=== PATIENT | female | born 1995 | race African-American/Black ===

== ENCOUNTER 2017-08-17 08:49 | Observation (INO) | payer OTHER, MEDICAID, SELFPAY ==
[2017-08-17] VITALS (10 sets, daily range): BP systolic 98–148; BP diastolic 66–106; PULSE 76–95; RESP 14–18; TEMP 37.3–38; O2SAT 98–100
--- NOTE | 2017-08-17 | PATH_ITS ---
[facility] Accession Number: [id number] . 01 Material submitted: . ENDOMETRIAL CURETTINGS . 02 Diagnosis: Endometrial Curettings: Fragments of proliferative endometrium with focal changes suggestive of exogenous hormone effect and changes of glandular and stromal breakdown, negative for atypia. [facility]/08/20/2017 . 02 Electronically signed: . Juan Quiroz MD, Pathologist NPI- [id number] . 01 Gross description: . Received one formalin-filled container, labeled with the patient's name, labeled endometrial curettings. The specimen consists of approximately a 1 cc aggregate of tissue, mucoid material, and blood, which is filtered, wrapped, and entirely submitted in one cassette. ([id number]) /FRR . 02 Pathologist provided ICD-10: N92.5 . 02 CPT . 113116 Performed at: 01 [facility] [address] [facility], [place], [place] [id number] MD Aniket Hamilton MD Phone: [phone] Performed at: 02 [facility] [address] [place], [place] [id number] MD Oren Randhawa MD Phone: [phone]
--- NOTE | 2017-08-17 08:56 | ED.FEMALEGU ---
HPI - Female Genitourinary General Chief complaint: Vaginal Bleeding Stated complaint: Pain/Vaginal bleeding Time Seen by Provider: 08/17/17 08:56 Source: patient and family Mode of arrival: ambulatory Limitations: no limitations History of Present Illness HPI Narrative: Patient presents to the emergency department with a chief complaint of episodic vaginal bleeding for greater than 70 days, now in the setting of pelvic pain. She initially was evaluated by [facility] and had an outpatient ultrasound noting a questionable mass in her endometrium. She was encouraged to get an MRI for further characterization. She followed up with the emergency department at [facility] last week and had examination including lab work, but no repeat imaging. She was prescribed hydrocodone which she ran out of a few days ago. Patient NPO since 1999 last night. MD Complaint: vaginal bleeding and pelvic pain Onset (ago): day(s) () Location: suprapubic Female Urogenital Radiation: Non-Radiating Severity: moderate Severity scale (1-10): 5 Quality: Aching and Cramping Duration: constant Relieving factors: none Exacerbating factors: none Urinary symptoms: Difficulty Urinating Vaginal discharge: dark blood Patient : No Related Data : 0 Home Medications Medication Instructions Recorded Confirmed No Known Home Medications 08/17/17 08/17/17 Allergies Allergy/AdvReac Type Severity Reaction Status Date / Time No Known Drug Allergies Allergy Verified 08/17/17 09:06 Review of Systems Review of Systems All systems reviewed & are unremarkable except as noted in HPI and below Constitutional Denies chills, Denies fever(s), Denies lethargy and Denies weakness Eyes Denies change in vision, Denies eye discharge, Denies irritation and Denies loss of vision ENT Ears, Nose, Mouth, and Throat: Denies change in voice, Denies neck pain and Denies sore throat Cardiovascular Denies chest pain, Denies irregular heart rhythm, Denies lightheadedness, Denies palpitations, Denies dyspnea, Denies dyspnea on exertion and Denies orthopnea Respiratory Denies cough, Denies dyspnea, Denies dyspnea on exertion and Denies wheezing Genitourinary Reports abnormal vaginal bleeding, Reports pelvic pain and Denies vaginal discharge Musculoskeletal Denies neck pain Integumentary/Breasts Denies pruritus, Denies erythema, Denies rash and Denies wounds Neurologic Denies loss of vision and Denies weakness Endocrine Denies palpitations Hematologic/Lymphatic Denies easy bruising Allergic/Immunologic Denies wheezing PMFSH Past Medical History Attestation statement: The following information was validated with the patient. Medical history: Reports non-contributory Psychiatric history: Reports no psych history STONEMASON history: Reports no STONEMASON history : 0 Family history: Reports no significant family history and non-contributory Exam Narrative Exam Narrative: Pleasant 22-year-old female in mild distress Const General: cooperative and well developed Nutritional Appearance: well nourished Orientation: alert, awake, oriented x3 and not confused [facility] Head: normal to inspection Eyes Pupils: PERRL EOM: EOM intact bilaterally Resp Effort & Inspection: normal respiratory effort, able to speak in complete sentences, no respiratory distress and no use of accessory muscles Auscultation: clear to auscultation bilaterally, no rales, no rhonchi and no wheezes GI Inspection: non-distended Palpation: soft, no hepatosplenomegaly, No guarding, No pulsatile mass and No tender Auscultation: normal bowel sounds Other: Deferred to manager financial services Skin General: no rashes or lesions noted, No jaundice and No petechiae Extrem General: full ROM, no clubbing, cyanosis or edema, no pedal edema and no calf tenderness [facility] - Female Genitourinary Lab Data Result diagrams: 08/17/17 09:55 08/17/17 09:55 Lab Results 08/17/17 08/17/17 08/17/17 Range/Units 09:17 09:55 09:55 WBC 5.4 (4.5-11.0) X10^3/uL RBC 4.10 (4.0-5.2) X10^6/uL Hgb 11.7 L (12.0-16.0) g/dL Hct 35.0 L (36-46) % MCV 85.3 (80-100) fL MCH 28.5 (26-34) PG MCHC 33.4 (30-36) % RDW 14.5 (11.6-14.8) % Plt Count 320 (150-400) X10^3/uL Neut % (Auto) 60.7 (50-75) % Lymph % (Auto) 30.7 (25-40) % George % (Auto) 5.9 (3-14) % Eos % (Auto) 1.9 L (2-4) % Baso % (Auto) 0.8 (0-2) % Neut # (Auto) 3300 (8528-1250) /uL Sodium 145 (137-145) mmol/L Potassium 4.3 (3.4-5.1) mmol/L Chloride 109.0 H (98-107) mmol/L Carbon Dioxide 26.0 (22-32) mmol/L BUN 7.0 (7-17) mg/dL Creatinine 0.90 (0.52-1.04) mg/dL Estimated GFR > 60.0 (>60) mL/min BUN/Creatinine Ratio 7.8 (6-22) Glucose 94 (70-100) mg/dL Calcium 8.8 (8.4-10.2) mg/dL Urine RBC 5-10/hpf H (0-5/HPF) Urine WBC 1-5/hpf (0-5/HPF) Ur Squamous Epith Cells 1-5 /hpf Urine Bacteria Occasional (0-1) (None) Ur Culture Indicated? Cult not indicated Micro UA Comment Not Reportable Course Orders Ordered: ED Orders 08/17/17 09:17 Urine Microscopic Stat 08/17/17 09:55 Basic Metabolic Panel Stat Complete Blood Count AUTO DIFF Stat 08/17/17 12:07 Education, smoking cessation ONGOING Discontinued Medications Hydrocodone Bitart/Acetaminophen ([place] 5/325) 1 tab PO NOW ONE Stop: 08/17/17 09:43 Last Admin: 08/17/17 10:28 Dose: Hydrocodone Bitart/Acetaminophen (Vicodin Prepack) 1 bottle MISC SEEINSTR ONE Stop: 08/17/17 10:55 Last Admin: 08/17/17 12:08 Dose: 1 bottle Ondansetron HCl (Zofran Odt Prepack) 1 bottle MISC SEEINSTR ONE Stop: 08/17/17 10:55 Last Admin: 08/17/17 12:08 Dose: 1 bottle Consultations Consultation #1: I have discussed the case with on-call gynecology today, Dr. Marcus, including ultrasound from July 26, [address] [facility]. She is calling the OR staff and will take for DC when OR time is available in a few hours Time: 10:05 Last Vital Signs Pulse 82 08/17/17 09:35 Resp 14 08/17/17 09:35 BP 121/82 H 08/17/17 09:35 Pulse Ox 99 08/17/17 09:35 Discharge Plan Departure Patient Disposition: Admitted as Observation Clinical Impression: Vaginal bleeding, Pelvic pain
[2017-08-17 10:02] LABS: Add Manual Diff / Slide Review NO; Basophils Percent Auto 0.8 % (0-2); Eosinophils Percent Auto 1.9 % (2-4); Hemoglobin 11.7 g/dL (12.0-16.0); Lymphocytes Percent Auto 30.7 % (25-40); Mean Corpuscular HGB Conc 33.4 % (30-36); Mean Corpuscular Hemoglobin 28.5 PG (26-34); Mean Corpuscular Volume 85.3 fL (80-100); Monocytes Percent Auto 5.9 % (3-14); Neutrophils Absolute Auto 3300 /uL (3000-5900); Neutrophils Percent Auto 60.7 % (50-75); Platelet Count 320 X10^3/uL (150-400); Red Cell Distribution Width 14.5 % (11.6-14.8); White Blood Cell Count 5.4 X10^3/uL (4.5-11.0)
[2017-08-17 10:12] LABS: Bacteria Urine Occasional (0-1); Culture Indicated Urine Cult Not Indicated; RBC Urine 5-10/HPF (0-5/HPF); Squamous Epithelial Cell Urine 1-5 /HPF; WBC Urine 1-5/HPF (0-5/HPF)
[2017-08-17 10:19] LABS: BUN Creatinine Ratio 7.8 (6-22); Calcium 8.8 mg/dL (8.4-10.2); Estimated Glomerular Filt Rate > 60.0 mL/min (>60); Glucose 94 mg/dL (70-100); HEMOLYSIS < 15 (0-50); Potassium 4.3 mmol/L (3.4-5.1); Sodium 145 mmol/L (137-145)
--- NOTE | 2017-08-17 11:53 | PM.GYNHP.1 ---
History of Present Illness Reason for admission: vaginal bleeding Narrative: Sherrill Larose is a 22 year old female 0 who presented to the emergency department with 70 days of vaginal bleeding.\ She has been seen at [facility]. She had an ultrasound done there on 07/26/2017. The uterus measured 8.3 x 3.2 x 5.0 cm. It was anteverted. The endometrium measured 12.4 mm. It was irregular and thickened. There was a suggestion of a hypoechoic mass with flow invading the endometrium measuring 3.4 x 1.8 x 2.5 cm. The right ovary measured 4.6 x 3.2 x 3.1 cm. The left ovary measured 3.9 x 2.0 x 2.2 cm. There was no free fluid in the cul-de-sac. The patient was placed on medroxyprogesterone 10 mg t.i.d.. This has not helped with the bleeding and has increased her pain. She is scheduled for an MRI at [facility] on 08/22/2017. [facility] Medical History [place] teeth extracted (Acute) Social History lives independently: Yes marital status: number of children: 0 household members: spouse Smoking Status: Never smoker passive smoking exposure: No alcohol intake: never substance use type: marijuana Meds Home Medications Medication Instructions Recorded Confirmed Type No Known Home Medications 08/17/17 08/17/17 History Allergies Allergy/AdvReac Type Severity Reaction Status Date / Time No Known Drug Allergies Allergy Verified 08/17/17 09:06 Review of Systems Constitutional Constitutional: Reports as per HPI Gastrointestinal Gastrointestinal: Reports abdominal pain, Reports bloating and Reports cramping Genitourinary Genitourinary: Reports menorrhagia and Reports dysmenorrhea Exam Vital Signs (past 8 hours): Vital Signs - 8 hr 08/17/17 09:01 08/17/17 09:35 Pulse Rate 81 82 Respiratory Rate 15 14 Blood Pressure 148/106 H Blood Pressure [Left Arm] 121/82 H Pulse Oximetry 99 99 Pulse Oximetry 99 Oxygen Delivery Method Room Air Narrative Exam Narrative: Generally: A well-developed, well-nourished female, no acute distress Lungs: Clear to auscultation bilaterally Cardiovascular: Regular rate and rhythm Abdomen: Soft and flat. No masses palpable. No hepatosplenomegaly. Bimanual exam: An 8 week size anteverted uterus. No adnexal masses or tenderness. Extremities: Negative Homans, no edema Objective Labs Result Diagrams: 08/17/17 09:55 08/17/17 09:55 Labs: Laboratory Results - last 24 hr 08/17/17 08/17/17 08/17/17 09:17 09:55 09:55 WBC 5.4 RBC 4.10 Hgb 11.7 L Hct 35.0 L MCV 85.3 MCH 28.5 MCHC 33.4 RDW 14.5 Plt Count 320 Neut % (Auto) 60.7 Lymph % (Auto) 30.7 [place] % (Auto) 5.9 Eos % (Auto) 1.9 L Baso % (Auto) 0.8 Neut # (Auto) 3300 Sodium 145 Potassium 4.3 Chloride 109.0 H Carbon Dioxide 26.0 BUN 7.0 Creatinine 0.90 Estimated GFR > 60.0 BUN/Creatinine Ratio 7.8 Glucose 94 Calcium 8.8 Urine RBC 5-10/hpf H Urine WBC 1-5/hpf Ur Squamous Epith Cells 1-5 /hpf Urine Bacteria Occasional (0-1) Ur Culture Indicated? Cult not indicated Micro UA Comment Not Reportable Assessment & Plan (1) Menometrorrhagia: Current visit: Yes Status: Acute Assessment: 22-year-old 0 with menometrorrhagia and a uterine mass on ultrasound that invades the myometrium Plan: D&C hysteroscopy The risks, benefits, and alternatives to the procedure were explained to the patient. The risks including bleeding, infection, and uterine perforation. She understands these risks and agrees to proceed. A full capital P AR-Q was held and consent form was signed.
--- NOTE | 2017-08-17 12:01 | P.HPOB_ITS ---
History of Present Illness Reason for admission: vaginal bleeding Narrative: Sherrill Larose is a 22 year old female 0 who presented to the emergency department with 70 days of vaginal bleeding.\ She has been seen at [facility]. She had an ultrasound done there on 07/26/2017. The uterus measured 8.3 x 3.2 x 5.0 cm. It was anteverted. The endometrium measured 12.4 mm. It was irregular and thickened. There was a suggestion of a hypoechoic mass with flow invading the endometrium measuring 3.4 x 1.8 x 2.5 cm. The right ovary measured 4.6 x 3.2 x 3.1 cm. The left ovary measured 3.9 x 2.0 x 2.2 cm. There was no free fluid in the cul-de-sac. The patient was placed on medroxyprogesterone 10 mg t.i.d.. This has not helped with the bleeding and has increased her pain. She is scheduled for an MRI at [facility] on 08/22/2017. [facility] Medical History [place] teeth extracted (Acute) Social History lives independently: Yes marital status: number of children: 0 household members: spouse Smoking Status: Never smoker passive smoking exposure: No alcohol intake: never substance use type: marijuana Meds Home Medications Medication Instructions Recorded Confirmed Type No Known Home Medications 08/17/17 08/17/17 History Allergies Allergy/AdvReac Type Severity Reaction Status Date / Time No Known Drug Allergies Allergy Verified 08/17/17 09:06 Review of Systems Constitutional Constitutional: Reports as per HPI Gastrointestinal Gastrointestinal: Reports abdominal pain, Reports bloating and Reports cramping Genitourinary Genitourinary: Reports menorrhagia and Reports dysmenorrhea Exam Vital Signs (past 8 hours): Vital Signs - 8 hr 3 08/17/17 09:01 08/17/17 09:35 Pulse Rate 81 82 Respiratory Rate 15 14 Blood Pressure 148/106 H Blood Pressure [Left Arm] 121/82 H Pulse Oximetry 99 99 Pulse Oximetry 99 Oxygen Delivery Method Room Air Narrative Exam Narrative: Generally: A well-developed, well-nourished female, no acute distress Lungs: Clear to auscultation bilaterally Cardiovascular: Regular rate and rhythm Abdomen: Soft and flat. No masses palpable. No hepatosplenomegaly. Bimanual exam: An 8 week size anteverted uterus. No adnexal masses or tenderness. Extremities: Negative Homans, no edema Objective Labs Result Diagrams: 08/17/17 09:55 08/17/17 09:55 Labs: Laboratory Results - last 24 hr 08/17/17 08/17/17 08/17/17 09:17 09:55 09:55 WBC 5.4 RBC 4.10 Hgb 11.7 L Hct 35.0 L MCV 85.3 MCH 28.5 MCHC 33.4 RDW 14.5 Plt Count 320 Neut % (Auto) 60.7 Lymph % (Auto) 30.7 [place] % (Auto) 5.9 Eos % (Auto) 1.9 L Baso % (Auto) 0.8 Neut # (Auto) 3300 Sodium 145 Potassium 4.3 Chloride 109.0 H Carbon Dioxide 26.0 BUN 7.0 Creatinine 0.90 Estimated GFR > 60.0 BUN/Creatinine Ratio 7.8 Glucose 94 Calcium 8.8 Urine RBC 5-10/hpf H Urine WBC 1-5/hpf Ur Squamous Epith Cells 1-5 /hpf Urine Bacteria Occasional (0-1) Ur Culture Indicated? Cult not indicated Micro UA Comment Not Reportable Assessment & Plan (1) Menometrorrhagia: Current visit: Yes Status: Acute Assessment: 22-year-old 0 with menometrorrhagia and a uterine mass on ultrasound that invades the myometrium Plan: D&C hysteroscopy The risks, benefits, and alternatives to the procedure were explained to the patient. The risks including bleeding, infection, and uterine perforation. She understands these risks and agrees to proceed. A full capital P AR-Q was held and consent form was signed.
--- NOTE | 2017-08-17 12:01 | PM.PREOP ---
Pre-operative Note Interval Note Pre-op Check: History & Physical exam performed today
[2017-08-17] MEDS: HYDROCODONE/ACET 5/325 PREPACK 1 BOTTLE MISC (12:08)
[2017-08-17] MEDS: ONDANSETRON 4 MG ODT PREPACK 1 BOTTLE MISC (12:08)
--- NOTE | 2017-08-17 12:08 | PC.NURSE ---
Prepack of zofran and norco given to patient for after care. Concern is that by the time she is discharged from PACU pharmacy will be closed. Pt verbalized understanding of use. Zofran RX# [id number] [place] RX #[id number]
--- NOTE | 2017-08-17 12:30 | ED_ITS ---
HPI - Female Genitourinary General Chief complaint: Vaginal Bleeding Stated complaint: Pain/Vaginal bleeding Time Seen by Provider: 08/17/17 08:56 Source: patient and family Mode of arrival: ambulatory Limitations: no limitations History of Present Illness HPI Narrative: Patient presents to the emergency department with a chief complaint of episodic vaginal bleeding for greater than 70 days, now in the setting of pelvic pain. She initially was evaluated by [facility] and had an outpatient ultrasound noting a questionable mass in her endometrium. She was encouraged to get an MRI for further characterization. [facility] and had examination including lab work, but no repeat imaging. She was prescribed hydrocodone which she ran out of a few days ago. Patient NPO since 1999 last night. MD Complaint: vaginal bleeding and pelvic pain Onset (ago): day(s) () Location: suprapubic Female Urogenital Radiation: Non-Radiating Severity: moderate Severity scale (1-10): 5 Quality: Aching and Cramping Duration: constant Relieving factors: none Exacerbating factors: none Urinary symptoms: Difficulty Urinating Vaginal discharge: dark blood Patient : No Related Data : 0 Home Medications Medication Instructions Recorded Confirmed No Known Home Medications 08/17/17 08/17/17 Allergies Allergy/AdvReac Type Severity Reaction Status Date / Time No Known Drug Allergies Allergy Verified 08/17/17 09:06 Review of Systems Review of Systems All systems reviewed & are unremarkable except as noted in HPI and below Constitutional Denies chills, Denies fever(s), Denies lethargy and Denies weakness Eyes Denies change in vision, Denies eye discharge, Denies irritation and Denies loss of vision ENT Ears, Nose, Mouth, and Throat: Denies change in voice, Denies neck pain and Denies sore throat Cardiovascular Denies chest pain, Denies irregular heart rhythm, Denies lightheadedness, Denies palpitations, Denies dyspnea, Denies dyspnea on exertion and Denies orthopnea Respiratory Denies cough, Denies dyspnea, Denies dyspnea on exertion and Denies wheezing Genitourinary Reports abnormal vaginal bleeding, Reports pelvic pain and Denies vaginal discharge Musculoskeletal Denies neck pain Integumentary/Breasts Denies pruritus, Denies erythema, Denies rash and Denies wounds Neurologic Denies loss of vision and Denies weakness Endocrine Denies palpitations Hematologic/Lymphatic Denies easy bruising Allergic/Immunologic Denies wheezing PMFSH Past Medical History Attestation statement: The following information was validated with the patient. Medical history: Reports non-contributory Psychiatric history: Reports no psych history TELETYPESETTER MONITOR history: Reports no TELETYPESETTER MONITOR history : 0 Family history: Reports no significant family history and non-contributory Exam Narrative Exam Narrative: Pleasant 22-year-old female in mild distress Const General: cooperative and well developed Nutritional Appearance: well nourished Orientation: alert, awake, oriented x3 and not confused [facility] Head: normal to inspection Eyes Pupils: PERRL EOM: EOM intact bilaterally Resp Effort & Inspection: normal respiratory effort, able to speak in complete sentences, no respiratory distress and no use of accessory muscles Auscultation: clear to auscultation bilaterally, no rales, no rhonchi and no wheezes GI Inspection: non-distended Palpation: soft, no hepatosplenomegaly, No guarding, No pulsatile mass and No tender Auscultation: normal bowel sounds Other: Deferred to marine railway operator Skin General: no rashes or lesions noted, No jaundice and No petechiae Extrem General: full ROM, no clubbing, cyanosis or edema, no pedal edema and no calf tenderness [facility] - Female Genitourinary Lab Data Result diagrams: 08/17/17 09:55 08/17/17 09:55 Lab Results 08/17/17 08/17/17 08/17/17 Range/Units 09:17 09:55 09:55 WBC 5.4 (4.5-11.0) X10^3/uL RBC 4.10 (4.0-5.2) X10^6/uL Hgb 11.7 L (12.0-16.0) g/dL Hct 35.0 L (36-46) % MCV 85.3 (80-100) fL MCH 28.5 (26-34) PG MCHC 33.4 (30-36) % RDW 14.5 (11.6-14.8) % Plt Count 320 (150-400) X10^3/uL Neut % (Auto) 60.7 (50-75) % Lymph % (Auto) 30.7 (25-40) % [place] % (Auto) 5.9 (3-14) % Eos % (Auto) 1.9 L (2-4) % Baso % (Auto) 0.8 (0-2) % Neut # (Auto) 3300 (9776-2164) /uL Sodium 145 (137-145) mmol/L Potassium 4.3 (3.4-5.1) mmol/L Chloride 109.0 H (98-107) mmol/L Carbon Dioxide 26.0 (22-32) mmol/L BUN 7.0 (7-17) mg/dL Creatinine 0.90 (0.52-1.04) mg/dL Estimated GFR > 60.0 (>60) mL/min BUN/Creatinine Ratio 7.8 (6-22) Glucose 94 (70-100) mg/dL Calcium 8.8 (8.4-10.2) mg/dL Urine RBC 5-10/hpf H (0-5/HPF) Urine WBC 1-5/hpf (0-5/HPF) Ur Squamous Epith Cells 1-5 /hpf Urine Bacteria Occasional (0-1) (None) Ur Culture Indicated? Cult not indicated Micro UA Comment Not Reportable Course Orders Ordered: ED Orders 08/17/17 09:17 Urine Microscopic Stat 08/17/17 09:55 Basic Metabolic Panel Stat Complete Blood Count AUTO DIFF Stat 08/17/17 12:07 Education, smoking cessation ONGOING Discontinued Medications Hydrocodone Bitart/Acetaminophen ([place] 5/325) 1 tab PO NOW ONE Stop: 08/17/17 09:43 Last Admin: 08/17/17 10:28 Dose: Hydrocodone Bitart/Acetaminophen (Vicodin Prepack) 1 bottle MISC SEEINSTR ONE Stop: 08/17/17 10:55 Last Admin: 08/17/17 12:08 Dose: 1 bottle Ondansetron HCl (Zofran Odt Prepack) 1 bottle MISC SEEINSTR ONE Stop: 08/17/17 10:55 Last Admin: 08/17/17 12:08 Dose: 1 bottle Consultations Consultation #1: I have discussed the case with on-call gynecology today, Dr. Marcus, including ultrasound from July 26, 2017 at [facility]. She is calling the OR staff and will take for DC when OR time is available in a few hours Time: 10:05 Last Vital Signs Pulse 82 08/17/17 09:35 Resp 14 08/17/17 09:35 BP 121/82 H 08/17/17 09:35 Pulse Ox 99 08/17/17 09:35 Discharge Plan Departure Patient Disposition: Admitted as Observation Clinical Impression: Vaginal bleeding, Pelvic pain
--- NOTE | 2017-08-17 13:46 | PC.NURSE ---
NPO since 2099 last night, 08/16/17.
--- NOTE | 2017-08-17 14:38 | PC.NURSE ---
Called OR to get update on ETA of when patient will be taken over. Was advised about an 1-1.5 hr. Updated patient.
--- NOTE | 2017-08-17 15:45 | PC.NURSE ---
Patient c/o 11/[address] Jean Baptiste made aware. Holding pain medication until Dr. Jean Baptiste can get in touch anesthesia.
--- NOTE | 2017-08-17 17:14 | SUR.OPER ---
Lithotomy on padded OR bed, head on pillow, arms secured on padded arm boards at <90 degrees abduction. Legs secured in padded yellow fins stirrups.
--- NOTE | 2017-08-18 13:07 | PM.GYNOP.1 ---
Operative Date/Time/Diagnoses - Date of procedure: 08/17/17 Time of procedure: 16:10 Pre-op diagnosis: Menometrorrhagia Post-op diagnosis: same Procedure: Procedures Operation Date: 08/17/17 14:00 Actual Procedures Side Surgeon p Dilation and Curettage Betty Marcus MD Indications: Menometrorrhagia Thickened lining on ultrasound Mass invading the myometrium Surgeon: Betty Marcus Anesthesia Type: General (LMA) Operative Notes Findings: 6 week size anteverted uterus Both fallopian tube ostia observed Thickened endometrial lining No polyps or fibroids Closure Type: not applicable Specimen(s): endometrial curettings Estimated blood loss (mL): 10 Blood products transfused: none Procedure in detail: After informed consent was obtained, the patient was taken to the operating room where she was placed in the dorsal supine position. After adequate LMA general anesthesia was achieved, she was placed in the dorsal lithotomy position, and prepped and draped in the usual sterile fashion. A bivalve speculum was placed into the vagina and the anterior lip of the cervix grasped with a single-tooth tenaculum. The cervical os was sequentially dilated to the # 9 Hegar dilator. The hysteroscope passed easily into the endometrial cavity. Initial inspection with the hysteroscope revealed both fallopian tube ostia. There was thickened endometrium throughout. No fibroids or polyps were visualized. The hysteroscope was removed from the uterus. Gentle sharp curettage was performed yielding a moderate amount of endometrial curettings. The instruments were removed from the uterus. The single-tooth tenaculum was removed from the anterior lip of the cervix. The bivalve speculum was removed from the vagina. Sponge, lap, and instrument counts were correct x2. The patient tolerated the procedure well, and was taken to PACU in stable condition. Complications: none Post-operative Condition: stable Disposition: PACU Plan for aftercare: Home after recovery
== END 2017-08-17 17:41 | disposition home or self-care (01) ==
LOC: ED 11:06 → AC 09-13 15:44
PROVIDERS: Admitting Provider Obstetrics & Gynecology; Emergency Provider Emergency Medicine; Visit Provider Obstetrics & Gynecology
PROC: (CPT 58120; principal; 2017-08-17 14:00)
DX: N92.1 Excessive and frequent menstruation with irregular cycle (principal); N93.9 Abnormal uterine and vaginal bleeding, unspecified; R10.2 Pelvic and perineal pain
CPT/HCPCS: 58558; 36415; 58120; 80048; 81003; 81015; 81025; 82962; 85025; 99283; G0378; J1100; J1885; J2405; J2704; J3010

== ENCOUNTER 2017-08-17 17:07 | Emergency (ER) | payer OTHER, MEDICAID, SELFPAY | END 2017-08-17 17:17 | disposition left against medical advice (07) | DX: N93.9 Abnormal uterine and vaginal bleeding, unspecified (principal) | CPT/HCPCS: 99281 ==

== ENCOUNTER 2018-02-19 14:59 | Emergency (ER) | payer OTHER, MEDICAID, SELFPAY ==
[2018-02-19 15:05] VITALS: BP 139/87; PULSE 85; RESP 18; TEMP 37; O2SAT 97; BMI 41.3
--- NOTE | 2018-02-19 15:55 | ED.NAVMDI ---
HPI - Nausea/Vomiting/Diarrhea <AYLEEN Gama - Last Filed: 02/19/18 18:29> General Chief complaint: Nausea/Vomiting/Diarrhea Stated complaint: STOMACH PAIN, DIARRHEA, HX OF FIBROIDS Time Seen by Provider: 02/19/18 15:49 Source: patient Mode of arrival: ambulatory Limitations: no limitations History of Present Illness HPI Narrative: pt c/o diarrhea and abd pain x 2 weeks or longer MD complaint: diarrhea Onset (ago): week(s) (2) Description of Vomiting: watery Description of Diarrhea: watery Associated Abdominal Pain: Yes Location of pain: diffuse Severity: mild Quality: cramping and other (feels like it balls up) Pain Consistency: intermittent Relieving factors: none Exacerbating factors: none Associated symptoms: denies other symptoms Related Data Home Medications Medication Instructions Recorded Confirmed No Known Home Medications 02/19/18 02/19/18 Allergies Allergy/AdvReac Type Severity Reaction Status Date / Time No Known Drug Allergies Allergy Verified 02/19/18 15:10 Review of Systems <AYLEEN Gama - Last Filed: 02/19/18 18:29> Constitutional Reports as per HPI and Reports system reviewed and no additional complaints, except as docu Cardiovascular Denies chest pain and Denies dyspnea Respiratory Denies dyspnea Gastrointestinal Gastrointestinal: Reports as per HPI, Reports abdominal pain, Denies melena, Denies hematochezia, Reports change in bowel habits, Denies change in stool character, Denies constipation, Denies fecal incontinence, Reports diarrhea, Denies nausea and Denies vomiting Genitourinary Denies dysuria Musculoskeletal Denies back pain Exam <AYLEEN Gama - Last Filed: 02/19/18 18:29> Initial Vital Signs Initial Vital Signs: Vital Signs Temperature 98.6 F 02/19/18 15:05 Pulse Rate 85 02/19/18 15:05 Respiratory Rate 18 02/19/18 15:05 Blood Pressure 139/87 02/19/18 15:05 Pulse Oximetry 97 02/19/18 15:05 Const General: cooperative, healthy appearing, comfortable and well developed Nutritional Appearance: average body habitus Orientation: alert, awake and oriented x3 Resp Effort & Inspection: normal respiratory effort and able to speak in complete sentences Auscultation: clear to auscultation bilaterally Cardio Rate: regular rate Rhythm: regular rhythm Heart Sounds: S1 normal and S2 normal GI Inspection: normal to inspection Palpation: soft and No tender Auscultation: normal bowel sounds Back/Spine/Pelvis Cervical Spine: cervical ROM normal Thoracic/Lumbar Spine: thoraco-lumbar ROM limited Skin General: no rashes or lesions noted, elasticity normal, turgor normal and warm Neuro General: alert, awake and oriented x3 Cranial Nerves: CN's II-XI intact bilaterally Cognition: normal cognition Speech: speech normal Motor: muscle tone normal throughout Sensory Exam: no sensory deficits noted Psych Appearance: grossly normal and well kempt Mental Status: mental status grossly normal Speech and Movement: speech and movement normal Mood: congruent mood Affect: normal affect Attitude: cooperative Thought Process: normal Thought Content: normal Judgment: judgment good <Elissa Horn DO - Last Filed: 02/20/18 09:47> Initial Vital Signs Initial Vital Signs: Vital Signs Temperature 98.6 F 02/19/18 15:05 Pulse Rate 85 02/19/18 15:05 Respiratory Rate 18 02/19/18 15:05 Blood Pressure 139/87 02/19/18 15:05 Pulse Oximetry 97 02/19/18 15:05 Course <AYLEEN Gama - Last Filed: 02/19/18 18:29> Course Narrative: results and dc plan discussed, pt to f/u with her pcp if s/s continue Orders Ordered: Discontinued Medications Sodium Chloride (Normal Saline 0.9%) 1,000 mls @ 1,000 mls/hr IV BOLUS ONE Stop: 02/19/18 16:59 Last Admin: 02/19/18 16:40 Dose: 1,000 mls/hr Vital Signs - 8 hr 02/19/18 15:05 02/19/18 16:52 Temperature 98.6 F Pulse Rate 85 Pulse Rate [Orthostatic Lying] 83 Pulse Rate [Orthostatic Sitting] 70 Pulse Rate [Orthostatic Standing] 81 Respiratory Rate 18 Blood Pressure 139/87 Blood Pressure [Orthostatic Lying] 120/72 Blood Pressure [Orthostatic Sitting] 141/97 H Blood Pressure [Orthostatic Standing] 134/99 H Pulse Oximetry 97 <Elissa Horn DO - Last Filed: 02/20/18 09:47> Orders Ordered: Discontinued Medications Sodium Chloride (Normal Saline 0.9%) 1,000 mls @ 1,000 mls/hr IV BOLUS ONE Stop: 02/19/18 16:59 Last Admin: 02/19/18 16:40 Dose: 1,000 mls/hr Vital Signs - 8 hr 02/19/18 15:05 02/19/18 16:52 Temperature 98.6 F Pulse Rate 85 Pulse Rate [Orthostatic Lying] 83 Pulse Rate [Orthostatic Sitting] 70 Pulse Rate [Orthostatic Standing] 81 Respiratory Rate 18 Blood Pressure 139/87 Blood Pressure [Orthostatic Lying] 120/72 Blood Pressure [Orthostatic Sitting] 141/97 H Blood Pressure [Orthostatic Standing] 134/99 H Pulse Oximetry 97 MDM - Nausea/Vomiting/Diarrhea <AYLEEN Gama - Last Filed: 02/19/18 18:29> Differential Diagnosis Likely traveler's diarrhea, food poisoning, gastroenteritis, clostridium difficile infection, dehydration and other Lab Data Result diagrams: 02/19/18 16:40 02/19/18 16:40 Lab Results 02/19/18 02/19/18 Range/Units 16:40 16:40 WBC 7.0 (4.5-11.0) X10^3/uL RBC 4.49 (4.0-5.2) X10^6/uL Hgb 12.8 (12.0-16.0) g/dL Hct 37.9 (36-46) % MCV 84.4 (80-100) fL MCH 28.5 (26-34) PG MCHC 33.8 (30-36) % RDW 14.7 (11.6-14.8) % Plt Count 361 (150-400) X10^3/uL Neut % (Auto) 65.8 (50-75) % Lymph % (Auto) 28.9 (25-40) % Phillips % (Auto) 3.8 (3-14) % Eos % (Auto) 0.5 L (2-4) % Baso % (Auto) 1.0 (0-2) % Neut # (Auto) 4600 (7296-7147) /uL Sodium 143 (137-145) mmol/L Potassium 4.0 (3.4-5.1) mmol/L Chloride 106 (98-107) mmol/L Carbon Dioxide 26 (22-32) mmol/L BUN 11 (7-17) mg/dL Creatinine 0.90 (0.52-1.04) mg/dL Estimated GFR > 60.0 (>60) mL/min BUN/Creatinine Ratio 12.2 (6-22) Glucose 81 (70-100) mg/dL Calcium 9.4 (8.4-10.2) mg/dL Total Bilirubin 0.5 (0.2-1.3) mg/dL AST 30 (14-36) IU/L ALT 20 (9-52) IU/L Alkaline Phosphatase 75 (38-126) U/L Total Protein 8.7 H (6.3-8.2) g/dL Albumin 4.7 (3.5-5.0) g/dL Globulin 4.0 (1.7-4.1) g/dL Albumin/Globulin Ratio 1.2 (1.0-2.8) Amylase 79 (30-110) U/L Lipase 70 (23-300) U/L Point of Care Testing Test Results Negative Urine Dip Bedside Urine Glucose Negative Bedside Urine Bilirubin - Negative Bedside Urine Ketone - Negative Urine Specific [place] 1.030 Bedside Urine Occult Blood - Negative Bedside Urine pH 6.0 Bedside Urine Protein - Negative Bedside Urine Urobilinogen - Negative Bedside Urine Nitrite - Negative Bedside Urine Leukocytes - Negative Esterase <Elissa Horn, DO - Last Filed: 02/20/18 09:47> Lab Data Lab Results 02/19/18 02/19/18 Range/Units 16:40 16:40 WBC 7.0 (4.5-11.0) X10^3/uL RBC 4.49 (4.0-5.2) X10^6/uL Hgb 12.8 (12.0-16.0) g/dL Hct 37.9 (36-46) % MCV 84.4 (80-100) fL MCH 28.5 (26-34) PG MCHC 33.8 (30-36) % RDW 14.7 (11.6-14.8) % Plt Count 361 (150-400) X10^3/uL Neut % (Auto) 65.8 (50-75) % Lymph % (Auto) 28.9 (25-40) % Phillips % (Auto) 3.8 (3-14) % Eos % (Auto) 0.5 L (2-4) % Baso % (Auto) 1.0 (0-2) % Neut # (Auto) 4600 (3818-2503) /uL Sodium 143 (137-145) mmol/L Potassium 4.0 (3.4-5.1) mmol/L Chloride 106 (98-107) mmol/L Carbon Dioxide 26 (22-32) mmol/L BUN 11 (7-17) mg/dL Creatinine 0.90 (0.52-1.04) mg/dL Estimated GFR > 60.0 (>60) mL/min BUN/Creatinine Ratio 12.2 (6-22) Glucose 81 (70-100) mg/dL Calcium 9.4 (8.4-10.2) mg/dL Total Bilirubin 0.5 (0.2-1.3) mg/dL AST 30 (14-36) IU/L ALT 20 (9-52) IU/L Alkaline Phosphatase 75 (38-126) U/L Total Protein 8.7 H (6.3-8.2) g/dL Albumin 4.7 (3.5-5.0) g/dL Globulin 4.0 (1.7-4.1) g/dL Albumin/Globulin Ratio 1.2 (1.0-2.8) Amylase 79 (30-110) U/L Lipase 70 (23-300) U/L Point of Care Testing Test Results Negative Urine Dip Bedside Urine Glucose Negative Bedside Urine Bilirubin - Negative Bedside Urine Ketone - Negative Urine Specific [place] 1.030 Bedside Urine Occult Blood - Negative Bedside Urine pH 6.0 Bedside Urine Protein - Negative Bedside Urine Urobilinogen - Negative Bedside Urine Nitrite - Negative Bedside Urine Leukocytes - Negative Esterase Discharge Plan Departure Patient Disposition: Home Clinical Impression: Diarrhea, Abdominal pain Discharge Date/Time: 02/19/18 17:46 Interventions: ED Discharge Assessment Last Done: 02/19/18 17:44 Instructions: Diarrhea, Acute Abdominal Pain Prescriptions: No Action No Known Home Medications RF: 0 Referrals: Dmitriy Mercado [Primary Care Provider] - (in approx 3 days if symptoms persist) <Elissa Horn DO - Last Filed: 02/20/18 09:47> Cosign ED Attending Cosignature Attestation: I was immediately available in the department for consultation. Documentation has been reviewed. I agree with assessment and plan.
[2018-02-19] MEDS: SODIUM CHLORIDE 0.9% 1,000 ML 1000 ML IV (16:40)
[2018-02-19 16:47] LABS: Add Manual Diff / Slide Review NO; Eosinophils Percent Auto 0.5 % (2-4); Hematocrit 37.9 % (36-46); Hemoglobin 12.8 g/dL (12.0-16.0); Lymphocytes Percent Auto 28.9 % (25-40); Mean Corpuscular HGB Conc 33.8 % (30-36); Mean Corpuscular Hemoglobin 28.5 PG (26-34); Mean Corpuscular Volume 84.4 fL (80-100); Monocytes Percent Auto 3.8 % (3-14); Neutrophils Absolute Auto 4600 /uL (3000-5900); Neutrophils Percent Auto 65.8 % (50-75); Platelet Count 361 X10^3/uL (150-400); Red Blood Cell Count 4.49 X10^6/uL (4.0-5.2); Red Cell Distribution Width 14.7 % (11.6-14.8)
[2018-02-19 16:52] VITALS: BP 120/72; BP 134/99; BP 141/97; PULSE 70; PULSE 81; PULSE 83
[2018-02-19 16:59] LABS: Alanine Aminotransferase 20 IU/L (9-52); Albumin 4.7 g/dL (3.5-5.0); Albumin Globulin Ratio 1.2 (1.0-2.8); Alkaline Phosphatase 75 U/L (38-126); Amylase 79 U/L (30-110); Aspartate Aminotransferase 30 IU/L (14-36); BUN Creatinine Ratio 12.2 (6-22); Bilirubin Total 0.5 mg/dL (0.2-1.3); Blood Urea Nitrogen 11 mg/dL (7-17); Calcium 9.4 mg/dL (8.4-10.2); Carbon Dioxide 26 mmol/L (22-32); Chloride 106 mmol/L (98-107); Estimated Glomerular Filt Rate > 60.0 mL/min (>60); Glucose 81 mg/dL (70-100); HEMOLYSIS < 15 (0-50); Lipase 70 U/L (23-300); Sodium 143 mmol/L (137-145); Total Protein 8.7 g/dL (6.3-8.2)
--- NOTE | 2018-03-12 22:58 | PC.NURSE ---
Late entry: IV Bolus stopped at 1715. Full 1000 mL administered.
== END 2018-02-19 17:46 | disposition home or self-care (01) ==
PROVIDERS: Emergency Provider Nurse Practitioner; Family Provider Physician Assistant Medical; PCP Physician Assistant Medical
DX: R19.7 Diarrhea, unspecified (principal); R10.9 Unspecified abdominal pain
CPT/HCPCS: 36591; 80053; 81003; 81025; 82150; 83690; 85025; 96360; 99283; 99284

== ENCOUNTER 2018-04-13 03:45 | Emergency (ER) | payer OTHER, MEDICAID, SELFPAY ==
[2018-04-13 03:54] VITALS: BP 125/103; PULSE 86; RESP 16; TEMP 36.6; O2SAT 97
[2018-04-13 04:07] LABS: WBC Urine None Seen (0-5/HPF)
[2018-04-13 04:08] LABS: Bilirubin Urine UA NEGATIVE (NEGATIVE); Color Urine UA YELLOW; Glucose Urine UA NEGATIVE (Negative); Ketones Urine UA NEGATIVE (NEGATIVE); Leukocyte Esterase Urine UA NEGATIVE (NEGATIVE); Nitrite Urine UA NEGATIVE (Negative); Occult Blood Urine UA 3+ (Negative); Protein Urine UA TRACE (Negative); Specific Gravity Urine UA 1.015 (1.000-1.035); Urobilinogen Urine UA 0.2 E.U./dL (0.2)
[2018-04-13 04:11] LABS: Appearance Urine UA Slightly Cloudy
--- NOTE | 2018-04-13 04:27 | ED_ITS ---
HPI - Female Genitourinary General Chief complaint: Urogenital-Female Stated complaint: pelvic pain x3 hours Time Seen by Provider: 04/13/18 04:12 Source: patient Mode of arrival: ambulatory Limitations: no limitations History of Present Illness HPI Narrative: 22-year-old female, nonsmoker with extensive history of intense pelvic pain with her menses presents with pelvic pain for the past 3 hr. She states she just started her menses tonight and is bleeding but certainly not any more heavy than normal. She denies any vaginal discharge. She is not dizzy nor weak or lightheaded. She had a small amount of vomit once. She denies any fever or chills. This is very similar to the pain she experiences every month but slightly intense. She took Motrin at home. She is not on any control but is sexually active MD Complaint: pelvic pain Onset (ago): hour(s) Location: suprapubic Severity: moderate Quality: Cramping Duration: intermittent Relieving factors: none Exacerbating factors: none Vaginal discharge: blood Patient : No Related Data Previous Rx's Medication Instructions Recorded hydrocodone-acetaminophen 1 tab PO Q4-6H PRN #10 tab 04/13/18 Allergies Allergy/AdvReac Type Severity Reaction Status Date / Time No Known Drug Allergies Allergy Verified 02/19/18 15:10 Review of Systems Review of Systems All systems reviewed & are unremarkable except as noted in HPI and below Constitutional Denies chills, Denies fever(s), Denies lethargy and Denies weakness Eyes Denies change in vision, Denies eye discharge, Denies irritation and Denies loss of vision ENT Ears, Nose, Mouth, and Throat: Denies change in voice, Denies neck pain and Denies sore throat Cardiovascular Denies chest pain, Denies irregular heart rhythm, Denies lightheadedness, Denies palpitations, Denies dyspnea, Denies dyspnea on exertion and Denies orthopnea Respiratory Denies cough, Denies dyspnea, Denies dyspnea on exertion and Denies wheezing Gastrointestinal Gastrointestinal: Denies abdominal pain, Denies change in bowel habits, Denies diarrhea, Denies nausea and Denies vomiting Genitourinary Denies hematuria, Reports pelvic pain, Denies flank pain, Denies urinary incontinence and Denies urinary urgency Musculoskeletal Denies neck pain Integumentary/Breasts Denies pruritus, Denies erythema, Denies rash and Denies wounds Neurologic Denies confusion, Denies loss of vision and Denies weakness Psychiatric Denies anxiety, Denies confusion, Denies depression, Denies homicidal ideation and Denies suicidal ideation Endocrine Denies palpitations Hematologic/Lymphatic Denies easy bruising Allergic/Immunologic Denies wheezing PFSH Medical History [place] teeth extracted (Acute) Social History number of children: 0 household members: spouse lives independently: Yes Smoking Status: Never smoker alcohol intake: never substance use type: marijuana Exam Narrative Exam Narrative: GEN: 22F obese female obviously in pain, rocking on the cart EYES: Pupils are equal, round, and reactive to light and accommodation. Extraoccular muscles are intact bilaterally. There is no subconjunctival hemorrhage or exudate. CHEST: Lungs are clear to auscultation bilaterally and free of wheezes, rales, or rhonchi. Heart rate is regular rhythm, there are no murmurs, clicks, rubs, or gallops. There is no chest wall tenderness. ABD: Abdomen is soft and mild suprapubic tenderness. There is no guarding or rebound. Bowel sounds are normal in all 4 quadrants. There is no mass or organomegaly. EXT: Full painless ROM of all extremities with no loss of sensation or strength. SKIN: Warm, pink, and dry. No erythema or rash Initial Vital Signs Initial Vital Signs: Vital Signs Temperature 97.9 F 04/13/18 03:54 Pulse Rate 86 04/13/18 03:54 Respiratory Rate 16 04/13/18 03:54 Blood Pressure 125/103 H 04/13/18 03:54 Pulse Oximetry 97 04/13/18 03:54 Course Orders Ordered: ED Orders 04/13/18 04:00 Urinalysis and Microscopic Stat Discontinued Medications Hydromorphone HCl (Dilaudid) 1 mg IM NOW ONE Stop: 04/13/18 04:23 Last Admin: 04/13/18 04:30 Dose: 1 mg Ondansetron HCl (Zofran Odt Prepack) 1 bottle MISC SEEINSTR ONE Stop: 04/13/18 04:22 Last Admin: 04/13/18 04:30 Dose: 1 bottle Vital Signs - 8 hr 04/13/18 03:54 04/13/18 04:57 Temperature 97.9 F Pulse Rate 86 77 Respiratory Rate 16 16 Blood Pressure 125/103 H Blood Pressure [Right Arm] 131/81 Pulse Oximetry 97 96 MDM - Female Genitourinary Lab Data Lab Results 04/13/18 Range/Units 04:00 Urine Color Yellow Urine Appearance Slightly cloudy Urine pH 8.0 (4.5-8.0) Ur Specific [place] 1.015 (1.000-1.035) Urine Protein Trace H (Negative) Urine Glucose (UA) Negative (Negative) g/dL Urine Ketones Negative (NEGATIVE) Urine Occult Blood 3+ H (Negative) Urine Nitrate Negative (Negative) Urine Bilirubin Negative (NEGATIVE) Urine Urobilinogen 0.2 (0.2) E.U./dL Ur Leukocyte Esterase Negative (NEGATIVE) Urine RBC 5-10/hpf H (0-5/HPF) Urine WBC None seen (0-5/HPF) Ur Squamous Epith Cells 1-5 /hpf Triple Phos Crystals Moderate Amorphous Sediment 4+ Urine Bacteria Few (2-10) H (None) Urine Mucus 1+ H (Negative) Ur Culture Indicated? Cult not indicated Micro UA Comment Not Reportable Point of Care Testing Test Results Negative MDM Narrative Medical decision making narrative: 22F otherwise healthy with extensive hx of severe pelvic pain with menses. Presents under circumstances which are very familiar to her. She has no other systemic findings. Bleeding is minimal. She would prefer to avoid labs and imaging at this point in time. Discharge Plan Departure Patient Disposition: Home Clinical Impression: Dysmenorrhea Discharge Date/Time: 04/13/18 05:05 Interventions: ED Discharge Assessment Last Done: 04/13/18 05:04 Instructions: DI for Dysmenorrhea Activity Restrictions/Additional Instructions: *You have been diagnosed with [ dysmenorrhea ] *What to do: *Take medications as directed *Follow up with your primary care provider in 2-3 days, call for an appointment. Let them know you were seen in the Emergency Department and that we ask that you be seen in follow up. Additionally, I have provided contact information for Dr. Marcus the special machine stitcher took him to the operating room last time. *Return to ER if you should have any new, worsening or concerning symptoms , such as fever over 101 F, persistent vomiting, worsening pain or other bothersome symptoms] Prescriptions: New hydrocodone-acetaminophen 5-325 mg tablet 1 tab PO Q4-6H PRN (Reason: pain) Qty: 10 RF: 0 Referrals: Betty Marcus MD [Physician] - Dmitriy Mercado [Primary Care Provider] -
[2018-04-13] MEDS: HYDROMORPHONE 2 MG INJ 1 MG IM (04:30)
[2018-04-13] MEDS: ONDANSETRON 4 MG ODT PREPACK 1 BOTTLE MISC (04:30)
[2018-04-13 04:31] LABS: Amorphous Sediment Urine 4+; Mucus Urine 1+ (Negative); RBC Urine 5-10/HPF (0-5/HPF); Squamous Epithelial Cell Urine 1-5 /HPF; Triple Phosphate Crystal Urine Moderate
[2018-04-13 04:32] LABS: Bacteria Urine Few (2-10); Culture Indicated Urine Cult Not Indicated
[2018-04-13 04:57] VITALS: BP 131/81; PULSE 77; RESP 16; O2SAT 96
== END 2018-04-13 05:05 | disposition home or self-care (01) ==
PROVIDERS: Emergency Provider Emergency Medicine; Family Provider Physician Assistant Medical; PCP Physician Assistant Medical
DX: N94.6 Dysmenorrhea, unspecified (principal)
CPT/HCPCS: 81001; 81025; 96372; 99283; J1170

== ENCOUNTER 2018-08-29 07:33 | Emergency (ER) | payer OTHER, MEDICAID, SELFPAY ==
[2018-08-29 07:45] VITALS: BP 119/90; PULSE 75; RESP 18; TEMP 36.6; O2SAT 97; BMI 40.1
--- NOTE | 2018-08-29 08:16 | ED.ABDPAIN ---
HPI - Abdominal Pain General Chief Complaint: Abdominal Pain Stated Complaint: ABOMDINAL PAIN Time Seen by Provider: 08/29/18 08:15 Source: patient and family () Mode of arrival: ambulatory Limitations: no limitations History of Present Illness HPI narrative: This is a 23-year-old female who states that she is having very painful.. Patient states she has irregular menses. There often uncomfortable she has trouble controlling the pain but today was much worse. She tried Motrin at home as well as some diclofenac without improvement. She is having sort of lower pelvic discomfort, she states a very mild cramping in the back but almost all in the front. It feels like her typical cramping but much more intense. She is having vaginal bleeding a little bit more increased amount today than yesterday. She denies any vaginal discharge or odor. She states she will typically have heavy periods. No fevers. She feels slightly nauseated states she threw up a couple times last night. She denies any upper abdominal pain or flank pain. She has not had any diarrhea or constipation. No urgency frequency or dysuria. She felt warm yesterday but no objective fevers. She denies any other past medical history, she denies any surgeries. She denies any allergies to medications. She is accompanied by her . Related Data Previous Rx's Medication Instructions Recorded diclofenac potassium 50 mg PO BID PRN #20 cap 08/29/18 Allergies Allergy/AdvReac Type Severity Reaction Status Date / Time No Known Drug Allergies Allergy Verified 07/29/18 16:58 Review of Systems Review of Systems ROS Unobtainable: All systems reviewed & are unremarkable except as noted in HPI and below Constitutional Denies chills, Denies fever(s) ([place] warm at home), Denies lethargy and Denies weakness Gastrointestinal Gastrointestinal: Reports abdominal pain (Lower pelvic pain), Denies change in stool character, Denies diarrhea, Reports nausea and Reports vomiting (Last night) Genitourinary Reports as per HPI, Reports abnormal menses (Typically has irregular.), Denies hematuria, Denies urinary frequency, Denies genital lesions, Denies dysuria, Reports pelvic pain (Cramping), Denies flank pain, Denies urinary incontinence, Denies urinary urgency, Denies vaginal discharge and Denies vaginal odor Musculoskeletal Denies back pain Neurologic Denies weakness PFSH Medical History [place] teeth extracted (Acute) Social History (System 07/29/18 @ 16:58 by Emma Carmona) number of children: 0 household members: spouse lives independently: Yes Smoking Status: Current every day smoker alcohol intake: never substance use type: marijuana Social History number of children: 0 household members: spouse lives independently: Yes Smoking Status: Current every day smoker alcohol intake: never substance use type: marijuana Exam Narrative Exam Narrative: GENERAL: Alert and oriented x three, well-nourished, well-appearing female in [id number] distress. HEENT: Head normocephalic, atraumatic, EOMI, pupils reactive, face symmetric, moist mucous membranes NECK: Supple, full range of motion CARDIOVASCULAR: Regular rate and rhythm without murmurs, rubs or gallops. RESPIRATORY: Breath sounds equal bilaterally, no wheezes rales or rhonchi. ABDOMEN: Soft, nontender to palpation. Normoactive bowel sounds all 4 quadrants. No guarding or rebound, rigidity, no mass : No CVA tenderness EXTREMITIES: Normal range of motion, no clubbing or edema. Neurovascularly intact NEUROLOGICAL: Cranial nerves II through XII grossly intact. Moving all extremities SKIN: Warm, dry, no petechiae, no rashes or lesions. Initial Vital Signs Initial Vital Signs: Vital Signs Temperature 97.8 F 08/29/18 07:45 Pulse Rate 75 08/29/18 07:45 Respiratory Rate 18 08/29/18 07:45 Blood Pressure 119/90 08/29/18 07:45 Pulse Oximetry 97 08/29/18 07:45 Course Orders Ordered: Discontinued Medications Ketorolac Tromethamine (Toradol) 60 mg IM NOW ONE Stop: 08/29/18 08:24 Last Admin: 08/29/18 08:27 Dose: 60 mg Morphine Sulfate (Morphine) 4 mg IM NOW ONE Stop: 08/29/18 09:25 Last Admin: 08/29/18 09:36 Dose: 4 mg Ondansetron HCl (Zofran Odt) 4 mg SL NOW ONE Stop: 08/29/18 08:24 Last Admin: 08/29/18 08:27 Dose: 4 mg Vital Signs - 8 hr 08/29/18 07:45 Temperature 97.8 F Pulse Rate 75 Respiratory Rate 18 Blood Pressure 119/90 Pulse Oximetry 97 MDM - Abdominal Pain Lab Data Attestation: I reviewed the patient's lab results. Lab Results 08/29/18 Range/Units 08:11 Urine RBC >100/hpf H (0-5/HPF) Urine WBC 0-1/hpf (0-5/HPF) Ur Squamous Epith Cells 1-5 /hpf (0-5/HPF) Triple Phos Crystals Occasional Urine Bacteria Few (2-10) H (None) Urine Mucus 1+ H (Negative) Ur Culture Indicated? Cult not indicated Point of care testing: Point of Care Testing Test Results Negative Urine Dip Bedside Urine Glucose Negative Bedside Urine Bilirubin - Negative Bedside Urine Ketone - Negative Urine Specific [place] 1.025 Bedside Urine Occult Blood +++ Bedside Urine pH 7.0 Bedside Urine Protein + 30 Bedside Urine Urobilinogen +/- 1mg Bedside Urine Nitrite - Negative Bedside Urine Leukocytes +/- 15 Esterase MDM Narrative Medical decision making narrative: Patient's urine is negative. Patient states she typically has ?bad periods? but this once worse. I suspect she is having exacerbation. Try some Toradol as well as Zofran sublingually. She has benign abdominal exam with no alarming or red flag symptoms. We will reassess after medications, patient states pain is 7/10. Requesting some additional pain medication. She refers IM over p.o. medications so offered morphine 4 mg IM. Patient is out of her diclofenac so we will refill this for her. She is starting to feel better and feels comfortable returning home. Urine shows some leukocyte esterase but no nitrates she has been asymptomatic so sent for urine culture and will recontact if possible. Discharge Plan Departure Patient Disposition: Home Clinical Impression: Dysmenorrhea Discharge Date/Time: 08/29/18 10:05 Interventions: ED Discharge Assessment Last Done: 08/29/18 10:04 Instructions: Dysmenorrhea (Alternative Therapy) Activity Restrictions/Additional Instructions: Follow-up with your primary care physician in the next week as needed. There are some options for control of painful irregular periods the may wish to discuss. Take medication as prescribed. Return to the emergency department for fevers greater than 100.4, persistent vomiting, black or bloody stools, new abdominal pain or changing location or intensity of pain, rapidly increasing vaginal bleeding, lightheadedness, passing out, new urinary symptoms or other new or concerning symptoms. Prescriptions: New diclofenac potassium 25 mg capsule 50 mg PO BID PRN (Reason: pain) Qty: 20 RF: 0 Referrals: Dmitriy Mercado [Primary Care Provider] -
[2018-08-29] MEDS: KETOROLAC 60 MG/2 ML VIAL IM (08:27)
[2018-08-29] MEDS: ONDANSETRON 4 MG ODT SL (08:27)
[2018-08-29 08:38] LABS: Bacteria Urine Few (2-10); Culture Indicated Urine Cult Not Indicated; Mucus Urine 1+ (Negative); RBC Urine >100/HPF (0-5/HPF); Squamous Epithelial Cell Urine 1-5 /HPF (0-5/HPF); Triple Phosphate Crystal Urine Occasional; WBC Urine 0-1/HPF (0-5/HPF)
[2018-08-29] MEDS: MORPHINE 4 MG/ML INJ IM (09:36)
[2018-08-29 10:04] VITALS: BP 124/86; PULSE 86; RESP 16; O2SAT 100
== END 2018-08-29 10:05 | disposition home or self-care (01) ==
PROVIDERS: Emergency Provider Emergency Medicine; Family Provider Physician Assistant Medical; PCP Physician Assistant Medical
DX: N94.6 Dysmenorrhea, unspecified (principal)
CPT/HCPCS: 81003; 81015; 81025; 96372; 99283; J1885; J2270

== ENCOUNTER 2019-06-23 09:09 | Emergency (ER) | payer MEDICAID, SELFPAY ==
[2019-06-23 09:15] VITALS: BP 148/110; PULSE 71; RESP 18; TEMP 35.9; O2SAT 100; BMI 34.8
--- NOTE | 2019-06-23 09:17 | ED.FEMALEGU ---
HPI - Female Genitourinary General Chief complaint: Vaginal Bleeding Stated complaint: Excessive bleeding vaginally Time Seen by Provider: 06/23/19 09:10 Source: patient Mode of arrival: Ambulatory Limitations: no limitations History of Present Illness HPI Narrative: 23-year-old female smoker presents with 5 days of increasing vaginal pain and heavy bleeding. This is the normal timing for her menses which normally last 3 days. She has never had heavy bleeding such as this. She is sexually active but denies any vaginal discharge. She denies any injury or trauma. She is dizzy, lightheaded and weak. She denies any change in diet or medication dosing, frequency or type. She has never been and denies any chance she is currently . She has had no fever or chills. Her pelvic pain is lower, centralized and persistent MD Complaint: vaginal bleeding and pelvic pain Onset (ago): day(s) Location: suprapubic Severity: mild Quality: Aching Duration: constant Exacerbating factors: menstrual period and movement Vaginal discharge: blood and dark blood Patient : No Related Data Previous Rx's Medication Instructions Recorded hydrocodone-acetaminophen 1 tab PO Q4-6H PRN #10 tab 06/23/19 ketorolac 10 mg PO Q6H PRN #14 tab 06/23/19 ondansetron 4 mg PO TID-QID PRN #10 tab 06/23/19 Allergies Allergy/AdvReac Type Severity Reaction Status Date / Time No Known Drug Allergies Allergy Verified 06/23/19 09:31 Review of Systems Constitutional Constitutional: Denies chills, Denies fatigue, Denies fever(s), Denies frequent falls, Denies lethargy and Reports weakness Eyes Eyes: Denies change in vision, Denies eye discharge, Denies irritation and Denies loss of vision ENT Ears, Nose, Mouth, and Throat: Denies change in voice, Denies dizziness, Denies neck pain, Denies sore throat and Denies throat swelling Cardiovascular Cardiovascular: Denies chest pain, Denies irregular heart rhythm, Reports lightheadedness, Denies palpitations, Denies dyspnea, Denies dyspnea on exertion and Denies orthopnea Respiratory Respiratory: Denies cough, Denies dyspnea, Denies dyspnea on exertion and Denies wheezing Gastrointestinal Gastrointestinal: Denies abdominal pain, Denies change in bowel habits, Denies diarrhea, Denies nausea and Denies vomiting Genitourinary Genitourinary: Reports abnormal vaginal bleeding, Denies hematuria, Reports pelvic pain, Denies flank pain, Denies urinary incontinence and Denies urinary urgency Musculoskeletal Musculoskeletal: Denies back pain, Denies muscle weakness, Denies neck pain, Denies numbness and Denies tingling Integumentary/Breasts Skin/Breast: Denies pruritus, Denies erythema, Denies rash and Denies wounds Neurologic Neurologic: Denies behavioral changes, Denies confusion, Denies dizziness, Denies frequent falls, Denies loss of vision, Denies numbness, Denies tingling and Reports weakness Psychiatric Psychiatric: Denies anxiety, Denies behavioral changes, Denies confusion, Denies depression, Denies homicidal ideation and Denies suicidal ideation Endocrine Endocrine: Denies fatigue, Denies flushing and Denies palpitations Hematologic/Lymphatic Hematologic/Lymphatic: Denies easy bruising Allergic/Immunologic Allergic/Immunologic: Denies urticaria, Denies throat swelling and Denies wheezing Patient History Surgical History [place] teeth extracted (Acute) alcohol intake frequency: holidays/special occasions only Substance Use Type: marijuana Exam Narrative Exam Narrative: GENERAL: 23 year old patient appears stated age. Well-nourished, well-developed patient, in mild distress. HEAD: Atraumatic. Normocephalic. EYES: Pupils equal round and reactive. Extraocular motions intact. No scleral icterus. No injection or drainage. ENT: Nose without bleeding, purulent drainage. Throat without erythema, tonsillar hypertrophy or exudate. Airway patent. NECK: Trachea midline. Non tender CARDIOVASCULAR: Regular rate and rhythm without murmurs, gallops, or rubs. RESPIRATORY: Clear to auscultation. Breath sounds equal bilaterally. No wheezes, rales, or rhonchi. GASTROINTESTINAL: Abdomen soft, tender in suprapubic region, nondistended. EXTREMITIES: No edema or joint tenderness. BACK: Nontender without deformity or crepitance. No flank tenderness. NEURO: AOx3. SKIN: No rash or erythema of visible areas Initial Vital Signs Initial Vital Signs: Vital Signs Temperature 96.7 F L 06/23/19 09:15 Pulse Rate 71 06/23/19 09:15 Respiratory Rate 18 06/23/19 09:15 Blood Pressure 148/110 H 06/23/19 09:15 Pulse Oximetry 100 06/23/19 09:15 Course Orders Ordered: ED Orders 06/23/19 09:16 US pelvic complete Stat 06/23/19 09:28 Basic Metabolic Panel Stat Complete Blood Count AUTO DIFF Stat Partial Thromboplastin Time Stat Prothrombin Time INR Stat Type and Screen Stat Discontinued Medications Hydromorphone HCl (Dilaudid) 1 mg IV NOW ONE Stop: 06/23/19 10:18 Last Admin: 06/23/19 10:21 Dose: 1 mg Documented by: PER Ketorolac Tromethamine (Toradol) 15 mg IV NOW ONE Stop: 06/23/19 09:33 Last Admin: 06/23/19 09:38 Dose: 15 mg Documented by: PER Vital Signs Vital signs: Vital Signs - 8 hr 06/23/19 09:15 06/23/19 10:58 06/23/19 11:00 Temperature 96.7 F L Pulse Rate 71 62 58 L Respiratory Rate 18 18 Blood Pressure 148/110 H Blood Pressure [Left Wrist] 128/76 109/59 L Pulse Oximetry 100 99 99 06/23/19 11:42 Temperature Pulse Rate 74 Respiratory Rate 15 Blood Pressure Blood Pressure [Left Wrist] 123/74 Pulse Oximetry 99 MDM - Female Genitourinary Lab Data Result diagrams: 06/23/19 09:28 06/23/19 09:28 Labs: Lab Results 06/23/19 06/23/19 06/23/19 Range/Units 09:28 09:28 09:28 WBC 4.7 (4.5-11.0) X10^3/uL RBC 4.13 (4.0-5.2) X10^6/uL Hgb 12.2 (12.0-16.0) g/dL Hct 36.9 (36-46) % MCV 89.3 (80-100) fL MCH 29.6 (26-34) PG MCHC 33.2 (30-36) % RDW 14.2 (11.6-14.8) % Plt Count 376 (150-400) X10^3/uL Neut % (Auto) 43.7 L (50-75) % Lymph % (Auto) 45.5 H (25-40) % [place] % (Auto) 6.4 (3-14) % Eos % (Auto) 3.8 (2-4) % Baso % (Auto) 0.6 (0-2) % Neut # (Auto) 2100 (6546-4509) /uL Lymph # (Auto) 2200 (3577-3496) /uL [place] # (Auto) 300 (0-900) /uL Eos # (Auto) 200 (0-450) /uL Baso # (Auto) 0 (0-100) /uL PT 11.2 (10.1-12.7) SECONDS INR 1.0 (0.9-1.3) APTT 28 (26.4-36.2) SECONDS Sodium 139 (137-145) mmol/L Potassium 4.3 (3.4-5.1) mmol/L Chloride 110 H (98-107) mmol/L Carbon Dioxide 23 (22-32) mmol/L BUN 13 (7-17) mg/dL Creatinine 0.96 (0.52-1.04) mg/dL Estimated GFR > 60.0 (>60) mL/min BUN/Creatinine Ratio 13.5 (6-22) Glucose 94 (70-100) mg/dL Calcium 8.7 (8.4-10.2) mg/dL Blood Type Antibody Screen 06/23/19 Range/Units 09:28 WBC (4.5-11.0) X10^3/uL RBC (4.0-5.2) X10^6/uL Hgb (12.0-16.0) g/dL Hct (36-46) % MCV (80-100) fL MCH (26-34) PG MCHC (30-36) % RDW (11.6-14.8) % Plt Count (150-400) X10^3/uL Neut % (Auto) (50-75) % Lymph % (Auto) (25-40) % [place] % (Auto) (3-14) % Eos % (Auto) (2-4) % Baso % (Auto) (0-2) % Neut # (Auto) (8401-0630) /uL Lymph # (Auto) (0352-1515) /uL [place] # (Auto) (0-900) /uL Eos # (Auto) (0-450) /uL Baso # (Auto) (0-100) /uL PT (10.1-12.7) SECONDS INR (0.9-1.3) APTT (26.4-36.2) SECONDS Sodium (137-145) mmol/L Potassium (3.4-5.1) mmol/L Chloride (98-107) mmol/L Carbon Dioxide (22-32) mmol/L BUN (7-17) mg/dL Creatinine (0.52-1.04) mg/dL Estimated GFR (>60) mL/min BUN/Creatinine Ratio (6-22) Glucose (70-100) mg/dL Calcium (8.4-10.2) mg/dL Blood Type B Positive Antibody Screen Negative Point of Care Testing Test Results Negative Urine Dip Bedside Urine Glucose Negative Bedside Urine Bilirubin - Negative Bedside Urine Ketone +/- 5 Urine Specific [place] 1.020 Bedside Urine Occult Blood ++ Bedside Urine pH 7.0 Bedside Urine Protein +/- 15 Bedside Urine Urobilinogen +/- 1mg Bedside Urine Nitrite - Negative Bedside Urine Leukocytes - Negative Esterase Imaging Data Pelvic US: Radiologist's Impression: [address] [address] Ultrasound Report Signed Patient: Sherrill Larose HMR#: [id number] : 1995Acct:[id number] Age/Sex: te of Service: 06/23/19 Loc: ED Accession Number: [id number] Procedure: US pelvic complete Ordering Provider: Noel Jean Baptiste D.O. PROCEDURE: US PELVIC COMPLETE INDICATIONS: SEVERE PELVIC PAIN, HEAVY BLEEDING TECHNIQUE: Real-time scanning was performed of the pelvic organs, with image documentation. Additional endovaginal scanning was necessary due to incomplete visualization of the adnexal and endometrial structures by transabdominal scanning. COMPARISON: None. FINDINGS: Transabdominal scanning: Limited scanning through the kidneys shows no hydronephrosis. No pathologic free abdominal or pelvic fluid. Endovaginal scanning: Uterus: Uterus is normal in size at 7.5 x 4.4 x 4.6 cm. The endometrium measures 5.9 mm in combined thickness. Focal thickening is present measuring 6 x 4 mm. Ovaries: Right ovary measures 3.5 x 2.5 x 2.7 cm. Left ovary measures 3.6 x 1.7 x 1.6 cm. They are unremarkable. IMPRESSION: Focal thickening of the endometrium as above. It is nonspecific on the basis of this exam. 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 Dictated by: Key Tirado M.D. on 06/23/2019 at 9:02 Approved by: Key Tirado M.D. on 06/23/2019 at 9:11 [facility] Narrative Medical decision making narrative: 23-year-old female presents with pelvic pain and vaginal bleeding. She has a very reassuring set of vital signs, labs demonstrate no anemia. Exam is very reassuring as minimal bleeding noted. Ultrasound notes thickened endometrium. I have discussed this case with on-call Ob and we sure the opinion that given such reassuring history, physical, exam is that there is not a current indication for medroxyprogesterone. Return precautions given, questions answered to her apparent satisfaction. Discharge Plan Departure Patient Disposition: Home Clinical Impression: Menorrhagia Qualifiers: Menorrhagia type: with regular cycle Qualified Code(s): N92.0 - Excessive and frequent menstruation with regular cycle Discharge Date/Time: 06/23/19 12:34 Instructions: DI for Menorrhagia Activity Restrictions/Additional Instructions: *You have been diagnosed with [menorrhagia] *What to do: *Take medications as directed *Follow up with your primary care provider in 2-3 days, call for an appointment. Let them know you were seen in the Emergency Department and that we ask that you be seen in follow up *Return to ER if you should have any new, worsening or concerning symptoms Prescriptions: New hydrocodone-acetaminophen 5-325 mg tablet 1 tab PO Q4-6H PRN (Reason: pain) Qty: 10 RF: 0 ketorolac 10 mg tablet 10 mg PO Q6H PRN (Reason: pain) Qty: 14 RF: 0 ondansetron 4 mg tablet,disintegrating 4 mg PO TID-QID PRN (Reason: nausea and vomiting) Qty: 10 RF: 0 Referrals: Dmitriy Mercado [Primary Care Provider] -
[2019-06-23 09:37] LABS: Add Manual Diff / Slide Review NO; Basophils Absolute Auto 0 /uL (0-100); Basophils Percent Auto 0.6 % (0-2); Eosinophils Absolute Auto 200 /uL (0-450); Eosinophils Percent Auto 3.8 % (2-4); Hematocrit 36.9 % (36-46); Hemoglobin 12.2 g/dL (12.0-16.0); Lymphocytes Absolute Auto 2200 /uL (1100-4500); Lymphocytes Percent Auto 45.5 % (25-40); Mean Corpuscular HGB Conc 33.2 % (30-36); Mean Corpuscular Hemoglobin 29.6 PG (26-34); Mean Corpuscular Volume 89.3 fL (80-100); Monocytes Absolute Auto 300 /uL (0-900); Monocytes Percent Auto 6.4 % (3-14); Neutrophils Absolute Auto 2100 /uL (1500-7000); Neutrophils Percent Auto 43.7 % (50-75); Platelet Count 376 X10^3/uL (150-400); Red Blood Cell Count 4.13 X10^6/uL (4.0-5.2); Red Cell Distribution Width 14.2 % (11.6-14.8); White Blood Cell Count 4.7 X10^3/uL (4.5-11.0)
[2019-06-23] MEDS: KETOROLAC 60 MG/2 ML VIAL 15 MG IV (09:38)
[2019-06-23 09:45] LABS: Prothrombin Time 11.2 SECONDS (10.1-12.7)
[2019-06-23 09:48] LABS: PTT Partial Thromboplastin Tim 28 SECONDS (26.4-36.2)
[2019-06-23] MEDS: HYDROMORPHONE 1 MG INJ IV (10:21)
[2019-06-23] MEDS: ONDANSETRON 4 MG/2 ML INJ (10:36)
[2019-06-23 10:56] LABS: BUN Creatinine Ratio 13.5 (6-22); Blood Urea Nitrogen 13 mg/dL (7-17); Calcium 8.7 mg/dL (8.4-10.2); Carbon Dioxide 23 mmol/L (22-32); Chloride 110 mmol/L (98-107); Estimated Glomerular Filt Rate > 60.0 mL/min (>60); Glucose 94 mg/dL (70-100); HEMOLYSIS 123 (0-50); Potassium 4.3 mmol/L (3.4-5.1); Sodium 139 mmol/L (137-145)
[2019-06-23 10:58] VITALS: BP 128/76; PULSE 62; RESP 18; O2SAT 99
[2019-06-23 11:00] VITALS: BP 109/59; PULSE 58; O2SAT 99
[2019-06-23 11:42] VITALS: BP 123/74; PULSE 74; RESP 15; O2SAT 99
== END 2019-06-23 12:34 | disposition home or self-care (01) ==
PROVIDERS: Emergency Provider Emergency Medicine; Family Provider Physician Assistant Medical; PCP Physician Assistant Medical
DX: N92.0 Excessive and frequent menstruation with regular cycle (principal); R10.2 Pelvic and perineal pain
CPT/HCPCS: 36415; 76830; 76856; 80048; 81003; 81025; 85025; 85610; 85730; 86850; 86900; 86901; 96374; 96375; 99284; J1170; J1885; J2405

== ENCOUNTER 2019-09-03 08:43 | Emergency (ER) | payer OTHER, SELFPAY ==
[2019-09-03 09:00] VITALS: BP 160/102; PULSE 112; RESP 13; TEMP 37.3; O2SAT 96; BMI 34.9
--- NOTE | 2019-09-03 09:15 | ED_ITS ---
HPI - URI/Sore Throat General Chief Complaint: Upper Respiratory Symptoms Stated Complaint: sore throat 4x days/ swollen unable to eat/drink Time Seen by Provider: 09/03/19 09:03 Source: patient Mode of arrival: Ambulatory Limitations: no limitations History of Present Illness HPI Narrative: CC: Sore throat HPI: The patient is a 24-year-old female who states that she had a sore throat which has been present for the last 4 days prior to admission. Last night and today the pain became more intense and bothersome. It is intermittently sharp and stabbing dull and aching it hurts to swallow. The patient denies any indigestion or heartburn or for reflux. The pain is 7 to 8/10 in intensity. She denies any nasal congestion or sinus congestion. She has had mononucleosis in the past. She states that last night she had a fever and that her left ear hurts. She has had no choking or cough when swallowing. She denies being a diabetic having hypertension heart murmur congenital heart disease, or asthma. She admits to smoking cigarettes does not drink alcohol on periodically uses marijuana. Related Data Previous Rx's Medication Instructions Recorded hydrocodone-acetaminophen 1 tab PO Q4-6H PRN #10 tab 06/23/19 ketorolac 10 mg PO Q6H PRN #14 tab 06/23/19 ondansetron 4 mg PO TID-QID PRN #10 tab 06/23/19 hydrocodone-acetaminophen 1 tab PO Q6H PRN #10 tab 09/03/19 prednisone 40 mg PO DAILY #8 tab 09/03/19 Allergies Allergy/AdvReac Type Severity Reaction Status Date / Time No Known Drug Allergies Allergy Verified 09/03/19 09:03 Review of Systems Review of Systems Narrative: REVIEW OF SYSTEMS: CONSTITUTIONAL: She has had a fever last night but no chills or sweats. NEUROLOGICAL: She denies any headache numbness tingling anesthesia is paresis or paralysis. EENT: She has had a sore throat for the last 4 days but no nasal congestion sinus congestion. She states that her left ear hurt but has had no decreased hearing. CARDIO-PULMONARY: She denies any chest pain cough shortness of breath dif ficulty in breathing palpitations or dizziness. GASTROINTESTINAL: She has had no abdominal pain nausea , vomiting or diarrhea. GENITAL URINARY: She has had no urinary symptoms and her last menstrual period was a few days ago she denies being . MUSCULOSKELETAL/ RHEUMATOLOGICAL: She denies any back pain. Patient History Surgical History [place] teeth extracted (Acute) Social History number of children: 0 household members: spouse lives independently: Yes Smoking Status: Current every day smoker alcohol intake: never substance use type: marijuana Smoking Status: Current every day smoker alcohol intake frequency: holidays/special occasions only Substance Use Type: marijuana Exam Narrative Exam Narrative: PHYSICAL EXAM: CONSTITUTIONAL: Awake, Alert, Oriented, Coherent, Cooperative in NAD. Does not appear toxic or ill. HEAD: AT/NC EENT: PERRL, FROM of eyes, no discharge, no nystagmus EARS:No drainage from the ears, Tympanic membranes intact bilaterally, clear EAC. No erythema. NOSE:No epistaxis or nasal drainage MOUTH:Oral mucosa is moist and pink, posterior pharynx is without erythema or exudate. Tonsils are enlarged without any exudate NECK: Supple, no obvious JVD, Trachea is midline without stridor, no palpable LN. Neck is tender to palpation. There is no nuchal rigidity. SPINE: Palpationof the cervical, Thoracic, Lumbar or Sacral spine reveals no gross deformity or tenderness. No CVA tenderness. THORAX: No deformity, retractions, chest wall tenderness. LUNGS: Clear, symmetrical breath sounds without respiratory distress. HEART: Normal heart tones, regular rhythm and rate without murmur. ABDOMEN: Soft, non-tender, without guarding, rebound, rigidity or palpable mass. LYMPHATIC: no palpable lymph nodes or spleen. EXTREMITIES: No edema, tenderness. SKIN: No rash, bruising, petechiae or purpura. NEURO: Awake, alert, oriented, conversive, cranial nerves II-XII are symmetrical , moves all 4 extremities and is ambulatory. Initial Vital Signs Initial Vital Signs: Vital Signs Temperature 99.2 F 09/03/19 09:00 Pulse Rate 112 H 09/03/19 09:00 Respiratory Rate 13 09/03/19 09:00 Blood Pressure 160/102 H 09/03/19 09:00 Pulse Oximetry 96 09/03/19 09:00 Course Course Course Narrative: 0930: The patient's rapid strep screen was negative. It will however be sent to the lab to be cultured. We will call the patient if it grows anything out. The patient will be discharged home and treated as though this is a viral pharyngitis. 0955: Patient upset that I told her that her rapid strep screen was negative states that her throat is sore she was administered prednisone and Toradol for her pain and discomfort on being discharged her significant other came out and asked her for more pain medicine stating that now she is complaining of right- sided lower abdominal pain. 1000: clarification: I had discharge the patient when her rapid strep screen came back negative. I thought that the patient had received her prednisone and Toradol but according to the nurses she had not received any of her pain medication. The patient's significant other came in complaining that she was complaining of right lower quadrant and right flank pain now prior to being discharged so a CBC, CMP urinalysis and urine test were ordered on the patient. The morphine that was ordered for the patient 2 mg was placed on hold. 1100: The patient states that her throat pain is 8/10 in intensity. Her abdominal pain has reduced all that after the 2 mg of morphine and 30 mg of Toradol IM. The patient's laboratory chemistries remain pending at this time. The plan is to discharge the patient. Orders Ordered: Discontinued Medications Ketorolac Tromethamine (Toradol) 30 mg IM NOW ONE Stop: 09/03/19 09:14 Last Admin: 09/03/19 10:01 Dose: 30 mg Documented by: DELILAH Morphine Sulfate (Morphine) 2 mg IM NOW ONE Stop: 09/03/19 09:58 Last Admin: 09/03/19 10:46 Dose: 2 mg Documented by: CECILIA Prednisone (Deltasone) 60 mg PO NOW ONE Stop: 09/03/19 09:15 Last Admin: 09/03/19 10:02 Dose: 60 mg Documented by: DELILAH Vital Signs Vital signs: Vital Signs - 8 hr 09/03/19 09:00 Temperature 99.2 F Pulse Rate 112 H Respiratory Rate 13 Blood Pressure 160/102 H Pulse Oximetry 96 MDM - URI/Sore Throat Lab Data Result diagrams: 09/03/19 10:25 09/03/19 10:25 Labs: Lab Results 09/03/19 09/03/19 09/03/19 Range/Units 10:20 10:20 10:25 WBC 12.6 H (4.5-11.0) X10^3/uL RBC 4.23 (4.0-5.2) X10^6/uL Hgb 12.8 (12.0-16.0) g/dL Hct 37.4 (36-46) % MCV 88.2 (80-100) fL MCH 30.3 (26-34) PG MCHC 34.4 (30-36) % RDW 13.2 (11.6-14.8) % Plt Count 287 (150-400) X10^3/uL Neut % (Auto) 85.8 H (50-75) % Lymph % (Auto) 8.9 L (25-40) % [place] % (Auto) 4.4 (3-14) % Eos % (Auto) 0.4 L (2-4) % Baso % (Auto) 0.5 (0-2) % Neut # (Auto) 36498 H (0538-1220) /uL Lymph # (Auto) 1100 (7700-2158) /uL [place] # (Auto) 600 (0-900) /uL Eos # (Auto) 100 (0-450) /uL Baso # (Auto) 100 (0-100) /uL Sodium (137-145) mmol/L Potassium (3.4-5.1) mmol/L Chloride (98-107) mmol/L Carbon Dioxide (22-32) mmol/L BUN (7-17) mg/dL Creatinine (0.52-1.04) mg/dL Estimated GFR (>60) mL/min BUN/Creatinine Ratio (6-22) Glucose (70-100) mg/dL Calcium (8.4-10.2) mg/dL Total Bilirubin (0.2-1.3) mg/dL AST (14-36) IU/L ALT (<35) IU/L Alkaline Phosphatase (38-126) U/L Total Protein (6.3-8.2) g/dL Albumin (3.5-5.0) g/dL Globulin (1.7-4.1) g/dL Albumin/Globulin Ratio (1.0-2.8) Urine Color Yellow Urine Appearance Clear Urine pH 7.5 (4.5-8.0) Ur Specific [place] 1.020 (1.000-1.035) Urine Protein Negative (Negative) Urine Glucose (UA) Negative (Negative) g/dL Urine Ketones 1+ H (NEGATIVE) Urine Occult Blood Negative (Negative) Urine Nitrate Negative (Negative) Urine Bilirubin Negative (NEGATIVE) Urine Urobilinogen 0.2 (0.2) E.U./dL Ur Leukocyte Esterase Negative (NEGATIVE) Urine RBC None seen (0-5/HPF) Urine WBC None seen (0-5/HPF) Ur Squamous Epith Cells 10-30 /hpf H D (0-5/HPF) Urine Bacteria Few (2-10) H (None) Ur Culture Indicated? Cult not indicated Urine Test Negative (Negative) 09/03/19 Range/Units 10:25 WBC (4.5-11.0) X10^3/uL RBC (4.0-5.2) X10^6/uL Hgb (12.0-16.0) g/dL Hct (36-46) % MCV (80-100) fL MCH (26-34) PG MCHC (30-36) % RDW (11.6-14.8) % Plt Count (150-400) X10^3/uL Neut % (Auto) (50-75) % Lymph % (Auto) (25-40) % [place] % (Auto) (3-14) % Eos % (Auto) (2-4) % Baso % (Auto) (0-2) % Neut # (Auto) (4569-0115) /uL Lymph # (Auto) (6386-6140) /uL [place] # (Auto) (0-900) /uL Eos # (Auto) (0-450) /uL Baso # (Auto) (0-100) /uL Sodium 136 L (137-145) mmol/L Potassium 4.0 (3.4-5.1) mmol/L Chloride 105 (98-107) mmol/L Carbon Dioxide 23 (22-32) mmol/L BUN 8 (7-17) mg/dL Creatinine 0.96 (0.52-1.04) mg/dL Estimated GFR > 60.0 (>60) mL/min BUN/Creatinine Ratio 8.3 (6-22) Glucose 91 (70-100) mg/dL Calcium 9.1 (8.4-10.2) mg/dL Total Bilirubin 1.1 (0.2-1.3) mg/dL AST 26 (14-36) IU/L ALT 13 (<35) IU/L Alkaline Phosphatase 61 (38-126) U/L Total Protein 8.2 (6.3-8.2) g/dL Albumin 4.1 (3.5-5.0) g/dL Globulin 4.1 (1.7-4.1) g/dL Albumin/Globulin Ratio 1.0 (1.0-2.8) Urine Color Urine Appearance Urine pH (4.5-8.0) Ur Specific [place] (1.000-1.035) Urine Protein (Negative) Urine Glucose (UA) (Negative) g/dL Urine Ketones (NEGATIVE) Urine Occult Blood (Negative) Urine Nitrate (Negative) Urine Bilirubin (NEGATIVE) Urine Urobilinogen (0.2) E.U./dL Ur Leukocyte Esterase (NEGATIVE) Urine RBC (0-5/HPF) Urine WBC (0-5/HPF) Ur Squamous Epith Cells (0-5/HPF) Urine Bacteria (None) Ur Culture Indicated? Urine Test (Negative) Point of Care Testing Rapid Strep A Negative Discharge Plan Departure Patient Disposition: Home Clinical Impression: Sorethroat, Otalgia of left ear Discharge Date/Time: 09/03/19 11:13 Activity Restrictions/Additional Instructions: 1. follow up with your primary care physician to be rechecked in 48-72 hours if not better and still painful or return to the ED. 2. For fever take 3, 200 mg Advil tablets every 6 hours or acetaminophen 500 mg every 4-6 hours. You can take up to a maximum of 1000 mg of Tylenol every 6 hours for any fever or pain. The same dose of Advil can be used for pain and discomfort. For severe pain you can take [place] 5/325 every 6 hours. 3. Take the prednisone as prescribed for the next 4 days which will help with the swelling pain and discomfort in your throat. 4. You can gargle with warm salt water 1 tsp and a 10 oz glass of warm water 4 times a day as needed for pain and discomfort and to clean the mucus off your tonsils and posterior throat. Do not swallow the salt water solution. 5. To help with the pain and discomfort especially prior to eating you can gargle with elix of Benadryl 2 tsp mixed with 2 tsp of water. Gargle and hold in the back of your throat as long as she possibly can then swallow. 6. Your rapid strep screen was negative for strep pharyngitis. However it was sent to the lab in will be cultured which will take 24-48 hours. If anything grows or becomes positive we will call you. Otherwise follow-up with your primary care physician. Prescriptions: New prednisone 20 mg tablet 40 mg PO DAILY Qty: 8 RF: 0 hydrocodone-acetaminophen 10-325 mg tablet 1 tab PO Q6H PRN (Reason: pain) Qty: 10 RF: 0 No Action hydrocodone-acetaminophen 5-325 mg tablet 1 tab PO Q4-6H PRN (Reason: pain) Qty: 10 RF: 0 ketorolac 10 mg tablet 10 mg PO Q6H PRN (Reason: pain) Qty: 14 RF: 0 ondansetron 4 mg tablet,disintegrating 4 mg PO TID-QID PRN (Reason: nausea and vomiting) Qty: 10 RF: 0 Referrals: Dmitriy Mercado [Primary Care Provider] -
[2019-09-03] MEDS: KETOROLAC 60 MG/2 ML VIAL 30 MG IM (10:01)
[2019-09-03] MEDS: predniSONE 20 MG TABLET 60 MG PO (10:02)
[2019-09-03 10:27] LABS: RBC Urine None Seen (0-5/HPF); WBC Urine None Seen (0-5/HPF)
--- NOTE | 2019-09-03 10:28 | PC.NURSE ---
Pt now having right lower abd pain per Dr Thornton.
[2019-09-03 10:31] LABS: Appearance Urine UA CLEAR; Bilirubin Urine UA NEGATIVE (NEGATIVE); Color Urine UA YELLOW; Glucose Urine UA NEGATIVE (Negative); Ketones Urine UA 1+ (NEGATIVE); Leukocyte Esterase Urine UA NEGATIVE (NEGATIVE); Nitrite Urine UA NEGATIVE (Negative); Occult Blood Urine UA NEGATIVE (Negative); Protein Urine UA NEGATIVE (Negative); Urobilinogen Urine UA 0.2 E.U./dL (0.2)
[2019-09-03 10:35] LABS: Pregnancy Test Urine Negative (Negative)
[2019-09-03 10:40] LABS: pH Urine UA 7.5 (4.5-8.0)
[2019-09-03 10:42] LABS: Add Manual Diff / Slide Review NO; Basophils Absolute Auto 100 /uL (0-100); Basophils Percent Auto 0.5 % (0-2); Eosinophils Absolute Auto 100 /uL (0-450); Eosinophils Percent Auto 0.4 % (2-4); Hematocrit 37.4 % (36-46); Hemoglobin 12.8 g/dL (12.0-16.0); Lymphocytes Absolute Auto 1100 /uL (1100-4500); Lymphocytes Percent Auto 8.9 % (25-40); Mean Corpuscular HGB Conc 34.4 % (30-36); Mean Corpuscular Hemoglobin 30.3 PG (26-34); Mean Corpuscular Volume 88.2 fL (80-100); Monocytes Absolute Auto 600 /uL (0-900); Monocytes Percent Auto 4.4 % (3-14); Neutrophils Absolute Auto 10800 /uL (1500-7000); Neutrophils Percent Auto 85.8 % (50-75); Platelet Count 287 X10^3/uL (150-400); Red Blood Cell Count 4.23 X10^6/uL (4.0-5.2); Red Cell Distribution Width 13.2 % (11.6-14.8); White Blood Cell Count 12.6 X10^3/uL (4.5-11.0)
[2019-09-03] MEDS: MORPHINE 4 MG/ML INJ 2 MG IM (10:46)
[2019-09-03 10:53] LABS: Alanine Aminotransferase 13 IU/L (<35); Albumin 4.1 g/dL (3.5-5.0); Alkaline Phosphatase 61 U/L (38-126); Aspartate Aminotransferase 26 IU/L (14-36); BUN Creatinine Ratio 8.3 (6-22); Bilirubin Total 1.1 mg/dL (0.2-1.3); Blood Urea Nitrogen 8 mg/dL (7-17); Calcium 9.1 mg/dL (8.4-10.2); Carbon Dioxide 23 mmol/L (22-32); Chloride 105 mmol/L (98-107); Estimated Glomerular Filt Rate > 60.0 mL/min (>60); Globulin 4.1 g/dL (1.7-4.1); Glucose 91 mg/dL (70-100); HEMOLYSIS < 15 (0-50); Sodium 136 mmol/L (137-145); Total Protein 8.2 g/dL (6.3-8.2)
[2019-09-03 11:12] LABS: Bacteria Urine Few (2-10); Culture Indicated Urine Cult Not Indicated; Squamous Epithelial Cell Urine 10-30 /HPF (0-5/HPF)
[2019-09-03 11:13] VITALS: BP 142/72; PULSE 98; O2SAT 98
== END 2019-09-03 11:13 | disposition home or self-care (01) ==
PROVIDERS: Emergency Provider Emergency Medicine; Family Provider Physician Assistant Medical; PCP Physician Assistant Medical
DX: J02.9 Acute pharyngitis, unspecified (principal); H92.02 Otalgia, left ear
CPT/HCPCS: 36415; 80053; 81001; 81025; 85025; 87070; 87880; 96372; 99283; 99284; J1885; J2270

== ENCOUNTER 2019-09-05 04:10 | Emergency (ER) | payer OTHER, MEDICAID, SELFPAY ==
[2019-09-05 04:18] VITALS: BP 127/73; PULSE 96; RESP 17; TEMP 37.2; O2SAT 99; BMI 34.9
--- NOTE | 2019-09-05 04:31 | ED_ITS ---
HPI - URI/Sore Throat General Chief Complaint: Upper Respiratory Symptoms Stated Complaint: throat swelling/fever spiking Time Seen by Provider: 09/05/19 04:31 Source: patient Mode of arrival: Ambulatory Limitations: no limitations History of Present Illness HPI Narrative: The patient has been ill for about a days. She describes intermittent fever and chills. She has no headache, sinus pain, or pain. She has a severe for throat with difficulty swelling. She was seen here approximately 3 days ago, rapid strep test was negative. a follow-up throat culture was normal. She is taking analgesics. She received steroids. She is no better, possibly worse. She does not have nuchal rigidity, but she does pain with motion of the neck. She has no chest discomfort. She has no dyspnea or cough. She has no history of allergies or asthma. She does smoke tobacco and marijuana, she says she quit several days ago after becoming ill. She has been around no one with similar symptoms, at home or at work. She denies headache with the current symptoms. She has no dyspnea. Pain is primarily in her left anterior neck. She says the pain this time is significantly different and worse than previous episodes of sore throat. Related Data Previous Rx's Medication Instructions Recorded meclizine 12.5 mg tablet 25 mg PO BID-TID PRN #20 tab 09/10/19 Allergies Allergy/AdvReac Type Severity Reaction Status Date / Time No Known Drug Allergies Allergy Verified 09/10/19 10:54 Review of Systems Review of Systems ROS Unobtainable: All systems reviewed & are unremarkable except as noted in HPI and below Constitutional Constitutional: Reports chills, Reports fever(s), Denies lethargy and Denies weakness Eyes Eyes: Denies change in vision and Denies loss of vision ENT Ears, Nose, Mouth, and Throat: Denies dizziness, Denies facial pain, Denies mouth pain, Denies nasal congestion and Reports sore throat (See HPI.) Cardiovascular Cardiovascular: Denies chest pain, Denies irregular heart rhythm, Denies lightheadedness, Denies palpitations, Denies dyspnea and Denies orthopnea Respiratory Respiratory: Denies cough, Denies dyspnea and Denies wheezing Gastrointestinal Gastrointestinal: Denies abdominal pain, Denies nausea and Denies vomiting Integumentary/Breasts Skin/Breast: Denies erythema and Denies rash Neurologic Neurologic: Denies dizziness, Denies loss of vision and Denies weakness Endocrine Endocrine: Denies palpitations Allergic/Immunologic Allergic/Immunologic: Denies wheezing Patient History Surgical History [place] teeth extracted (Acute) Social History number of children: 0 household members: spouse lives independently: Yes Smoking Status: Former smoker alcohol intake: never substance use type: marijuana Smoking Status: Current every day smoker alcohol intake frequency: holidays/special occasions only Substance Use Type: marijuana Exam Initial Vital Signs Initial Vital Signs: Vital Signs Temperature 98.9 F 09/05/19 04:18 Pulse Rate 96 H 09/05/19 04:18 Respiratory Rate 17 09/05/19 04:18 Blood Pressure 127/73 09/05/19 04:18 Pulse Oximetry 99 09/05/19 04:18 Const General: cooperative and well developed Nutritional Appearance: well nourished Other: She seems quite uncomfortable. HENMT Head: normocephalic and atraumatic Ears: external ears normal and TM's normal bilaterally Nose: external nose normal and No nasal discharge Face and sinus: sinuses nontender and face symmetric Mouth: oral mucosae normal and moist mucous membranes Teeth and gingiva: dentition normal Throat: posterior oropharynx normal, tonsils normal and uvula midline Eyes General: appearance normal, both eyes and all related structures Eyelids: eyelids normal Conjunctivae: conjunctivae normal Sclera: sclerae normal Pupils: PERRL EOM: EOM intact bilaterally Neck Other: Left anterior neck swelling and tenderness. No nuchal rigidity. Resp Effort & Inspection: normal respiratory effort and able to speak in complete sentences Auscultation: clear to auscultation bilaterally, no rales, no rhonchi and no wheezes Cardio Rate: regular rate Rhythm: regular rhythm Heart Sounds: S1 normal, S2 normal, no click, no gallops, no murmurs and no rubs Pulses: normal peripheral pulses Course Orders Ordered: Discontinued Medications Dexamethasone (Decadron) 20 mg IV NOW ONE Stop: 09/05/19 06:34 Last Admin: 09/05/19 07:10 Dose: Not Given Documented by: HGUBERN Sodium Chloride (Normal Saline 0.9%) 1,000 mls @ 250 mls/hr IV CONT BRANDIN Last Infusion: 09/05/19 07:19 Dose: 0 mls/hr Documented by: Admin: 09/05/19 04:58 Dose: 250 mls/hr Documented by: MARIA FERNANDA Dexamethasone 20 mg/ Sodium (Chloride) 55 mls @ 220 mls/hr IV NOW ONE Stop: 09/05/19 06:22 Last Infusion: 09/05/19 07:10 Dose: 0 mls/hr Documented by: Admin: 09/05/19 06:44 Dose: 220 mls/hr Documented by: HARRY Ketorolac Tromethamine (Toradol) 30 mg IV NOW ONE Stop: 09/05/19 04:44 Last Admin: 09/05/19 04:57 Dose: 30 mg Documented by: MARIA FERNANDA Vital Signs Vital signs: Vital Signs - 8 hr 09/05/19 04:18 09/05/19 06:05 Temperature 98.9 F Pulse Rate 96 H 70 Respiratory Rate 17 16 Blood Pressure 127/73 Blood Pressure [Right Arm] 137/68 Pulse Oximetry 99 99 MDM - URI/Sore Throat Lab Data Result diagrams: 09/05/19 04:55 Labs: Lab Results 09/05/19 09/05/19 Range/Units 04:55 04:55 WBC 12.0 H (4.5-11.0) X10^3/uL RBC 3.99 L (4.0-5.2) X10^6/uL Hgb 11.8 L (12.0-16.0) g/dL Hct 35.1 L (36-46) % MCV 88.0 (80-100) fL MCH 29.6 (26-34) PG MCHC 33.7 (30-36) % RDW 13.2 (11.6-14.8) % Plt Count 290 (150-400) X10^3/uL Neut % (Auto) 73.6 (50-75) % Lymph % (Auto) 17.2 L (25-40) % [place] % (Auto) 8.0 (3-14) % Eos % (Auto) 0.1 L (2-4) % Baso % (Auto) 1.1 (0-2) % Neut # (Auto) 8800 H (5711-6336) /uL Lymph # (Auto) 2100 (3867-0958) /uL [place] # (Auto) 1000 H (0-900) /uL Eos # (Auto) 0 (0-450) /uL Baso # (Auto) 100 (0-100) /uL C-Reactive Protein 4.6 H (<1.0) mg/dL Point of Care Testing Rapid Strep A Negative Imaging Data Soft tissue neck CT:: Radiologist's Impression: Diffuse adenopathy suggestive of viral respiratory infection. No abscess formation. Discharge Plan Departure Patient Disposition: Home Clinical Impression: Upper respiratory infection, Adenopathy, cervical Discharge Date/Time: 09/05/19 07:21 Instructions: DI for Lymphadenopathy Activity Restrictions/Additional Instructions: Your pain appears to be coming from a viral infection causing swelling to the lymph nodes in your neck. The most appropriate action is ibuprofen 600 mg every 6 hours, the anti-inflammatory properties of this medication will help decrease the inflammation in the lymph nodes in her neck. You should drink plenty of water, stay well hydrated. If not improved within 48 hours recheck with her doctor. Return here if he develops persistent high fevers or difficulty breathing. Prescriptions: No Action meclizine 12.5 mg tablet 25 mg PO BID-TID PRN (Reason: dizziness) Qty: 20 RF: 0 Referrals: Dmitriy Mercado [Primary Care Provider] -
--- NOTE | 2019-09-05 04:43 | DI.CT.S_ITS ---
PROCEDURE: CT SOFT TISSUE NECK W CON INDICATIONS: Severe pain/dysphagia TECHNIQUE: After the administration of intravenous contrast, 3.0 mm axial sections acquired from the sella to the aortic arch. Additional oblique axial 3.0 mm sections acquired through the pharynx. 3 mm thick coronal and sagittal reformats were generated. For radiation dose reduction, the following was used: automated exposure control. COMPARISON: None. FINDINGS: Image quality: Excellent. Lymph nodes: No enlarged lymph nodes seen throughout the neck. Mild shotty left high cervical adenopathy. Vessels: Visualized vasculature appears patent. Neck spaces: The calyces tonsils and the arytenoids are prominent and diffusely enhancing. No peritonsillar abscess. The oropharynx, nasopharynx, and pharynx demonstrate no mucosal lesions. The vocal cords, false vocal cords, pyriform sinuses, epiglottis, vallecula, and tongue base all appear normal. Extramucosal spaces appear unremarkable. Glands: The parotid and submandibular glands appear normal. Thyroid gland is unremarkable. Miscellaneous: Visualized brain and orbits appear normal. Lung apices appear clear. Superficial soft tissues appear normal. Bones: No suspicious bony lesions. Visualized sinuses and mastoids appear unremarkable. IMPRESSION: Prominence of the tonsils and adenoids, possibly indicating viral infection. No evidence of abscess. Comment: Final report is concordant with preliminary interpretation provided by [facility]. Dictated by: Gaston Pena M.D. on 09/05/2019 at 6:56 Approved by: Gaston Pena M.D. on 09/05/2019 at 7:03
[2019-09-05] MEDS: KETOROLAC 60 MG/2 ML VIAL 30 MG IV (04:57)
[2019-09-05 04:58] LABS: Add Manual Diff / Slide Review NO; Basophils Absolute Auto 100 /uL (0-100); Basophils Percent Auto 1.1 % (0-2); Eosinophils Absolute Auto 0 /uL (0-450); Eosinophils Percent Auto 0.1 % (2-4); Hematocrit 35.1 % (36-46); Hemoglobin 11.8 g/dL (12.0-16.0); Lymphocytes Absolute Auto 2100 /uL (1100-4500); Lymphocytes Percent Auto 17.2 % (25-40); Mean Corpuscular HGB Conc 33.7 % (30-36); Mean Corpuscular Hemoglobin 29.6 PG (26-34); Monocytes Absolute Auto 1000 /uL (0-900); Neutrophils Absolute Auto 8800 /uL (1500-7000); Neutrophils Percent Auto 73.6 % (50-75); Platelet Count 290 X10^3/uL (150-400); Red Blood Cell Count 3.99 X10^6/uL (4.0-5.2); Red Cell Distribution Width 13.2 % (11.6-14.8)
[2019-09-05] MEDS: SODIUM CHLORIDE 0.9% 1,000 ML 250 ML IV (04:58)
[2019-09-05 05:11] LABS: C-Reactive Protein Quant 4.6 mg/dL (<1.0)
[2019-09-05 06:05] VITALS: BP 137/68; PULSE 70; RESP 16; O2SAT 99
[2019-09-05] MEDS: dexAMETHasone 20 MG in SODIUM CHLORIDE 0.9% 50 ML 220 ML IV (06:44)
[2019-09-05 07:19] VITALS: BP 112/64; PULSE 70; RESP 15; O2SAT 100
== END 2019-09-05 07:21 | disposition home or self-care (01) ==
PROVIDERS: Emergency Provider Emergency Medicine; Family Provider Physician Assistant Medical; PCP Physician Assistant Medical
DX: J06.9 Acute upper respiratory infection, unspecified (principal); R59.9 Enlarged lymph nodes, unspecified
CPT/HCPCS: 36415; 70491; 85025; 86140; 87880; 96365; 96375; 99284; J1100; J1885; Q9967

== ENCOUNTER 2020-02-14 12:03 | Emergency (ER) | payer OTHER, MEDICAID, SELFPAY ==
[2020-02-14 12:18] VITALS: BP 138/96
--- NOTE | 2020-02-14 12:25 | DI.US.S_ITS ---
PROCEDURE: US PELVIC COMPLETE INDICATIONS: PAIN; MENOMETRORRHAGIA TECHNIQUE: Real-time scanning was performed of the pelvic organs, with image documentation. Additional endovaginal scanning was necessary due to incomplete visualization of the adnexal and endometrial structures by transabdominal scanning. COMPARISON: [facility], US, US PELVIC COMPLETE, 06/23/2019, 9:31. FINDINGS: Transabdominal scanning: Limited scanning through the kidneys shows no hydronephrosis. No pathologic free abdominal or pelvic fluid. Endovaginal scanning: Uterus: Uterus is normal in size at 6.5 x 3.6 x 4.8 cm. The endometrium measures 4 mm in combined thickness. Homogeneous uterine echotexture. Ovaries: Right ovary measures 2.7 x 2.0 x 2.9 cm. Left ovary measures 3.0 x 1.8 x 3.2 cm. No ovarian or adnexal mass lesions. Normal vascular waveforms. IMPRESSION: Pelvic ultrasound without acute sonographic abnormalities. No evidence for ovarian torsion. Dictated by: Emanuel Rosales M.D. on 02/14/2020 at 12:57 Approved by: Emanuel Rosales M.D. on 02/14/2020 at 13:03
[2020-02-14 12:29] VITALS: BP 138/96; PULSE 85; RESP 16; TEMP 36.9; O2SAT 99; BMI 29.9
--- NOTE | 2020-02-14 12:58 | ED.ABDPAIN ---
HPI - Abdominal Pain <AYLEEN Ambriz - Last Filed: 02/14/20 17:36> General Chief Complaint: Vaginal Bleeding Stated Complaint: Been on period for like a month, in a lot of pain Time Seen by Provider: 02/14/20 12:21 Source: patient Mode of arrival: Ambulatory History of Present Illness HPI narrative: 24-year-old female presents to the emergency department for prolonged menstruation with worsening cramping. Patient states she has been ?on her period for a month ?. Patient states this happened once before in June, she was given control by her OBGYN which has been helping until this past month. She states usually her menstruation last 3- 4 days and occurs every month. However, this month that has been ongoing for approximately month. She states she developed cramping over the past few days which has worsened in severity especially on the left side, left back and radiating down her left leg. She reports intermittent nausea. He denies any vomiting, abnormal bowel movements, dizziness, chest pain, shortness of breath, or any other concerns. She denies any chance of or STIs. She denies any history of ovarian cyst. She states she was unsure the cause of this when it happened in June. Related Data Previous Rx's Medication Instructions Recorded meclizine 12.5 mg tablet 25 mg PO BID-TID PRN #20 tab 09/10/19 ondansetron 4 mg PO Q6H #10 tab 02/14/20 Allergies Allergy/AdvReac Type Severity Reaction Status Date / Time acetaminophen [From Vicodin] AdvReac Verified 02/14/20 12:36 hydrocodone [From Vicodin] AdvReac Verified 02/14/20 12:36 Review of Systems <AYLEEN Ambriz - Last Filed: 02/14/20 17:36> Review of Systems Narrative: REVIEW OF SYSTEMS: GENERAL: Denies fever or chills. HENT: No head trauma. EYES: No vision changes. CARDIOVASCULAR: No chest pain. RESPIRATORY: No shortness of breath or cough. GASTROINTESTINAL: Complains of abdominal pain, see HPI GENITOURINARY: No flank pain, urinary incontinence, hesitancy, frequency, or dysuria. Reports vaginal bleeding, see HPI. MUSCULOSKELETAL: No pain. INTEGUMENTARY: No rash. NEURO: No numbness, tingling, memory loss, confusion, or headaches. PSYCH: No behavior or mood changes. Patient History <AYLEEN Ambriz - Last Filed: 02/14/20 17:36> Medical History Menometrorrhagia (Inactive) Surgical History [place] teeth extracted (Acute) Social History number of children: 0 household members: spouse lives independently: Yes Smoking Status: Former smoker alcohol intake: never substance use type: marijuana Smoking Status: Former smoker alcohol intake frequency: holidays/special occasions only Substance Use Type: marijuana Exam <AYLEEN Ambriz - Last Filed: 02/14/20 17:36> Initial Vital Signs Initial Vital Signs: Vital Signs Blood Pressure 138/96 H 02/14/20 12:18 PHYSICAL EXAMINATION: GENERAL: Well groomed, alert, and cooperative. HENT: Normocephalic, atraumatic. Hearing intact. Oral mucosa is pink and moist. EYES: Conjunctiva pink, sclera white, no periorbital swelling. CARDIOVASCULAR: S1 and S2 sounds normal. Regular rate and rhythm, no murmurs, clicks, or bruits. RESPIRATORY: Normal respiratory rate, trachea midline, airway patent. No stridor, nasal flaring or accessory muscle use. Lungs are clear in all [place] without wheeze, rhonchi, or crackles. GASTROINTESTINAL: Bowel sounds normoactive. Abdomen is soft slight diffuse pelvic tenderness. No organomegaly, no palpable masses. GENITALURINARY: No flank tenderness. MUSCULOSKELETAL: Normal gait and coordination. Equal tone and mass bilaterally. EXTREMITIES: CMS intact, no pedal edema. SKIN: Warm, dry, soft, appropriate color for ethnicity. No lesions, rashes, or wounds to visualized areas. NEURO: Alert and Oriented X 3. Good coordination. No ataxia, or sensory deficits, or cognitive issues. PSYCH: Appropriate affect and mood. <Robbin Arrington DO - Last Filed: 02/14/20 17:47> Initial Vital Signs Initial Vital Signs: Vital Signs Blood Pressure 138/96 H 02/14/20 12:18 Course <AYLEEN Ambriz - Last Filed: 02/14/20 17:36> Course Course Narrative: Patient given Toradol, fluids, and ondansetron in the emergency department to help with discomfort. Orders Ordered: ED Orders 02/14/20 12:25 US pelvic complete Stat 02/14/20 12:58 Complete Blood Count AUTO DIFF Stat Comprehensive Metabolic Panel Stat Test Serum,Qual Stat 02/14/20 14:45 Urinalysis and Microscopic Stat Discontinued Medications Sodium Chloride (Normal Saline 0.9%) 1,000 mls @ 1,000 mls/hr IV BOLUS ONE Stop: 02/14/20 13:20 Last Infusion: 02/14/20 15:25 Dose: 0 mls/hr Documented by: Admin: 02/14/20 13:17 Dose: 1,000 mls/hr Documented by: DELILAH Ketorolac Tromethamine (Toradol) 30 mg IV NOW ONE Stop: 02/14/20 12:22 Last Admin: 02/14/20 13:17 Dose: 30 mg Documented by: DELILAH Ondansetron HCl (Zofran) 4 mg IV NOW ONE Stop: 02/14/20 12:22 Last Admin: 02/14/20 13:17 Dose: 4 mg Documented by: DELILAH Consultations Consultation #1: Consulted with Dr. Arrington. Vital Signs Vital signs: Vital Signs - 8 hr 02/14/20 12:18 02/14/20 12:29 02/14/20 14:29 Temperature 98.4 F Pulse Rate 85 65 Respiratory Rate 16 18 Blood Pressure 138/96 H 138/96 H 128/73 Pulse Oximetry 99 98 02/14/20 15:36 Temperature Pulse Rate 74 Respiratory Rate 18 Blood Pressure 124/79 Pulse Oximetry 99 <Robbin Arrington DO - Last Filed: 02/14/20 17:47> Orders Ordered: ED Orders 02/14/20 12:25 US pelvic complete Stat 02/14/20 12:58 Complete Blood Count AUTO DIFF Stat Comprehensive Metabolic Panel Stat Test Serum,Qual Stat 02/14/20 14:45 Urinalysis and Microscopic Stat Discontinued Medications Sodium Chloride (Normal Saline 0.9%) 1,000 mls @ 1,000 mls/hr IV BOLUS ONE Stop: 02/14/20 13:20 Last Infusion: 02/14/20 15:25 Dose: 0 mls/hr Documented by: Admin: 02/14/20 13:17 Dose: 1,000 mls/hr Documented by: DELILAH Ketorolac Tromethamine (Toradol) 30 mg IV NOW ONE Stop: 02/14/20 12:22 Last Admin: 02/14/20 13:17 Dose: 30 mg Documented by: DELILAH Ondansetron HCl (Zofran) 4 mg IV NOW ONE Stop: 02/14/20 12:22 Last Admin: 02/14/20 13:17 Dose: 4 mg Documented by: DELILAH Vital Signs Vital signs: Vital Signs - 8 hr 02/14/20 12:18 02/14/20 12:29 02/14/20 14:29 Temperature 98.4 F Pulse Rate 85 65 Respiratory Rate 16 18 Blood Pressure 138/96 H 138/96 H 128/73 Pulse Oximetry 99 98 02/14/20 15:36 Temperature Pulse Rate 74 Respiratory Rate 18 Blood Pressure 124/79 Pulse Oximetry 99 MDM - Abdominal Pain <AYLEEN Ambriz - Last Filed: 02/14/20 17:36> Medical Records Attestation: I reviewed the patient's medical records. Lab Data Attestation: I reviewed the patient's lab results. Result diagrams: 02/14/20 12:58 02/14/20 12:58 Labs: Lab Results 02/14/20 02/14/20 02/14/20 Range/Units 12:58 12:58 12:58 WBC 3.9 L (4.5-11.0) X10^3/uL RBC 4.31 (4.0-5.2) X10^6/uL Hgb 12.8 (12.0-16.0) g/dL Hct 37.8 (36-46) % MCV 87.7 (80-100) fL MCH 29.6 (26-34) PG MCHC 33.8 (30-36) % RDW 13.3 (11.6-14.8) % Plt Count 329 (150-400) X10^3/uL Neut % (Auto) 39.1 L (50-75) % Lymph % (Auto) 50.5 H (25-40) % [place] % (Auto) 6.2 (3-14) % Eos % (Auto) 2.4 (2-4) % Baso % (Auto) 1.8 (0-2) % Neut # (Auto) 1500 (8233-6922) /uL Lymph # (Auto) 2000 (1202-0206) /uL [place] # (Auto) 200 (0-900) /uL Eos # (Auto) 100 (0-450) /uL Baso # (Auto) 100 (0-100) /uL Sodium 139 (137-145) mmol/L Potassium 3.7 (3.4-5.1) mmol/L Chloride 107 (98-107) mmol/L Carbon Dioxide 29 (22-32) mmol/L BUN 8 (7-17) mg/dL Creatinine 0.95 (0.52-1.04) mg/dL Estimated GFR > 60.0 (>60) mL/min BUN/Creatinine Ratio 8.4 (6-22) Glucose 85 (70-100) mg/dL Calcium 8.8 (8.4-10.2) mg/dL Total Bilirubin 0.4 (0.2-1.3) mg/dL AST 23 (14-36) IU/L ALT 13 (<35) IU/L Alkaline Phosphatase 58 (38-126) U/L Total Protein 7.3 (6.3-8.2) g/dL Albumin 3.8 (3.5-5.0) g/dL Globulin 3.5 (1.7-4.1) g/dL Albumin/Globulin Ratio 1.1 (1.0-2.8) Serum , Qual Negative (Negative) Urine Color Urine Appearance Urine pH (4.5-8.0) Ur Specific [place] (1.000-1.035) Urine Protein (Negative) Urine Glucose (UA) (Negative) g/dL Urine Ketones (NEGATIVE) Urine Occult Blood (Negative) Urine Nitrate (Negative) Urine Bilirubin (NEGATIVE) Urine Urobilinogen (0.2) E.U./dL Ur Leukocyte Esterase (NEGATIVE) Urine RBC (0-5/HPF) Urine WBC (0-5/HPF) Ur Squamous Epith Cells (0-5/HPF) Urine Bacteria (None) Ur Culture Indicated? 02/14/20 Range/Units 14:45 WBC (4.5-11.0) X10^3/uL RBC (4.0-5.2) X10^6/uL Hgb (12.0-16.0) g/dL Hct (36-46) % MCV (80-100) fL MCH (26-34) PG MCHC (30-36) % RDW (11.6-14.8) % Plt Count (150-400) X10^3/uL Neut % (Auto) (50-75) % Lymph % (Auto) (25-40) % [place] % (Auto) (3-14) % Eos % (Auto) (2-4) % Baso % (Auto) (0-2) % Neut # (Auto) (5417-4063) /uL Lymph # (Auto) (7229-9223) /uL [place] # (Auto) (0-900) /uL Eos # (Auto) (0-450) /uL Baso # (Auto) (0-100) /uL Sodium (137-145) mmol/L Potassium (3.4-5.1) mmol/L Chloride (98-107) mmol/L Carbon Dioxide (22-32) mmol/L BUN (7-17) mg/dL Creatinine (0.52-1.04) mg/dL Estimated GFR (>60) mL/min BUN/Creatinine Ratio (6-22) Glucose (70-100) mg/dL Calcium (8.4-10.2) mg/dL Total Bilirubin (0.2-1.3) mg/dL AST (14-36) IU/L ALT (<35) IU/L Alkaline Phosphatase (38-126) U/L Total Protein (6.3-8.2) g/dL Albumin (3.5-5.0) g/dL Globulin (1.7-4.1) g/dL Albumin/Globulin Ratio (1.0-2.8) Serum , Qual (Negative) Urine Color Red Urine Appearance Cloudy Urine pH 7.0 (4.5-8.0) Ur Specific [place] 1.025 (1.000-1.035) Urine Protein Trace H (Negative) Urine Glucose (UA) Negative (Negative) g/dL Urine Ketones Negative (NEGATIVE) Urine Occult Blood 3+ H (Negative) Urine Nitrate Negative (Negative) Urine Bilirubin Negative (NEGATIVE) Urine Urobilinogen 0.2 (0.2) E.U./dL Ur Leukocyte Esterase Negative (NEGATIVE) Urine RBC >100/hpf H (0-5/HPF) Urine WBC 1-5/hpf (0-5/HPF) Ur Squamous Epith Cells 5-10 /hpf H (0-5/HPF) Urine Bacteria None seen (None) Ur Culture Indicated? 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 Additional endovaginal scanning was necessary due to incomplete visualization of the adnexal and endometrial structures by transabdominal scanning. COMPARISON: [facility], , US PELVIC COMPLETE, 06/23/2019, 9:31. FINDINGS: Transabdominal scanning: Limited scanning through the kidneys shows no hydronephrosis. No pathologic free abdominal or pelvic fluid. Endovaginal scanning: Uterus: Uterus is normal in size at 6.5 x 3.6 x 4.8 cm. The endometrium measures 4 mm in combined thickness. Homogeneous uterine echotexture. Ovaries: Right ovary measures 2.7 x 2.0 x 2.9 cm. Left ovary measures 3.0 x 1.8 x 3.2 cm. No ovarian or adnexal mass lesions. Normal vascular waveforms. IMPRESSION: Pelvic ultrasound without acute sonographic abnormalities. No evidence for ovarian torsion. Dictated by: Emanuel Rosales M.D. on 02/14/2020 at 12:57 Approved by: Emanuel Rosales M.D. on 02/14/2020 at 13:03 MDM Narrative Medical decision making narrative: 24yo female presents emergency department for prolonged vaginal bleeding and painful cramping. Patient is currently taking control. I suspect patient's pain and prolonged bleeding is most likely caused from hormone imbalance or menorrhagia. Less concern for anatomical etiology, ovarian cyst, or thickening uterine lining due to negative ultrasound. Patient is hemodynamically stable, less concern for anemia given H&H is within normal limits, no symptoms such as dizziness or lightheadedness, no syncope. Bleeding does not exceed 1 pad or tampon an hour. Negative test. Patient was given the choice to follow-up with OBGYN to discuss options about control or start medroxyprogesterone taper. We discussed risks and benefits, patient chose to follow-up with OBGYN. She was encouraged to take ibuprofen every 6 hours for the next few days to decreased prostate glands. Patient was given ondansetron to help with nausea. Less concern for acute abdominal etiology such as gastroenteritis, appendicitis, or gallbladder etiology given lack of focal tenderness on abdominal examination, white blood cell count within normal limits and lack of fever and tachycardia. ED return precautions given for new or worsening symptoms. Patient agreed to plan of care and verbalized understanding. <Robbin Arrington, DO - Last Filed: 02/14/20 17:47> Lab Data Labs: Lab Results 02/14/20 02/14/20 02/14/20 Range/Units 12:58 12:58 12:58 WBC 3.9 L (4.5-11.0) X10^3/uL RBC 4.31 (4.0-5.2) X10^6/uL Hgb 12.8 (12.0-16.0) g/dL Hct 37.8 (36-46) % MCV 87.7 (80-100) fL MCH 29.6 (26-34) PG MCHC 33.8 (30-36) % RDW 13.3 (11.6-14.8) % Plt Count 329 (150-400) X10^3/uL Neut % (Auto) 39.1 L (50-75) % Lymph % (Auto) 50.5 H (25-40) % [place] % (Auto) 6.2 (3-14) % Eos % (Auto) 2.4 (2-4) % Baso % (Auto) 1.8 (0-2) % Neut # (Auto) 1500 (3920-2180) /uL Lymph # (Auto) 2000 (4667-5746) /uL [place] # (Auto) 200 (0-900) /uL Eos # (Auto) 100 (0-450) /uL Baso # (Auto) 100 (0-100) /uL Sodium 139 (137-145) mmol/L Potassium 3.7 (3.4-5.1) mmol/L Chloride 107 (98-107) mmol/L Carbon Dioxide 29 (22-32) mmol/L BUN 8 (7-17) mg/dL Creatinine 0.95 (0.52-1.04) mg/dL Estimated GFR > 60.0 (>60) mL/min BUN/Creatinine Ratio 8.4 (6-22) Glucose 85 (70-100) mg/dL Calcium 8.8 (8.4-10.2) mg/dL Total Bilirubin 0.4 (0.2-1.3) mg/dL AST 23 (14-36) IU/L ALT 13 (<35) IU/L Alkaline Phosphatase 58 (38-126) U/L Total Protein 7.3 (6.3-8.2) g/dL Albumin 3.8 (3.5-5.0) g/dL Globulin 3.5 (1.7-4.1) g/dL Albumin/Globulin Ratio 1.1 (1.0-2.8) Serum , Qual Negative (Negative) Urine Color Urine Appearance Urine pH (4.5-8.0) Ur Specific [place] (1.000-1.035) Urine Protein (Negative) Urine Glucose (UA) (Negative) g/dL Urine Ketones (NEGATIVE) Urine Occult Blood (Negative) Urine Nitrate (Negative) Urine Bilirubin (NEGATIVE) Urine Urobilinogen (0.2) E.U./dL Ur Leukocyte Esterase (NEGATIVE) Urine RBC (0-5/HPF) Urine WBC (0-5/HPF) Ur Squamous Epith Cells (0-5/HPF) Urine Bacteria (None) Ur Culture Indicated? 02/14/20 Range/Units 14:45 WBC (4.5-11.0) X10^3/uL RBC (4.0-5.2) X10^6/uL Hgb (12.0-16.0) g/dL Hct (36-46) % MCV (80-100) fL MCH (26-34) PG MCHC (30-36) % RDW (11.6-14.8) % Plt Count (150-400) X10^3/uL Neut % (Auto) (50-75) % Lymph % (Auto) (25-40) % [place] % (Auto) (3-14) % Eos % (Auto) (2-4) % Baso % (Auto) (0-2) % Neut # (Auto) (0093-7695) /uL Lymph # (Auto) (5561-8796) /uL [place] # (Auto) (0-900) /uL Eos # (Auto) (0-450) /uL Baso # (Auto) (0-100) /uL Sodium (137-145) mmol/L Potassium (3.4-5.1) mmol/L Chloride (98-107) mmol/L Carbon Dioxide (22-32) mmol/L BUN (7-17) mg/dL Creatinine (0.52-1.04) mg/dL Estimated GFR (>60) mL/min BUN/Creatinine Ratio (6-22) Glucose (70-100) mg/dL Calcium (8.4-10.2) mg/dL Total Bilirubin (0.2-1.3) mg/dL AST (14-36) IU/L ALT (<35) IU/L Alkaline Phosphatase (38-126) U/L Total Protein (6.3-8.2) g/dL Albumin (3.5-5.0) g/dL Globulin (1.7-4.1) g/dL Albumin/Globulin Ratio (1.0-2.8) Serum , Qual (Negative) Urine Color Red Urine Appearance Cloudy Urine pH 7.0 (4.5-8.0) Ur Specific [place] 1.025 (1.000-1.035) Urine Protein Trace H (Negative) Urine Glucose (UA) Negative (Negative) g/dL Urine Ketones Negative (NEGATIVE) Urine Occult Blood 3+ H (Negative) Urine Nitrate Negative (Negative) Urine Bilirubin Negative (NEGATIVE) Urine Urobilinogen 0.2 (0.2) E.U./dL Ur Leukocyte Esterase Negative (NEGATIVE) Urine RBC >100/hpf H (0-5/HPF) Urine WBC 1-5/hpf (0-5/HPF) Ur Squamous Epith Cells 5-10 /hpf H (0-5/HPF) Urine Bacteria None seen (None) Ur Culture Indicated? Cult not indicated Discharge Plan Departure Patient Disposition: Home Clinical Impression: Vaginal bleeding, Menometrorrhagia Discharge Date/Time: 02/14/20 15:39 Instructions: DI for Dysmenorrhea, DI for Menorrhagia Activity Restrictions/Additional Instructions: Thank you for entrusting me with your care today. As discussed, your laboratory work, urinalysis, and Ultrasound are negative for any concerning symptoms. I suggest taking 400 mg of ibuprofen every 6 hours for the next 2-3 days to help with pain and bleeding. I have given you prescription for ondansetron to help with nausea. Please drink plenty of fluids. Follow-up with your OBGYN, give them a call on Saturday to schedule an appointment. Return emergency department for any new or worsening symptoms especially worsening bleeding, dizziness, syncope, severe pain, or any other concerns. Prescriptions: New ondansetron 4 mg tablet,disintegrating 4 mg PO Q6H Qty: 10 RF: 0 No Action meclizine 12.5 mg tablet 25 mg PO BID-TID PRN (Reason: dizziness) Qty: 20 RF: 0 Referrals: Dmitriy Mercado PA-C [Primary Care Provider] - <Robbin Arrington DO - Last Filed: 02/14/20 17:47> Cosign ED Attending Cosignature Attestation: Dr Arrington Co-Sign Statement: I was available for consultation during this patient's emergency department visit. This chart is signed by myself for administrative purposes only. I did not have direct contact with this patient during this visit. They were seen independently by the APC.
[2020-02-14 13:11] LABS: Add Manual Diff / Slide Review NO; Basophils Absolute Auto 100 /uL (0-100); Basophils Percent Auto 1.8 % (0-2); Eosinophils Absolute Auto 100 /uL (0-450); Eosinophils Percent Auto 2.4 % (2-4); Hematocrit 37.8 % (36-46); Hemoglobin 12.8 g/dL (12.0-16.0); Lymphocytes Absolute Auto 2000 /uL (1100-4500); Lymphocytes Percent Auto 50.5 % (25-40); Mean Corpuscular HGB Conc 33.8 % (30-36); Mean Corpuscular Hemoglobin 29.6 PG (26-34); Mean Corpuscular Volume 87.7 fL (80-100); Monocytes Absolute Auto 200 /uL (0-900); Monocytes Percent Auto 6.2 % (3-14); Neutrophils Absolute Auto 1500 /uL (1500-7000); Neutrophils Percent Auto 39.1 % (50-75); Platelet Count 329 X10^3/uL (150-400); Red Blood Cell Count 4.31 X10^6/uL (4.0-5.2); Red Cell Distribution Width 13.3 % (11.6-14.8); White Blood Cell Count 3.9 X10^3/uL (4.5-11.0)
[2020-02-14] MEDS: ONDANSETRON 4 MG/2 ML INJ IV (13:17)
[2020-02-14] MEDS: SODIUM CHLORIDE 0.9% 1,000 ML 1000 ML IV (13:17)
[2020-02-14] MEDS: KETOROLAC 60 MG/2 ML VIAL 30 MG IV (13:17)
[2020-02-14 13:22] LABS: Alanine Aminotransferase 13 IU/L (<35); Albumin 3.8 g/dL (3.5-5.0); Albumin Globulin Ratio 1.1 (1.0-2.8); Alkaline Phosphatase 58 U/L (38-126); Aspartate Aminotransferase 23 IU/L (14-36); BUN Creatinine Ratio 8.4 (6-22); Bilirubin Total 0.4 mg/dL (0.2-1.3); Blood Urea Nitrogen 8 mg/dL (7-17); Calcium 8.8 mg/dL (8.4-10.2); Carbon Dioxide 29 mmol/L (22-32); Chloride 107 mmol/L (98-107); Estimated Glomerular Filt Rate > 60.0 mL/min (>60); Globulin 3.5 g/dL (1.7-4.1); Glucose 85 mg/dL (70-100); HEMOLYSIS < 15 (0-50); Potassium 3.7 mmol/L (3.4-5.1); Sodium 139 mmol/L (137-145); Total Protein 7.3 g/dL (6.3-8.2)
[2020-02-14 14:29] VITALS: BP 128/73; PULSE 65; RESP 18; O2SAT 98
[2020-02-14 14:57] LABS: Pregnancy Test Serum,Qual Negative (Negative)
[2020-02-14 14:58] LABS: Bacteria Urine None Seen
[2020-02-14 15:07] LABS: Appearance Urine UA CLOUDY; Bilirubin Urine UA NEGATIVE (NEGATIVE); Color Urine UA RED; Glucose Urine UA NEGATIVE (Negative); Ketones Urine UA NEGATIVE (NEGATIVE); Leukocyte Esterase Urine UA NEGATIVE (NEGATIVE); Nitrite Urine UA NEGATIVE (Negative); Occult Blood Urine UA 3+ (Negative); Protein Urine UA TRACE (Negative); Specific Gravity Urine UA 1.025 (1.000-1.035); Urobilinogen Urine UA 0.2 E.U./dL (0.2)
[2020-02-14 15:21] LABS: Culture Indicated Urine Cult Not Indicated; RBC Urine >100/HPF (0-5/HPF); Squamous Epithelial Cell Urine 5-10 /HPF (0-5/HPF); WBC Urine 1-5/HPF (0-5/HPF)
[2020-02-14 15:36] VITALS: BP 124/79; PULSE 74; RESP 18; O2SAT 99
== END 2020-02-14 15:39 | disposition home or self-care (01) ==
PROVIDERS: Emergency Medicine; Emergency Provider Nurse Practitioner; Family Provider Physician Assistant Medical; PCP Physician Assistant Medical
DX: N92.1 Excessive and frequent menstruation with irregular cycle (principal); N93.9 Abnormal uterine and vaginal bleeding, unspecified; R11.0 Nausea
CPT/HCPCS: 36415; 76830; 76856; 80053; 81001; 84703; 85025; 96361; 96374; 96375; 99284; J1885; J2405

== ENCOUNTER 2020-03-20 07:52 | Emergency (ER) | payer OTHER, MEDICAID, SELFPAY ==
--- NOTE | 2020-03-20 07:56 | ED.GENADULT ---
HPI - General Adult General Chief complaint: Abdominal Pain Stated complaint: abdominal cramping for a few weeks Time Seen by Provider: 03/20/20 07:56 History of Present Illness HPI narrative: 24-year-old G0 with occasional menstrual irregularity currently on oral contraceptives presents with 2 weeks of low pelvic cramping with a LMP of January 29. She is concerned that she may be . Related Data Previous Rx's Medication Instructions Recorded meclizine 12.5 mg tablet 25 mg PO BID-TID PRN #20 tab 09/10/19 ondansetron 4 mg PO Q6H #10 tab 02/14/20 Allergies Allergy/AdvReac Type Severity Reaction Status Date / Time acetaminophen [From Vicodin] AdvReac Verified 02/14/20 12:36 hydrocodone [From Vicodin] AdvReac Verified 02/14/20 12:36 Review of Systems Review of Systems Narrative: Pertinent positive and negative findings as per HPI Remainder of review of systems is otherwise unremarkable for Constitutional: Fevers, chills, weakness ENT: No sore throat, neck pain, ear pain CV: Chest pain, palpitations, Respiratory: Cough, wheeze, dyspnea GI: Nausea, vomiting, diarrhea, : Dysuria, hematuria, flank pain MS: Muscle weakness, numbness, joint swelling or warmth Skin: Rashes, nonhealing lesions Neuro: Syncope, dizziness, tingling Patient History Medical History (Updated 03/20/20 @ 08:24 by Shasta Rouse MD) Menometrorrhagia Surgical History [place] teeth extracted Social History number of children: 0 household members: spouse lives independently: Yes Smoking Status: Former smoker alcohol intake: never substance use type: marijuana Smoking Status: Former smoker alcohol intake frequency: holidays/special occasions only Substance Use Type: marijuana Exam Narrative Exam Narrative: General: Alert appropriate in no acute distress Respiratory: Able to speak in full sentences, no obvious respiratory distress Abd: Soft, no significant tenderness to palpation. No flank pain Skin: No obvious rashes, warm and dry Neurologic: Grossly intact no obvious asymmetries or abnormalities Psych, appropriate insight and affect, cooperative Initial Vital Signs Initial Vital Signs: Vital Signs Temperature 98.6 F 03/20/20 08:01 Pulse Rate 86 03/20/20 08:01 Respiratory Rate 18 03/20/20 08:01 Blood Pressure 141/85 H 03/20/20 08:01 Pulse Oximetry 98 03/20/20 08:01 Course Orders Ordered: ED Orders 03/20/20 08:03 Urine Microscopic Stat Vital Signs Vital signs: Vital Signs - 8 hr 03/20/20 08:01 Temperature 98.6 F Pulse Rate 86 Respiratory Rate 18 Blood Pressure 141/85 H Pulse Oximetry 98 Medical Decision Making Lab Data Lab results reviewed: Yes I reviewed the patient's lab results. Labs: Point of Care Testing Test Results Positive Urine Dip Bedside Urine Glucose Negative Bedside Urine Bilirubin - Negative Bedside Urine Ketone + 15 Urine Specific [place] 1.025 Bedside Urine Occult Blood - Negative Bedside Urine pH 6.0 Bedside Urine Protein - Negative Bedside Urine Urobilinogen - Negative Bedside Urine Nitrite - Negative Bedside Urine Leukocytes - Negative Esterase Point of care testing: Point of Care Testing Test Results Positive Urine Dip Bedside Urine Glucose Negative Bedside Urine Bilirubin - Negative Bedside Urine Ketone + 15 Urine Specific [place] 1.025 Bedside Urine Occult Blood - Negative Bedside Urine pH 6.0 Bedside Urine Protein - Negative Bedside Urine Urobilinogen - Negative Bedside Urine Nitrite - Negative Bedside Urine Leukocytes - Negative Esterase MDM Narrative Medical decision making narrative: Otherwise healthy 24-year-old woman with late LMP presents for confirmation of . test is positive. She has some minor cramping only. Did review signs and symptoms of ectopic at this point I think that is far less likely. She was a bit overwhelmed with the news that she was . Will be discussing findings with the father of the baby later today. She is safe for home discharge. Discharge Plan Departure Patient Disposition: Home Clinical Impression: Qualifiers: Weeks of gestation: less than 8 weeks Qualified Code(s): Z3A.01 - Less than 8 weeks gestation of Instructions: DI for Ectopic , DI for -- Discomforts and Remedies Activity Restrictions/Additional Instructions: Congratulations on your It sounds like that is a lot of discussion that needs to happen. Based on your last period of 01/29, your due date would be on or around 11/05/2020 Please make sure that you are doing log you can to keep your body safe and healthy. I would recommend beginning vitamins you can get them [id number]. Making sure that your avoiding alcohol, tobacco and any other recreational drugs. I would encourage you to schedule appointment with your primary care provider for early care and see who she would suggest to provide remainder maternity care. If you choose to not continue with this then [facility] will [facility] be your best option for care. There is a [place] clinic and one in [address] [id number] [place], [place] [id number] If you have worsening cramping or bleeding, it would be appropriate to return to the ER. I do NOT suspect that you have an ectopic , but I have given you information about it so you will know what those sypmtoms can look like and when you should be reevaluated. I wish you the very best Prescriptions: No Action meclizine 12.5 mg tablet 25 mg PO BID-TID PRN (Reason: dizziness) Qty: 20 RF: 0 ondansetron 4 mg tablet,disintegrating 4 mg PO Q6H Qty: 10 RF: 0 Referrals: Dmitriy Mercado PA-C [Primary Care Provider] -
[2020-03-20 08:01] VITALS: BP 141/85; PULSE 86; RESP 18; TEMP 37; O2SAT 98; BMI 27.1
[2020-03-20 08:18] LABS: Bacteria Urine None Seen; RBC Urine None Seen (0-5/HPF); WBC Urine None Seen (0-5/HPF)
[2020-03-20 08:35] LABS: Culture Indicated Urine Cult Not Indicated; Squamous Epithelial Cell Urine 10-30 /HPF (0-5/HPF)
== END 2020-03-20 08:30 | disposition home or self-care (01) ==
PROVIDERS: Emergency Provider Emergency Medicine; Family Provider Physician Assistant Medical; PCP Physician Assistant Medical
DX: Z32.01 Encounter for pregnancy test, result positive (principal); Z3A.01 Less than 8 weeks gestation of pregnancy
CPT/HCPCS: 81003; 81015; 81025; 99281; 99282

== ENCOUNTER 2020-04-10 20:21 | Emergency (ER) | payer OTHER, MEDICAID, SELFPAY ==
[2020-04-10] VITALS (7 sets, daily range): BP systolic 114–129; BP diastolic 56–71; PULSE 82–93; RESP 16–18; TEMP 36.6; O2SAT 99–100; BMI 33.5
[2020-04-10] MEDS: SODIUM CHLORIDE 0.9% 1,000 ML 1000 ML IV (20:36)
--- NOTE | 2020-04-10 20:40 | ED_ITS ---
HPI - General Adult General Chief complaint: OB/Uterine Contractions Stated complaint: 9 weeks / vomitting Time Seen by Provider: 04/10/20 20:24 Source: patient Mode of arrival: Family Vehicle Limitations: no limitations History of Present Illness HPI narrative: A 24-year-old female. at approximately 9 weeks EGA here for the evaluation of approximately 4 weeks of nausea and vomiting. She does have Z ofran at home however she states that she does not like taking it because it makes her drowsy. She has also tried Unisom and B6 without any improvement. She has continued to have nausea and vomiting and decreased appetite. She has talk with her OB doctor about this. She denies any fevers. No abdominal pain. No vaginal bleeding. No loss of fluid. No change in bowel habits. Related Data Home Medications Medication Instructions Recorded Confirmed acetaminophen 325 mg capsule 325 mg PO ONCE PRN 03/29/20 03/30/20 prenat.vits,rodney,sae-dauh-drolg 1 tab PO DAILY 03/29/20 03/30/20 Previous Rx's Medication Instructions Recorded ondansetron 4 mg disintegrating 4 mg PO Q6H #30 tab 03/30/20 tablet promethazine 25 mg PO TID PRN #10 tab 04/10/20 Allergies Allergy/AdvReac Type Severity Reaction Status Date / Time hydrocodone [From Vicodin] AdvReac Severe Severe Verified 04/10/20 20:32 mood swings/anger, does not want to take it. Review of Systems Constitutional Constitutional: Denies fatigue and Denies headache(s) ENT Ears, Nose, Mouth, and Throat: Denies headache(s) Cardiovascular Cardiovascular: Denies chest pain and Denies dyspnea Respiratory Respiratory: Denies dyspnea Gastrointestinal Gastrointestinal: Denies abdominal pain, Denies change in bowel habits, Reports nausea and Reports vomiting Genitourinary Genitourinary: Denies dysuria Genitourinary: Denies dysuria and Denies vaginal discharge Musculoskeletal Musculoskeletal: Denies arthralgias, Denies back pain and Denies myalgias Integumentary/Breasts Skin/Breast: Denies rash Neurologic Neurologic: Denies behavioral changes and Denies headache(s) Psychiatric Psychiatric: Denies behavioral changes Endocrine Endocrine: Denies fatigue Hematologic/Lymphatic Hematologic/Lymphatic: Denies easy bleeding and Denies easy bruising Allergic/Immunologic Allergic/Immunologic: Denies urticaria Patient History Medical History Anxiety (~2018) Depression (~2014) Menometrorrhagia (~2010) Surgical History (Updated 03/29/20 @ 11:42 by Laina Hennessy RN) History of dilation and curettage (~08/2017) [place] teeth extracted (~2012) Family History (Updated 03/29/20 @ 11:50 by Laina Hennessy RN) Mother Hypertension Blood clotting tendency Father Family estrangement Grandfather Cancer Grandmother Congestive heart failure Grandmother Family estrangement Grandfather Family estrangement Family/Other Blood clotting tendency Social History marital status: unmarried,single number of children: 0 household members: family (Lives w younger sister. ) lives independently: Yes caregiver/support person: No housing: house pets and animals: Yes (3 cats, 1 dog. Aware of precautions, dog is safe w/babies. ) education level: college (Finishing Bachelors in [employer].) occupational status: employed ([employer] in [place], [place], part-time.) current occupational exposures/hazards: No special stephanie needs: No seatbelt use: always Smoking Status: Former smoker Tobacco: How many years used: 2 quit status: has quit before second hand exposure: No alcohol intake: never substance use type: marijuana (In the past. Quit with diagnosis.) during the past year weight has: remained stable well-balanced diet: daily or most days caffeine: No (Quit Red Bull w/ .) Type(s) of exercise: walking (less now with nausea. Sometimes f ainting/lightheaded since she has been . ) and normal ROM and activity frequency: daily Smoking Status: Former smoker alcohol intake frequency: holidays/special occasions only Substance Use Type: marijuana Exam Initial Vital Signs Initial Vital Signs: Vital Signs Blood Pressure 129/71 04/10/20 20:31 Const General: cooperative, comfortable and well developed Limitations: mental status not altered HENMT Head: normocephalic and atraumatic Resp Effort & Inspection: normal respiratory effort Cardio Rate: regular rate GI Inspection: non-distended Palpation: soft and No tender Skin Lesions: no lesions Rashes: no rashes Neuro General: patient alert and patient awake Cognition: normal cognition Speech: speech normal Extrem General: capillary refill normal Psych Appearance: grossly normal and well kempt Course Orders Ordered: ED Orders 04/10/20 20:45 Complete Blood Count AUTO DIFF Stat Comprehensive Metabolic Panel Stat Lipase Stat 04/10/20 22:17 Urine Microscopic Stat 04/10/20 23:08 Urine Culture Stat Discontinued Medications Diphenhydramine HCl (Diphenhydramine 50 Mg/Ml Vial) 25 mg IV NOW ONE Stop: 04/10/20 21:06 Last Admin: 04/10/20 21:08 Dose: 25 mg Documented by: OPAL Sodium Chloride (Normal Saline 0.9%) 1,000 mls @ 1,000 mls/hr IV BOLUS ONE Stop: 04/10/20 21:25 Last Infusion: 04/10/20 21:53 Dose: 0 mls/hr Documented by: Admin: 04/10/20 20:36 Dose: 1,000 mls/hr Documented by: MEE Metoclopramide HCl (Metoclopramide 10 Mg/2 Ml Inj) 10 mg IV NOW ONE Stop: 04/10/20 20:40 Last Admin: 04/10/20 20:49 Dose: 10 mg Documented by: MEE Ondansetron HCl (Ondansetron 4 Mg/2 Ml Inj) 4 mg IV NOW ONE Stop: 04/10/20 20:27 Last Admin: 04/10/20 20:48 Dose: Not Given Documented by: MEE Vital Signs Vital signs: Vital Signs - 8 hr 04/10/20 20:31 04/10/20 20:32 04/10/20 21:15 Temperature 97.9 F Pulse Rate 93 H Respiratory Rate 18 Blood Pressure 129/71 129/71 116/56 L Pulse Oximetry 99 04/10/20 21:17 04/10/20 22:07 04/10/20 22:08 Temperature Pulse Rate 83 Respiratory Rate Blood Pressure 116/56 L 114/67 Pulse Oximetry 100 04/10/20 22:09 Temperature Pulse Rate 82 Respiratory Rate 16 Blood Pressure 114/67 Pulse Oximetry 100 Medical Decision Making Lab Data Lab results reviewed: Yes I reviewed the patient's lab results. Result diagrams: 04/10/20 20:45 04/10/20 20:45 Labs: Lab Results 04/10/20 04/10/20 04/10/20 Range/Units 20:45 20:45 22:17 WBC 8.4 (4.5-11.0) X10^3/uL RBC 4.73 (4.0-5.2) X10^6/uL Hgb 14.1 (12.0-16.0) g/dL Hct 41.5 (36-46) % MCV 87.8 (80-100) fL MCH 29.9 (26-34) PG MCHC 34.1 (30-36) % RDW 14.1 (11.6-14.8) % Plt Count 351 (150-400) X10^3/uL Neut % (Auto) 71.7 (50-75) % Lymph % (Auto) 21.6 L (25-40) % [place] % (Auto) 5.7 (3-14) % Eos % (Auto) 0.5 L (2-4) % Baso % (Auto) 0.5 (0-2) % Neut # (Auto) 6000 (6188-8880) /uL Lymph # (Auto) 1800 (6662-4352) /uL [place] # (Auto) 500 (0-900) /uL Eos # (Auto) 0 (0-450) /uL Baso # (Auto) 0 (0-100) /uL Sodium 134 L (137-145) mmol/L Potassium 3.9 (3.4-5.1) mmol/L Chloride 102 (98-107) mmol/L Carbon Dioxide 24 (22-32) mmol/L BUN 5 L (7-17) mg/dL Creatinine 0.89 (0.52-1.04) mg/dL Estimated GFR > 60.0 (>60) mL/min BUN/Creatinine Ratio 5.6 L (6-22) Glucose 91 (70-100) mg/dL Calcium 9.8 (8.4-10.2) mg/dL Total Bilirubin 0.6 (0.2-1.3) mg/dL AST 22 (14-36) IU/L ALT 14 (<35) IU/L Alkaline Phosphatase 65 (38-126) U/L Total Protein 8.6 H (6.3-8.2) g/dL Albumin 4.4 (3.5-5.0) g/dL Globulin 4.2 H (1.7-4.1) g/dL Albumin/Globulin Ratio 1.0 (1.0-2.8) Lipase 108 (23-300) U/L Urine RBC 0-1/hpf (0-5/HPF) Urine WBC 1-5/hpf (0-5/HPF) Ur Squamous Epith Cells 10-30 /hpf H (0-5/HPF) Urine Bacteria Many (>30) H (None) Urine Mucus 2+ H (Negative) Ur Culture Indicated? Cult not indicated Micro UA Comment * Urine Dip Bedside Urine Glucose Negative Bedside Urine Bilirubin + 1 Bedside Urine Ketone +++ 80 Urine Specific [place] 1.030 Bedside Urine Occult Blood + Bedside Urine pH 6.0 Bedside Urine Protein + 30 Bedside Urine Urobilinogen - Negative Bedside Urine Nitrite - Negative Bedside Urine Leukocytes +/- 15 Esterase Point of care testing: Urine Dip Bedside Urine Glucose Negative Bedside Urine Bilirubin + 1 Bedside Urine Ketone +++ 80 Urine Specific [place] 1.030 Bedside Urine Occult Blood + Bedside Urine pH 6.0 Bedside Urine Protein + 30 Bedside Urine Urobilinogen - Negative Bedside Urine Nitrite - Negative Bedside Urine Leukocytes +/- 15 Esterase MDM Narrative Medical decision making narrative: Nontoxic appearing. Has no vaginal bleeding or vaginal discharge. Received Reglan and Benadryl and afterwards stated that she felt much better. She was able to tolerate oral intake. Urinalysis appears to be a contaminated sample so a urine culture was ordered and is pending at the time of discharge. Nausea medicine transmitted to the pharmacy of [facility]. She was given return precautions and follow-up instructions. She expressed understanding and agreement. Discharge Plan Departure Patient Disposition: Home Clinical Impression: Nausea and vomiting in Instructions: Nausea of (Alternative Therapy) Activity Restrictions/Additional Instructions: Recommend that you take all of your medications as directed. A prescription for nausea medication was electronically transmitted to the pharmacy that you indicated. Keep all of your scheduled medical appointments. Be sure to increase your fluid intake by drinking small amounts of fluid over longer periods of time. Return to the emergency department for any new or worsening symptoms Prescriptions: New promethazine 25 mg tablet 25 mg PO TID PRN (Reason: nausea and vomiting) Qty: 10 RF: 0 No Action ondansetron 4 mg tablet,disintegrating 4 mg PO Q6H Qty: 30 RF: 0 prenat.vits,rodney,[id number] Tablet 1 tab PO DAILY RF: 0 acetaminophen 325 mg capsule 325 mg PO ONCE PRNRF: 0 Referrals: Dmitriy Mercado PA-C [Primary Care Provider] -
[2020-04-10] MEDS: METOCLOPRAMIDE 10 MG/2 ML INJ IV (20:49)
[2020-04-10 20:57] LABS: Add Manual Diff / Slide Review NO; Basophils Absolute Auto 0 /uL (0-100); Basophils Percent Auto 0.5 % (0-2); Eosinophils Absolute Auto 0 /uL (0-450); Eosinophils Percent Auto 0.5 % (2-4); Hematocrit 41.5 % (36-46); Hemoglobin 14.1 g/dL (12.0-16.0); Lymphocytes Absolute Auto 1800 /uL (1100-4500); Lymphocytes Percent Auto 21.6 % (25-40); Mean Corpuscular HGB Conc 34.1 % (30-36); Mean Corpuscular Hemoglobin 29.9 PG (26-34); Mean Corpuscular Volume 87.8 fL (80-100); Monocytes Absolute Auto 500 /uL (0-900); Monocytes Percent Auto 5.7 % (3-14); Neutrophils Absolute Auto 6000 /uL (1500-7000); Neutrophils Percent Auto 71.7 % (50-75); Platelet Count 351 X10^3/uL (150-400); Red Blood Cell Count 4.73 X10^6/uL (4.0-5.2); Red Cell Distribution Width 14.1 % (11.6-14.8); White Blood Cell Count 8.4 X10^3/uL (4.5-11.0)
[2020-04-10] MEDS: diphenhydrAMINE 50 MG/ML VIAL 25 MG IV (21:08)
[2020-04-10 21:09] LABS: Alanine Aminotransferase 14 IU/L (<35); Albumin 4.4 g/dL (3.5-5.0); Alkaline Phosphatase 65 U/L (38-126); Aspartate Aminotransferase 22 IU/L (14-36); BUN Creatinine Ratio 5.6 (6-22); Bilirubin Total 0.6 mg/dL (0.2-1.3); Blood Urea Nitrogen 5 mg/dL (7-17); Calcium 9.8 mg/dL (8.4-10.2); Carbon Dioxide 24 mmol/L (22-32); Chloride 102 mmol/L (98-107); Estimated Glomerular Filt Rate > 60.0 mL/min (>60); Globulin 4.2 g/dL (1.7-4.1); Glucose 91 mg/dL (70-100); HEMOLYSIS < 15 (0-50); Lipase 108 U/L (23-300); Potassium 3.9 mmol/L (3.4-5.1); Sodium 134 mmol/L (137-145); Total Protein 8.6 g/dL (6.3-8.2)
--- NOTE | 2020-04-10 21:15 | PC.NURSE ---
Pt put animal damage control agent light to notify us that she was feeling really anxious/jittery and she thinks it's a reaction to the Reglan she was given. Dr Arrington notified, verbal order recieved for benedryl 25mg IV. Pt medicated per order, now resting comfortably. Reports nausea improved.
[2020-04-10 22:51] LABS: RBC Urine 0-1/HPF (0-5/HPF); Squamous Epithelial Cell Urine 10-30 /HPF (0-5/HPF); WBC Urine 1-5/HPF (0-5/HPF)
[2020-04-10 22:52] LABS: Bacteria Urine Many (>30); Mucus Urine 2+ (Negative)
[2020-04-10 22:53] LABS: Culture Indicated Urine Cult Not Indicated
== END 2020-04-10 23:19 | disposition home or self-care (01) ==
PROVIDERS: Emergency Provider Emergency Medicine; Family Provider Physician Assistant Medical; PCP Physician Assistant Medical
DX: O21.9 Vomiting of pregnancy, unspecified (principal); Z3A.09 9 weeks gestation of pregnancy
CPT/HCPCS: 36415; 80053; 81003; 81015; 83690; 85025; 87086; 96361; 96374; 96375; 99281; 99284; J1200; J2405; J2765

== ENCOUNTER 2020-04-12 18:20 | Emergency (ER) | payer OTHER, MEDICAID, SELFPAY ==
[2020-04-12 18:24] VITALS: BP 134/67; PULSE 113; RESP 20; TEMP 37.2; O2SAT 100
[2020-04-12] MEDS: ONDANSETRON 4 MG/2 ML INJ IV (18:37)
[2020-04-12] MEDS: SODIUM CHLORIDE 0.9% 1,000 ML 1000 ML IV ×2 (18:37→19:20)
[2020-04-12 18:40] LABS: Add Manual Diff / Slide Review NO; Basophils Absolute Auto 0 /uL (0-100); Basophils Percent Auto 0.6 % (0-2); Eosinophils Absolute Auto 100 /uL (0-450); Eosinophils Percent Auto 1.4 % (2-4); Hematocrit 41.3 % (36-46); Hemoglobin 14.2 g/dL (12.0-16.0); Lymphocytes Absolute Auto 2000 /uL (1100-4500); Lymphocytes Percent Auto 26.6 % (25-40); Mean Corpuscular HGB Conc 34.5 % (30-36); Mean Corpuscular Hemoglobin 30.4 PG (26-34); Mean Corpuscular Volume 88.3 fL (80-100); Monocytes Absolute Auto 500 /uL (0-900); Monocytes Percent Auto 6.8 % (3-14); Neutrophils Absolute Auto 4900 /uL (1500-7000); Neutrophils Percent Auto 64.6 % (50-75); Platelet Count 347 X10^3/uL (150-400); Red Blood Cell Count 4.67 X10^6/uL (4.0-5.2); Red Cell Distribution Width 13.9 % (11.6-14.8); White Blood Cell Count 7.6 X10^3/uL (4.5-11.0)
[2020-04-12 18:49] LABS: Alanine Aminotransferase 13 IU/L (<35); Albumin 4.3 g/dL (3.5-5.0); Alkaline Phosphatase 62 U/L (38-126); Aspartate Aminotransferase 20 IU/L (14-36); BUN Creatinine Ratio 7.3 (6-22); Bilirubin Total 0.8 mg/dL (0.2-1.3); Blood Urea Nitrogen 6 mg/dL (7-17); Calcium 9.5 mg/dL (8.4-10.2); Carbon Dioxide 21 mmol/L (22-32); Chloride 103 mmol/L (98-107); Estimated Glomerular Filt Rate > 60.0 mL/min (>60); Globulin 4.1 g/dL (1.7-4.1); Glucose 81 mg/dL (70-100); HEMOLYSIS < 15 (0-50); Lipase 124 U/L (23-300); Potassium 3.6 mmol/L (3.4-5.1); Sodium 134 mmol/L (137-145); Total Protein 8.4 g/dL (6.3-8.2)
--- NOTE | 2020-04-12 19:06 | ED_ITS ---
HPI - Nausea/Vomiting/Diarrhea General Chief complaint: Nausea/Vomiting/Diarrhea Stated complaint: DEHYDRATION DIZZY Time Seen by Provider: 04/12/20 19:02 Source: patient Mode of arrival: Ambulatory Limitations: no limitations History of Present Illness HPI Narrative: 24-year-old female currently 10 weeks presenting with nausea and vomiting. She has a history of 4 weeks of nausea and vomiting. She has actually seen and evaluated here on the 3rd for the same. At home she is taking Unisom B6 Zofran. She feels dizzy and lightheaded every time she stands. She says she is unable to keep anything in. She has no abdominal pain or vaginal bleeding. MD complaint: nausea and vomiting Related Data Home Medications Medication Instructions Recorded Confirmed acetaminophen 325 mg capsule 325 mg PO ONCE PRN 03/29/20 03/30/20 prenat.vits,rodney,[id number] 1 tab PO DAILY 03/29/20 03/30/20 Previous Rx's Medication Instructions Recorded ondansetron 4 mg disintegrating 4 mg PO Q6H #30 tab 03/30/20 tablet promethazine 25 mg PO TID PRN #10 tab 04/10/20 ondansetron 4 mg disintegrating 4 mg PO Q6H #20 tab 04/12/20 tablet Allergies Allergy/AdvReac Type Severity Reaction Status Date / Time hydrocodone [From Vicodin] AdvReac Severe Severe Verified 04/10/20 20:32 mood swings/anger, does not want to take it. metoclopramide [From Reglan] AdvReac Severe Agitated Verified 04/12/20 19:29 Review of Systems Review of Systems Narrative: GENERAL: Denies chills, fatigue, malaise, fever, sweats, travel HEENT: Denies sinus pain, ear pain, sore throat, difficulty swallowing, neck pain RESPIRATORY: Denies dyspnea, cough, wheezing, hemoptysis, sputum. CARDIOVASCULAR: Denies chest pain, palpitations, orthopnea, edema GASTROINTESTINAL: See HPI : Denies dysuria, frequency, incontinence, hematuria, urinary retention, flank pain. MUSCULOSKELETAL: Denies weakness, joint pain, or bony pain SKIN: No rash, no erythema, no pruritus NEUROLOGIC: Denies weakness, dizziness, headache, numbness, change in speech, c onfusion PSYCHIATRIC: No concerning psychosocial issues. 12 point review of systems is negative except for those stated above and HPI Patient History Medical History Anxiety (~2018) Depression (~2014) Menometrorrhagia (~2010) Surgical History History of dilation and curettage (~08/2017) [place] teeth extracted (~2012) Family History Mother Hypertension Blood clotting tendency Father Family estrangement Grandfather Cancer Grandmother Congestive heart failure Grandmother Family estrangement Grandfather Family estrangement Family/Other Blood clotting tendency Social History marital status: unmarried,single number of children: 0 household members: family (Lives w younger sister. ) lives independently: Yes caregiver/support person: No housing: house pets and animals: Yes (3 cats, 1 dog. Aware of precautions, dog is safe w/babies. ) education level: college (Finishing Bachelors in [employer].) occupational status: employed ([employer] in [place], [place], part-time.) current occupational exposures/hazards: No special stephanie needs: No seatbelt use: always Smoking Status: Former smoker Tobacco: How many years used: 2 quit status: has quit before second hand exposure: No alcohol intake: never substance use type: marijuana (In the past. Quit with diagnosis.) during the past year weight has: remained stable well-balanced diet: daily or most days caffeine: No (Quit Red Bull w/ .) Type(s) of exercise: walking (less now with nausea. Sometimes fainting/lightheaded since she has been . ) and normal ROM and activity frequency: daily Smoking Status: Former smoker alcohol intake frequency: holidays/special occasions only Substance Use Type: marijuana Exam Initial Vital Signs Initial Vital Signs: Vital Signs Temperature 99.0 F 04/12/20 18:24 Pulse Rate 113 H 04/12/20 18:24 Respiratory Rate 20 04/12/20 18:24 Blood Pressure 134/67 04/12/20 18:24 Pulse Oximetry 100 04/12/20 18:24 GENERAL: Well-appearing, well-nourished and in no acute distress. HEENT: Head atraumatic,EOMI, pupils reactive, face symmetric, dry mucous membranes CARDIOVASCULAR: tachycardic regular no murmurs RESPIRATORY: Breath sounds equal bilaterally, no wheezes rales or rhonchi. ABDOMEN: Soft, nontender. Normoactive bowel sounds all 4 quadrants. No guarding or rebound. EXTREMITIES: Normal range of motion, no clubbing or edema. Neurovascularly intact NEUROLOGICAL: Alert and oriented x4.Normal gait and speech. SKIN: Warm, dry, no laceration, no petechiae, no rashes or lesions. Course Orders Ordered: ED Orders 04/12/20 18:31 Complete Blood Count AUTO DIFF Stat Comprehensive Metabolic Panel Stat Lipase Stat 04/12/20 20:52 Urine Microscopic Stat Discontinued Medications Diphenhydramine HCl (Diphenhydramine 50 Mg/Ml Vial) 25 mg IV NOW ONE Stop: 04/12/20 19:11 Last Admin: 04/12/20 19:20 Dose: 25 mg Documented by: XUAN Sodium Chloride (Normal Saline 0.9%) 1,000 mls @ 1,000 mls/hr IV BOLUS ONE Stop: 04/12/20 19:31 Last Infusion: 04/12/20 19:43 Dose: 0 mls/hr Documented by: Admin: 04/12/20 18:37 Dose: 1,000 mls/hr Documented by: XUAN Sodium Chloride (Normal Saline 0.9%) 1,000 mls @ 1,000 mls/hr IV BOLUS ONE Stop: 04/12/20 20:09 Last Infusion: 04/12/20 20:51 Dose: 0 mls/hr Documented by: Infusion: 04/12/20 19:43 Dose: 1,000 mls/hr Documented by: Infusion: 04/12/20 19:21 Dose: 0 mls/hr Documented by: Admin: 04/12/20 19:20 Dose: 1,000 mls/hr Documented by: XUAN Ondansetron HCl (Ondansetron 4 Mg/2 Ml Inj) 4 mg IV NOW ONE Stop: 04/12/20 18:33 Last Admin: 04/12/20 18:37 Dose: 4 mg Documented by: XUAN Ondansetron HCl (Ondansetron 4 Mg/2 Ml Inj) 4 mg IV NOW ONE Stop: 04/12/20 19:11 Vital Signs Vital signs: Vital Signs - 8 hr 04/12/20 18:24 04/12/20 20:42 Temperature 99.0 F Pulse Rate 113 H 74 Respiratory Rate 20 16 Blood Pressure 134/67 119/57 L Pulse Oximetry 100 100 MDM - Nausea/Vomiting/Diarrhea Lab Data Attestation: I reviewed the patient's lab results. Result diagrams: 04/12/20 18:31 04/12/20 18:31 Labs: Lab Results 04/12/20 04/12/20 04/12/20 Range/Units 18:31 18:31 20:52 WBC 7.6 (4.5-11.0) X10^3/uL RBC 4.67 (4.0-5.2) X10^6/uL Hgb 14.2 (12.0-16.0) g/dL Hct 41.3 (36-46) % MCV 88.3 (80-100) fL MCH 30.4 (26-34) PG MCHC 34.5 (30-36) % RDW 13.9 (11.6-14.8) % Plt Count 347 (150-400) X10^3/uL Neut % (Auto) 64.6 (50-75) % Lymph % (Auto) 26.6 (25-40) % [place] % (Auto) 6.8 (3-14) % Eos % (Auto) 1.4 L (2-4) % Baso % (Auto) 0.6 (0-2) % Neut # (Auto) 4900 (5481-9967) /uL Lymph # (Auto) 2000 (3151-4560) /uL [place] # (Auto) 500 (0-900) /uL Eos # (Auto) 100 (0-450) /uL Baso # (Auto) 0 (0-100) /uL Sodium 134 L (137-145) mmol/L Potassium 3.6 (3.4-5.1) mmol/L Chloride 103 (98-107) mmol/L Carbon Dioxide 21 L (22-32) mmol/L BUN 6 L (7-17) mg/dL Creatinine 0.82 (0.52-1.04) mg/dL Estimated GFR > 60.0 (>60) mL/min BUN/Creatinine Ratio 7.3 (6-22) Glucose 81 (70-100) mg/dL Calcium 9.5 (8.4-10.2) mg/dL Total Bilirubin 0.8 (0.2-1.3) mg/dL AST 20 (14-36) IU/L ALT 13 (<35) IU/L Alkaline Phosphatase 62 (38-126) U/L Total Protein 8.4 H (6.3-8.2) g/dL Albumin 4.3 (3.5-5.0) g/dL Globulin 4.1 (1.7-4.1) g/dL Albumin/Globulin Ratio 1.0 (1.0-2.8) Lipase 124 (23-300) U/L Urine RBC 1-5/hpf (0-5/HPF) Urine WBC 0-1/hpf (0-5/HPF) Ur Squamous Epith Cells 10-30 /hpf H (0-5/HPF) Urine Bacteria None seen (None) Urine Mucus 2+ H (Negative) Ur Culture Indicated? Cult not indicated Urine Dip Bedside Urine Glucose Negative Bedside Urine Bilirubin - Negative Bedside Urine Ketone +++ 80 Urine Specific [place] 1.030 Bedside Urine Occult Blood + Bedside Urine pH 6.0 Bedside Urine Protein + 30 Bedside Urine Urobilinogen - Negative Bedside Urine Nitrite - Negative Bedside Urine Leukocytes - Negative Esterase MDM Narrative Medical decision making narrative: 20:15 patient is re-evaluated she is overall feeling much better after her 2nd dose of Zofran and some Benadryl. She was offered Reglan however she states she had as a very action and does not wanted again. She is on multiple home medications. Talked with her about staying overnight for IV fluids and monitoring however she is adamant about going home. Heart rate and blood work is overall reassuring she is given 2 L of IV fluids. Her primary mentioned about outpatient infusion clinic which will likely get set up tomorrow. She is tolerating juice and ice chips at this time Patient is feeling much better after 2nd L of fluid. Discharge Plan Departure Patient Disposition: Home Clinical Impression: Hyperemesis gravidarum Instructions: Hyperemesis Gravidarum Activity Restrictions/Additional Instructions: *You have been diagnosed with hyperemesis gravidarum *What to do: Increase fluids as tolerated. Small sips frequently. Please call your OB tomorrow to help arrange for outpatient infusion clinic as needed *Continue to take medications as directed *Follow up with your primary care provider in 2-3 days *Return to ER if you should have persistent vomiting, abdominal pain, dizziness, lightheadedness, vaginal bleeding or any new, worsening or concerning symptoms Prescriptions: No Action ondansetron 4 mg tablet,disintegrating 4 mg PO Q6H Qty: 30 RF: 0 ondansetron 4 mg tablet,disintegrating 4 mg PO Q6H Qty: 20 RF: 0 prenat.vits,rodney,[id number] Tablet 1 tab PO DAILY RF: 0 acetaminophen 325 mg capsule 325 mg PO ONCE PRNRF: 0 promethazine 25 mg tablet 25 mg PO TID PRN (Reason: nausea and vomiting) Qty: 10 RF: 0 Referrals: Dmitriy Mercado PA-C [Primary Care Provider] - Hellen Moore MD [Physician] -
[2020-04-12] MEDS: diphenhydrAMINE 50 MG/ML VIAL 25 MG IV (19:20)
[2020-04-12 20:42] VITALS: BP 119/57; PULSE 74; RESP 16; O2SAT 100
--- NOTE | 2020-04-12 21:01 | PC.NURSE ---
patient declined 2nd dose of zofran. provider aware. patient feeling better and able to hold down cranberry juice and ice chips. provider aware.
[2020-04-12 21:03] LABS: Bacteria Urine None Seen
[2020-04-12 21:10] LABS: Culture Indicated Urine Cult Not Indicated; Mucus Urine 2+ (Negative); RBC Urine 1-5/HPF (0-5/HPF); Squamous Epithelial Cell Urine 10-30 /HPF (0-5/HPF); WBC Urine 0-1/HPF (0-5/HPF)
== END 2020-04-12 21:00 | disposition home or self-care (01) ==
PROVIDERS: Emergency Provider Emergency Medicine; Family Provider Physician Assistant Medical; PCP Physician Assistant Medical
DX: O21.0 Mild hyperemesis gravidarum (principal); Z3A.10 10 weeks gestation of pregnancy; R42 Dizziness and giddiness; R00.0 Tachycardia, unspecified
CPT/HCPCS: 36415; 80053; 81003; 81015; 83690; 85025; 96361; 96374; 96375; 99281; 99284; J1200; J2405

== ENCOUNTER 2020-05-01 23:19 | Emergency (ER) | payer OTHER, MEDICAID, SELFPAY ==
[2020-05-01 23:25] VITALS: BP 119/78; PULSE 106; RESP 22; TEMP 36.8; O2SAT 96
--- NOTE | 2020-05-01 23:38 | ED_ITS ---
HPI - General Chief complaint: Vaginal Bleeding Stated complaint: 12 wks , vaginal bleeding Time Seen by Provider: 05/01/20 23:37 Source: patient Mode of arrival: Ambulatory History of Present Illness HPI Narrative: 24-year-old at 12 weeks gestational age had some light pink vaginal bleeding 2 times this evening not associated with fever or any abdominal cramping. She has been having normal bowel movements. She notes that she did have sex yesterday. She has no other complaints and is looking for reassurance that all is well with her . Related Data Home Medications Medication Instructions Recorded Confirmed acetaminophen 325 mg capsule 325 mg PO ONCE PRN 03/29/20 03/30/20 prenat.vits,rodney,[id number] 1 tab PO DAILY 03/29/20 03/30/20 Previous Rx's Medication Instructions Recorded ondansetron 4 mg disintegrating 4 mg PO Q6H #30 tab 03/30/20 tablet ondansetron 4 mg disintegrating 4 mg PO Q6H #20 tab 04/12/20 tablet hydroxyzine HCl 25 mg tablet 25 mg PO TID PRN #30 tab 04/27/20 promethazine 25 mg tablet 25 mg PO TID PRN #30 tab 04/27/20 Allergies Allergy/AdvReac Type Severity Reaction Status Date / Time hydrocodone [From Vicodin] AdvReac Severe Severe Verified 04/10/20 20:32 mood swings/anger, does not want to take it. metoclopramide [From Reglan] AdvReac Severe Agitated Verified 04/12/20 19:29 Review of Systems Review of Systems Narrative: Pertinent positive and negative findings as per HPI Remainder of review of systems is otherwise unremarkable for Constitutional: Fevers, chills, weakness ENT: No sore throat, neck pain, ear pain CV: Chest pain, palpitations, Respiratory: Cough, wheeze, dyspnea GI: Nausea, vomiting, diarrhea, : Dysuria, hematuria, flank pain PMFSH - Past Medical History Medical history: Reports non-contributory Psychiatric history: Reports no psych history Exam Narrative Exam Narrative: General: Alert appropriate in no acute distress Respiratory: Able to speak in full sentences, no obvious respiratory distress Skin: No obvious rashes, warm and dry Neurologic: Grossly intact no obvious asymmetries or abnormalities Psych, appropriate insight and affect, cooperative Bedside ultrasound: Viable intrauterine fetus consistent with 12 week gestation heart rate 160. Posterior placenta with no obvious subchorionic hemorrhage. Initial Vital Signs Initial Vital Signs: Vital Signs Temperature 98.2 F 05/01/20 23:25 Pulse Rate 106 H 05/01/20 23:25 Respiratory Rate 22 05/01/20 23:25 Blood Pressure 119/78 05/01/20 23:25 Pulse Oximetry 96 05/01/20 23:25 Course Vital Signs Vital signs: Vital Signs - 8 hr 05/01/20 23:25 Temperature 98.2 F Pulse Rate 106 H Respiratory Rate 22 Blood Pressure 119/78 Pulse Oximetry 96 MDM - OB/Uterine Contractions MDM Narrative Medical decision making narrative: Vaginal spotting 12 weeks, . No cramping and viable intrauterine . No further workup at this time. Lost her follow-up with her primary care physician tomorrow. Discharge Plan Departure Patient Disposition: Home Clinical Impression: Vaginal bleeding Qualifiers: Weeks of gestation: 12 weeks Qualified Code(s): Z3A.12 - 12 weeks gestation of Instructions: DI for Vaginal Bleeding During Activity Restrictions/Additional Instructions: Thank you for coming in today We do always worry about bleeding during . At this point with the sm all amount of spotting that your having and the very reassuring ultrasound in the emergency department I suspect that everything is going to be okay. If you do develop increasing cramping or further bleeding, please follow-up with Dr. Moore. Please give her a call tomorrow to let her know that you were in the emergency department this evening. Good luck with the rest of your ! Prescriptions: No Action ondansetron 4 mg tablet,disintegrating 4 mg PO Q6H Qty: 30 RF: 0 promethazine 25 mg tablet 25 mg PO TID PRN (Reason: nausea and vomiting) Qty: 30 RF: 0 hydroxyzine HCl 25 mg tablet 25 mg PO TID PRN (Reason: anxiety) Qty: 30 RF: 0 ondansetron 4 mg tablet,disintegrating 4 mg PO Q6H Qty: 20 RF: 0 prenat.vits,rodney,[id number] Tablet 1 tab PO DAILY RF: 0 acetaminophen 325 mg capsule 325 mg PO ONCE PRNRF: 0 Referrals: Hellen Moore MD [Primary Care Provider] -
== END 2020-05-01 23:55 | disposition home or self-care (01) ==
PROVIDERS: Emergency Provider Emergency Medicine; PCP Family Medicine
DX: O46.91 Antepartum hemorrhage, unspecified, first trimester (principal); Z3A.12 12 weeks gestation of pregnancy
CPT/HCPCS: 36415; 99283

== ENCOUNTER 2020-05-12 06:11 | Emergency (ER) | payer OTHER, MEDICAID, SELFPAY ==
[2020-05-12 06:22] VITALS: BP 113/62; PULSE 99; RESP 20; TEMP 36.6; O2SAT 95
--- NOTE | 2020-05-12 07:04 | DI.US.S_ITS ---
PROCEDURE: US OB <= 14 WEEKS FETUS INDICATIONS: BLEEDING OUTSIDE/PRIOR DATING DATA: Last menstrual period (LMP): 02/03/20. LMP-based estimated date of delivery (RINA): 11/19/20. First dating scan (date and location): This study, 05/12/20. Estimated date of delivery (RINA) from first dating scan: 11/14/20. TECHNIQUE: Real-time scanning was performed of the fetus and maternal pelvic organs, with image documentation. Endovaginal scanning was also performed to better visualize the fetus and maternal ovaries. COMPARISON: None. FINDINGS: Embryo: There is an early 1st trimester gestation which limits quality of anatomic visualization. The composite gestational age is 13 weeks 3 days, +/-10 days, and heart rate is 155 beats per minute. There is a small fluid collection posterior to the placenta measuring 2.0 x 0.8 x 2.2 cm. A marginal subchorionic hemorrhage or small placental abruption both could produce that appearance. Measurement variability in dating: +/- 4 weeks by LMP, +/- 7 days by mean sac diameter (use before 6 weeks gestation if crown-rump length not able to be measured), +/- 5 days by crown-rump length (up to 8 weeks 6 days gestation), +/- 7 days by crown-rump length (up to 13 weeks 6 days gestation). Maternal organs: Ovaries normal considering gestational status, with a presumed corpus luteum cyst on the right. The left ovary could not be seen due to bowel gas. . IMPRESSION: Viable intrauterine gestation currently with estimated gestational age of 13 weeks 3 days and with delivery date projected to be centered on 11/14/20. Small hemorrhage noted at the placental margin, measuring 2.0 x 0.8 x 2.2 cm. Dictated by: Yo Montez M.D. on 05/12/2020 at 8:17 Approved by: Yo Montez M.D. on 05/12/2020 at 8:22
--- NOTE | 2020-05-12 07:15 | ED.PREGNANCY ---
HPI - General Chief complaint: OB/Uterine Contractions Stated complaint: Heavy bleeding , 14 weeks Time Seen by Provider: 05/12/20 06:17 Source: patient Mode of arrival: Ambulatory Limitations: no limitations History of Present Illness HPI Narrative: Patient is a 24-year-old female is at 14 weeks with history of hyperemesis gravidarum presenting today with vaginal bleeding. She says she woke up this morning and how large vaginal gush of blood. She has some mild cramping. She states that nausea is overall improved. According to records she is B-positive blood type. She denies any dizziness or lightheadedness. She has only gone through 1 pad. She is followed by Dr. Jessie Moore is for OB care. MD Complaint: vaginal bleeding Related Data Home Medications Medication Instructions Recorded Confirmed acetaminophen 325 mg capsule 325 mg PO ONCE PRN 03/29/20 03/30/20 prenat.vits,rodney,[id number] 1 tab PO DAILY 03/29/20 03/30/20 Previous Rx's Medication Instructions Recorded ondansetron 4 mg disintegrating 4 mg PO Q6H #30 tab 03/30/20 tablet ondansetron 4 mg disintegrating 4 mg PO Q6H #20 tab 04/12/20 tablet hydroxyzine HCl 25 mg tablet 25 mg PO TID PRN #30 tab 04/27/20 promethazine 25 mg tablet 25 mg PO TID PRN #30 tab 04/27/20 Allergies Allergy/AdvReac Type Severity Reaction Status Date / Time hydrocodone [From Vicodin] AdvReac Severe Severe Verified 04/10/20 20:32 mood swings/anger, does not want to take it. metoclopramide [From Reglan] AdvReac Severe Agitated Verified 04/12/20 19:29 Review of Systems Review of Systems Narrative: GENERAL: Denies chills, fatigue, malaise, fever, sweats, travel HEENT: Denies sinus pain, ear pain, sore throat, difficulty swallowing, neck pain RESPIRATORY: Denies dyspnea, cough, wheezing, hemoptysis, sputum. CARDIOVASCULAR: Denies chest pain, palpitations, orthopnea, edema GASTROINTESTINAL: Denies nausea, vomiting, abdominal pain, diarrhea, constipation, melena. DES[employer]: See HPI : Denies dysuria, frequency, incontinence, hematuria, urinary retention, flank pain. MUSCULOSKELETAL: Denies weakness, joint pain, or bony pain SKIN: No rash, no erythema, no pruritus NEUROLOGIC: Denies weakness, dizziness, headache, numbness, change in speech, confusion PSYCHIATRIC: No concerning psychosocial issues. 12 point review of systems is negative except for those stated above and HPI PMFSH - Past Medical History Medical history: Reports non-contributory Psychiatric history: Reports no psych history Exam Initial Vital Signs Initial Vital Signs: Vital Signs Temperature 98 F 05/12/20 06:22 Pulse Rate 99 H 05/12/20 06:22 Respiratory Rate 20 05/12/20 06:22 Blood Pressure 113/62 05/12/20 06:22 Pulse Oximetry 95 05/12/20 06:22 GENERAL: Well-appearing, well-nourished and in no acute distress. HEENT: Head atraumatic,EOMI, pupils reactive, face symmetric, moist mucous membranes CARDIOVASCULAR: Regular rate and rhythm without murmurs, rubs or gallops. RESPIRATORY: Breath sounds equal bilaterally, no wheezes rales or rhonchi. ABDOMEN: Soft, nontender. Gravid nontender. Normoactive bowel sounds all 4 quadrants. No guarding or rebound. EXTREMITIES: Normal range of motion, no clubbing or edema. Neurovascularly intact NEUROLOGICAL: Alert and oriented x4.Normal gait and speech. Cranial nerves II through XII grossly intact. SKIN: Warm, dry, no laceration, no petechiae, no rashes or lesions. Course Orders Ordered: ED Orders 05/12/20 06:38 Complete Blood Count AUTO DIFF Stat Comprehensive Metabolic Panel Stat HCG Quantitative /Beta subunit Stat Partial Thromboplastin Time Stat Prothrombin Time INR Stat 05/12/20 07:04 US OB <= 14 weeks fetus Stat Vital Signs Vital signs: Vital Signs - 8 hr 05/12/20 06:22 05/12/20 08:50 Temperature 98 F Pulse Rate 99 H 79 Respiratory Rate 20 16 Blood Pressure 113/62 114/78 Pulse Oximetry 95 100 MDM - OB/Uterine Contractions Lab Data Attestation: I reviewed the patient's lab results. Result diagrams: 05/12/20 06:38 05/12/20 06:38 Labs: Lab Results 05/12/20 05/12/20 05/12/20 Range/Units 06:38 06:38 06:38 WBC 7.3 (4.5-11.0) X10^3/uL RBC 4.30 (4.0-5.2) X10^6/uL Hgb 13.1 (12.0-16.0) g/dL Hct 37.9 (36-46) % MCV 88.2 (80-100) fL MCH 30.4 (26-34) PG MCHC 34.5 (30-36) % RDW 13.8 (11.6-14.8) % Plt Count 285 (150-400) X10^3/uL Neut % (Auto) 60.1 (50-75) % Lymph % (Auto) 32.9 (25-40) % [place] % (Auto) 5.4 (3-14) % Eos % (Auto) 1.1 L (2-4) % Baso % (Auto) 0.5 (0-2) % Neut # (Auto) 4400 (4881-9565) /uL Lymph # (Auto) 2400 (0918-6971) /uL [place] # (Auto) 400 (0-900) /uL Eos # (Auto) 100 (0-450) /uL Baso # (Auto) 0 (0-100) /uL PT 12.6 (10.1-12.7) SECONDS INR 1.1 (0.9-1.3) APTT 29 (26.4-36.2) SECONDS Sodium 135 L (137-145) mmol/L Potassium 3.6 (3.4-5.1) mmol/L Chloride 105 (98-107) mmol/L Carbon Dioxide 24 (22-32) mmol/L BUN 5 L (7-17) mg/dL Creatinine 0.76 (0.52-1.04) mg/dL Estimated GFR > 60.0 (>60) mL/min BUN/Creatinine Ratio 6.6 (6-22) Glucose 99 (70-100) mg/dL Calcium 9.3 (8.4-10.2) mg/dL Total Bilirubin 0.3 (0.2-1.3) mg/dL AST 22 (14-36) IU/L ALT 19 (<35) IU/L Alkaline Phosphatase 46 (38-126) U/L Total Protein 7.5 (6.3-8.2) g/dL Albumin 3.8 (3.5-5.0) g/dL Globulin 3.7 (1.7-4.1) g/dL Albumin/Globulin Ratio 1.0 (1.0-2.8) HCG, Quant 09011 mIU/mL Imaging Data US - OB: Radiologist's Impression: PROCEDURE: US OB <= 14 WEEKS FETUS INDICATIONS: BLEEDING OUTSIDE/PRIOR DATING DATA: Last menstrual period (LMP): 02/03/20. LMP-based estimated date of delivery (RINA): 11/19/20. First dating scan (date and location): This study, 05/12/20. Estimated date of delivery (RINA) from first dating scan: 11/14/20. TECHNIQUE: Real-time scanning was performed of the fetus and maternal pelvic organs, with image documentation. Endovaginal scanning was also performed to better visualize the fetus and maternal ovaries. COMPARISON: None. FINDINGS: Embryo: There is an early 1st trimester gestation which limits quality of anatomic visualization. The composite gestational age is 13 weeks 3 days, +/-10 days, and heart rate is 155 beats per minute. There is a small fluid collection posterior to the placenta measuring 2.0 x 0.8 x 2.2 cm. A marginal subchorionic hemorrhage or small placental abruption both could produce that appearance. Measurement variability in dating: +/- 4 weeks by LMP, +/- 7 days by mean sac diameter (use before 6 weeks gestation if crown-rump length not able to be measured), +/- 5 days by crown-rump length (up to 8 weeks 6 days gestation), +/- 7 days by crown-rump length (up to 13 weeks 6 days gestation). Maternal organs: Ovaries normal considering gestational status, with a presumed corpus luteum cyst on the right. The left ovary could not be seen due to bowel gas. . IMPRESSION: Viable intrauterine gestation currently with estimated gestational age of 13 weeks 3 days and with delivery date projected to be centered on 11/14/20. Small hemorrhage noted at the placental margin, measuring 2.0 x 0.8 x 2.2 cm. Dictated by: Yo Montez M.D. on 05/12/2020 at 8:17 MDM Narrative Medical decision making narrative: Ultrasound is overall reassuring. Blood work also reassuring. At this time no needing anything nausea or vomiting. Recommend pelvic rest and follow-up with OB. Discharge Plan Departure Patient Disposition: Home Clinical Impression: , threatened Instructions: DI for Threatened Activity Restrictions/Additional Instructions: *You have been diagnosed with threatened *What to do: Baby overall very healthy however there is a small amount of bleeding which you are experiencing. I suspect it will resolve on its own. For now recommend pelvic rest, nothing in or out of the vagina. *Continue to take medications as directed *Please call and follow-up with her OBGYN in 2-3 days *Return to ER if you should have my increased vaginal bleeding, cramping, dizziness, lightheadedness or any new, worsening or concerning symptoms Prescriptions: No Action ondansetron 4 mg tablet,disintegrating 4 mg PO Q6H Qty: 30 RF: 0 promethazine 25 mg tablet 25 mg PO TID PRN (Reason: nausea and vomiting) Qty: 30 RF: 0 hydroxyzine HCl 25 mg tablet 25 mg PO TID PRN (Reason: anxiety) Qty: 30 RF: 0 ondansetron 4 mg tablet,disintegrating 4 mg PO Q6H Qty: 20 RF: 0 prenat.vits,rodney,[id number] Tablet 1 tab PO DAILY RF: 0 acetaminophen 325 mg capsule 325 mg PO ONCE PRNRF: 0 Referrals: Hellen Moore MD [Primary Care Provider] -
[2020-05-12 07:50] LABS: Add Manual Diff / Slide Review NO; Basophils Absolute Auto 0 /uL (0-100); Basophils Percent Auto 0.5 % (0-2); Eosinophils Absolute Auto 100 /uL (0-450); Eosinophils Percent Auto 1.1 % (2-4); Hematocrit 37.9 % (36-46); Hemoglobin 13.1 g/dL (12.0-16.0); Lymphocytes Absolute Auto 2400 /uL (1100-4500); Lymphocytes Percent Auto 32.9 % (25-40); Mean Corpuscular HGB Conc 34.5 % (30-36); Mean Corpuscular Hemoglobin 30.4 PG (26-34); Mean Corpuscular Volume 88.2 fL (80-100); Monocytes Absolute Auto 400 /uL (0-900); Monocytes Percent Auto 5.4 % (3-14); Neutrophils Absolute Auto 4400 /uL (1500-7000); Neutrophils Percent Auto 60.1 % (50-75); Platelet Count 285 X10^3/uL (150-400); Red Cell Distribution Width 13.8 % (11.6-14.8); White Blood Cell Count 7.3 X10^3/uL (4.5-11.0)
[2020-05-12 07:56] LABS: INR 1.1 (0.9-1.3); Prothrombin Time 12.6 SECONDS (10.1-12.7)
[2020-05-12 07:59] LABS: PTT Partial Thromboplastin Tim 29 SECONDS (26.4-36.2)
[2020-05-12 08:00] LABS: Alanine Aminotransferase 19 IU/L (<35); Albumin 3.8 g/dL (3.5-5.0); Alkaline Phosphatase 46 U/L (38-126); Aspartate Aminotransferase 22 IU/L (14-36); BUN Creatinine Ratio 6.6 (6-22); Bilirubin Total 0.3 mg/dL (0.2-1.3); Blood Urea Nitrogen 5 mg/dL (7-17); Calcium 9.3 mg/dL (8.4-10.2); Carbon Dioxide 24 mmol/L (22-32); Chloride 105 mmol/L (98-107); Estimated Glomerular Filt Rate > 60.0 mL/min (>60); Globulin 3.7 g/dL (1.7-4.1); Glucose 99 mg/dL (70-100); HEMOLYSIS < 15 (0-50); Potassium 3.6 mmol/L (3.4-5.1); Sodium 135 mmol/L (137-145); Total Protein 7.5 g/dL (6.3-8.2)
[2020-05-12 08:42] LABS: HCG Quantitative /Beta subunit 37980 mIU/mL
[2020-05-12 08:50] VITALS: BP 114/78; PULSE 79; RESP 16; O2SAT 100
== END 2020-05-12 08:50 | disposition home or self-care (01) ==
PROVIDERS: Emergency Medicine; Emergency Provider Emergency Medicine; PCP Family Medicine
DX: O20.0 Threatened abortion (principal); Z3A.13 13 weeks gestation of pregnancy
CPT/HCPCS: 36415; 76801; 80053; 84702; 85025; 85610; 85730; 99283; 99284

== ENCOUNTER → 2020-05-17 14:29 | Outpatient (CLI) | payer OTHER, MEDICAID, SELFPAY ==
[2020-05-17 15:24] LABS: Add Manual Diff / Slide Review NO; Basophils Absolute Auto 0 /uL (0-100); Basophils Percent Auto 0.5 % (0-2); Eosinophils Absolute Auto 0 /uL (0-450); Eosinophils Percent Auto 0.6 % (2-4); Hematocrit 39.3 % (36-46); Hemoglobin 13.3 g/dL (12.0-16.0); Lymphocytes Absolute Auto 1300 /uL (1100-4500); Lymphocytes Percent Auto 23.7 % (25-40); Mean Corpuscular HGB Conc 33.8 % (30-36); Mean Corpuscular Hemoglobin 29.5 PG (26-34); Mean Corpuscular Volume 87.3 fL (80-100); Monocytes Absolute Auto 400 /uL (0-900); Monocytes Percent Auto 6.5 % (3-14); Neutrophils Absolute Auto 3800 /uL (1500-7000); Neutrophils Percent Auto 68.7 % (50-75); Platelet Count 292 X10^3/uL (150-400); Red Blood Cell Count 4.51 X10^6/uL (4.0-5.2); Red Cell Distribution Width 13.5 % (11.6-14.8); White Blood Cell Count 5.5 X10^3/uL (4.5-11.0)
[2020-05-17 15:47] LABS: Appearance Urine UA SL CLOUDY; Bilirubin Urine UA 2+ (NEGATIVE); Color Urine UA YELLOW; Glucose Urine UA NEGATIVE (Negative); Ketones Urine UA 3+ (NEGATIVE); Leukocyte Esterase Urine UA TRACE (NEGATIVE); Nitrite Urine UA NEGATIVE (Negative); Occult Blood Urine UA 3+ (Negative); Protein Urine UA 2+ (Negative); Specific Gravity Urine UA 1.025 (1.000-1.035)
[2020-05-17 15:48] LABS: pH Urine UA 6.5 (4.5-8.0)
[2020-05-17 15:54] LABS: Amorphous Sediment Urine 1+; Bacteria Urine Moderate (10-30); RBC Urine 1-5/HPF (0-5/HPF); Squamous Epithelial Cell Urine 5-10 /HPF (0-5/HPF); WBC Urine 5-10/HPF (0-5/HPF)
[2020-05-17 15:55] LABS: Mucus Urine 2+ (Negative)
[2020-05-17 16:05] LABS: Alanine Aminotransferase 14 IU/L (<35); Albumin 3.9 g/dL (3.5-5.0); Albumin Globulin Ratio 1.1 (1.0-2.8); Alkaline Phosphatase 51 U/L (38-126); Aspartate Aminotransferase 20 IU/L (14-36); BUN Creatinine Ratio 5.8 (6-22); Bilirubin Total 0.6 mg/dL (0.2-1.3); Blood Urea Nitrogen 5 mg/dL (7-17); Calcium 9.4 mg/dL (8.4-10.2); Carbon Dioxide 27 mmol/L (22-32); Chloride 103 mmol/L (98-107); Estimated Glomerular Filt Rate > 60.0 mL/min (>60); Globulin 3.7 g/dL (1.7-4.1); Glucose 96 mg/dL (70-100); HEMOLYSIS < 15 (0-50); Potassium 3.7 mmol/L (3.4-5.1); Sodium 133 mmol/L (137-145); Total Protein 7.6 g/dL (6.3-8.2)
[2020-05-17 16:12] LABS: Ictotest Urine Negative (Negative)
[2020-05-18 08:14] LABS: RPR Screen Non Reactive (Non Reactive); Varicella IgG Antibody 1045 index (Immune >165)
[2020-05-19 08:18] LABS: HIV 1 & 2 Ab/Ag 4th Gen Combo NEGATIVE (NEGATIVE); Hep C Virus Ab w/Reflex Quant NEGATIVE s/c (NEGATIVE); Hepatitis B Surface Antigen NEGATIVE s/c (NEGATIVE); Rubella Antibody IgG 39.9 IU/mL (>15)
== END ==
PROVIDERS: PCP Family Medicine; Referring Provider Family Medicine; Visit Provider Family Medicine
DX: O16.1 Unspecified maternal hypertension, first trimester (principal)
CPT/HCPCS: 36415; 80053; 80055; 81003; 81015; 86787; 86803; 86850; 86900; 86901; 87086; 87389

== ENCOUNTER → 2020-05-19 12:15 | Outpatient (CLI) | payer OTHER, MEDICAID, SELFPAY ==
--- NOTE | 2020-05-19 12:16 | DI.US.S_ITS ---
PROCEDURE: US OB LIMITED INDICATIONS: f/u placenta, ongoing vaginal bleeding OUTSIDE/PRIOR DATING DATA: Last menstrual period (LMP): 02/03/2020. LMP-based estimated date of delivery (RINA): 11/09/2020 . First dating scan (date and location): 05/12/2020 . Estimated date of delivery (RINA) from first dating scan: 11/14/2020 . TECHNIQUE: Real-time scanning was performed of the fetus, with image documentation. COMPARISON: [facility], OB <= 14 WEEKS FETUS, 05/12/2020, 7:24. FINDINGS: A single living intrauterine gestation is present. Presentation: Variable. Placenta: Placental position is anterior , without previa. Amniotic fluid : Subjectively normal Maternal cervical canal: 3.7 cm long. Normal lower limit is 2.5 cm. Estimated gestational age from initial scan: 14 weeks 3 days. Previous subchorionic hemorrhage has resolved. IMPRESSION: 1. Living early 2nd trimester intrauterine . 2. Resolution of previous subchorionic hemorrhage. Dictated by: Gaston Pena M.D. on 05/19/2020 at 14:45 Approved by: Gaston Pena M.D. on 05/19/2020 at 14:50
[2020-05-19 14:25] LABS: Collection Time Urine 24 Hours; Protein (Total) Urine Random < 5 mg/dL (0-12); Total Protein 24 Hour Urine 22 mg/day (42-225); Total Volume Urine 450 mL
== END ==
PROVIDERS: PCP Family Medicine; Referring Provider Family Medicine; Visit Provider Family Medicine
DX: O46.92 Antepartum hemorrhage, unspecified, second trimester (principal); Z3A.14 14 weeks gestation of pregnancy; O16.1 Unspecified maternal hypertension, first trimester
CPT/HCPCS: 76815; 84156

== ENCOUNTER → 2020-06-14 14:49 | Outpatient (CLI) | payer OTHER, MEDICAID, SELFPAY ==
[2020-06-16 19:36] LABS: AFP, Serum 36.8 ng/mL (.); Calc Gestational Age EDD (.); Inhibin A, Dimeric 67.39 pg/mL (.); Inhibin A, MoM 0.55 (.); Maternal Ethnicity Black (.); Maternal Weight 243 lbs (.); Number of Fetuses No (.); OSBR Risk 1 IN 10000 (.); Results Report (.); Test Results *Screen Negative* (.); hCG, MoM 0.72 (.); hCG, Serum 17293 mIU/mL (.)
== END ==
PROVIDERS: PCP Family Medicine; Referring Provider Family Medicine; Visit Provider Family Medicine
DX: Z34.90 Encounter for supervision of normal pregnancy, unspecified, unspecified trimester (principal); Z3A.12 12 weeks gestation of pregnancy
CPT/HCPCS: 36415; 82105; 82677; 84702; 86336

== ENCOUNTER → 2020-06-23 12:07 | Outpatient (CLI) | payer OTHER, MEDICAID, SELFPAY ==
--- NOTE | 2020-06-23 12:09 | DI.US.S_ITS ---
PROCEDURE: OB >= 14 WEEKS FETUS INDICATIONS: anatomy screening OUTSIDE/PRIOR DATING DATA: Last menstrual period (LMP): 02/03/2020. LMP-based estimated date of delivery (RINA): 11/09/2020 . First dating scan (date and location): 05/12/2020 . Estimated date of delivery (RINA) from first dating scan: 11/14/2020 . TECHNIQUE: Real-time scanning was performed of the fetus, with image documentation and biometric measurements. Endovaginal scanning: No COMPARISON: [facility], OB LIMITED, 05/19/2020, 12:58. [facility], OB <= 14 WEEKS FETUS, 05/12/2020, 7:24. FINDINGS: General: A single living intrauterine gestation is present. Presentation: Vertex. Placenta: Placental position is anterior , without previa. Amniotic fluid index: 13.9 cm, normal range is 5-24 cm. heart rate: 143 beats per minute. Maternal cervical canal: 4.0 cm long. Normal lower limit is 2.5 cm. biometrics: Biparietal diameter: 19 weeks 1 Head circumference: 19 weeks 1 day Abdominal circumference: 19 weeks 3 days Femur length: 21 weeks 1 day Estimated gestational age from initial scan: 19 weeks 3 days Composite gestational age from present scan: 19 weeks 5 days Estimated weight and percentile: 383 g; 83rd percentile Measurement variability for biometric dating: +/- 7 days from 14 weeks to 15 weeks 6 days gestation, +/- 10 days from 16 weeks to 21 weeks 6 days gestation, +/- 2 weeks from 22 weeks to 27 weeks 6 days gestation, +/- 3 weeks for 28 weeks gestation or later. weight reference: 4500 g or EFW >90/95% is considered macrosomia or large for gestational age. EFW <10% is small for gestational age. EFW 5% or less is considered intra-uterine growth restriction. Anatomic survey: Neuro: Ventricles are non-dilated at less than 10 mm. Cisterna magna is normal at 3-11 mm. Cerebellum is normal in size and morphology. Nuchal skin fold: Normal at less than 6 mm between 14-21 weeks gestational age. Face: Nose and lips, facial profile are normal. Spine: No evidence for spina bifida. Heart: Suboptimally visualized. Diaphragm: Diaphragm is intact. Stomach: Left-sided stomach is present. Kidneys: No hydronephrosis. Normal is less than 5 mm in 2nd trimester, less than 7 mm in 3rd trimester. Cord: 3-vessel cord has orthotopic insertion. Bladder: Normal in size. Extremities: All 4 extremities identified. IMPRESSION: Single living IUP redemonstrated and interval growth is normal. heart not well visualized; otherwise normal anatomy. Follow-up recommended. Dictated by: Shane Mcbride [facility] Interpreted: Cornel Ruiz MD on 06/23/2020 at 13:38 Approved by: Cornel Ruiz M.D. on 06/23/2020 at 14:44
== END ==
PROVIDERS: PCP Family Medicine; Referring Provider Family Medicine; Visit Provider Family Medicine
DX: Z36.89 Encounter for other specified antenatal screening (principal); Z3A.19 19 weeks gestation of pregnancy
CPT/HCPCS: 76811

== ENCOUNTER → 2020-07-04 14:27 | Outpatient (CLI) | payer OTHER, MEDICAID, SELFPAY ==
--- NOTE | 2020-07-04 14:28 | DI.US.S_ITS ---
PROCEDURE: US OB FOLLOW UP INDICATIONS: f/u anatomy scan, poor visualization of heart OUTSIDE/PRIOR DATING DATA: Last menstrual period (LMP): 02/03/20. LMP-based estimated date of delivery (RINA): 11/09/20 . First dating scan (date and location): 05/12/20 . Estimated date of delivery (RINA) from first dating scan: 11/14/20 TECHNIQUE: Real-time scanning was performed of the fetus, with image documentation. Endovaginal scanning: Not performed COMPARISON: [facility], OB >= 14 WEEKS FETUS, 06/23/2020, 11:15. [facility], OB LIMITED, 05/19/2020, 12:58. [facility], OB <= 14 WEEKS FETUS, 05/12/2020, 7:24. [facility], PELVIC COMPLETE, 02/14/2020, 13:06. FINDINGS: A single living intrauterine gestation is present. Presentation: Vertex heart rate: 135 beats per minute. Limited evaluation demonstrating normal appearance of the heart, four-chamber view, ventricular outflow tracts. IMPRESSION: Single living intrauterine fetus in vertex presentation. Normal appearance of the four-chamber heart and ventricular outflow tracts. Dictated by: David Bautista M.D. on 07/04/2020 at 16:12 Approved by: David Bautista M.D. on 07/04/2020 at 16:15
== END ==
PROVIDERS: PCP Family Medicine; Referring Provider Family Medicine; Visit Provider Family Medicine
DX: Z36.2 Encounter for other antenatal screening follow-up (principal); Z3A.12 12 weeks gestation of pregnancy
CPT/HCPCS: 76816

== ENCOUNTER → 2020-09-07 15:09 | Outpatient (CLI) | payer OTHER, MEDICAID, SELFPAY ==
[2020-09-07 17:25] LABS: Add Manual Diff / Slide Review NO; Basophils Absolute Auto 0 /uL (0-100); Basophils Percent Auto 0.3 % (0-2); Eosinophils Absolute Auto 0 /uL (0-450); Eosinophils Percent Auto 0.5 % (2-4); Hematocrit 31.9 % (36-46); Hemoglobin 10.8 g/dL (12.0-16.0); Lymphocytes Absolute Auto 1500 /uL (1100-4500); Lymphocytes Percent Auto 19.5 % (25-40); Mean Corpuscular HGB Conc 33.7 % (30-36); Mean Corpuscular Hemoglobin 30.6 PG (26-34); Mean Corpuscular Volume 90.8 fL (80-100); Monocytes Absolute Auto 400 /uL (0-900); Monocytes Percent Auto 4.9 % (3-14); Neutrophils Absolute Auto 5700 /uL (1500-7000); Neutrophils Percent Auto 74.8 % (50-75); Platelet Count 278 X10^3/uL (150-400); Red Blood Cell Count 3.52 X10^6/uL (4.0-5.2); Red Cell Distribution Width 13.8 % (11.6-14.8); White Blood Cell Count 7.6 X10^3/uL (4.5-11.0)
[2020-09-07 17:46] LABS: GTT (PREG) 1 Hour PP 50gm Dose 114 mg/dL (76-139)
== END ==
PROVIDERS: PCP Family Medicine; Referring Provider Family Medicine; Visit Provider Family Medicine
DX: Z3A.12 12 weeks gestation of pregnancy (principal)
CPT/HCPCS: 36415; 82950; 85025

== ENCOUNTER → 2020-09-21 16:22 | Outpatient (CLI) | payer OTHER, MEDICAID, SELFPAY ==
[2020-09-21 17:29] LABS: Add Manual Diff / Slide Review NO; Basophils Absolute Auto 0 /uL (0-100); Basophils Percent Auto 0.6 % (0-2); Eosinophils Absolute Auto 0 /uL (0-450); Eosinophils Percent Auto 0.2 % (2-4); Hematocrit 33.8 % (36-46); Hemoglobin 11.3 g/dL (12.0-16.0); Lymphocytes Absolute Auto 1600 /uL (1100-4500); Lymphocytes Percent Auto 20.8 % (25-40); Mean Corpuscular HGB Conc 33.4 % (30-36); Mean Corpuscular Hemoglobin 30.2 PG (26-34); Mean Corpuscular Volume 90.5 fL (80-100); Monocytes Absolute Auto 500 /uL (0-900); Monocytes Percent Auto 6.2 % (3-14); Neutrophils Absolute Auto 5600 /uL (1500-7000); Neutrophils Percent Auto 72.2 % (50-75); Platelet Count 268 X10^3/uL (150-400); Red Blood Cell Count 3.73 X10^6/uL (4.0-5.2); Red Cell Distribution Width 13.4 % (11.6-14.8); White Blood Cell Count 7.7 X10^3/uL (4.5-11.0)
== END ==
PROVIDERS: PCP Family Medicine; Referring Provider Family Medicine; Visit Provider Family Medicine
DX: Z34.83 Encounter for supervision of other normal pregnancy, third trimester (principal); R42 Dizziness and giddiness; Z3A.31 31 weeks gestation of pregnancy
CPT/HCPCS: 36415; 85025

== ENCOUNTER 2020-10-01 19:30 | Observation (INO) | payer OTHER, MEDICAID, SELFPAY ==
--- NOTE | 2020-10-01 19:58 | PM.OBTRLD ---
Visit Information Visit Information Date of evaluation: 10/01/20 Primary OB Provider: Hellen Moore On-call OB Provider: Danae Dela Cruz Reason for Evaluation: Yes pre-term labor Vital Signs Vital Signs: Blood pressure 125/73, temperature 36.2? [facility] Medical History Anxiety (~2018) Depression (~2014) Menometrorrhagia (~2010) Surgical History History of dilation and curettage (~08/2017) [place] teeth extracted (~2012) Family History Mother Hypertension Blood clotting tendency Father Family estrangement Grandfather Cancer Grandmother Congestive heart failure Grandmother Family estrangement Grandfather Family estrangement Family/Other Blood clotting tendency Social History marital status: unmarried,single number of children: 0 household members: family (Lives w younger sister. ) lives independently: Yes caregiver/support person: No housing: house pets and animals: Yes (3 cats, 1 dog. Aware of precautions, dog is safe w/babies. ) education level: college (Finishing Bachelors in [employer].) occupational status: employed ([employer] in [place], [place], part-time.) current occupational exposures/hazards: No special stephanie needs: No seatbelt use: always Smoking Status: Former smoker Tobacco: How many years used: 2 quit status: has quit before second hand exposure: No alcohol intake: never substance use type: marijuana (In the past. Quit with diagnosis.) during the past year weight has: remained stable well-balanced diet: daily or most days caffeine: No (Quit Red Bull w/ .) Type(s) of exercise: walking (less now with nausea. Sometimes fainting/lightheaded since she has been . ) and normal ROM and activity frequency: daily Review of Systems Review of Systems Narrative: Patient had cramping earlier today it resolved in then it recurred about 3 hours ago getting increasing in discomfort. She is having tightening that she feels with the cramping. Good movement. No vaginal bleeding. No leakage of fluid. She has no UTI symptoms. She is constipated. Exam Narrative Exam Narrative: Patient's abdomen is minimally tender. Evaluation Evaluation Baseline heart rate: 140 Variability: Moderate (11-25) monitor accelerations: Present Monitor Decelerations: Absent Contraction Frequency (minutes): 8 Category of Tracing: Reactive Status: Category l Diagnosis, Plan/Disposition Final Diagnosis (1) False labor before 37 completed weeks of gestation: Status: Acute (2) 32 weeks gestation of : Status: Acute Plan/Disposition Plan: Patient responded well to IV fluid hydration, 1 nifedipine pill, likely dehydration. Patient was sent home to follow-up with her primary OB physician OB Disposition: home
[2020-10-01] MEDS: LACTATED RINGERS 1,000 ML 1000 ML IV (20:30)
[2020-10-01 20:34] LABS: RBC Urine None Seen (0-5/HPF)
[2020-10-01 20:46] LABS: Appearance Urine UA SL CLOUDY; Bilirubin Urine UA NEGATIVE (NEGATIVE); Color Urine UA YELLOW; Glucose Urine UA NEGATIVE (Negative); Ketones Urine UA 2+ (NEGATIVE); Leukocyte Esterase Urine UA TRACE (NEGATIVE); Nitrite Urine UA NEGATIVE (Negative); Occult Blood Urine UA NEGATIVE (Negative); Protein Urine UA 2+ (Negative); Specific Gravity Urine UA 1.025 (1.000-1.035); Urobilinogen Urine UA 0.2 E.U./dL (0.2)
[2020-10-01 21:14] LABS: Fetal Fibronectin Negative
[2020-10-01 21:16] LABS: Bacteria Urine Many (>30); Culture Indicated Urine Specimen Cultured; Squamous Epithelial Cell Urine 1-5 /HPF (0-5/HPF); WBC Urine 1-5/HPF (0-5/HPF)
[2020-10-01] MEDS: NIFEdipine 10 MG CAPSULE PO (21:43)
[2020-10-01 22:22] LABS: Strep Grp B PCR NEG for Grp B Strep
== END 2020-10-01 22:30 | disposition home or self-care (01) ==
LOC: LABOR 19:31
PROVIDERS: Admitting Provider Specialist; PCP Family Medicine; Referring Provider Specialist; Visit Provider Specialist
DX: O47.03 False labor before 37 completed weeks of gestation, third trimester (principal); Z3A.32 32 weeks gestation of pregnancy
CPT/HCPCS: 59025; 59050; 81001; 82731; 87081; 87086; 87653; 96360; G0378; G0379

== ENCOUNTER 2020-10-24 21:33 | Outpatient (CLI) | payer OTHER, MEDICAID, SELFPAY | END 2020-10-24 22:00 | disposition home or self-care (01) | LOC: OB 10-26 15:07 | PROVIDERS: PCP Family Medicine; Referring Provider Obstetrics & Gynecology; Visit Provider Obstetrics & Gynecology | DX: O26.893 Other specified pregnancy related conditions, third trimester (principal); R10.2 Pelvic and perineal pain; O47.03 False labor before 37 completed weeks of gestation, third trimester; Z3A.36 36 weeks gestation of pregnancy | CPT/HCPCS: 59025; G0378; G0379 ==

== ENCOUNTER 2020-10-25 14:02 | Emergency (ER) | payer OTHER, MEDICAID, SELFPAY ==
[2020-10-25 14:16] VITALS: BP 123/77; PULSE 115; RESP 20; TEMP 36.7; O2SAT 100
[2020-10-25 14:47] VITALS: BP 117/68; PULSE 85; RESP 18; O2SAT 98
[2020-10-25 15:08] LABS: Add Manual Diff / Slide Review NO; Basophils Absolute Auto 0 /uL (0-100); Basophils Percent Auto 0.4 % (0-2); Eosinophils Absolute Auto 0 /uL (0-450); Eosinophils Percent Auto 0.5 % (2-4); Hematocrit 34.4 % (36-46); Hemoglobin 11.5 g/dL (12.0-16.0); Lymphocytes Absolute Auto 1400 /uL (1100-4500); Lymphocytes Percent Auto 22.1 % (25-40); Mean Corpuscular HGB Conc 33.4 % (30-36); Mean Corpuscular Hemoglobin 29.3 PG (26-34); Mean Corpuscular Volume 87.8 fL (80-100); Monocytes Absolute Auto 500 /uL (0-900); Monocytes Percent Auto 7.9 % (3-14); Neutrophils Absolute Auto 4400 /uL (1500-7000); Neutrophils Percent Auto 69.1 % (50-75); Platelet Count 247 X10^3/uL (150-400); Red Blood Cell Count 3.92 X10^6/uL (4.0-5.2); Red Cell Distribution Width 13.6 % (11.6-14.8); White Blood Cell Count 6.4 X10^3/uL (4.5-11.0)
[2020-10-25 15:19] LABS: Alanine Aminotransferase 11 IU/L (<35); Albumin 3.1 g/dL (3.5-5.0); Albumin Globulin Ratio 0.9 (1.0-2.8); Alkaline Phosphatase 103 U/L (38-126); Aspartate Aminotransferase 25 IU/L (14-36); BUN Creatinine Ratio 9.4 (6-22); Bilirubin Total 0.4 mg/dL (0.2-1.3); Blood Urea Nitrogen 6 mg/dL (7-17); Calcium 8.9 mg/dL (8.4-10.2); Carbon Dioxide 21 mmol/L (22-32); Chloride 109 mmol/L (98-107); Estimated Glomerular Filt Rate > 60.0 mL/min (>60); Globulin 3.6 g/dL (1.7-4.1); Glucose 78 mg/dL (70-100); HEMOLYSIS < 15 (0-50); Potassium 3.8 mmol/L (3.4-5.1); Sodium 134 mmol/L (137-145); Total Protein 6.7 g/dL (6.3-8.2)
[2020-10-25] MEDS: SODIUM CHLORIDE 0.9% 1,000 ML 1000 ML IV ×2 (15:23→18:51)
[2020-10-25] MEDS: ONDANSETRON 4 MG/2 ML INJ IV ×2 (15:23→18:51)
--- NOTE | 2020-10-25 15:36 | PC.NURSE ---
HR 132
[2020-10-25 17:04] LABS: Appearance Urine UA SL CLOUDY; Bilirubin Urine UA NEGATIVE (NEGATIVE); Color Urine UA YELLOW; Glucose Urine UA NEGATIVE (Negative); Ketones Urine UA TRACE (NEGATIVE); Leukocyte Esterase Urine UA 1+ (NEGATIVE); Nitrite Urine UA NEGATIVE (Negative); Occult Blood Urine UA TRACE-LYSED (Negative); Protein Urine UA 1+ (Negative); Urobilinogen Urine UA 0.2 E.U./dL (0.2)
[2020-10-25 17:09] LABS: pH Urine UA 6.5 (4.5-8.0)
[2020-10-25 17:13] LABS: Amorphous Sediment Urine 1+; Bacteria Urine Moderate (10-30); Culture Indicated Urine Specimen Cultured; Mucus Urine 2+ (Negative); RBC Urine 0-1/HPF (0-5/HPF); Squamous Epithelial Cell Urine 5-10 /HPF (0-5/HPF); WBC Urine 5-10/HPF (0-5/HPF)
--- NOTE | 2020-10-25 17:24 | ED_ITS ---
HPI - Nausea/Vomiting/Diarrhea General Chief complaint: Nausea/Vomiting/Diarrhea Stated complaint: nausea, vomiting, Time Seen by Provider: 10/25/20 14:52 Source: patient Mode of arrival: Ambulatory History of Present Illness HPI Narrative: Patient is a 25-year-old female currently 36 weeks presenting from Labor and delivery is for nausea vomiting and diarrhea. Started yesterday. She denies any fever or chills. She has had nausea off and on throughout her . Her blood pressures also been known to fluctuate she feels little dizzy and lightheaded also not uncommon for her. But has been unable to tolerate fluids home despite Zofran. She denies any abdominal pain vaginal bleeding Related Data Home Medications Medication Instructions Recorded Confirmed acetaminophen 325 mg capsule 325 mg PO ONCE PRN 03/29/20 03/30/20 prenat.vits,rodney,[id number] 1 tab PO DAILY 03/29/20 03/30/20 Previous Rx's Medication Instructions Recorded ondansetron 4 mg disintegrating 4 mg PO Q6H #20 tab 04/12/20 tablet hydroxyzine HCl 25 mg tablet 25 mg PO TID PRN #30 tab 04/27/20 promethazine 25 mg tablet 25 mg PO TID PRN #90 tab 05/17/20 ondansetron 4 mg disintegrating 4 mg PO Q6H #30 tab 10/13/20 tablet amoxicillin 500 mg capsule 500 mg PO BID #14 cap 10/25/20 Allergies Allergy/AdvReac Type Severity Reaction Status Date / Time hydrocodone [From Vicodin] AdvReac Severe Severe Verified 04/10/20 20:32 mood swings/anger, does not want to take it. metoclopramide [From Reglan] AdvReac Severe Agitated Verified 04/12/20 19:29 Review of Systems Review of Systems Narrative: GENERAL: Denies chills, fatigue, malaise, fever, sweats, travel HEENT: Denies sinus pain, ear pain, sore throat, difficulty swallowing, neck pain RESPIRATORY: Denies dyspnea, cough, wheezing, hemoptysis, sputum. CARDIOVASCULAR: Denies chest pain, palpitations, orthopnea, edema GASTROINTESTINAL: See HPI : Denies dysuria, frequency, incontinence, hematuria, urinary retention, flank pain. MUSCULOSKELETAL: Denies weakness, joint pain, or bony pain SKIN: No rash, no erythema, no pruritus NEUROLOGIC: Denies weakness, dizziness, headache, numbness, change in speech, confusion PSYCHIATRIC: No concerning psychosocial issues. 12 point review of systems is negative except for those stated above and HPI Patient History Medical History Anxiety (~2018) Depression (~2014) Menometrorrhagia (~2010) Surgical History History of dilation and curettage (~08/2017) [place] teeth extracted (~2012) Family History Mother Hypertension Blood clotting tendency Father Family estrangement Grandfather Cancer Grandmother Congestive heart failure Grandmother Family estrangement Grandfather Family estrangement Family/Other Blood clotting tendency Social History marital status: unmarried,single number of children: 0 household members: family (Lives w younger sister. ) lives independently: Yes caregiver/support person: No housing: house pets and animals: Yes (3 cats, 1 dog. Aware of precautions, dog is safe w/babies. ) education level: college (Finishing Bachelors in [employer].) occupational status: employed ([employer] in [place], [place], part-time.) current occupational exposures/hazards: No special stephanie needs: No seatbelt use: always Smoking Status: Former smoker Tobacco: How many years used: 2 quit status: has quit before second hand exposure: No alcohol intake: never substance use type: marijuana (In the past. Quit with diagnosis.) during the past year weight has: remained stable well-balanced diet: daily or most days caffeine: No (Quit Red Bull w/ .) Type(s) of exercise: walking (less now with nausea. Sometimes fainting/lightheaded since she has been . ) and normal ROM and activity frequency: daily Smoking Status: Former smoker alcohol intake frequency: holidays/special occasions only Substance Use Type: does not use Exam Initial Vital Signs Initial Vital Signs: Vital Signs Temperature 98.1 F 10/25/20 14:16 Pulse Rate 115 H 10/25/20 14:16 Respiratory Rate 10/25/20 14:16 Blood Pressure 123/77 10/25/20 14:16 Pulse Oximetry 100 10/25/20 14:16 GENERAL: Well-appearing, well-nourished and in no acute distress. HEENT: Head atraumatic,EOMI, pupils reactive, face symmetric, moist mucous membranes CARDIOVASCULAR: Regular rate and rhythm without murmurs, rubs or gallops. RESPIRATORY: Breath sounds equal bilaterally, no wheezes rales or rhonchi. ABDOMEN: Soft, gravid, nontender. Normoactive bowel sounds all 4 quadrants. No guarding or rebound. EXTREMITIES: Normal range of motion, no clubbing or edema. Neurovascularly intact NEUROLOGICAL: Alert and oriented x4.Normal gait and speech. SKIN: Warm, dry, no laceration, no petechiae, no rashes or lesions. Course Orders Ordered: ED Orders 10/25/20 15:02 Complete Blood Count AUTO DIFF Stat Comprehensive Metabolic Panel Stat 10/25/20 15:22 Urinalysis and Microscopic Stat Urine Culture Stat Discontinued Medications Amoxicillin (Amoxicillin 250 Mg Capsule) 500 mg PO NOW ONE Stop: 10/25/20 18:57 Last Admin: 10/25/20 19:21 Dose: 500 mg Documented by: XIOMARA Sodium Chloride (Normal Saline 0.9%) 1,000 mls @ 1,000 mls/hr IV BOLUS ONE Stop: 10/25/20 15:55 Last Infusion: 10/25/20 17:18 Dose: 0 mls/hr Documented by: Admin: 10/25/20 15:23 Dose: 1,000 mls/hr Documented by: TRINIDAD Sodium Chloride (Normal Saline 0.9%) 1,000 mls @ 1,000 mls/hr IV BOLUS ONE Stop: 10/25/20 19:37 Last Admin: 10/25/20 18:51 Dose: 1,000 mls/hr Documented by: JARED Ondansetron HCl (Ondansetron 4 Mg/2 Ml Inj) 4 mg IV NOW ONE Stop: 10/25/20 14:57 Last Admin: 10/25/20 15:23 Dose: 4 mg Documented by: TRINIDAD Ondansetron HCl (Ondansetron 4 Mg/2 Ml Inj) 4 mg IV NOW ONE Stop: 10/25/20 18:39 Last Admin: 10/25/20 18:51 Dose: 4 mg Documented by: JARED Vital Signs Vital signs: Vital Signs - 8 hr 10/25/20 14:16 10/25/20 14:47 10/25/20 18:31 Temperature 98.1 F Pulse Rate 115 H 85 90 Respiratory Rate 20 18 Blood Pressure 123/77 117/68 99/56 L Pulse Oximetry 100 98 96 10/25/20 19:34 Temperature Pulse Rate 84 Respiratory Rate 20 Blood Pressure 141/74 H Pulse Oximetry 100 MDM - Nausea/Vomiting/Diarrhea Lab Data Result diagrams: 10/25/20 15:02 10/25/20 15:02 Labs: Lab Results 10/25/20 10/25/20 10/25/20 Range/Units 15:02 15:02 15:22 WBC 6.4 (4.5-11.0) X10^3/uL RBC 3.92 L (4.0-5.2) X10^6/uL Hgb 11.5 L (12.0-16.0) g/dL Hct 34.4 L (36-46) % MCV 87.8 (80-100) fL MCH 29.3 (26-34) PG MCHC 33.4 (30-36) % RDW 13.6 (11.6-14.8) % Plt Count 247 (150-400) X10^3/uL Neut % (Auto) 69.1 (50-75) % Lymph % (Auto) 22.1 L (25-40) % [place] % (Auto) 7.9 (3-14) % Eos % (Auto) 0.5 L (2-4) % Baso % (Auto) 0.4 (0-2) % Neut # (Auto) 4400 (4142-1839) /uL Lymph # (Auto) 1400 (3106-3349) /uL [place] # (Auto) 500 (0-900) /uL Eos # (Auto) 0 (0-450) /uL Baso # (Auto) 0 (0-100) /uL Sodium 134 L (137-145) mmol/L Potassium 3.8 (3.4-5.1) mmol/L Chloride 109 H (98-107) mmol/L Carbon Dioxide 21 L (22-32) mmol/L BUN 6 L (7-17) mg/dL Creatinine 0.64 (0.52-1.04) mg/dL Estimated GFR > 60.0 (>60) mL/min BUN/Creatinine Ratio 9.4 (6-22) Glucose 78 (70-100) mg/dL Calcium 8.9 (8.4-10.2) mg/dL Total Bilirubin 0.4 (0.2-1.3) mg/dL AST 25 (14-36) IU/L ALT 11 (<35) IU/L Alkaline Phosphatase 103 (38-126) U/L Total Protein 6.7 (6.3-8.2) g/dL Albumin 3.1 L (3.5-5.0) g/dL Globulin 3.6 (1.7-4.1) g/dL Albumin/Globulin Ratio 0.9 L (1.0-2.8) Urine Color Yellow Urine Appearance Sl cloudy Urine pH 6.5 (4.5-8.0) Ur Specific [place] 1.020 (1.000-1.035) Urine Protein 1+ H (Negative) Urine Glucose (UA) Negative (Negative) g/dL Urine Ketones Trace H (NEGATIVE) Urine Occult Blood Trace-lysed (Negative) Urine Nitrate Negative (Negative) Urine Bilirubin Negative (NEGATIVE) Urine Urobilinogen 0.2 (0.2) E.U./dL Ur Leukocyte Esterase 1+ H (NEGATIVE) Urine RBC 0-1/hpf (0-5/HPF) Urine WBC 5-10/hpf H (0-5/HPF) Ur Squamous Epith Cells 5-10 /hpf H (0-5/HPF) Amorphous Sediment 1+ Urine Bacteria Moderate (10-30) H (None) Urine Mucus 2+ H (Negative) Ur Culture Indicated? Specimen cultured Urine Dip Bedside Urine Glucose Negative Bedside Urine Bilirubin - Negative Bedside Urine Ketone - Negative Urine Specific [place] 1.025 Bedside Urine Occult Blood - Negative Bedside Urine pH 6.0 Bedside Urine Protein + 30 Bedside Urine Urobilinogen - Negative Bedside Urine Nitrite - Negative Bedside Urine Leukocytes +/- 15 Esterase MDM Narrative Medical decision making narrative: Patient blood pressure certainly fluctuating. She received 2 L of IV fluids. She does have a UTI will start her on minerva xicillin. She overall appears better blood pressure has improved after 2 L of fluid. She certainly does not have severe sepsis. Discharge Plan Departure Patient Disposition: Home Clinical Impression: Gastroenteritis, Urinary tract infection during Instructions: DI for Viral Gastroenteritis -- Adult Activity Restrictions/Additional Instructions: *You have been diagnosed with gastroenteritis, UTI *What to do: Increase fluid intake as tolerated, as Gatorade, broth Jell-O, popsicles etc. you are also found to have bladder infection. Will start you on antibiotics as well *Continue to take medications as directed Amoxicillin 500 mg twice a day--> SENT TO [facility] *Follow up with your primary care provider in 2-3 days *Return to ER if you should have persistent nausea vomiting inability to keep any fluid down, fever abdominal pain vaginal bleed bleeding or any new, worsening or concerning symptoms Prescriptions: New amoxicillin 500 mg capsule 500 mg PO BID Qty: 14 RF: 0 No Action hydroxyzine HCl 25 mg tablet 25 mg PO TID PRN (Reason: anxiety) Qty: 30 RF: 0 promethazine 25 mg tablet 25 mg PO TID PRN (Reason: nausea and vomiting) Qty: 90 RF: 2 ondansetron 4 mg tablet,disintegrating 4 mg PO Q6H Qty: 30 RF: 0 ondansetron 4 mg tablet,disintegrating 4 mg PO Q6H Qty: 20 RF: 0 prenat.vits,rodney,[id number] Tablet 1 tab PO DAILY RF: 0 acetaminophen 325 mg capsule 325 mg PO ONCE PRNRF: 0 Referrals: Hellen Moore MD [Primary Care Provider] -
[2020-10-25 18:31] VITALS: BP 99/56; PULSE 90; O2SAT 96
[2020-10-25] MEDS: AMOXICILLIN 250 MG CAPSULE 500 MG PO (19:21)
[2020-10-25 19:34] VITALS: BP 141/74; PULSE 84; RESP 20; O2SAT 100
== END 2020-10-25 19:36 | disposition home or self-care (01) ==
PROVIDERS: Emergency Provider Emergency Medicine; PCP Family Medicine
DX: O23.43 Unspecified infection of urinary tract in pregnancy, third trimester (principal); K52.9 Noninfective gastroenteritis and colitis, unspecified; Z3A.36 36 weeks gestation of pregnancy
CPT/HCPCS: 80053; 81001; 81003; 85025; 87086; 96361; 96374; 96376; 99284; J2405

== ENCOUNTER → 2020-10-27 16:25 | Outpatient (CLI) | payer OTHER, MEDICAID, SELFPAY ==
[2020-10-28 13:47] LABS: Strep Grp B PCR NEG for Grp B Strep
== END ==
PROVIDERS: PCP Family Medicine; Referring Provider Family Medicine; Visit Provider Family Medicine
DX: Z34.90 Encounter for supervision of normal pregnancy, unspecified, unspecified trimester (principal); Z3A.36 36 weeks gestation of pregnancy
CPT/HCPCS: 87653

== ENCOUNTER → 2020-10-31 15:30 | Outpatient (CLI) | payer OTHER, MEDICAID, SELFPAY ==
--- NOTE | 2020-10-31 15:32 | DI.US.S_ITS ---
PROCEDURE: US RENAL COMPLETE INDICATIONS: BACK PAIN TECHNIQUE: Real-time scanning was performed of the kidneys and bladder, with image documentation. COMPARISON: None. FINDINGS: Kidneys: Kidneys are normal in size. Right kidney measures 9.3 cm long; left kidney measures 11.7 cm long. Right renal cortical thickness is 1.4 cm; left renal cortical thickness is 1.9 cm. Renal cortical echotexture is normal. No hydronephrosis or nephrolithiasis. No suspicious solid mass lesions. Bladder: Urinary bladder decompressed and suboptimally visualized. Miscellaneous: No free pelvic fluid. Patient is and heart rate measures 126 beats per minute. IMPRESSION: Normal appearance of the kidneys. Dictated by: Shane Mcbride [facility] Interpreted: Emanuel Rosales MD on 10/31/2020 at 16:20 Transcribed by: MICHAELA on 10/31/2020 at 16:21 Approved by: Emanuel Rosales M.D. on 10/31/2020 at 16:40
== END ==
PROVIDERS: PCP Family Medicine; Referring Provider Family Medicine; Visit Provider Family Medicine
DX: O99.891 Other specified diseases and conditions complicating pregnancy (principal); M54.5 Low back pain
CPT/HCPCS: 76770

== ENCOUNTER → 2020-11-01 10:33 | Outpatient (CLI) | payer OTHER, MEDICAID, SELFPAY ==
--- NOTE | 2020-11-01 10:34 | DI.US.S_ITS ---
PROCEDURE: US OB LIMITED INDICATIONS: GROWTH FOR HYPEREMESIS OUTSIDE/PRIOR DATING DATA: Last menstrual period (LMP): 02/03/2020. LMP-based estimated date of delivery (RINA): 11/09/2020 . First dating scan (date and location): 05/12/2020 . Estimated date of delivery (RINA) from first dating scan: 11/14/2020 . TECHNIQUE: Real-time scanning was performed of the fetus, with image documentation and biometric measurements. Endovaginal scanning: No COMPARISON: [facility], OB FOLLOW UP, 07/04/2020, 14:12. [facility], OB LIMITED, 05/19/2020, 12:58. FINDINGS: General: A single living intrauterine gestation is present. Presentation: Vertex. Placenta: Placental position is anterior. Amniotic fluid index: 7 cm, normal range is 5-24 cm. heart rate: 121 beats per minute. Maternal cervical canal: Not well seen. biometrics: Biparietal diameter: 36 weeks 3 days Head circumference: 36 weeks 2 days Abdominal circumference: 36 weeks 3 days Femur length: 36 weeks 3 days Estimated gestational age from initial scan: 38 weeks 1 day Composite gestational age from present scan: 36 weeks 3 days Estimated weight and percentile: 2936 g, 21st percentile Measurement variability for biometric dating: +/- 7 days from 14 weeks to 15 weeks 6 days gestation, +/- 10 days from 16 weeks to 21 weeks 6 days gestation, +/- 2 weeks from 22 weeks to 27 weeks 6 days gestation, +/- 3 weeks for 28 weeks gestation or later. weight reference: 4500 g or EFW >90/95% is considered macrosomia or large for gestational age. EFW <10% is small for gestational age. EFW 5% or less is considered intra-uterine growth restriction. Other: Not applicable. IMPRESSION: Single living IUP redemonstrated and interval growth is within normal limits. Of note, femoral length is at the 4th percentile for age. Dictated by: Shane QURESHI Interpreted: Yo Montez MD on 11/01/2020 at 13:23 Transcribed by: DANIEL on 11/01/2020 at 13:25 Approved by: Yo Montez M.D. on 11/01/2020 at 14:45
== END ==
PROVIDERS: PCP Family Medicine; Referring Provider Family Medicine; Visit Provider Family Medicine
DX: O21.0 Mild hyperemesis gravidarum (principal); Z3A.36 36 weeks gestation of pregnancy
CPT/HCPCS: 76815

== ENCOUNTER 2020-11-02 15:47 | Observation (INO) | payer OTHER, MEDICAID, SELFPAY ==
[2020-11-02] MEDS: LACTATED RINGERS 1,000 ML 1000 ML IV (17:33)
[2020-11-02] MEDS: MORPHINE 4 MG/ML INJ IV (18:30)
[2020-11-02] MEDS: hydrOXYzine 50 MG/ML INJ IM (18:30)
--- NOTE | 2020-11-02 19:49 | P.TNLD_ITS ---
Visit Information Visit Information Date of evaluation: 11/02/20 Primary OB Provider: Hellen Moore Reason for Evaluation: Yes rule out labor Comments/Additional reasons for admission: 25yo at 37w2d here due to painful contractions. Contractions started last night, increasing in intensity since then. Now with near constant lower abdominal cramping. No LOF, vaginal bleeding. She has not been feeling her baby move regularly today, but was last night. [facility] Medical History Anxiety (~2018) Depression (~2014) Menometrorrhagia (~2010) Surgical History History of dilation and curettage (~08/2017) [place] teeth extracted (~2012) Family History Mother Hypertension Blood clotting tendency Father Family estrangement Grandfather Cancer Grandmother Congestive heart failure Grandmother Family estrangement Grandfather Family estrangement Family/Other Blood clotting tendency Social History marital status: unmarried,single number of children: 0 household members: family (Lives w younger sister. ) lives independently: Yes caregiver/support person: No housing: house pets and animals: Yes (3 cats, 1 dog. Aware of precautions, dog is safe w/babies. ) education level: college (Finishing Bachelors in [employer].) occupational status: employed ([employer] in [place], [place], part-time.) current occupational exposures/hazards: No special stephanie needs: No seatbelt use: always Smoking Status: Former smoker Tobacco: How many years used: 2 quit status: has quit before second hand exposure: No alcohol intake: never substance use type: marijuana (In the past. Quit with diagnosis.) during the past year weight has: remained stable well-balanced diet: daily or most days caffeine: No (Quit Red Bull w/ .) Type(s) of exercise: walking (less now with nausea. Sometimes fainting/lightheaded since she has been . ) and normal ROM and activity frequency: daily Evaluation Evaluation Baseline heart rate: 130 Variability: Moderate (11-25) monitor accelerations: Present Monitor Decelerations: Absent Comments: Irregular contractions. Cervical exam: FT internal os, 1-2cm external os/75%/-3 Diagnosis, Plan/Disposition Final Diagnosis (1) False labor: Status: Acute (2) 37 weeks gestation of : Status: Acute Plan/Disposition Plan: 25yo at 37w1d here with contractions. Improved after 1L LR bolus. No cervical change in over an hour. Not in active labor. Pt was given morphine/vistaril prior to d/c to help with discomfort. F/U in clinic next week as scheduled. OB Disposition: home
== END 2020-11-02 18:41 | disposition home or self-care (01) ==
PROVIDERS: Admitting Provider Family Medicine; PCP Family Medicine; Referring Provider Family Medicine; Visit Provider Family Medicine
DX: O47.1 False labor at or after 37 completed weeks of gestation (principal); O36.8130 Decreased fetal movements, third trimester, not applicable or unspecified; Z3A.37 37 weeks gestation of pregnancy
CPT/HCPCS: 59025; 59050; 96360; 96372; G0378; G0379; J2270; J3410

== ENCOUNTER 2020-11-04 11:02 | Observation (INO) | payer OTHER, MEDICAID, SELFPAY ==
[2020-11-04] MEDS: LACTATED RINGERS 1,000 ML 1000 ML IV (12:15)
[2020-11-04] MEDS: ONDANSETRON 4 MG/2 ML INJ IV (12:25)
--- NOTE | 2020-11-04 13:39 | P.TNLD_ITS ---
Visit Information Visit Information Date of evaluation: 11/04/20 Primary OB Provider: Hellen Moore Reason for Evaluation: Yes rule out labor Comments/Additional reasons for admission: 25yo at 37w4d here for contractions. Pt reports having contractions starting yesterday. Have been getting more painful. No LOF, vaginal bleeding, and feeling baby move regularly. [facility] Medical History Anxiety (~2018) Depression (~2014) Menometrorrhagia (~2010) Surgical History History of dilation and curettage (~08/2017) [place] teeth extracted (~2012) Family History Mother Hypertension Blood clotting tendency Father Family estrangement Grandfather Cancer Grandmother Congestive heart failure Grandmother Family estrangement Grandfather Family estrangement Family/Other Blood clotting tendency Social History marital status: unmarried,single number of children: 0 household members: family (Lives w younger sister. ) lives independently: Yes caregiver/support person: No housing: house pets and animals: Yes (3 cats, 1 dog. Aware of precautions, dog is safe w/babies. ) education level: college (Finishing Bachelors in [employer].) occupational status: employed ([employer] in [place], [place], part-time.) current occupational exposures/hazards: No special stephanie needs: No seatbelt use: always Smoking Status: Former smoker Tobacco: How many years used: 2 quit status: has quit before second hand exposure: No alcohol intake: never substance use type: marijuana (In the past. Quit with diagnosis.) during the past year weight has: remained stable well-balanced diet: daily or most days caffeine: No (Quit Red Bull w/ .) Type(s) of exercise: walking (less now with nausea. Sometimes fainting/lightheaded since she has been . ) and normal ROM and activity frequency: daily Evaluation Evaluation Baseline heart rate: 150 Variability: Moderate (11-25) monitor accelerations: Present Monitor Decelerations: Absent Contraction Frequency (minutes): 4 Uterine Contraction Intensity: Mild Status: Category l Cervical dilation (cm): 0 Cervical effacement (%): 75 station: -3 Diagnosis, Plan/Disposition Final Diagnosis (1) 37 weeks gestation of : Status: Acute (2) False labor: Status: Acute Plan/Disposition Plan: 25yo at 37w4d here with contractions, no cervical change. Not in act ben labor. Due to severe discomfort, morphine and vistaril given today. Safe for d/c home. OB Disposition: home
[2020-11-04] MEDS: hydrOXYzine 50 MG/ML INJ IM (13:52)
[2020-11-04] MEDS: MORPHINE 4 MG/ML INJ IV (13:56)
== END 2020-11-04 14:22 | disposition home or self-care (01) ==
PROVIDERS: Admitting Provider Family Medicine; PCP Family Medicine; Referring Provider Family Medicine; Visit Provider Family Medicine
DX: O47.1 False labor at or after 37 completed weeks of gestation (principal); O36.8130 Decreased fetal movements, third trimester, not applicable or unspecified; Z3A.37 37 weeks gestation of pregnancy
CPT/HCPCS: 59025; 96360; 96372; G0378; G0379; J2270; J2405; J3410

== ENCOUNTER 2020-11-07 22:21 | Outpatient (CLI) | payer OTHER, MEDICAID, SELFPAY | END 2020-11-08 00:15 | disposition home or self-care (01) | LOC: LABOR 22:24 → OB 11-08 06:58 | PROVIDERS: PCP Family Medicine; Referring Provider Family Medicine; Visit Provider Family Medicine | DX: O47.1 False labor at or after 37 completed weeks of gestation (principal); Z3A.38 38 weeks gestation of pregnancy | CPT/HCPCS: 59025; 59050; G0378; G0379 ==

== ENCOUNTER 2020-11-11 14:45 | Outpatient (CLI) | payer OTHER, MEDICAID, SELFPAY ==
[2020-11-11] MEDS: MORPHINE 4 MG/ML INJ IV (16:18)
[2020-11-11] MEDS: hydrOXYzine 50 MG/ML INJ IM (16:18)
--- NOTE | 2020-11-12 11:11 | P.TNLD_ITS ---
Visit Information Visit Information Date of evaluation: 11/11/20 Primary OB Provider: Hellen Moore Reason for Evaluation: Yes rule out labor Comments/Additional reasons for admission: 25yo at 38w4d here for painful contractions. Pt has been having contractions on and off for several days, increasing in intensity again this morning. No LOF or vaginal bleeding. She is feeling her baby move regularly. [facility] Medical History Anxiety (~2018) Depression (~2014) Menometrorrhagia (~2010) Surgical History History of dilation and curettage (~08/2017) [place] teeth extracted (~2012) Family History Mother Hypertension Blood clotting tendency Father Family estrangement Grandfather Cancer Grandmother Congestive heart failure Grandmother Family estrangement Grandfather Family estrangement Family/Other Blood clotting tendency Social History marital status: unmarried,single number of children: 0 household members: family (Lives w younger sister. ) lives independently: Yes caregiver/support person: No housing: house pets and animals: Yes (3 cats, 1 dog. Aware of precautions, dog is safe w/babies. ) education level: college (Finishing Bachelors in [employer].) occupational status: employed ([employer] in [place], [place], part-time.) current occupational exposures/hazards: No special stephanie needs: No seatbelt use: always Smoking Status: Never smoker Tobacco: How many years used: 2 quit status: has quit before second hand exposure: No alcohol intake: never substance use type: marijuana (In the past. Quit with diagnosis.) during the past year weight has: remained stable well-balanced diet: daily or most days caffeine: No (Quit Red Bull w/ .) Type(s) of exercise: walking (less now with nausea. Sometimes fainting/lightheaded since she has been . ) and normal ROM and activity frequency: daily Evaluation Evaluation Baseline heart rate: 130 Variability: Moderate (11-25) monitor accelerations: Present Monitor Decelerations: Absent Contraction Frequency (minutes): 5 Uterine Contraction Intensity: Mild Status: Category l Cervical dilation (cm): 1 Cervical effacement (%): 50 station: -3 Diagnosis, Plan/Disposition Final Diagnosis (1) False labor: Status: Acute (2) 38 weeks gestation of : Status: Acute Plan/Disposition Plan: 25yo at 38w4d here for painful contractions. Pt without any cervical change, not in active labor. Morphine and Vistaril given for maternal discomfort. Has IOL scheduled for 11/15. OB Disposition: home
== END 2020-11-11 16:35 | disposition home or self-care (01) ==
LOC: OB 11-17 06:56
PROVIDERS: PCP Family Medicine; Referring Provider Family Medicine; Visit Provider Family Medicine
DX: O47.1 False labor at or after 37 completed weeks of gestation (principal); Z3A.38 38 weeks gestation of pregnancy
CPT/HCPCS: 59025; 59050; 96372; G0378; G0379; J2270; J3410

== ENCOUNTER 2020-11-12 06:11 | Observation (INO) | payer OTHER, MEDICAID, SELFPAY | END 2020-11-12 07:20 | disposition home or self-care (01) | PROVIDERS: Admitting Provider Family Medicine; PCP Family Medicine; Referring Provider Family Medicine; Visit Provider Family Medicine | DX: O26.893 Other specified pregnancy related conditions, third trimester (principal); R10.9 Unspecified abdominal pain; Z3A.38 38 weeks gestation of pregnancy | CPT/HCPCS: 59025; G0378; G0379 ==

== ENCOUNTER 2020-11-12 11:35 | Observation (INO) | payer OTHER, MEDICAID, SELFPAY ==
[2020-11-12 11:37] VITALS: BP 147/94
[2020-11-12 12:13] VITALS: BP 147/94; PULSE 78
[2020-11-12] MEDS: PROCHLORPERAZINE 5 MG TABLET PO (12:13)
[2020-11-12] MEDS: MEPERIDINE 50 MG/ML INJ IM (12:13)
== END 2020-11-12 12:45 | disposition home or self-care (01) ==
LOC: LABOR 11:36
PROVIDERS: Admitting Provider Family Medicine; PCP Family Medicine; Referring Provider Family Medicine; Visit Provider Family Medicine
DX: O47.1 False labor at or after 37 completed weeks of gestation (principal); Z3A.38 38 weeks gestation of pregnancy
CPT/HCPCS: 59025; 96372; G0378; G0379; J2175

== ENCOUNTER 2020-11-12 18:53 | Outpatient (CLI) | payer OTHER, MEDICAID, SELFPAY ==
[2020-11-12] MEDS: LACTATED RINGERS 1,000 ML 1000 ML IV ×2 (19:30→20:30)
[2020-11-12 21:03] LABS: Appearance Urine UA CLEAR; Bilirubin Urine UA NEGATIVE (NEGATIVE); Color Urine UA YELLOW; Glucose Urine UA NEGATIVE (Negative); Ketones Urine UA 3+ (NEGATIVE); Leukocyte Esterase Urine UA NEGATIVE (NEGATIVE); Nitrite Urine UA NEGATIVE (Negative); Occult Blood Urine UA 1+ (Negative); Protein Urine UA 2+ (Negative); Specific Gravity Urine UA 1.025 (1.000-1.035); Urobilinogen Urine UA 0.2 E.U./dL (0.2)
[2020-11-12 21:10] LABS: pH Urine UA 6.5 (4.5-8.0)
[2020-11-12 21:13] LABS: Bacteria Urine Moderate (10-30); Culture Indicated Urine Specimen Cultured; Mucus Urine 1+ (Negative); RBC Urine 0-1/HPF (0-5/HPF); Squamous Epithelial Cell Urine 1-5 /HPF (0-5/HPF); WBC Urine 1-5/HPF (0-5/HPF)
== END 2020-11-12 22:06 | disposition home or self-care (01) ==
LOC: LABOR 18:57 → OB 11-14 09:49
PROVIDERS: PCP Family Medicine; Referring Provider Family Medicine; Visit Provider Family Medicine
DX: O47.1 False labor at or after 37 completed weeks of gestation (principal); Z3A.38 38 weeks gestation of pregnancy
CPT/HCPCS: 59050; 81003; 81015; 87086; 96360; G0378; G0379

== ENCOUNTER 2020-11-13 09:25 | Observation (INO) | payer OTHER, MEDICAID, SELFPAY | END 2020-11-13 10:37 | disposition home or self-care (01) | LOC: LABOR 09:28 | PROVIDERS: Admitting Provider Internal Medicine; PCP Family Medicine; Referring Provider Internal Medicine; Visit Provider Internal Medicine | DX: O47.1 False labor at or after 37 completed weeks of gestation (principal); Z3A.38 38 weeks gestation of pregnancy | CPT/HCPCS: 59025; G0378; G0379 ==

== ENCOUNTER 2020-11-13 15:49 | Inpatient (IN) | payer OTHER, MEDICAID, SELFPAY ==
[2020-11-13 16:34] LABS: Add Manual Diff / Slide Review NO; Basophils Absolute Auto 100 /uL (0-100); Basophils Percent Auto 0.8 % (0-2); Eosinophils Absolute Auto 0 /uL (0-450); Hematocrit 34.8 % (36-46); Hemoglobin 11.6 g/dL (12.0-16.0); Lymphocytes Absolute Auto 1000 /uL (1100-4500); Lymphocytes Percent Auto 7.8 % (25-40); Mean Corpuscular HGB Conc 33.5 % (30-36); Mean Corpuscular Hemoglobin 29.3 PG (26-34); Mean Corpuscular Volume 87.4 fL (80-100); Monocytes Absolute Auto 800 /uL (0-900); Monocytes Percent Auto 6.1 % (3-14); Neutrophils Absolute Auto 11300 /uL (1500-7000); Neutrophils Percent Auto 85.3 % (50-75); Platelet Count 271 X10^3/uL (150-400); Red Blood Cell Count 3.98 X10^6/uL (4.0-5.2); Red Cell Distribution Width 13.8 % (11.6-14.8); White Blood Cell Count 13.2 X10^3/uL (4.5-11.0)
[2020-11-13 17:20] LABS: COVID19 - ADMIT (NP swab/PCR) Negative (Negative)
--- NOTE | 2020-11-13 17:28 | P.HPOB_ITS ---
OB HPI Date/Time Date of admission: 11/13/20 Date Patient Seen: 11/13/20 Time Patient Seen: 17:28 History of Present Condition Chief complaint: Bleeding : 1 Para: 0 Estimated Date of Delivery: 11/21/20 Estimated Gestational Age (weeks): 38w6d Narrative: Sherrill Larose is a 25 year old at 38w6d here with regular painful contractions. Pt has been in prolonged latent labor for more than a day, now with contractions more painful and feeling them across her entire abdomen. She denies any vaginal bleeding or LOF. She is feeling her baby move regularly. History of Present care: good care, initiated at week # (6) and pounds weight gain (32) Dating criteria: based on 1st trimester US only Ultrasounds: normal 1st trimester US and normal mid trimester US Obstetrical complications: hyperemesis Medical complications: none Preadmission Labs Blood type: B (+) positive -: Antibody screen: negative, GBS status: negative, HBsAG: negative, HIV: negative and RPR/VDLR: negative -: Rubella: immune and Varicella: immune HCT: 34.4 HCAB: negative PAP: Normal Quad screen: Normal 1 hr GTT: 114 Evaluation Evaluation Baseline heart rate: 140 Variability: Moderate (11-25) monitor accelerations: Absent Monitor Decelerations: Absent Contraction Frequency (minutes): 3 Uterine Contraction Intensity: Strong/Firm Status: Category l Cervical dilation (cm): 10 Cervical effacement (%): 10 station: 0 PFSH Medical History Anxiety (~2018) Depression (~2014) Menometrorrhagia (~2010) Surgical History History of dilation and curettage (~08/2017) [place] teeth extracted (~2012) Family History Mother Hypertension Blood clotting tendency Father Family estrangement Grandfather Cancer Grandmother Congestive heart failure Grandmother Family estrangement Grandfather Family estrangement Family/Other Blood clotting tendency Social History marital status: unmarried,single number of children: 0 household members: family (Lives w younger sister. ) lives independently: Yes caregiver/support person: No housing: house pets and animals: Yes (3 cats, 1 dog. Aware of precautions, dog is safe w/babies. 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 Quit with diagnosis.) during the past year weight has: remained stable well-balanced diet: daily or most days caffeine: No (Quit Red Bull w/ .) Type(s) of exercise: walking (less now with nausea. Sometimes fainting/lightheaded since she has been . ) and normal ROM and activity frequency: daily Meds Home Medications and Allergies Home Medications Medication Instructions Recorded Confirmed Type acetaminophen 325 mg capsule 325 mg PO ONCE PRN 03/29/20 10/27/20 History prenat.vits,rodney,[id number]-[id number]-evllw 1 tab PO DAILY 03/29/20 10/27/20 History ondansetron 4 mg disintegrating 4 mg PO Q6H #20 tab 04/12/20 10/27/20 Rx tablet hydroxyzine HCl 25 mg tablet 25 mg PO TID PRN #30 tab 04/27/20 10/27/20 Rx promethazine 25 mg tablet 25 mg PO TID PRN #90 tab 05/17/20 11/04/20 Rx ondansetron 4 mg disintegrating 4 mg PO Q6H #30 tab 10/13/20 10/27/20 Rx tablet amoxicillin 500 mg capsule 500 mg PO BID #14 cap 10/25/20 10/27/20 Rx Allergies Allergy/AdvReac Type Severity Reaction Status Date / Time hydrocodone [From Vicodin] AdvReac Severe Severe Verified 04/10/20 20:32 mood swings/anger, does not want to take it. metoclopramide [From Reglan] AdvReac Severe Agitated Verified 04/12/20 19:29 Exam Const General: cooperative, healthy appearing and comfortable Orientation: alert, awake and oriented x3 Resp Effort & Inspection: normal respiratory effort Auscultation: clear to auscultation bilaterally Cardio Rate: regular rate Rhythm: regular rhythm Heart Sounds: S1 normal, S2 normal and no murmurs GI Inspection: non-distended Palpation: soft and No tender Other: gravid Presentation: vertex Extrem General: no clubbing, cyanosis or edema Objective Labs Result Diagrams: 11/13/20 16:25 Labs: Laboratory Results - last 24 hr 11/13/20 11/13/20 16:25 16:25 WBC 13.2 H RBC 3.98 L Hgb 11.6 L Hct 34.8 L MCV 87.4 MCH 29.3 MCHC 33.5 RDW 13.8 Plt Count 271 Neut % (Auto) 85.3 H Lymph % (Auto) 7.8 L [place] % (Auto) 6.1 Eos % (Auto) 0.0 L Baso % (Auto) 0.8 Neut # (Auto) 04629 H Lymph # (Auto) 1000 L [place] # (Auto) 800 Eos # (Auto) 0 Baso # (Auto) 100 SARS-CoV-2 (PCR) Negative Assessment and Plan Assessment and Plan Assessment and Plan narrative: 25yo at 38w6d here in active labor. GBS negative, Rh positive. - Expectant management, anticipate - FHT reassuring - Epidural for pain control in place - GBS negative, no prophylaxis indicated
[2020-11-13 17:50] VITALS: BP 127/63
--- NOTE | 2020-11-13 21:25 | PM.OBPRVD ---
Labor & Delivery Delivery date: 11/13/20 Cervical ripening method: none Induction method: none Delivery augmentation: rupture of membranes Delivery monitor: external FHT Route of delivery: Episiotomy description: None L&D Laceration Description: Perineal - 1st Degree Delivery repair: chromic Estimated blood loss (mL): 100 Anesthesia Type: Epidural Complications: None Narrative: My PROCEDURE: at 38w6d presented in active labor and was admitted to Labor and Delivery. The patient progressed through the 1st stage over 1.5 hours. Pain was controlled with an epidural. AROM was performed with production of meconium-stained fluid when the pt was complete. The patient progressed through the 2nd stage over 3.5 hours and delivered a viable male with APGARs 8/9 at 20:53 via without complications. The baby cried spontaneously immediately after delivery. The cord was clamped and cut after it stopped pulsating. The perineum and vagina were inspected with 1st degree perineal laceration repaired with 3-O Chromic for hemostasis. PREPROCEDURE DIAGNOSIS: Intrauterine at 38w6d Hyperemesis gravidarum GBS negative RH positive POSTPROCEDURE DIAGNOSIS: Intrauterine at 38w6d, delivered Same as preprocedure [place] Baby 1: Infant gender: Male Presentation: vertex Position: Right Occiput Anterior Placenta delivery description: Spontaneous Cord Vessel Description: 3 Vessels and Nuchal Cord (x1, reduced at perineum) score (1 min): 8 score (5 min): 9 weight: 7 lb 2.887 oz Plan for aftercare: Routine care
[2020-11-14] MEDS: ACETAMINOPHEN 325 MG TABLET 650 MG PO ×3 (00:32→13:34)
[2020-11-14] MEDS: IBUPROFEN 600 MG TABLET PO ×3 (00:32→13:34)
[2020-11-14] MEDS: DERMOPLAST SPRAY 20% 60 ML 1 SPRAY TOP (00:33)
[2020-11-14] MEDS: PRENATAL VIT,CALC/IRON/FOLIC 1 TABLET 1 TAB PO (11:05)
[2020-11-14] MEDS: LANOLIN OINT 7 GM 1 APPLIC TOP (11:05)
[2020-11-14] MEDS: DOCUSATE 100 MG CAPSULE PO (11:06)
[2020-11-14 12:57] LABS: Add Manual Diff / Slide Review NO; Basophils Absolute Auto 100 /uL (0-100); Basophils Percent Auto 0.7 % (0-2); Eosinophils Absolute Auto 0 /uL (0-450); Eosinophils Percent Auto 0.3 % (2-4); Hematocrit 29.4 % (36-46); Lymphocytes Absolute Auto 1700 /uL (1100-4500); Lymphocytes Percent Auto 17.6 % (25-40); Mean Corpuscular Hemoglobin 29.9 PG (26-34); Mean Corpuscular Volume 87.9 fL (80-100); Monocytes Absolute Auto 1000 /uL (0-900); Monocytes Percent Auto 9.7 % (3-14); Neutrophils Absolute Auto 7000 /uL (1500-7000); Neutrophils Percent Auto 71.7 % (50-75); Platelet Count 218 X10^3/uL (150-400); Red Blood Cell Count 3.35 X10^6/uL (4.0-5.2); Red Cell Distribution Width 14.1 % (11.6-14.8); White Blood Cell Count 9.8 X10^3/uL (4.5-11.0)
[2020-11-14 13:10] LABS: Alanine Aminotransferase 15 IU/L (<35); Albumin 2.6 g/dL (3.5-5.0); Albumin Globulin Ratio 0.9 (1.0-2.8); Alkaline Phosphatase 89 U/L (38-126); Aspartate Aminotransferase 47 IU/L (14-36); BUN Creatinine Ratio 9.8 (6-22); Bilirubin Total 0.4 mg/dL (0.2-1.3); Blood Urea Nitrogen 8 mg/dL (7-17); Calcium 8.7 mg/dL (8.4-10.2); Carbon Dioxide 22 mmol/L (22-32); Chloride 110 mmol/L (98-107); Estimated Glomerular Filt Rate > 60.0 mL/min (>60); Glucose 77 mg/dL (70-100); HEMOLYSIS < 15 (0-50); Potassium 3.7 mmol/L (3.4-5.1); Sodium 134 mmol/L (137-145); Total Protein 5.6 g/dL (6.3-8.2)
[2020-11-14 15:08] LABS: Protein (Total) Urine Random 13 mg/dL (0-12)
[2020-11-14 15:57] LABS: Creatinine Urine Random 409.5 mg/dL; Protein Creatinine Ratio Urine 0.03 GRAM/24H
--- NOTE | 2020-11-14 17:06 | PM.OBDS.1 ---
Discharge Providers Provider Date of admission: 11/13/20 15:49 Discharge Date: 11/14/20 Primary care physician: Hellen Moore MD Consults: 11/14/20 21:27 Consult to Correspondence Representative Routine Comment: Discharge provider: Hellen Moore MD Summary Hospital Course Date Patient Seen: 11/14/20 Time Patient Seen: 17:00 Diagnoses: 38w6d gestation GBS negative Rh positive Hospital Course: The pt presented in active labor. She received an epidural for pain control. She progressed to complete, and AROM was performed with production of meconium-stained fluid. She had a spontaneous vaginal delivery of a viable baby boy without any complications. A 1st degree perineal laceration was then repaired. The pt tolerated delivery well. , the pt had two elevated BPs and pre-eclampsia labs were negative. She had no otherwise elevated blood pressures. There were no other complications. At the time of discharge she was voiding, ambulating, and passing flatus without difficulty. Her lochia was decreasing appropriately. She was with good latch. Her pain was well controlled. She will f/u in clinic in 6 weeks for check, and is considering Mirena IUD for contraception. Peripartum Data Delivery Method: Natural Vaginal Laceration Description: Perineal - 1st Degree Episiotomy description: None Procedures: Spontaneous vaginal delivery complications: none [place] 1: Gender: Male Disposition of : home Discharge Diagnosis (1) Spontaneous vaginal delivery: Status: Acute Status at Discharge Cognitive/behavioral status at discharge: oriented Functional status at discharge: independent ambulation Overall status at discharge: patient is progressing back to baseline Time Spent with Patient Time attestation: Total time spent providing and/or coordinating discharge services: Objective Labs Result Diagrams: 11/14/20 12:52 11/14/20 12:52 Labs: Laboratory Results - last 24 hr 11/13/20 11/13/20 11/14/20 16:25 16:25 12:52 WBC 9.8 RBC 3.35 L Hgb 10.0 L Hct 29.4 L MCV 87.9 MCH 29.9 MCHC 34.0 RDW 14.1 Plt Count 218 Neut % (Auto) 71.7 Lymph % (Auto) 17.6 L [place] % (Auto) 9.7 Eos % (Auto) 0.3 L Baso % (Auto) 0.7 Neut # (Auto) 7000 Lymph # (Auto) 1700 [place] # (Auto) 1000 H Eos # (Auto) 0 Baso # (Auto) 100 Sodium Potassium Chloride Carbon Dioxide BUN Creatinine Estimated GFR BUN/Creatinine Ratio Glucose Calcium Total Bilirubin AST ALT Alkaline Phosphatase Total Protein Albumin Globulin Albumin/Globulin Ratio U Random Total Protein Urine Creatinine Protein/Creatinin Ratio SARS-CoV-2 (PCR) Negative Blood Type B Positive Antibody Screen Negative 11/14/20 11/14/20 12:52 13:51 WBC RBC Hgb Hct MCV MCH MCHC RDW Plt Count Neut % (Auto) Lymph % (Auto) [place] % (Auto) Eos % (Auto) Baso % (Auto) Neut # (Auto) Lymph # (Auto) [place] # (Auto) Eos # (Auto) Baso # (Auto) Sodium 134 L Potassium 3.7 Chloride 110 H Carbon Dioxide 22 BUN 8 Creatinine 0.82 Estimated GFR > 60.0 BUN/Creatinine Ratio 9.8 Glucose 77 Calcium 8.7 Total Bilirubin 0.4 AST 47 H ALT 15 Alkaline Phosphatase 89 Total Protein 5.6 L Albumin 2.6 L Globulin 3.0 Albumin/Globulin Ratio 0.9 L U Random Total Protein 13 H Urine Creatinine 409.5 Protein/Creatinin Ratio 0.03 SARS-CoV-2 (PCR) Blood Type Antibody Screen Exam Narrative Exam Narrative: Gen: NAD, sitting comfortably in bed, appears well CV: RRR, no murmurs Resp: clear to auscultation bilaterally Abd: soft, appropriately tender, fundus firm and below the umbilicus, nondistended Ext: no edema Discharge Plan Discharge Plan Patient Disposition: Home Discharge orders & Medications Prescriptions: Continued hydroxyzine HCl 25 mg tablet 25 mg PO TID PRN (Reason: anxiety) Qty: 30 RF: 0 prenat.vits,rodney,[id number]-jfew-[id number] Tablet 1 tab PO DAILY RF: 0 acetaminophen 325 mg capsule 325 mg PO ONCE MDD 1000mg PRN (Reason: Pain (Scale Score 1-3)) RF: 0 Discontinued promethazine 25 mg tablet 25 mg PO TID PRN (Reason: nausea and vomiting) Qty: 90 RF: 2 ondansetron 4 mg tablet,disintegrating 4 mg PO Q6H Qty: 30 RF: 0 ondansetron 4 mg tablet,disintegrating 4 mg PO Q6H Qty: 20 RF: 0 amoxicillin 500 mg capsule 500 mg PO BID Qty: 14 RF: 0 Follow up/Referrals: Hellen Moore MD [Primary Care Provider] - 6 Weeks (Please schedule a 6 week post check with Dr Moore) Diet/Activity/Treatments Diet: Diet as Tolerated and Regular Skin/Wound/Dressing Care Report to your healthcare provider any signs of infection, such as:: chills, fever, increased pain and unusual drainage Visit Report/Discharge Packet Instructions: DI for Labor and Delivery, Vaginal Stand Alone Forms: Discharge: Care Visit Report Forms: Patient Portal/API, Stroke Signs & Symptoms Discharge Data Primary Care Provider: Hellen Moore Discharges patient from system. Discharge Date/Time: 11/14/20 18:10
[2020-11-14 17:20] VITALS: BP 135/86; PULSE 85; RESP 16; TEMP 36.7
== END 2020-11-14 18:10 | disposition home or self-care (01) | DRG 560 ==
PROVIDERS: Admitting Provider Family Medicine; PCP Family Medicine; Referring Provider Family Medicine; Visit Provider Family Medicine
DX: O70.0 First degree perineal laceration during delivery (principal); O47.1 False labor at or after 37 completed weeks of gestation; Z3A.38 38 weeks gestation of pregnancy; O26.893 Other specified pregnancy related conditions, third trimester; R10.9 Unspecified abdominal pain; O21.0 Mild hyperemesis gravidarum; Z20.822 Contact with and (suspected) exposure to COVID-19; O77.0 Labor and delivery complicated by meconium in amniotic fluid; O69.81X0 Labor and delivery complicated by cord around neck, without compression, not applicable or unspecified; Z37.0 Single live birth
CPT/HCPCS: 01967; 36415; 59025; 59050; 59409; 80053; 81003; 81015; 82570; 84156; 85025; 86850; 86900; 86901; 87086; 87635; 96360; 96372; C9803; G0378; G0379; J2175

== ENCOUNTER 2021-02-18 15:33 | Emergency (ER) | payer OTHER, MEDICAID, SELFPAY ==
[2021-02-18 15:34] VITALS: BP 121/71; PULSE 96; RESP 14; TEMP 36.8; O2SAT 100; BMI 26.4
--- NOTE | 2021-02-18 15:38 | DI.RAD.S_ITS ---
PROCEDURE: XR KNEE LT 3V INDICATIONS: pain TECHNIQUE: 3 views of the knee were acquired. COMPARISON: None. FINDINGS: Bones: No fractures or dislocations. No suspicious bony lesions. Mild medial compartment joint space narrowing. Soft tissues: No joint effusion. No suspicious soft tissue calcifications. IMPRESSION: Mild medial joint space narrowing. No joint effusion. No fracture. Approved by: Rip Mcneil M.D. on 02/18/2021 at 15:08
--- NOTE | 2021-02-18 15:52 | PC.NURSE ---
Patient c/o left knee pain, states old high school injury during cross-country sports causing meniscus tear. Patient declines pain med at this time.
--- NOTE | 2021-02-18 16:37 | ED.EXTPRO ---
HPI - Extremity Problem General Chief complaint: Extremity Problem,Nontraumatic Stated complaint: Lt Knee Twisting Out of Place Time Seen by Provider: 02/18/21 16:01 Source: patient Mode of arrival: Ambulatory Limitations: no limitations History of Present Illness HPI Narrative: The patient complains of left knee pain for 2 weeks. She has no obvious injury at home, she does not have a strenuous job. She cannot recall any clear traumatic reason for the pain. She has no redness or swelling to the left knee. She is ambulatory, but with discomfort. There is no numbness or weakness in the left leg. She has no associated back pain. She has a history of a meniscus injury when running cross-country in high school. That was treated with physical therapy the time. She has done well with the left knee until recently. Related Data Home Medications Medication Instructions Recorded Confirmed acetaminophen 325 mg capsule 325 mg PO ONCE PRN MDD 1000mg 03/29/20 11/13/20 prenat.vits,rodney,[id number]-ghwbz 1 tab PO DAILY 03/29/20 11/13/20 Previous Rx's Medication Instructions Recorded hydroxyzine HCl 25 mg tablet 25 mg PO TID PRN #30 tab 04/27/20 tramadol 50 mg tablet 50 mg PO Q6-8H PRN #10 tab 02/18/21 Allergies Allergy/AdvReac Type Severity Reaction Status Date / Time hydrocodone [From Vicodin] AdvReac Severe Severe Verified 02/18/21 15:39 mood swings/anger, does not want to take it. metoclopramide [From Reglan] AdvReac Severe Agitated Verified 02/18/21 15:39 Review of Systems Review of Systems ROS Unobtainable: All systems reviewed & are unremarkable except as noted in HPI and below Patient History Medical History Anxiety (~2018) Depression (~2014) Menometrorrhagia (~2010) Surgical History History of dilation and curettage (~08/2017) [place] teeth extracted (~2012) Family History Mother Hypertension Blood clotting tendency Father Family estrangement Grandfather Cancer Grandmother Congestive heart failure Grandmother Family estrangement Grandfather Family estrangement Family/Other Blood clotting tendency Social History marital status: unmarried,single number of children: 0 household members: family (Lives w younger sister. ) lives independently: Yes caregiver/support person: No housing: house pets and animals: Yes (3 cats, 1 dog. Aware of precautions, dog is safe w/babies. 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 Quit with diagnosis.) during the past year weight has: remained stable well-balanced diet: daily or most days caffeine: No (Quit Red Bull w/ .) Type(s) of exercise: walking (less now with nausea. Sometimes fainting/lightheaded since she has been . ) and normal ROM and activity frequency: daily Smoking Status: Former smoker alcohol intake frequency: holidays/special occasions only Substance Use Type: does not use Exam Initial Vital Signs Initial Vital Signs: Vital Signs Temperature 98.3 F 02/18/21 15:34 Pulse Rate 96 H 02/18/21 15:34 Respiratory Rate 14 02/18/21 15:34 Blood Pressure 121/71 02/18/21 15:34 Pulse Oximetry 100 02/18/21 15:34 Const General: cooperative, healthy appearing and comfortable Skin General: no rashes or lesions noted Neuro General: patient alert, patient awake and no focal motor deficits Extrem Other: Left knee: Range of motion 0-90 degrees. Anterior drawer is negative. There is subpatellar tenderness, concerning for meniscus injury. The patella itself is nontender. There is no edema/effusion to the left knee. There is no warmth. There is no discomfort or laxity along the MCL or LCL ligaments. Her left calf is nontender. Left foot is normal. Procedures Orthopedic Splinting/Casting Injury #1: Time of procedure: 16:41 Side: left Lower Extremity Injury Location: knee Lower Extremity Immobilizer: knee immobilizer Post splinting neuro exam: intact Post splinting vascular exam: intact Course Course Course Narrative: The patient was given tramadol for pain. She was placed in a knee brace. She is up and ambulatory with the brace on her left knee. Orders Ordered: ED Orders 02/18/21 15:38 XR knee LT 3V Stat Discontinued Medications Tramadol HCl (Tramadol 50 Mg Tablet) 50 mg PO NOW ONE Stop: 02/18/21 16:45 Vital Signs Vital signs: Vital Signs - 8 hr 02/18/21 15:34 Temperature 98.3 F Pulse Rate 96 H Respiratory Rate 14 Blood Pressure 121/71 Pulse Oximetry 100 MDM - Extremity (Nontraumatic) Imaging Data left knee : Radiologist's Impression: [address] [address] XRay Report Signed Patient: Sherrill Larose MR#: [id number] : 1995 Acct:[id number] Age/Sex: 25 / F Date of Service: 02/18/21 Loc: ED Accession Number: [id number] ?? Procedure: XR knee LT 3V Ordering Provider: Angel Rios MD PROCEDURE:? XR KNEE LT 3V ? INDICATIONS:? pain ? TECHNIQUE:? 3 views of the knee were acquired.? ? COMPARISON:? None. ? FINDINGS:? ? Bones:? No fractures or dislocations.? No suspicious bony lesions.? Mild medial compartment joint space narrowing. ? Soft tissues:? No joint effusion.? No suspicious soft tissue calcifications.? ? ? IMPRESSION:? Mild medial joint space narrowing.? No joint effusion.? No fracture. ? ? ? Approved by: Rip Mcneil M.D. on 02/18/2021 at 15:08? Discharge Plan Departure Patient Disposition: Home Clinical Impression: Internal derangement of left knee Instructions: DI for Knee Pain Activity Restrictions/Additional Instructions: Use the immobilizer when up and about. The immobilizer may come off, when at rest. Advil 3 tabs every 6 hours as needed for pain. Tramadol every 6 hours as needed for added pain control. Contact Orthopedics for follow-up. I will give you information for Dr. Doyle. Return to the ER as needed. Prescriptions: New tramadol 50 mg tablet 50 mg PO Q6-8H PRN (Reason: pain) Qty: 10 RF: 0 No Action hydroxyzine HCl 25 mg tablet 25 mg PO TID PRN (Reason: anxiety) Qty: 30 RF: 0 prenat.vits,rodney,[id number] Tablet 1 tab PO DAILY RF: 0 acetaminophen 325 mg capsule 325 mg PO ONCE MDD 1000mg PRN (Reason: Pain (Scale Score 1-3)) RF: 0 Referrals: Wili Doyle MD [Physician] - Hellen Moore MD [Primary Care Provider] -
[2021-02-18] MEDS: TRAMADOL 50 MG TABLET PO (16:55)
== END 2021-02-18 17:52 | disposition home or self-care (01) ==
PROVIDERS: Emergency Provider Emergency Medicine; PCP Family Medicine
DX: M23.8X2 Other internal derangements of left knee (principal)
CPT/HCPCS: 73562; 99283

== ENCOUNTER 2021-02-22 17:42 | Emergency (ER) | payer OTHER, MEDICAID, SELFPAY ==
[2021-02-22 17:54] VITALS: BP 148/84; PULSE 84; RESP 18; TEMP 36.6; O2SAT 98; BMI 26.4
--- NOTE | 2021-02-22 19:54 | ED.EXTPRO ---
HPI - Extremity Problem General Chief complaint: Extremity Problem,Nontraumatic Stated complaint: Left knee constant pain x2 days Time Seen by Provider: 02/22/21 19:53 History of Present Illness HPI Narrative: 25-year-old female former smoker without chronic medical problems presents with a chief complaint of ongoing left knee pain. She was seen a few days ago and had evaluation including x-rays and was given the diagnosis of internal derangement of her left knee a prescription for Ultram, and placed in a knee immobilizer. She presents because she has ongoing, if not worsening pain. She states that she really ?tweaked it? earlier but denies any direct trauma to the knee. She denies any numbness, tingling or weakness, denies any chance of dislocation. Her initial injury was multiple episodes of twisting her knee feeling pain internally. Her pain is worse with motion and improves with rest. She wears the immobilizer all day except for when she sleeps. Related Data Home Medications Medication Instructions Recorded Confirmed acetaminophen 325 mg capsule 325 mg PO ONCE PRN MDD 1000mg 03/29/20 11/13/20 prenat.vits,rodney,[id number] 1 tab PO DAILY 03/29/20 11/13/20 Previous Rx's Medication Instructions Recorded hydroxyzine HCl 25 mg tablet 25 mg PO TID PRN #30 tab 04/27/20 tramadol 50 mg tablet 50 mg PO Q6-8H PRN #10 tab 02/18/21 ketorolac 10 mg tablet 10 mg PO Q6H PRN #14 tab 02/22/21 Allergies Allergy/AdvReac Type Severity Reaction Status Date / Time hydrocodone [From Vicodin] AdvReac Severe Severe Verified 02/22/21 17:57 mood swings/anger, does not want to take it. metoclopramide [From Reglan] AdvReac Severe Agitated Verified 02/22/21 17:57 Review of Systems Review of Systems Narrative: GENERAL: Denies chills, fatigue, malaise, fever, sweats. HEENT: Denies sinus pain, ear pain, sore throat, difficulty swallowing, dizziness. RESPIRATORY: Denies dyspnea, cough, wheezing, hemoptysis, sputum. CARDIOVASCULAR: Denies chest pain, palpitations, orthopnea, edema, GASTROINTESTINAL: Denies nausea, vomiting, abdominal pain, diarrhea, constipation, melena. : Denies dysuria, frequency, incontinence, hematuria, urinary retention. MUSCULOSKELETAL: See HPI SKIN: Denies rash, skin lesions, or other NEUROLOGIC: Denies weakness, headache, numbness, change in speech, confusion, seizures, incoordination. PSYCHIATRIC: No concerning psychosocial issues. 12 point review of systems is negative except for those stated above Patient History Medical History Anxiety (~2018) Depression (~2014) Menometrorrhagia (~2010) Surgical History History of dilation and curettage (~08/2017) [place] teeth extracted (~2012) Family History Mother Hypertension Blood clotting tendency Father Family estrangement Grandfather Cancer Grandmother Congestive heart failure Grandmother Family estrangement Grandfather Family estrangement Family/Other Blood clotting tendency Social History marital status: unmarried,single number of children: 0 household members: family (Lives w younger sister. ) lives independently: Yes caregiver/support person: No housing: house pets and animals: Yes (3 cats, 1 dog. Aware of precautions, dog is safe w/babies. ) education level: college (Finishing Bachelors in [employer].) occupational status: employed ([employer] in [place], [place], part-time.) current occupational exposures/hazards: No special stephanie needs: No seatbelt use: always Smoking Status: Former smoker Tobacco: How many years used: 2 quit status: has quit before second hand exposure: No alcohol intake: never substance use type: marijuana (In the past. Quit with diagnosis.) during the past year weight has: remained stable well-balanced diet: daily or most days caffeine: No (Quit Red Bull w/ .) Type(s) of exercise: walking (less now with nausea. Sometimes fainting/lightheaded since she has been . ) and normal ROM and activity frequency: daily Smoking Status: Former smoker alcohol intake frequency: holidays/special occasions only Substance Use Type: does not use Exam Narrative Exam Narrative: GEN: AOx3 and in mild distress EYES: Pupils are equal, round, and reactive to light and accommodation. Extraoccular muscles are intact bilaterally. There is no subconjunctival hemorrhage or exudate. CHEST: Lungs are clear to auscultation bilaterally and free of wheezes, rales, or rhonchi. Heart rate is regular rhythm, there are no murmurs, clicks, rubs, or gallops. There is no chest wall tenderness. ABD: Abdomen is soft and nontender. There is no guarding or rebound. Bowel sounds are normal in all 4 quadrants. There is no mass or organomegaly. EXT: Full but painful range of motion of left knee with minimal effusion, no erythema or warmth, no obvious ligamentous instability, no obvious pinpoint or joint line tenderness. No calf swelling, erythema or warmth SKIN: Warm, pink, and dry. No erythema or rash Initial Vital Signs Initial Vital Signs: Vital Signs Temperature 98 F 02/22/21 17:54 Pulse Rate 84 02/22/21 17:54 Respiratory Rate 18 02/22/21 17:54 Blood Pressure 148/84 H 02/22/21 17:54 Pulse Oximetry 98 02/22/21 17:54 Course Orders Ordered: ED Orders 02/22/21 20:05 CT LE LT wo con Stat Vital Signs Vital signs: Vital Signs - 8 hr 02/22/21 17:54 02/22/21 21:51 Temperature 98 F Pulse Rate 84 69 Respiratory Rate 18 16 Blood Pressure 148/84 H 131/87 Pulse Oximetry 98 97 MDM - Extremity (Nontraumatic) Lab Data Labs: Point of Care Testing Test Results Negative Imaging Data Left Knee CT: Radiologist's Impression: [address] [address] [address] Scan Report Signed Patient: Sherrill Larose MR#: [id number] : 1995 Acct:[id number] Age/Sex: 25 / F Date of Service: 02/22/21 Loc: ED Accession Number: [id number] ?? Procedure: CT LE LT wo con Ordering Provider: Noel Jean Baptiste D.O. PROCEDURE:? CT LE LT W CON ? INDICATIONS:? severe knee pain, negative xray ? TECHNIQUE:? Noncontrast 1-1.5 mm axial sections acquired from the distal femur to the proximal tibia, with coronal and sagittal reformats.? ? COMPARISON:? None. ? FINDINGS:? Image quality:? Excellent.? ? Bones:? No acute osseous fracture identified.? A congenitally shallow trochlear groove is seen with lateral patellar tilting without significant subluxation. ? Soft tissues:? There is a small joint effusion.? The articular cartilages, menisci, ligaments, and tendons are not well evaluated with CT.? The musculature surrounding the leg is normal in bulk.? There is trace nonspecific prepatellar subcutaneous soft tissue edema. ? ? IMPRESSION:? No acute osseous abnormality.? Small joint effusion.? If the symptoms persist, consider MRI for further assessment. ? ? ? Dictated by: Diallo Crain M.D. on 02/22/2021 at 21:27 ? ? Approved by: Diallo Crain M.D. on 02/22/2021 at 21:31 ? MDM Narrative Medical decision making narrative: Patient with return visit increasing pain. CT ordered and demonstrates no evidence of fracture. Her injury is closed, isolated and neurovascularly intact, compartments are soft and there is no evidence of neurovascular injury. Clot considered but thought unlikely as there is no calf pain, swelling or erythema. Return precautions given and questions answered to her apparent satisfaction Discharge Plan Departure Patient Disposition: Home Clinical Impression: Internal derangement of left knee Instructions: DI for Knee Pain Activity Restrictions/Additional Instructions: *You have been diagnosed with [internal derangement of left knee. Physical exam and CT scan are reassuring and there is no fracture noted. *What to do: *Please continue to take your regular medications as directed. [ x] New medication prescriptions sent to your pharmacy: [ ] [ ] New medication written as a paper prescription [ ] No new medications given *Please follow up with your primary care provider in 2-3 days, call for an appointment. Let them know you were seen in the Emergency Department and that we ask that you be seen in follow up. We will electronically transmit a record of today's note if your PCP is in our system *If you do not have a primary care provider please contact the [facility] Resource line at [phone]. They will ask some questions about your medical history and help get you set up with a doctor in the community. *Return to Emergency Department if you should have any new, worsening or concerning symptoms, such as [fever greater than 101 F, shaking chills, worsening pain, persistent vomiting or other bothersome symptoms] Prescriptions: New ketorolac 10 mg tablet 10 mg PO Q6H PRN (Reason: pain) Qty: 14 0RF No Action hydroxyzine HCl 25 mg tablet 25 mg PO TID PRN (Reason: anxiety) Qty: 30 0RF prenat.vits,rodney,vlv-qiqe-qvwus Tablet 1 tab PO DAILY 0RF acetaminophen 325 mg capsule 325 mg PO ONCE MDD 1000mg PRN (Reason: Pain (Scale Score 1-3)) 0RF tramadol 50 mg tablet 50 mg PO Q6-8H PRN (Reason: pain) Qty: 10 0RF Referrals: Hellen Moore MD [Primary Care Provider] -
--- NOTE | 2021-02-22 20:05 | DI.CT.S_ITS ---
PROCEDURE: CT LE LT W CON INDICATIONS: severe knee pain, negative xray TECHNIQUE: Noncontrast 1-1.5 mm axial sections acquired from the distal femur to the proximal tibia, with coronal and sagittal reformats. COMPARISON: None. FINDINGS: Image quality: Excellent. Bones: No acute osseous fracture identified. A congenitally shallow trochlear groove is seen with lateral patellar tilting without significant subluxation. Soft tissues: There is a small joint effusion. The articular cartilages, menisci, ligaments, and tendons are not well evaluated with CT. The musculature surrounding the leg is normal in bulk. There is trace nonspecific prepatellar subcutaneous soft tissue edema. IMPRESSION: No acute osseous abnormality. Small joint effusion. If the symptoms persist, consider MRI for further assessment. Dictated by: Diallo Crain M.D. on 02/22/2021 at 21:27 Approved by: Diallo Crain M.D. on 02/22/2021 at 21:31
[2021-02-22 21:51] VITALS: BP 131/87; PULSE 69; RESP 16; O2SAT 97
== END 2021-02-22 21:52 | disposition home or self-care (01) ==
PROVIDERS: Emergency Provider Emergency Medicine; PCP Family Medicine
DX: M23.92 Unspecified internal derangement of left knee (principal)
CPT/HCPCS: 73700; 81025; 99283; 99284

== ENCOUNTER 2021-05-03 12:31 | Emergency (ER) | payer OTHER, MEDICAID, SELFPAY ==
[2021-05-03 12:43] VITALS: BP 133/78; PULSE 81; RESP 17; TEMP 36.5; O2SAT 99; BMI 32.1
[2021-05-03] MEDS: SODIUM CHLORIDE 0.9% 1,000 ML 1000 ML IV (14:31)
[2021-05-03 14:43] LABS: Add Manual Diff / Slide Review NO; Basophils Absolute Auto 100 /uL (0-100); Basophils Percent Auto 1.2 % (0-2); Eosinophils Absolute Auto 100 /uL (0-450); Eosinophils Percent Auto 1.7 % (2-4); Hematocrit 36.4 % (36-46); Hemoglobin 12.3 g/dL (12.0-16.0); Lymphocytes Absolute Auto 2100 /uL (1100-4500); Lymphocytes Percent Auto 37.7 % (25-40); Mean Corpuscular HGB Conc 33.7 % (30-36); Mean Corpuscular Hemoglobin 29.2 PG (26-34); Mean Corpuscular Volume 86.6 fL (80-100); Monocytes Absolute Auto 300 /uL (0-900); Monocytes Percent Auto 4.6 % (3-14); Neutrophils Absolute Auto 3000 /uL (1500-7000); Neutrophils Percent Auto 54.8 % (50-75); Platelet Count 335 X10^3/uL (150-400); Red Cell Distribution Width 14.5 % (11.6-14.8); White Blood Cell Count 5.5 X10^3/uL (4.5-11.0)
--- NOTE | 2021-05-03 14:47 | DI.US.S_ITS ---
PROCEDURE: US PELVIC COMPLETE INDICATIONS: lt ovarian pain, cramping, vomiting x2 days TECHNIQUE: Real-time scanning was performed of the pelvic organs, with image documentation. Additional endovaginal scanning was necessary due to incomplete visualization of the adnexal and endometrial structures by transabdominal scanning. COMPARISON: [facility], , US PELVIC COMPLETE, 02/14/2020, 13:06. FINDINGS: Uterus: Uterus is anteverted and normal in size at 9.3 x 4.1 x 6.5 cm. The myometrium is homogeneous. The endometrium measures 7 mm combined thickness. Ovaries: The right ovary measures 3.2 x 2.4 x 3 cm. The left ovary is not well seen, yet it appears to measure 3.7 x 1.7 x 2 cm. No significant ovarian abnormality is seen. No adnexal masses are seen on either side. Normal appearing arterial waveforms are confirmed to each ovary. Other: A mild amount of free pelvic fluid is seen, which is considered to be within physiologic limits. IMPRESSION: The left ovary is not well seen. However, no significant abnormality of the left ovary can be seen. Negative for ovarian torsion. Note: Concordant preliminary findings given by the range ecologist upon the completion of the examination to Cristiane Smith at 4:00 p.m. on May 03, 2021. We strive to produce accurate, complete, and clear reports of imaging services. To assist us in improving patient care, this report was composed using standard report templates and voice recognition software. Therefore, it may contain abnormal punctuation, insertions and/or omissions. Occasional wrong-word or sound-alike substitutions may occur. Though we review the report and make efforts to correct it, we do recommend that the report be read carefully in proper context to recognize any text inaccuracies. Dictated by: Carter Marks M.D. on 05/03/2021 at 15:36 Approved by: Carter Marks M.D. on 05/03/2021 at 15:37
[2021-05-03] MEDS: methocarbamoL 500 MG TABLET PO (14:58)
[2021-05-03] MEDS: ONDANSETRON 4 MG/2 ML INJ IV (14:58)
[2021-05-03 15:07] LABS: Alanine Aminotransferase 15 IU/L (<35); Albumin 4.4 g/dL (3.5-5.0); Albumin Globulin Ratio 1.1 (1.0-2.8); Alkaline Phosphatase 79 U/L (38-126); Aspartate Aminotransferase 26 IU/L (14-36); BUN Creatinine Ratio 12.6 (6-22); Bilirubin Total 0.8 mg/dL (0.2-1.3); Blood Urea Nitrogen 11 mg/dL (7-17); Carbon Dioxide 29 mmol/L (22-32); Chloride 107 mmol/L (98-107); Estimated Glomerular Filt Rate > 60.0 mL/min (>60); Globulin 3.9 g/dL (1.7-4.1); Glucose 82 mg/dL (70-100); HEMOLYSIS < 15 (0-50); Lipase 105 U/L (23-300); Potassium 3.7 mmol/L (3.4-5.1); Sodium 140 mmol/L (137-145); Total Protein 8.3 g/dL (6.3-8.2)
--- NOTE | 2021-05-03 15:17 | ED.ABDPAIN ---
HPI - Abdominal Pain <AYLEEN Hernandez - Last Filed: 05/03/21 19:19> General Chief Complaint: Abdominal Pain Stated Complaint: bad cramps and shakes Time Seen by Provider: 05/03/21 14:17 Source: patient Mode of arrival: Ambulatory History of Present Illness HPI narrative: This is a 25-year-old female presents to the emergency department with low abdominal pain and cramping with her menses which started exactly 1 month after her last menses. Patient is sexually active, currently 6 months and has been having regular periods. She states she took Toradol and ibuprofen this morning with no improvement in her cramping pain. She states her menses started yesterday as scheduled, but her pain is significant, she has tenderness over her lower left pelvic region. She denies any history of endometriosis, PCOS, fibroids, ovarian cyst or other abnormal pelvic disorder. Patient denies any fever, states she is nauseated and has been vomiting since night. Patient denies any fever, sore throat, chest pain, shortness of breath, difficulty breathing, ear pain, cough sweats or other. Related Data Home Medications Medication Instructions Recorded Confirmed acetaminophen 325 mg capsule 325 mg PO ONCE PRN MDD 1000mg 03/29/20 11/13/20 prenat.vits,rodney,[id number] 1 tab PO DAILY 03/29/20 11/13/20 Previous Rx's Medication Instructions Recorded hydroxyzine HCl 25 mg tablet 25 mg PO TID PRN #30 tab 04/27/20 tramadol 50 mg tablet 50 mg PO Q6-8H PRN #10 tab 02/18/21 ketorolac 10 mg tablet 10 mg PO Q6H PRN #14 tab 02/22/21 cyclobenzaprine 5 mg tablet 5 mg PO DAILY PRN #14 tab 05/03/21 ondansetron 4 mg disintegrating 4 mg PO Q8H PRN #10 tab 05/03/21 tablet Allergies Allergy/AdvReac Type Severity Reaction Status Date / Time hydrocodone [From Vicodin] AdvReac Severe Severe Verified 05/03/21 12:42 mood swings/anger, does not want to take it. metoclopramide [From Reglan] AdvReac Severe Agitated Verified 05/03/21 12:42 Review of Systems <AYLEEN Hernandez - Last Filed: 05/03/21 19:19> Review of Systems Narrative: General: denies fever, chills, malaise, sweats, fatigue Head/Neck: denies headache, neck pain, dizziness Eyes: denies visual changes, eye pain Cardio: denies chest pain, palpitations, edema Respiratory: denies dyspnea, cough, orthopnea GI: Endorses lower left pelvic pain with nausea and vomiting, denies diarrhea or constipation, denies any blood in her urine or stool : denies dysuria, hematuria, urinary retention, frequency or incontinence MSK: denies joint pain, muscle weakness Skin: denies rash, itching, skin lesions or other Neuro: denies numbness, tingling Patient History <AYLEEN Hernandez - Last Filed: 05/03/21 19:19> Medical History Anxiety (~2018) Depression (~2014) Menometrorrhagia (~2010) Surgical History History of dilation and curettage (~08/2017) [place] teeth extracted (~2012) Family History Mother Hypertension Blood clotting tendency Father Family estrangement Grandfather Cancer Grandmother Congestive heart failure Grandmother Family estrangement Grandfather Family estrangement Family/Other Blood clotting tendency Social History marital status: unmarried,single number of children: 0 household members: family (Lives w younger sister. ) lives independently: Yes caregiver/support person: No housing: house pets and animals: Yes (3 cats, 1 dog. Aware of precautions, dog is safe w/babies. ) education level: college (Finishing Bachelors in [employer] occupational status: employed ([employer] in [place], [place], part-time.) current occupational exposures/hazards: No special stephanie needs: No seatbelt use: always Smoking Status: Former smoker Tobacco: How many years used: 2 quit status: has quit before second hand exposure: No alcohol intake: never substance use type: marijuana (In the past. Quit with diagnosis.) during the past year weight has: remained stable well-balanced diet: daily or most days caffeine: No (Quit Red Bull w/ .) Type(s) of exercise: walking (less now with nausea. Sometimes fainting/lightheaded since she has been . ) and normal ROM and activity frequency: daily Smoking Status: Former smoker alcohol intake frequency: holidays/special occasions only Substance Use Type: does not use Exam <AYLEEN Hernandez - Last Filed: 05/03/21 19:19> Narrative Exam Narrative: Independently reviewed vitals signs and nursing notes. General: Awake, alert, well-nourished and developed, nontoxic, no cardiorespiratory distress Head/Neck: Atraumatic, neck full range of motion, trachea midline, no JVD or lymphadenopathy. Supple, nontender, no meningeal signs. Eyes: Pupils equal round and reactive, EOMI, conjunctiva normal, no scleral icterus or injections Nose: nares patent, no rhinorrhea, without purulent drainage or septal hematoma. Mouth/Throat: uvula midline, moist mucus membranes, posterior pharynx normal, no oral lesions, airway patent Cardio: Regular rate and rhythm, no peripheral edema Respiratory: respirations unlabored without wheezing, stridor, or rales. No retractions. GI: Abdomen soft, patient is tender over left ovary, no tenderness to palpation x4 quadrants, no CVA tenderness, nondistended, no hepato-spenomegaly MSK: Moves all extremities, neurovascularly intact, no flank tenderness Skin: Normal capillary refill, no rash Neuro: Normal speech and cognition, normal gait, A&O x3 Initial Vital Signs Initial Vital Signs: Vital Signs Temperature 97.7 F 05/03/21 12:43 Pulse Rate 81 05/03/21 12:43 Respiratory Rate 17 05/03/21 12:43 Blood Pressure 133/78 05/03/21 12:43 Pulse Oximetry 99 05/03/21 12:43 <Robbin Arrington DO - Last Filed: 05/03/21 19:23> Initial Vital Signs Initial Vital Signs: Vital Signs Temperature 97.7 F 05/03/21 12:43 Pulse Rate 81 05/03/21 12:43 Respiratory Rate 17 05/03/21 12:43 Blood Pressure 133/78 05/03/21 12:43 Pulse Oximetry 99 05/03/21 12:43 Course <AYLEEN Hernandez - Last Filed: 05/03/21 19:19> Course Course Narrative: Pelvic exam completed and samples obtained for wet prep and chlamydia gonorrhea. Patient has tenderness over left ovary with adnexal tenderness. Vaginal bleeding present but has distant with patient's normal menses. Orders Ordered: ED Orders 05/03/21 14:30 Complete Blood Count AUTO DIFF Stat Comprehensive Metabolic Panel Stat Lipase Stat 05/03/21 14:47 US pelvic complete Stat 05/03/21 16:05 Chlamydia/Gonoc/Myco Genital Stat Wet Prep Tric BV Mayte Stat Discontinued Medications Sodium Chloride (Normal Saline 0.9%) 1,000 mls @ 1,000 mls/hr IV BOLUS ONE Stop: 05/03/21 15:26 Last Infusion: 05/03/21 16:58 Dose: 0 mls/hr Documented by: Admin: 05/03/21 14:31 Dose: 1,000 mls/hr Documented by: AICHA Methocarbamol (Methocarbamol 500 Mg Tablet) 500 mg PO NOW ONE Stop: 05/03/21 14:48 Last Admin: 05/03/21 14:58 Dose: 500 mg Documented by: SANJANA Ondansetron HCl (Ondansetron 4 Mg/2 Ml Inj) 4 mg IV NOW ONE Stop: 05/03/21 14:52 Last Admin: 05/03/21 14:58 Dose: 4 mg Documented by: SANJANA Vital Signs Vital signs: Vital Signs - 8 hr 05/03/21 12:43 05/03/21 15:49 05/03/21 16:00 Temperature 97.7 F Pulse Rate 81 73 94 H Respiratory Rate 17 14 Blood Pressure 133/78 Pulse Oximetry 99 05/03/21 16:30 05/03/21 16:47 Temperature Pulse Rate 78 80 Respiratory Rate 13 18 Blood Pressure 134/78 Pulse Oximetry <Robbin Arrington DO - Last Filed: 05/03/21 19:23> Orders Ordered: ED Orders 05/03/21 14:30 Complete Blood Count AUTO DIFF Stat Comprehensive Metabolic Panel Stat Lipase Stat 05/03/21 14:47 US pelvic complete Stat 05/03/21 16:05 Chlamydia/Gonoc/Myco Genital Stat Wet Prep Tric BV Mayte Stat Discontinued Medications Sodium Chloride (Normal Saline 0.9%) 1,000 mls @ 1,000 mls/hr IV BOLUS ONE Stop: 05/03/21 15:26 Last Infusion: 05/03/21 16:58 Dose: 0 mls/hr Documented by: Admin: 05/03/21 14:31 Dose: 1,000 mls/hr Documented by: AICHA Methocarbamol (Methocarbamol 500 Mg Tablet) 500 mg PO NOW ONE Stop: 05/03/21 14:48 Last Admin: 05/03/21 14:58 Dose: 500 mg Documented by: SANJANA Ondansetron HCl (Ondansetron 4 Mg/2 Ml Inj) 4 mg IV NOW ONE Stop: 05/03/21 14:52 Last Admin: 05/03/21 14:58 Dose: 4 mg Documented by: SANJANA Vital Signs Vital signs: Vital Signs - 8 hr 05/03/21 12:43 05/03/21 15:49 05/03/21 16:00 Temperature 97.7 F Pulse Rate 81 73 94 H Respiratory Rate 17 14 Blood Pressure 133/78 Pulse Oximetry 99 05/03/21 16:30 05/03/21 16:47 Temperature Pulse Rate 78 80 Respiratory Rate 13 18 Blood Pressure 134/78 Pulse Oximetry MDM - Abdominal Pain <AYLEEN Hernandez - Last Filed: 05/03/21 19:19> Lab Data Result diagrams: 05/03/21 14:30 05/03/21 14:30 Labs: Lab Results 05/03/21 05/03/21 Range/Units 14:30 14:30 WBC 5.5 (4.5-11.0) X10^3/uL RBC 4.20 (4.0-5.2) X10^6/uL Hgb 12.3 (12.0-16.0) g/dL Hct 36.4 (36-46) % MCV 86.6 (80-100) fL MCH 29.2 (26-34) PG MCHC 33.7 (30-36) % RDW 14.5 (11.6-14.8) % Plt Count 335 (150-400) X10^3/uL Neut % (Auto) 54.8 (50-75) % Lymph % (Auto) 37.7 (25-40) % Haskell % (Auto) 4.6 (3-14) % Eos % (Auto) 1.7 L (2-4) % Baso % (Auto) 1.2 (0-2) % Neut # (Auto) 3000 (2748-8887) /uL Lymph # (Auto) 2100 (8830-7750) /uL Haskell # (Auto) 300 (0-900) /uL Eos # (Auto) 100 (0-450) /uL Baso # (Auto) 100 (0-100) /uL Sodium 140 (137-145) mmol/L Potassium 3.7 (3.4-5.1) mmol/L Chloride 107 (98-107) mmol/L Carbon Dioxide 29 (22-32) mmol/L BUN 11 (7-17) mg/dL Creatinine 0.87 (0.52-1.04) mg/dL Estimated GFR > 60.0 (>60) mL/min BUN/Creatinine Ratio 12.6 (6-22) Glucose 82 (70-100) mg/dL Calcium 9.0 (8.4-10.2) mg/dL Total Bilirubin 0.8 (0.2-1.3) mg/dL AST 26 (14-36) IU/L ALT 15 (<35) IU/L Alkaline Phosphatase 79 (38-126) U/L Total Protein 8.3 H (6.3-8.2) g/dL Albumin 4.4 (3.5-5.0) g/dL Globulin 3.9 (1.7-4.1) g/dL Albumin/Globulin Ratio 1.1 (1.0-2.8) Lipase 105 (23-300) U/L Point of care testing: Point of Care Testing Test Results Negative Urine Dip Bedside Urine Glucose Negative Bedside Urine Bilirubin + 1 Bedside Urine Ketone - Negative Urine Specific [address] 1.030 Bedside Urine Occult Blood +++ Bedside Urine pH 6.0 Bedside Urine Protein + 30 Bedside Urine Urobilinogen - Negative Bedside Urine Nitrite - Negative Bedside Urine Leukocytes - Negative Esterase Imaging Data US - abdomen: Radiologist's Impression: PROCEDURE:? US PELVIC COMPLETE ? INDICATIONS:? lt ovarian pain, cramping, vomiting x2 days ? TECHNIQUE:? Real-time scanning was performed of the pelvic organs, with image documentation.? Additional endovaginal scanning was necessary due to incomplete visualization of the adnexal and endometrial structures by transabdominal scanning.? ? COMPARISON:? [facility], , PELVIC COMPLETE, 02/14/2020, 13:06. ? FINDINGS:? ?? Uterus:? Uterus is anteverted and normal in size at 9.3 x 4.1 x 6.5 cm. The myometrium is homogeneous. ? The endometrium measures 7 mm combined thickness.? ? Ovaries:? The right ovary measures 3.2 x 2.4 x 3 cm. ? The left ovary is not well seen, yet it appears to measure 3.7 x 1.7 x 2 cm.? No significant ovarian abnormality is seen. ? No adnexal masses are seen on either side. ? Normal appearing arterial waveforms are confirmed to each ovary.? ? Other:? A mild amount of free pelvic fluid is seen, which is considered to be within physiologic limits.? ? ? IMPRESSION:? The left ovary is not well seen.? However, no significant abnormality of the left ovary can be seen. ? Negative for ovarian torsion. ? Note: Concordant preliminary findings given by the residential collections upon the completion of the examination to Cristiane Smith at 4:00 p.m. on May 03, 2021. ? ? We strive to produce accurate, complete, and clear reports of imaging services. To assist us in improving patient care, this report was composed using standard report templates and voice recognition software. Therefore, it may contain abnormal punctuation, insertions and/or omissions. Occasional wrong-word or sound-alike substitutions may occur. Though we review the report and make efforts to correct it, we do recommend that the report be read carefully in proper context to recognize any text inaccuracies. ? ? Dictated by: Carter Marks M.D. on 05/03/2021 at 15:36 ? ? Approved by: Carter Marks M.D. on 05/03/2021 at 15:37 ? MDM Narrative Medical decision making narrative: This is a 25-year-old female 6 months who presents to the emergency department for pelvic cramping which started last night, vaginal bleeding which is on schedule with her menses which is historically a regular, and nausea and vomiting. Patient has been afebrile, has had normal bowel movements, denies any diaphoresis or recent illness. Denies dysuria, abnormal vaginal discharge or other pelvic complaint. No history of group B strep. Pelvic exam completed and obtained and pending results PCR chlamydia/gonorrhea. Wet prep was negative for bacterial vaginosis, yeast, Trichomonas. Patient is without a leukocytosis, no anemia, is nontoxic and afebrile. This is most likely dysmenorrhea. Patient states the methocarbamol helped with her pain immensely. Patient will follow-up with her primary care provider in the next 2-3 days for recheck. Patient understands to return to the emergency department she has any worsening of her pain, unable to keep anything down, fever, or any other concerning symptom. Differential includes ovarian cyst, ovarian torsion, dysmenorrhea, endometriosis, pelvic inflammatory disease, uterine fibroids, pelvic pain syndrome, interstitial cystitis, ectopic although labs did not indicate , infection, no ovarian torsion on ultrasound. Patient Is appropriate and amenable to discharge home. Vital signs are stable on repeat examination is unremarkable. Patient has been informed of results. Patient has been given strict return to ER precautions for any new or worsening symptoms. Patient understands to follow up closely with outpatient providers as instructed. Patient understands plan and agrees to discharge home. All questions and concerns answered at this time. <Robbin Arrington, - Last Filed: 05/03/21 19:23> Lab Data Labs: Lab Results 05/03/21 05/03/21 Range/Units 14:30 14:30 WBC 5.5 (4.5-11.0) X10^3/uL RBC 4.20 (4.0-5.2) X10^6/uL Hgb 12.3 (12.0-16.0) g/dL Hct 36.4 (36-46) % MCV 86.6 (80-100) fL MCH 29.2 (26-34) PG MCHC 33.7 (30-36) % RDW 14.5 (11.6-14.8) % Plt Count 335 (150-400) X10^3/uL Neut % (Auto) 54.8 (50-75) % Lymph % (Auto) 37.7 (25-40) % Haskell % (Auto) 4.6 (3-14) % Eos % (Auto) 1.7 L (2-4) % Baso % (Auto) 1.2 (0-2) % Neut # (Auto) 3000 (9070-5337) /uL Lymph # (Auto) 2100 (8115-9508) /uL Haskell # (Auto) 300 (0-900) /uL Eos # (Auto) 100 (0-450) /uL Baso # (Auto) 100 (0-100) /uL Sodium 140 (137-145) mmol/L Potassium 3.7 (3.4-5.1) mmol/L Chloride 107 (98-107) mmol/L Carbon Dioxide 29 (22-32) mmol/L BUN 11 (7-17) mg/dL Creatinine 0.87 (0.52-1.04) mg/dL Estimated GFR > 60.0 (>60) mL/min BUN/Creatinine Ratio 12.6 (6-22) Glucose 82 (70-100) mg/dL Calcium 9.0 (8.4-10.2) mg/dL Total Bilirubin 0.8 (0.2-1.3) mg/dL AST 26 (14-36) IU/L ALT 15 (<35) IU/L Alkaline Phosphatase 79 (38-126) U/L Total Protein 8.3 H (6.3-8.2) g/dL Albumin 4.4 (3.5-5.0) g/dL Globulin 3.9 (1.7-4.1) g/dL Albumin/Globulin Ratio 1.1 (1.0-2.8) Lipase 105 (23-300) U/L Point of care testing: Point of Care Testing Test Results Negative Urine Dip Bedside Urine Glucose Negative Bedside Urine Bilirubin + 1 Bedside Urine Ketone - Negative Urine Specific [address] 1.030 Bedside Urine Occult Blood +++ Bedside Urine pH 6.0 Bedside Urine Protein + 30 Bedside Urine Urobilinogen - Negative Bedside Urine Nitrite - Negative Bedside Urine Leukocytes - Negative Esterase Discharge Plan Departure Patient Disposition: Home Clinical Impression: Cramp, abdominal, Dysmenorrhea Instructions: DI for Pelvic Pain Activity Restrictions/Additional Instructions: *You have been diagnosed with pelvic pain most likely related to your left ovary which does not appear to have torsion or inflammation of a fallopian tube or anything dangerous at this time. Your vaginal swabs are still pending, I will call you if the result by the end of my shift with any infection. Please knot picker cloth your muscle relaxers at [facility], I am glad that that helped. You may continue taking your ibuprofen or to talk ketorolac but do not take them together. Your tramadol and ketorolac can be taken together however. Please do warm packs, stay hydrated, have called in some Zofran for you as well in case you have nausea and vomiting again. Please follow-up with Dr. Moore if this is ongoing. *What to do: *Please continue to take your regular medications as directed. [ x] New medication prescriptions sent to your pharmacy: [[facility] ] [ ] New medication written as a paper prescription [ ] No new medications given *Please follow up with your primary care provider in 2-3 days, call for an appointment. Let them know you were seen in the Emergency Department and that we ask that you be seen in follow up. We will electronically transmit a record of today's note if your PCP is in our system *If you do not have a primary care provider please contact the [facility] Resource line at [phone]. They will ask some questions about your medical history and help get you set up with a doctor in the community. *Return to Emergency Department if you should have any new, worsening or concerning symptoms, such as [fever greater than 101F, chills, worsening pain, persistent vomiting or other bothersome symptoms] Prescriptions: New cyclobenzaprine 5 mg tablet 5 mg PO DAILY PRN (Reason: muscle spasm) Qty: 14 0RF ondansetron 4 mg tablet,disintegrating 4 mg PO Q8H PRN (Reason: nausea and vomiting) Qty: 10 0RF No Action hydroxyzine HCl 25 mg tablet 25 mg PO TID PRN (Reason: anxiety) Qty: 30 0RF prenat.vits,rodney,[id number] Tablet 1 tab PO DAILY 0RF acetaminophen 325 mg capsule 325 mg PO ONCE MDD 1000mg PRN (Reason: Pain (Scale Score 1-3)) 0RF ketorolac 10 mg tablet 10 mg PO Q6H PRN (Reason: pain) Qty: 14 0RF tramadol 50 mg tablet 50 mg PO Q6-8H PRN (Reason: pain) Qty: 10 0RF Referrals: Hellen Moore MD [Primary Care Provider] - <Robbin Arrington DO - Last Filed: 05/03/21 19:23> Cosign ED Attending Cosignature Attestation: Dr Arrington Co-Sign Statement: I was available for consultation during this patient's emergency department visit. This chart is signed by myself for administrative purposes only. I did not have direct contact with this patient during this visit. They were seen independently by the APC.
[2021-05-03 15:49] VITALS: PULSE 73; RESP 14
[2021-05-03 16:00] VITALS: PULSE 94
[2021-05-03 16:30] VITALS: PULSE 78; RESP 13
[2021-05-03 16:47] VITALS: BP 134/78; PULSE 80; RESP 18
[2021-05-05 13:17] LABS: Chlamydia trachomatis Negative (Negative); Mycoplasma genitalium Positive (Negative); Neisseria gonorrhoeae Negative (Negative)
== END 2021-05-03 17:17 | disposition home or self-care (01) ==
PROVIDERS: Emergency Medicine; Emergency Provider Nurse Practitioner Critical Care Medicine; PCP Family Medicine
DX: R10.2 Pelvic and perineal pain (principal); N94.6 Dysmenorrhea, unspecified
CPT/HCPCS: 36415; 76830; 76856; 80053; 81003; 81025; 83690; 85025; 87210; 87491; 87563; 87591; 96361; 96374; 99284; J2405

== ENCOUNTER → 2021-08-25 11:00 | Outpatient (CLI) | payer OTHER, MEDICAID, SELFPAY ==
[2021-08-25 12:55] LABS: HCG Quantitative /Beta subunit 43851 mIU/mL
== END ==
PROVIDERS: PCP Family Medicine; Referring Provider Family Medicine; Visit Provider Family Medicine
DX: Z34.81 Encounter for supervision of other normal pregnancy, first trimester (principal)
CPT/HCPCS: 36415; 84702

== ENCOUNTER → 2021-08-28 11:46 | Outpatient (CLI) | payer OTHER, MEDICAID, SELFPAY ==
[2021-08-28 13:54] LABS: HCG Quantitative /Beta subunit 53345 mIU/mL
== END ==
PROVIDERS: PCP Family Medicine; Referring Provider Family Medicine; Visit Provider Family Medicine
DX: Z34.81 Encounter for supervision of other normal pregnancy, first trimester (principal)
CPT/HCPCS: 36415; 84702

== ENCOUNTER → 2021-08-31 12:33 | Outpatient (CLI) | payer OTHER, MEDICAID, SELFPAY ==
--- NOTE | 2021-08-31 12:35 | DI.US.S_ITS ---
PROCEDURE: US OB <= 14 WEEKS FETUS INDICATIONS: PELVIC PAIN EARLY , CONCERN FOR ECTOPIC OUTSIDE/PRIOR DATING DATA: Last menstrual period (LMP): 06/24/2021. LMP-based estimated date of delivery (RINA): 04/11/2022. First dating scan (date and location): 08/31/2021 at . Estimated date of delivery (RINA) from first dating scan: 04/11/2022. TECHNIQUE: Real-time scanning was performed of the fetus and maternal pelvic organs, with image documentation. COMPARISON: [facility], , US PELVIC COMPLETE, 05/03/2021, 15:37. FINDINGS: Embryo: [place]-rump length measuring 1.7 cm corresponding to 8 weeks 1 day for gestational age. Heart rate: Present with heart rate 162 BPM. Maternal organs: There is a 4.5 x 5.4 x 4.3 cm anechoic cyst in the right ovary, new since 05/03/2021. Left ovary is grossly normal. IMPRESSION: 1. A single living intrauterine gestation with an estimated gestational age of 8 weeks 1 day corresponding to ultrasound RINA 04/11/2022. 2. A 4.5 x 5.4 x 4.3 cm anechoic cyst in the right ovary. We strive to produce accurate, complete, and clear reports of imaging services. To assist us in improving patient care, this report was composed using standard report templates and voice recognition software. Therefore, it may contain abnormal punctuation, insertions and/or omissions. Occasional wrong-word or sound-alike substitutions may occur. Though we review the report and make efforts to correct it, we do recommend that the report be read carefully in proper context to recognize any text inaccuracies. Dictated by: Laverne Sweeney M.D. on 08/31/2021 at 17:16 Approved by: Laverne Sweeney M.D. on 08/31/2021 at 17:22
== END ==
PROVIDERS: PCP Family Medicine; Referring Provider Family Medicine; Visit Provider Family Medicine
DX: O26.891 Other specified pregnancy related conditions, first trimester (principal); R10.2 Pelvic and perineal pain; O34.81 Maternal care for other abnormalities of pelvic organs, first trimester; N83.291 Other ovarian cyst, right side; Z3A.08 8 weeks gestation of pregnancy
CPT/HCPCS: 76801

== ENCOUNTER 2021-09-10 13:36 | Emergency (ER) | payer OTHER, MEDICAID, SELFPAY ==
[2021-09-10 13:49] VITALS: BP 134/76; PULSE 93; RESP 18; TEMP 36.2; O2SAT 96
--- NOTE | 2021-09-10 13:52 | ED.GENADULT ---
HPI - General Adult General Chief complaint: Nausea/Vomiting/Diarrhea Stated complaint: Vomiting 2 days, cant eat. 10 wks Time Seen by Provider: 09/10/21 13:41 Source: patient Mode of arrival: Ambulatory Limitations: no limitations History of Present Illness HPI narrative: 26-year-old female. at approximately 10 weeks EGA who is here for evaluation of nausea vomiting. She has had issues with hyperemesis in the past. Her primary OB provider has tried to get her set up with the [facility] but she states that there has been some issues with this recently. She states that no anti nausea medicine helps with her symptoms. For the past 2 days she has been vomiting and gagging and has had very little fluid intake. Related Data Home Medications Medication Instructions Recorded Confirmed prenat.vits,rodney,[id number] 1 tab PO DAILY 03/29/20 08/28/21 Previous Rx's Medication Instructions Recorded citalopram 20 mg tablet 20 mg PO DAILY #30 tab 06/30/21 ondansetron 4 mg disintegrating 4 mg PO Q6H PRN #30 tab 08/23/21 tablet promethazine 25 mg tablet 25 mg PO Q4-6H PRN #30 tab 08/23/21 hydroxyzine HCl 25 mg tablet 25 mg PO TID PRN #30 tab 08/25/21 Allergies Allergy/AdvReac Type Severity Reaction Status Date / Time nut - unspecified Allergy Intermediate Hives Verified 08/28/21 11:19 metoclopramide [From Reglan] AdvReac Severe Agitated Verified 08/28/21 11:19 hydrocodone AdvReac Mild Verified 08/28/21 11:19 Review of Systems Constitutional Constitutional: Denies fever(s) Cardiovascular Cardiovascular: Denies chest pain and Denies dyspnea Respiratory Respiratory: Denies dyspnea Gastrointestinal Gastrointestinal: Reports nausea and Reports vomiting Genitourinary Genitourinary: Denies dysuria Comments: No vaginal Musculoskeletal Musculoskeletal: Reports back pain Integumentary/Breasts Skin/Breast: Reports system reviewed and no additional complaints, except as documented Neurologic Neurologic: Reports system reviewed and no additional complaints, except as documented Hematologic/Lymphatic On Anticoagulants: No Patient History Medical History 38 weeks gestation of Anxiety (~2018) Depression (~2014) False labor Menometrorrhagia (~2010) Spontaneous vaginal delivery Surgical History History of dilation and curettage (~08/2017) [place] teeth extracted (~2012) Family History Mother Hypertension Blood clotting tendency Father Family estrangement Grandfather Cancer Grandmother Congestive heart failure Grandmother Family estrangement Grandfather Family estrangement Family/Other Blood clotting tendency Social History marital status: number of children: 1 household members: family lives independently: Yes caregiver/support person: No housing: house pets and animals: Yes (1 cat, 1 dog. Aware of precautions, dog is safe w/babies. ) education level: college occupational status: employed current occupational exposures/hazards: No special stephanie needs: No travel history: over 6 months ago seatbelt use: always water heater temp set < 120 deg: Yes working smoke detector in home: Yes fire extinguisher in home: Yes carbon monox detector in home: Yes firearms in home: No do you feel safe at home: Yes Smoking Status: Former smoker Tobacco: How many years used: 2 quit status: has quit before second hand exposure: No alcohol intake: never substance use type: marijuana (Not while ) during the past year weight has: remained stable well-balanced diet: daily or most days daily servings fruits/ve-4 caffeine: No (Quit Red Bull w/ .) Type(s) of exercise: walking and normal ROM and activity frequency: daily Smoking Status: Former smoker alcohol intake frequency: holidays/special occasions only Substance Use Type: does not use Exam Initial Vital Signs Initial Vital Signs: Vital Signs Temperature 97.2 F L 09/10/21 13:49 Pulse Rate 93 H 09/10/21 13:49 Respiratory Rate 18 09/10/21 13:49 Blood Pressure 134/76 09/10/21 13:49 Pulse Oximetry 96 09/10/21 13:49 Const General: cooperative and comfortable HENMT Head: normal to inspection and normocephalic Resp Effort & Inspection: normal respiratory effort Cardio Rate: regular rate GI Inspection: normal to inspection Skin General: no rashes or lesions noted Extrem General: normal to inspection Psych Appearance: grossly normal Course Orders Ordered: ED Orders 09/10/21 13:58 Basic Metabolic Panel Stat Complete Blood Count AUTO DIFF Stat HCG Quantitative /Beta subunit Stat Discontinued Medications Sodium Chloride (Normal Saline 0.9%) 1,000 mls @ 1,000 mls/hr IV BOLUS ONE Stop: 09/10/21 14:41 Last Infusion: 09/10/21 15:18 Dose: 0 mls/hr Documented by: Admin: 09/10/21 14:01 Dose: 1,000 mls/hr Documented by: JUAN MANUEL Vital Signs Vital signs: Vital Signs - 8 hr 09/10/21 13:49 09/10/21 15:19 Temperature 97.2 F L Pulse Rate 93 H 86 Respiratory Rate 18 19 Blood Pressure 134/76 134/68 Pulse Oximetry 96 100 Medical Decision Making Medical Records Medical records reviewed: Yes I reviewed the patient's medical records. Lab Data Lab results reviewed: Yes I reviewed the patient's lab results. Result diagrams: 09/10/21 13:58 09/10/21 13:58 Labs: Lab Results 09/10/21 09/10/21 Range/Units 13:58 13:58 WBC 6.0 (4.5-11.0) X10^3/uL RBC 4.42 (4.0-5.2) X10^6/uL Hgb 13.4 (12.0-16.0) g/dL Hct 38.1 (36-46) % MCV 86.3 (80-100) fL MCH 30.2 (26-34) PG MCHC 35.0 (30-36) % RDW 14.5 (11.6-14.8) % Plt Count 360 (150-400) X10^3/uL Neut % (Auto) 69.4 (50-75) % Lymph % (Auto) 24.3 L (25-40) % [place] % (Auto) 4.8 (3-14) % Eos % (Auto) 0.9 L (2-4) % Baso % (Auto) 0.6 (0-2) % Neut # (Auto) 4200 (8312-9427) /uL Lymph # (Auto) 1500 (5984-5629) /uL [place] # (Auto) 300 (0-900) /uL Eos # (Auto) 100 (0-450) /uL Baso # (Auto) 0 (0-100) /uL Sodium 136 L (137-145) mmol/L Potassium 3.8 (3.4-5.1) mmol/L Chloride 107 (98-107) mmol/L Carbon Dioxide 18 L (22-32) mmol/L BUN 5 L (7-17) mg/dL Creatinine 0.72 (0.52-1.04) mg/dL Estimated GFR > 60 (>60) mL/min BUN/Creatinine Ratio 6.9 (6-22) Glucose 89 (70-100) mg/dL Calcium 8.8 (8.4-10.2) mg/dL HCG, Quant 33821 mIU/mL MDM Narrative Medical decision making narrative: Patient does feel better after fluids and Zofran. She is still nauseous but feels better. Patient states she can be discharged home. She is going to contact her OB providers office and also the infusion center to clarify the issues that she has been having to get her infusion set up as an outpatient. She is given return precautions. She expressed understanding and agreement. Discharge Plan Departure Patient Disposition: Home Clinical Impression: Nausea and vomiting during Instructions: Nausea of (Alternative Therapy) Activity Restrictions/Additional Instructions: I do recommend that you continue to try to drink small amounts of fluid over longer periods of time. Contact your OB providers office tomorrow and also the infusion clinic to figure out the issues so that you can get infusions done as an outpatient. Return to the emergency department for any new or worsening symptoms. Prescriptions: No Action citalopram 20 mg tablet 20 mg PO DAILY Qty: 30 2RF hydroxyzine HCl 25 mg tablet 25 mg PO TID PRN (Reason: nausea and vomiting) Qty: 30 2RF ondansetron 4 mg tablet,disintegrating 4 mg PO Q6H PRN (Reason: nausea and vomiting) Qty: 30 2RF promethazine 25 mg tablet 25 mg PO Q4-6H PRN (Reason: nausea and vomiting) Qty: 30 3RF prenat.vits,rodney,[id number] Tablet 1 tab PO DAILY 0RF Referrals: Hellen Moore MD [Primary Care Provider] -
[2021-09-10] MEDS: SODIUM CHLORIDE 0.9% 1,000 ML 1000 ML IV (14:01)
[2021-09-10 14:10] LABS: Add Manual Diff / Slide Review NO; Basophils Absolute Auto 0 /uL (0-100); Basophils Percent Auto 0.6 % (0-2); Eosinophils Absolute Auto 100 /uL (0-450); Eosinophils Percent Auto 0.9 % (2-4); Hematocrit 38.1 % (36-46); Hemoglobin 13.4 g/dL (12.0-16.0); Lymphocytes Absolute Auto 1500 /uL (1100-4500); Lymphocytes Percent Auto 24.3 % (25-40); Mean Corpuscular Hemoglobin 30.2 PG (26-34); Mean Corpuscular Volume 86.3 fL (80-100); Monocytes Absolute Auto 300 /uL (0-900); Monocytes Percent Auto 4.8 % (3-14); Neutrophils Absolute Auto 4200 /uL (1500-7000); Neutrophils Percent Auto 69.4 % (50-75); Platelet Count 360 X10^3/uL (150-400); Red Blood Cell Count 4.42 X10^6/uL (4.0-5.2); Red Cell Distribution Width 14.5 % (11.6-14.8)
[2021-09-10 14:22] LABS: BUN Creatinine Ratio 6.9 (6-22); Blood Urea Nitrogen 5 mg/dL (7-17); Calcium 8.8 mg/dL (8.4-10.2); Carbon Dioxide 18 mmol/L (22-32); Chloride 107 mmol/L (98-107); Estimated Glomerular Filt Rate > 60 mL/min (>60); Glucose 89 mg/dL (70-100); Potassium 3.8 mmol/L (3.4-5.1); Sodium 136 mmol/L (137-145)
[2021-09-10 14:23] LABS: HEMOLYSIS 52 (0-50)
[2021-09-10 15:04] LABS: HCG Quantitative /Beta subunit 67973 mIU/mL
[2021-09-10 15:19] VITALS: BP 134/68; PULSE 86; RESP 19; O2SAT 100
[2021-09-10 16:13] VITALS: BP 131/69; PULSE 79; RESP 18; O2SAT 100
== END 2021-09-10 16:14 | disposition home or self-care (01) ==
PROVIDERS: Emergency Provider Emergency Medicine; PCP Family Medicine
DX: O21.9 Vomiting of pregnancy, unspecified (principal); Z3A.10 10 weeks gestation of pregnancy
CPT/HCPCS: 36415; 80048; 84702; 85025; 96360; 99284

== ENCOUNTER → 2021-09-13 15:07 | Outpatient (CLI) | payer OTHER, MEDICAID, SELFPAY | PROVIDERS: PCP Family Medicine; Referring Provider Family Medicine; Visit Provider Family Medicine | DX: Z34.81 Encounter for supervision of other normal pregnancy, first trimester (principal) | CPT/HCPCS: 36415 ==

== ENCOUNTER → 2021-10-02 10:35 | Outpatient (CLI) | payer OTHER, MEDICAID, SELFPAY ==
--- NOTE | 2021-10-02 10:36 | DI.RAD.S_ITS ---
PROCEDURE: [place] GUIDED PICC PLACEMENT INDICATIONS: Hyperemesis gravidarum COMPARISON: None. FINDINGS: PICC was placed by the intravenous therapy team from the left side. Fluoroscopic spot film demonstrates the tip of PICC projecting to the area of mid SVC. IMPRESSION: Tip of PICC projects to the area of mid SVC. Dictated by: Diana Jacobo MD, PhD on 10/02/2021 at 13:08 Approved by: Diana Jacobo MD, PhD on 10/02/2021 at 13:08
== END ==
PROVIDERS: PCP Family Medicine; Referring Provider Family Medicine; Visit Provider Family Medicine
DX: O21.0 Mild hyperemesis gravidarum (principal); R63.4 Abnormal weight loss; Z45.2 Encounter for adjustment and management of vascular access device
CPT/HCPCS: 36573

== ENCOUNTER 2021-10-04 11:01 | Emergency (ER) | payer OTHER, MEDICAID, SELFPAY ==
[2021-10-04 11:10] VITALS: BP 104/66; PULSE 80; RESP 14; TEMP 37; O2SAT 97; BMI 38.3
--- NOTE | 2021-10-04 12:15 | ED_ITS ---
HPI - Recheck/Abnormal Lab/Rx <Cristiane Smith [facility] - Last Filed: 10/04/21 15:42> General Chief Complaint: Recheck/Abnormal Lab/Rx Stated Complaint: need an infusion Time Seen by Provider: 10/04/21 12:06 Source: patient Mode of arrival: Ambulatory History of Present Illness HPI narrative: This is a 26-year-old female who is 14 weeks , , patient of Dr. Moore's with hyperemesis gravidarum and recent left upper PICC line placement for IV infusions for hyperemesis. Patient reports that she has not been able to keep anything down for the last few days, states that she has been vomiting more than normal. She states that she is still voiding, has not had any fever, chills, pain anywhere, headache, weakness, new edema, shortness of breath, or cough. She denies any diarrhea, dysuria, flank pain, abdominal pain, abnormal vaginal discharge pelvic pain or any of normal symptom other than nausea and vomiting. Patient states that she had a PICC line placed two days ago, has not had a dressing change, or anyone access her PICC line since it was placed here at this hospital, and her prior authorization for infusions had not gone through yet so they have not come to her house so she presents to the emergency department today for IV fluids and hyperemesis syndrome. Related Data Home Medications Medication Instructions Recorded Confirmed prenat.vits,rodney,[id number] 1 tab PO DAILY 03/29/20 09/27/21 Previous Rx's Medication Instructions Recorded citalopram 20 mg tablet 20 mg PO DAILY #30 tabs 06/30/21 promethazine 25 mg tablet 25 mg PO Q4-6H PRN nausea and 08/23/21 vomiting #30 tabs hydroxyzine HCl 25 mg tablet 25 mg PO TID PRN nausea and 08/25/21 vomiting #30 tabs ondansetron 4 mg disintegrating 4 mg PO Q6H PRN nausea and 09/19/21 tablet vomiting #90 tabs Allergies Allergy/AdvReac Type Severity Reaction Status Date / Time nut - unspecified Allergy Intermediate Hives Verified 10/04/21 11:15 metoclopramide [From Reglan] AdvReac Severe Agitated Verified 10/04/21 11:15 hydrocodone AdvReac Mild Verified 10/04/21 11:15 Review of Systems <AYLEEN Hernandez - Last Filed: 10/04/21 15:42> Review of Systems Narrative: General: denies fever, chills Head/Neck: denies headache, neck pain Eyes: denies visual changes, eye pain Cardio: denies chest pain, palpitations Respiratory: denies shortness of breath, cough GI: denies abdominal pain, endorses nausea and vomiting without constipation or diarrhea : denies dysuria, hematuria or flank pain, denies any urinary frequency or urgency MSK: denies new joint pain, muscle weakness or swelling Skin: denies rash, itching or wound Neuro: denies numbness, tingling, dizziness Patient History <AYLEEN Hernandez - Last Filed: 10/04/21 15:42> Medical History 38 weeks gestation of Anxiety (~2018) Depression (~2014) False labor Menometrorrhagia (~2010) Spontaneous vaginal delivery Surgical History History of dilation and curettage (~08/2017) [place] teeth extracted (~2012) Family History Mother Hypertension Blood clotting tendency Father Family estrangement Grandfather Cancer Grandmother Congestive heart failure Grandmother Family estrangement Grandfather Family estrangement Family/Other Blood clotting tendency Social History marital status: number of children: 1 household members: family lives independently: Yes caregiver/support person: No housing: house pets and animals: Yes (1 cat, 1 dog. Aware of precautions, dog is safe w/babies. ) education level: college occupational status: employed current occupational exposures/hazards: No special stephanie needs: No travel history: over 6 months ago seatbelt use: always water heater temp set < 120 deg: Yes working smoke detector in home: Yes fire extinguisher in home: Yes carbon monox detector in home: Yes firearms in home: No do you feel safe at home: Yes Smoking Status: Former smoker Tobacco: How many years used: 2 quit status: has quit before second hand exposure: No alcohol intake: never substance use type: marijuana (Not while ) during the past year weight has: remained stable well-balanced diet: daily or most days daily servings fruits/ve-4 caffeine: No (Quit Red Bull w/ .) Type(s) of exercise: walking and normal ROM and activity frequency: daily Smoking Status: Former smoker alcohol intake frequency: holidays/special occasions only Substance Use Type: does not use Exam <AYLEEN Hernandez - Last Filed: 10/04/21 15:42> Narrative Exam Narrative: Independently reviewed vitals signs and nursing notes. General: cooperative, comfortable, in no acute distress, well groomed Head: atraumatic, symmetrical facial expressions Neck: supple Eyes: equal round and reactive, EOMI, conjunctiva normal Nose: nares patent, no rhinorrhea Mouth/Throat: moist mucus membranes Cardiovascular: regular rate and rhythm, no peripheral edema, warm extremities Respiratory: normal effort, able to speak in complete sentences, no audible wheezing, stridor, or rales. No retractions or tachypnea. GI: Gravid, fundus below the umbilicus abdomen soft, nontender to palpation, nondistended, no masses, no exquisite tenderness with exam, without guarding or rebound. MSK: moves all extremities, neurovascularly intact, no weakness, normal tone Skin: brisk capillary refill, no rash, no erythema Neuro: normal speech and cognition, A&O x3 Psych: mental status is grossly normal, congruent mood, normal affect, pleasant and cooperative Initial Vital Signs Initial Vital Signs: Vital Signs Temperature 98.6 F 10/04/21 11:10 Pulse Rate 80 10/04/21 11:10 Respiratory Rate 14 10/04/21 11:10 Blood Pressure 104/66 10/04/21 11:10 Pulse Oximetry 97 10/04/21 11:10 Oxygen Delivery Method 10/04/21 11:10 <Elissa Horn DO - Last Filed: 10/05/21 06:55> Initial Vital Signs Initial Vital Signs: Vital Signs Temperature 98.6 F 10/04/21 11:10 Pulse Rate 80 10/04/21 11:10 Respiratory Rate 14 10/04/21 11:10 Blood Pressure 104/66 10/04/21 11:10 Pulse Oximetry 97 10/04/21 11:10 Oxygen Delivery Method 10/04/21 11:10 Course <AYLEEN Hernandez - Last Filed: 10/04/21 15:42> Orders Ordered: Discontinued Medications Heparin Sodium (Porcine) (Heparin Flush (Cl/Picc/Mid-Line) 50 Unit/5 Ml Syringe) 50 unit IV PRN PRN PRN Reason: Flush Lactated Ringer's (Lactated Ringers) 500 mls @ 1,000 mls/hr IV BOLUS ONE Stop: 10/04/21 12:41 Last Admin: 10/04/21 13:50 Dose: Not Given Documented By: SANDY Lactated Ringer's (Lactated Ringers) 1,000 mls @ 1,000 mls/hr IV BOLUS ONE Stop: 10/04/21 13:28 Last Infusion: 10/04/21 13:49 Dose: 0 mls/hr Documented By: Admin: 10/04/21 12:34 Dose: 1,000 mls/hr Documented By: SANDY(2) Ondansetron HCl (Ondansetron 4 Mg/2 Ml Inj) 4 mg IV NOW ONE Stop: 10/04/21 12:13 Last Admin: 10/04/21 12:25 Dose: 4 mg Documented By: SANDY(2) Vital Signs Vital signs: Vital Signs - 8 hr 10/04/21 11:10 10/04/21 12:33 10/04/21 12:33 Temperature 98.6 F Pulse Rate 80 75 Respiratory Rate 14 Blood Pressure 104/66 112/68 Pulse Oximetry 97 98 Oxygen Delivery Method Room Air 10/04/21 13:00 10/04/21 13:00 10/04/21 13:30 Temperature Pulse Rate 75 Respiratory Rate Blood Pressure 121/75 136/69 Pulse Oximetry 100 Oxygen Delivery Method 10/04/21 13:30 Temperature Pulse Rate 73 Respiratory Rate Blood Pressure Pulse Oximetry 100 Oxygen Delivery Method <Elissa Horn DO - Last Filed: 10/05/21 06:55> Orders Ordered: Discontinued Medications Heparin Sodium (Porcine) (Heparin Flush (Cl/Picc/Mid-Line) 50 Unit/5 Ml Syringe) 50 unit IV PRN PRN PRN Reason: Flush Lactated Ringer's (Lactated Ringers) 500 mls @ 1,000 mls/hr IV BOLUS ONE Stop: 10/04/21 12:41 Last Admin: 10/04/21 13:50 Dose: Not Given Documented By: SANDY Lactated Ringer's (Lactated Ringers) 1,000 mls @ 1,000 mls/hr IV BOLUS ONE Stop: 10/04/21 13:28 Last Infusion: 10/04/21 13:49 Dose: 0 mls/hr Documented By: Admin: 10/04/21 12:34 Dose: 1,000 mls/hr Documented By: SANDY(2) Ondansetron HCl (Ondansetron 4 Mg/2 Ml Inj) 4 mg IV NOW ONE Stop: 10/04/21 12:13 Last Admin: 10/04/21 12:25 Dose: 4 mg Documented By: SANDY(2) Vital Signs Vital signs: Vital Signs - 8 hr 10/04/21 11:10 10/04/21 12:33 10/04/21 12:33 Temperature 98.6 F Pulse Rate 80 75 Respiratory Rate 14 Blood Pressure 104/66 112/68 Pulse Oximetry 97 98 Oxygen Delivery Method Room Air 10/04/21 13:00 10/04/21 13:00 10/04/21 13:30 Temperature Pulse Rate 75 Respiratory Rate Blood Pressure 121/75 136/69 Pulse Oximetry 100 Oxygen Delivery Method 10/04/21 13:30 Temperature Pulse Rate 73 Respiratory Rate Blood Pressure Pulse Oximetry 100 Oxygen Delivery Method MDM - Recheck/Abnormal Lab/Rx <KERRI HernandezP - Last Filed: 10/04/21 15:42> Lab Data Result diagrams: 10/04/21 12:45 10/04/21 12:45 Labs: Lab Results 10/04/21 10/04/21 10/04/21 Range/Units 12:45 12:45 13:54 WBC 6.1 (4.5-11.0) X10^3/uL RBC 4.10 (4.0-5.2) X10^6/uL Hgb 12.3 (12.0-16.0) g/dL Hct 35.5 L (36-46) % MCV 86.7 (80-100) fL MCH 30.0 (26-34) PG MCHC 34.6 (30-36) % RDW 14.2 (11.6-14.8) % Plt Count 282 (150-400) X10^3/uL Neut % (Auto) 67.6 (50-75) % Lymph % (Auto) 25.8 (25-40) % Gonzales % (Auto) 4.7 (3-14) % Eos % (Auto) 1.3 L (2-4) % Baso % (Auto) 0.6 (0-2) % Neut # (Auto) 4100 (2975-4870) /uL Lymph # (Auto) 1600 (5615-8373) /uL Gonzales # (Auto) 300 (0-900) /uL Eos # (Auto) 100 (0-450) /uL Baso # (Auto) 0 (0-100) /uL Sodium 135 L (137-145) mmol/L Potassium 3.9 (3.4-5.1) mmol/L Chloride 105 (98-107) mmol/L Carbon Dioxide 24 (22-32) mmol/L BUN 5 L (7-17) mg/dL Creatinine 0.79 (0.52-1.04) mg/dL Estimated GFR > 60 (>60) mL/min BUN/Creatinine Ratio 6.3 (6-22) Glucose 80 (70-100) mg/dL Calcium 8.6 (8.4-10.2) mg/dL Total Bilirubin 0.6 (0.2-1.3) mg/dL AST 19 (14-36) IU/L ALT 10 (<35) IU/L Alkaline Phosphatase 57 (38-126) U/L Total Protein 7.4 (6.3-8.2) g/dL Albumin 3.7 (3.5-5.0) g/dL Globulin 3.7 (1.7-4.1) g/dL Albumin/Globulin Ratio 1.0 (1.0-2.8) Lipase 68 (23-300) U/L Urine Color Yellow Urine Appearance Clear Urine pH 6.5 (4.5-8.0) Ur Specific [place] 1.025 (1.000-1.035) Urine Protein 1+ H (Negative) Urine Glucose (UA) Negative (Negative) g/dL Urine Ketones 3+ H (NEGATIVE) Urine Occult Blood Negative (Negative) Urine Nitrate Negative (Negative) Urine Bilirubin Negative (NEGATIVE) Urine Urobilinogen 2.0 H (0.2) E.U./dL Ur Leukocyte Esterase Negative (NEGATIVE) Urine RBC None seen (0-5/HPF) Urine WBC 1-5/hpf (0-5/HPF) Ur Squamous Epith Cells 0-1 /hpf (0-5/HPF) Urine Bacteria Few (2-10) H (None) Urine Mucus 1+ H (Negative) Ur Culture Indicated? Cult not indicated MDM Narrative Medical decision making narrative: This is a 26-year-old female who is 14 weeks with history of hyperemesis gravidarum with current PICC line dwelling in her left upper arm and she presents to the emergency department complaining of nausea vomiting over the last four days worsening over the last two days. She states that she has vomited after trying Zofran at home and has not been able to keep anything down today. She states that her prior authorization is not fully through to get her infusions via her PICC line and she has not had any PICC line use thus far since placement two days ago. Patient's dressing was changed in the emergency department by the RN using sterile technique, saline locked after use. Her labs were drawn via venipuncture, patient has been afebrile, complains of feeling dehydrated today. Lab work overall is unremarkable, no leukocytosis, her sodium was a mildly decreased at 135 she does not have any neuro changes, no elevation in her liver enzymes, lipase is 68, her PICC line was imaged on 10/02/2021 showing proper tip placement in the mid SVC, has not been used in patient denies any significant movement since this was placed so did not recheck placement as there should be no indication for movement. Patient was given 1 L of lactated Ringer's and 4 mg of IV Zofran, states that she feels much better afterwards, denies any vomiting or diarrhea. Patient wishes to discharge home, states that she has Zofran at home, will follow-up with her primary care provider as needed, and understands return to the emergency department for for your worsening symptoms. Urine dip without leukocyte esterase, white blood cells, or RBCs, shows ketones and protein. Patient is appropriate and amenable to discharge home. Vital signs are stable on repeat examination is unremarkable. Patient has been informed of results. Patient has been given strict return to ER precautions for any new or worsening symptoms. Patient understands to follow up closely with outpatient providers as instructed. Patient understands plan and agrees to discharge home. All questions and concerns answered at this time. <Elissa Horn DO - Last Filed: 10/05/21 06:55> Lab Data Labs: Lab Results 10/04/21 10/04/21 10/04/21 Range/Units 12:45 12:45 13:54 WBC 6.1 (4.5-11.0) X10^3/uL RBC 4.10 (4.0-5.2) X10^6/uL Hgb 12.3 (12.0-16.0) g/dL Hct 35.5 L (36-46) % MCV 86.7 (80-100) fL MCH 30.0 (26-34) PG MCHC 34.6 (30-36) % RDW 14.2 (11.6-14.8) % Plt Count 282 (150-400) X10^3/uL Neut % (Auto) 67.6 (50-75) % Lymph % (Auto) 25.8 (25-40) % Gonzales % (Auto) 4.7 (3-14) % Eos % (Auto) 1.3 L (2-4) % Baso % (Auto) 0.6 (0-2) % Neut # (Auto) 4100 (2195-8607) /uL Lymph # (Auto) 1600 (7411-0041) /uL Gonzales # (Auto) 300 (0-900) /uL Eos # (Auto) 100 (0-450) /uL Baso # (Auto) 0 (0-100) /uL Sodium 135 L (137-145) mmol/L Potassium 3.9 (3.4-5.1) mmol/L Chloride 105 (98-107) mmol/L Carbon Dioxide 24 (22-32) mmol/L BUN 5 L (7-17) mg/dL Creatinine 0.79 (0.52-1.04) mg/dL Estimated GFR > 60 (>60) mL/min BUN/Creatinine Ratio 6.3 (6-22) Glucose 80 (70-100) mg/dL Calcium 8.6 (8.4-10.2) mg/dL Total Bilirubin 0.6 (0.2-1.3) mg/dL AST 19 (14-36) IU/L ALT 10 (<35) IU/L Alkaline Phosphatase 57 (38-126) U/L Total Protein 7.4 (6.3-8.2) g/dL Albumin 3.7 (3.5-5.0) g/dL Globulin 3.7 (1.7-4.1) g/dL Albumin/Globulin Ratio 1.0 (1.0-2.8) Lipase 68 (23-300) U/L Urine Color Yellow Urine Appearance Clear Urine pH 6.5 (4.5-8.0) Ur Specific [place] 1.025 (1.000-1.035) Urine Protein 1+ H (Negative) Urine Glucose (UA) Negative (Negative) g/dL Urine Ketones 3+ H (NEGATIVE) Urine Occult Blood Negative (Negative) Urine Nitrate Negative (Negative) Urine Bilirubin Negative (NEGATIVE) Urine Urobilinogen 2.0 H (0.2) E.U./dL Ur Leukocyte Esterase Negative (NEGATIVE) Urine RBC None seen (0-5/HPF) Urine WBC 1-5/hpf (0-5/HPF) Ur Squamous Epith Cells 0-1 /hpf (0-5/HPF) Urine Bacteria Few (2-10) H (None) Urine Mucus 1+ H (Negative) Ur Culture Indicated? Cult not indicated Discharge Plan Departure Patient Disposition: Home Clinical Impression: Hyperemesis gravidarum Instructions: DI for Hyperemesis Gravidarum Activity Restrictions/Additional Instructions: *You have been diagnosed with hyperemesis gravidarum with improvement after 1 L of fluids and 4 mg of ondansetron. Please follow-up with Dr. Moore as needed and/or scheduled. Please try and stay hydrated taking small frequent sips of water, avoid anything to sugary or salty, acidic for having in fat. Thank you for trusting us with your care, everything looks okay on your lab work, return to the emergency department if you are unable to keep anything down. Remember to try Zofran, wait 15 minute and take small sips until you can dehydrated again. I hope you feel better soon. *What to do: *Please continue to take your regular medications as directed. [ ] New medication prescriptions sent to your pharmacy: [ ] [ ] New medication written as a paper prescription [x ] No new medications given *Please follow up with your primary care provider in 2-3 days, call for an appointment. Let them know you were seen in the Emergency Department and that we asked that you be seen for follow-up. We will electronically transmit a record of today's note if your PCP is in our system *If you do not have a primary care provider please contact [phone] to establish care with one of the [facility] primary care providers. *Return to Emergency Department if you should have any new, worsening or concerning symptoms, such as [fever greater than 101F, chills, worsening pain, persistent vomiting or other bothersome symptoms] Prescriptions: No Action citalopram 20 mg tablet 20 mg PO DAILY Qty: 30 2RF hydroxyzine HCl 25 mg tablet 25 mg PO TID PRN (Reason: nausea and vomiting) Qty: 30 2RF promethazine 25 mg tablet 25 mg PO Q4-6H PRN (Reason: nausea and vomiting) Qty: 30 3RF ondansetron 4 mg tablet,disintegrating 4 mg PO Q6H PRN (Reason: nausea and vomiting) Qty: 90 2RF prenat.vits,rodney,[id number] Tablet 1 tab PO DAILY Referrals: Hellen Moore MD [Primary Care Provider] - Visit Report Forms: Patient Portal/API <Elissa Horn DO - Last Filed: 10/05/21 06:55> Cosign ED Attending Dann Attestation: I was immediately available in the department for consultation. Documentation has been reviewed. I agree with assessment and plan.
[2021-10-04] MEDS: ONDANSETRON 4 MG/2 ML INJ IV (12:25)
[2021-10-04 12:33] VITALS: BP 112/68; PULSE 75; O2SAT 98
[2021-10-04] MEDS: LACTATED RINGERS 1,000 ML 1000 ML IV (12:34)
[2021-10-04 12:54] LABS: Add Manual Diff / Slide Review NO; Basophils Absolute Auto 0 /uL (0-100); Basophils Percent Auto 0.6 % (0-2); Eosinophils Absolute Auto 100 /uL (0-450); Eosinophils Percent Auto 1.3 % (2-4); Hematocrit 35.5 % (36-46); Hemoglobin 12.3 g/dL (12.0-16.0); Lymphocytes Absolute Auto 1600 /uL (1100-4500); Lymphocytes Percent Auto 25.8 % (25-40); Mean Corpuscular HGB Conc 34.6 % (30-36); Mean Corpuscular Volume 86.7 fL (80-100); Monocytes Absolute Auto 300 /uL (0-900); Monocytes Percent Auto 4.7 % (3-14); Neutrophils Absolute Auto 4100 /uL (1500-7000); Neutrophils Percent Auto 67.6 % (50-75); Platelet Count 282 X10^3/uL (150-400); Red Cell Distribution Width 14.2 % (11.6-14.8); White Blood Cell Count 6.1 X10^3/uL (4.5-11.0)
[2021-10-04 13:00] VITALS: BP 121/75; PULSE 75; O2SAT 100
[2021-10-04 13:06] LABS: Alanine Aminotransferase 10 IU/L (<35); Albumin 3.7 g/dL (3.5-5.0); Alkaline Phosphatase 57 U/L (38-126); Aspartate Aminotransferase 19 IU/L (14-36); BUN Creatinine Ratio 6.3 (6-22); Bilirubin Total 0.6 mg/dL (0.2-1.3); Blood Urea Nitrogen 5 mg/dL (7-17); Calcium 8.6 mg/dL (8.4-10.2); Carbon Dioxide 24 mmol/L (22-32); Chloride 105 mmol/L (98-107); Estimated Glomerular Filt Rate > 60 mL/min (>60); Globulin 3.7 g/dL (1.7-4.1); Glucose 80 mg/dL (70-100); HEMOLYSIS < 15 (0-50); Lipase 68 U/L (23-300); Potassium 3.9 mmol/L (3.4-5.1); Sodium 135 mmol/L (137-145); Total Protein 7.4 g/dL (6.3-8.2)
[2021-10-04 13:30] VITALS: BP 136/69; PULSE 73; O2SAT 100
[2021-10-04 14:24] LABS: Appearance Urine UA CLEAR; Bilirubin Urine UA NEGATIVE (NEGATIVE); Color Urine UA YELLOW; Glucose Urine UA NEGATIVE (Negative); Ketones Urine UA 3+ (NEGATIVE); Leukocyte Esterase Urine UA NEGATIVE (NEGATIVE); Nitrite Urine UA NEGATIVE (Negative); Occult Blood Urine UA NEGATIVE (Negative); Protein Urine UA 1+ (Negative); Specific Gravity Urine UA 1.025 (1.000-1.035)
[2021-10-04 14:34] LABS: pH Urine UA 6.5 (4.5-8.0)
[2021-10-04 14:35] LABS: Bacteria Urine Few (2-10); Culture Indicated Urine Cult Not Indicated; Mucus Urine 1+ (Negative); RBC Urine None Seen (0-5/HPF); Squamous Epithelial Cell Urine 0-1 /HPF (0-5/HPF); WBC Urine 1-5/HPF (0-5/HPF)
== END 2021-10-04 14:15 | disposition home or self-care (01) ==
PROVIDERS: Emergency Provider Nurse Practitioner Critical Care Medicine; PCP Family Medicine
DX: O21.0 Mild hyperemesis gravidarum (principal); Z3A.14 14 weeks gestation of pregnancy
CPT/HCPCS: 36415; 80053; 81001; 83690; 85025; 96361; 96374; 99284; J2405

== ENCOUNTER → 2021-10-16 14:44 | Outpatient (CLI) | payer OTHER, MEDICAID, SELFPAY ==
[2021-10-18 20:11] LABS: AFP, Serum 14.4 ng/mL (.); Calc Gestational Age Ultrasound (.); Estriol, Free 0.37 ng/mL (.); Inhibin A, Dimeric 71.64 pg/mL (.); Inhibin A, MoM See interpretation. (.); Maternal Ethnicity Black (.); Maternal Weight 279 lbs (.); Number of Fetuses No (.); OSBR Risk 1 IN 10000 (.); Results Report (.); Test Results See interpretation. (.); hCG, MoM See interpretation. (.); hCG, Serum 35083 mIU/mL (.)
== END ==
PROVIDERS: PCP Family Medicine; Referring Provider Family Medicine; Visit Provider Family Medicine
DX: Z34.92 Encounter for supervision of normal pregnancy, unspecified, second trimester (principal); Z3A.16 16 weeks gestation of pregnancy
CPT/HCPCS: 36415; 82105; 82677; 84702; 86336

== ENCOUNTER 2021-11-06 05:02 | Emergency (ER) | payer OTHER, MEDICAID, SELFPAY ==
--- NOTE | 2021-11-06 05:09 | DI.RAD.S_ITS ---
PROCEDURE: XR KNEE RT 3V INDICATIONS: pain/patella dislocation TECHNIQUE: 3 views of the knee were acquired. COMPARISON: None. FINDINGS: Bones: No fractures or dislocations. No suspicious bony lesions. Mild tricompartmental osteoarthritis. Soft tissues: Small suprapatellar joint effusion. No suspicious soft tissue calcifications. IMPRESSION: No fracture. No acute osseous lesion. If symptoms and/or clinical suspicion for pathology persists, further assessment with repeat radiographs (7-10 days) or advanced imaging (e.g. CT, MRI or bone scan) should be considered. Dictated by: Diana Jacobo MD, PhD on 11/06/2021 at 8:16 Approved by: Diana Jacobo MD, PhD on 11/06/2021 at 8:16
[2021-11-06 05:12] VITALS: BP 123/73; PULSE 89; RESP 18; TEMP 36.6; O2SAT 96; BMI 36.9
--- NOTE | 2021-11-06 05:13 | ED_ITS ---
HPI - Extremity Injury (Lower) General Chief Complaint: Extremity Injury, Lower Stated Complaint: Rt Knee Pain Time Seen by Provider: 11/06/21 05:09 History of Present Illness HPI Narrative: Patient brought in by ambulance from home. Complains right knee pain. Patient is 19 weeks . She states at 6:00 p.m. last night at home. She was caring a very large pet snake. She stumbled on her feet and twisted to the right. She did not fall. But she felt a pop in her right knee cap. But it did pop back in place. However since then has been painful unable to bear weight. She has not tried any medications for this. Patient states she has had kneecap dislocations in the past. She has had physical therapy for this as well. Never been treated in the department for reduction of a kneecap. No surgeries on her knee. Patient arrives wearing shorts. Has sandals on. No gross deformity of the right knee. Related Data Home Medications Medication Instructions Recorded Confirmed prenat.vits,rodney,[id number] 1 tab PO DAILY 03/29/20 10/16/21 Previous Rx's Medication Instructions Recorded promethazine 25 mg tablet 25 mg PO Q4-6H PRN nausea and 08/23/21 vomiting #30 tabs hydroxyzine HCl 25 mg tablet 25 mg PO TID PRN nausea and 08/25/21 vomiting #30 tabs ondansetron 4 mg disintegrating 4 mg PO Q6H PRN nausea and 09/19/21 tablet vomiting #90 tabs citalopram 40 mg tablet 40 mg PO DAILY #90 tabs 10/16/21 Allergies Allergy/AdvReac Type Severity Reaction Status Date / Time nut - unspecified Allergy Intermediate Hives Verified 10/16/21 13:51 metoclopramide [From Reglan] AdvReac Severe Agitated Verified 10/16/21 13:51 hydrocodone AdvReac Mild Verified 10/16/21 13:51 Review of Systems Review of Systems Narrative: GENERAL: Denies chills, fatigue, malaise, fever, sweats. HEENT: Denies sinus pain, ear pain, sore throat RESPIRATORY: Denies dyspnea, cough CARDIOVASCULAR: Denies chest pain, palpitations GASTROINTESTINAL: Denies nausea, vomiting, abdominal pain : Denies dysuria, frequency, hematuria MUSCULOSKELETAL: Positive muscle or bony pain SKIN: Denies rash, skin lesions NEUROLOGIC: Denies weakness, numbness ROS Unobtainable: All systems reviewed & are unremarkable except as noted in HPI and below Patient History Medical History 38 weeks gestation of Anxiety (~2018) Depression (~2014) False labor Menometrorrhagia (~2010) Posttraumatic stress disorder Spontaneous vaginal delivery Surgical History History of dilation and curettage (~08/2017) [place] teeth extracted (~2012) Family History Mother Hypertension Blood clotting tendency Father Family estrangement Grandfather Cancer Grandmother Congestive heart failure Grandmother Family estrangement Grandfather Family estrangement Family/Other Blood clotting tendency Social History marital status: number of children: 1 household members: family lives independently: Yes caregiver/support person: No housing: house pets and animals: Yes (1 cat, 1 dog. Aware of precautions, dog is safe w/babies. ) education level: college occupational status: employed current occupational exposures/hazards: No special stephanie needs: No travel history: over 6 months ago seatbelt use: always water heater temp set < 120 deg: Yes working smoke detector in home: Yes fire extinguisher in home: Yes carbon monox detector in home: Yes firearms in home: No do you feel safe at home: Yes Smoking Status: Former smoker Tobacco: How many years used: 2 quit status: has quit before second hand exposure: No alcohol intake: never substance use type: marijuana during the past year weight has: remained stable well-balanced diet: daily or most days daily servings fruits/ve-4 caffeine: No (Quit Red Bull w/ .) Type(s) of exercise: walking and normal ROM and activity frequency: daily Smoking Status: Former smoker alcohol intake frequency: holidays/special occasions only Substance Use Type: does not use Exam Narrative Exam Narrative: GENERAL: in no distress, not toxic not dyspneic HEAD: Normocephalic. EYES: Pupils equal round No scleral icterus. EXTREMITIES: No gross deformities. Examination right lower extremity need to toes exposed. No shortening or rotation of the leg. Keeps at comfort right knee slightly flexed. Foot warm soft with strong pedal pulse and light touch intact to foot and toes. Nontender ankle. Patient has right knee pain with any attempt of movement of the right leg anterior posterior medial lateral or any attempts to rotate the right leg. Patella appears to be grossly symmetric to the left, appears midline position. Not high riding. BACK: No flank tenderness. NEURO: AOx4. SKIN: Warm and dry PSYCH: Not anxious, is cooperative Initial Vital Signs Initial Vital Signs: Vital Signs Temperature 97.8 F 11/06/21 05:12 Pulse Rate 89 11/06/21 05:12 Respiratory Rate 18 11/06/21 05:12 Blood Pressure 123/73 11/06/21 05:12 Pulse Oximetry 96 11/06/21 05:12 Oxygen Delivery Method 11/06/21 05:12 Course Course Course Narrative: No new issues during course of stay Orders Ordered: Discontinued Medications Acetaminophen (Acetaminophen 325 Mg Tablet) 975 mg PO NOW ONE Stop: 11/06/21 05:10 Last Admin: 11/06/21 05:25 Dose: 975 mg Documented By: KAILA Reevaluation(s) Reevaluation #1: Updated patient x-ray results are pending. At this time they do look reassuring. now at bedside. Her son is in the room as well. Son is small child. He is sitting and playing on patient's right thigh. Causing no distress to her knee. Patient states knee pain much better and able to nearly fully extend Time: 06:00 Vital Signs Vital signs: Vital Signs - 8 hr 11/06/21 05:12 Temperature 97.8 F Pulse Rate 89 Respiratory Rate 18 Blood Pressure 123/73 Pulse Oximetry 96 Oxygen Delivery Method Room Air MDM - Extremity Injury (Lower) Differential Diagnosis Differential diagnosis: Likely acute internal derangement of knee, fracture of femur and other (Patellar dislocation/knee sprain/strain) Imaging Data Extremity x-ray #1: Radiologist's Impression: no acute osseous finding. Small joint effusion MDM Narrative Medical decision making narrative: Appropriate for discharge home. Exam and imaging results are reassuring. Patient pain is controlled. Able to tolerate Av wrap and crutches. Patient does have physical therapy for her knee. Will add orthopedic referral. Return precautions reviewed with her. Has been here at bedside to drive Discharge Plan Departure Patient Disposition: Home Clinical Impression: Strain of right knee Instructions: DI for Knee Sprain Activity Restrictions/Additional Instructions: May continue Tylenol for pain. Ice and elevate knee 20 minutes at times daily for pain swelling. Use Av wrap and crutches when ambulating. Call provided orthopedic office today to make appointment for the next week for re-evaluation. Return if worse if any questions or concerns Prescriptions: No Action hydroxyzine HCl 25 mg tablet 25 mg PO TID PRN (Reason: nausea and vomiting) Qty: 30 2RF citalopram 40 mg tablet 40 mg PO DAILY Qty: 90 2RF promethazine 25 mg tablet 25 mg PO Q4-6H PRN (Reason: nausea and vomiting) Qty: 30 3RF ondansetron 4 mg tablet,disintegrating 4 mg PO Q6H PRN (Reason: nausea and vomiting) Qty: 90 2RF prenat.vits,rodney,[id number] Tablet 1 tab PO DAILY Referrals: Concetta Pappas MD [Physician] - Hellen Moore MD [Primary Care Provider] - Visit Report Forms: Patient Portal/API
[2021-11-06] MEDS: ACETAMINOPHEN 325 MG TABLET 975 MG PO (05:25)
[2021-11-06 07:45] VITALS: BP 108/60; PULSE 72; RESP 12; O2SAT 98
== END 2021-11-06 07:57 | disposition home or self-care (01) ==
PROVIDERS: Emergency Provider Emergency Medicine; PCP Family Medicine
DX: S83.91XA Sprain of unspecified site of right knee, initial encounter (principal); X50.1XXA Overexertion from prolonged static or awkward postures, initial encounter
CPT/HCPCS: 73562; 99283

== ENCOUNTER → 2021-11-17 07:45 | Outpatient (CLI) | payer OTHER, MEDICAID, SELFPAY ==
--- NOTE | 2021-11-17 | DI.US.S_ITS ---
PROCEDURE: US OB >= 14 WEEKS FETUS INDICATIONS: 20 WEEK ANATOMY SCAN OUTSIDE/PRIOR DATING DATA: Last menstrual period (LMP): 06/24/2021. LMP-based estimated date of delivery (RINA): 03/31/2022. First dating scan (date and location): 08/31/2021. Estimated date of delivery (RINA) from first dating scan: 04/11/2022. TECHNIQUE: Real-time scanning was performed of the fetus, with image documentation and biometric measurements. Endovaginal scanning: Not performed COMPARISON: [facility], OB <= 14 WEEKS FETUS, 08/31/2021, 13:49. FINDINGS: General: A single living intrauterine gestation is present. Presentation: Cephalic. Placenta: Placental position is anterior , without previa. Amniotic fluid index: 11.2 cm, normal range is 5-24 cm. Single deepest vertical pocket is 3.7 cm. heart rate: 152 beats per minute. Maternal cervical canal: 3.8 cm long. Normal lower limit is 2.5 cm. biometrics: Biparietal diameter: 4.4 cm, 19 weeks 2 days Head circumference: 16.6 cm, 19 weeks 2 days Abdominal circumference: 13.8 cm, 19 weeks 2 days Femur length: 3 cm, 19 weeks 2 days Composite gestational age from present scan: 19 weeks 2 days Estimated weight and percentile: 282 g, 43rd percentile Anatomic survey: Neuro: Ventricles are non-dilated at less than 10 mm. Cisterna magna is normal at 3-11 mm. Cerebellum is normal in size and morphology. Nuchal skin fold: Normal at less than 6 mm between 14-21 weeks gestational age. Face: Face, lips, nose, orbits are not well seen due to position Spine: No evidence for spina bifida. Heart: Four-chamber view and outflow tracts are not well visualized Diaphragm: Diaphragm is intact. Stomach: Left-sided stomach is present. Kidneys: No hydronephrosis. Normal is less than 5 mm in 2nd trimester, less than 7 mm in 3rd trimester. Cord: 3-vessel cord has orthotopic insertion. Bladder: Normal in size. Extremities: All 4 extremities identified. IMPRESSION: 1. Single living intrauterine gestation in cephalic presentation. 2. growth is within normal limits. 3. Suboptimal four-chamber cardiac view and ventricular outflow tract views. face, lips, nose, and orbits were not visualized. Follow-up ultrasound for completion of the anatomy survey could be obtained as clinically indicated. 4. Visualized anatomy is within normal limits. No anomalies detected at this time. We strive to produce accurate, complete, and clear reports of imaging services. To assist us in improving patient care, this report was composed using standard report templates and voice recognition software. Therefore, it may contain abnormal punctuation, insertions and/or omissions. Occasional wrong-word or sound-alike substitutions may occur. Though we review the report and make efforts to correct it, we do recommend that the report be read carefully in proper context to recognize any text inaccuracies. Dictated by: Diallo Tao M.D. on 11/17/2021 at 17:06 Approved by: Diallo Tao M.D. on 11/17/2021 at 17:14
== END ==
PROVIDERS: PCP Family Medicine; Referring Provider Family Medicine; Visit Provider Family Medicine
DX: Z34.92 Encounter for supervision of normal pregnancy, unspecified, second trimester (principal); Z3A.19 19 weeks gestation of pregnancy
CPT/HCPCS: 76811

== ENCOUNTER → 2021-12-18 10:08 | Outpatient (CLI) | payer OTHER, MEDICAID, SELFPAY ==
--- NOTE | 2021-12-18 10:12 | DI.US.S_ITS ---
PROCEDURE: US OB FOLLOW UP INDICATIONS: RE-EVALUATE FACE, HEART OUTSIDE/PRIOR DATING DATA: Last menstrual period (LMP): 06/24/2021. LMP-based estimated date of delivery (RINA): 03/31/2022. First dating scan (date and location): 08/31/2021. Estimated date of delivery (RINA) from first dating scan: 04/11/2022. The calculations are made using the study generated RINA of 04/11/2022. TECHNIQUE: Real-time scanning was performed of the fetus, with image documentation. Endovaginal scanning: Not indicated COMPARISON: None. FINDINGS: A single living intrauterine gestation is present. Presentation: Vertex Placenta: Placental position is anterior, without previa. Amniotic fluid index: 18.2 cm, normal range is 5-24 cm. Single deepest vertical pocket is 4.9 cm. heart rate: 149 beats per minute. Maternal cervical canal: 3.7 cm long. Normal lower limit is 2.5 cm. Estimated gestational age from initial scan: 23 weeks, 5 days. facial profile, four-chamber heart and outflow tracts are visualized and are within normal limits. IMPRESSION: 1. Single live intrauterine gestation with fetus in vertex presentation. heart rate is 149 beats per minute. Normal amount of amniotic fluid. 2. facial profile, four-chamber heart and outflow tracts are visualized on the current study and are within normal limits. Dictated by: Cornel Ruiz M.D. on 12/18/2021 at 12:08 Approved by: Cornel Ruiz M.D. on 12/18/2021 at 12:09
== END ==
PROVIDERS: PCP Family Medicine; Referring Provider Family Medicine; Visit Provider Family Medicine
DX: Z34.92 Encounter for supervision of normal pregnancy, unspecified, second trimester (principal)
CPT/HCPCS: 76816

== ENCOUNTER 2022-02-14 14:17 | Observation (INO) | payer OTHER, MEDICAID, SELFPAY ==
[2022-02-14] MEDS: LACTATED RINGERS 1,000 ML 1000 ML IV (15:00)
[2022-02-14 15:21] LABS: RBC Urine None Seen (0-5/HPF); Squamous Epithelial Cell Urine 1-5 /HPF (0-5/HPF); WBC Urine 5-10/HPF (0-5/HPF)
[2022-02-14 15:22] LABS: Amorphous Sediment Urine 2+; Bacteria Urine Many (>30); Culture Indicated Urine Specimen Cultured; Mucus Urine 1+ (Negative)
[2022-02-14 15:23] LABS: Appearance Urine UA Slightly Cloudy; Color Urine UA Yellow; pH Urine UA 7.5 (4.5-8.0)
[2022-02-14 15:24] LABS: Bilirubin Urine UA 1+ (NEGATIVE); Glucose Urine UA TRACE g/dL (Negative); Ketones Urine UA TRACE (NEGATIVE); Leukocyte Esterase Urine UA 1+ (NEGATIVE); Nitrite Urine UA NEGATIVE (Negative); Occult Blood Urine UA Negative (Negative); Protein Urine UA 2+ (Negative)
--- NOTE | 2022-02-14 15:43 | P.TNLD_ITS ---
Visit Information Visit Information Date of evaluation: 02/14/22 Primary OB Provider: Hellen Moore Comments/Additional reasons for admission: 26yo at 33w3d here due to significant lower abdominal pain. The pt reports the pain began a couple days ago, and has been getting increasingly worse. It does seem to come and go, but she has not been timing it. It feels like an intense pressure. No vaginal bleeding, LOF. She is feeling her baby move regularly. [facility] Medical History 38 weeks gestation of Anxiety (~2018) Depression (~2014) False labor Menometrorrhagia (~2010) Posttraumatic stress disorder Spontaneous vaginal delivery Surgical History History of dilation and curettage (~08/2017) [place] teeth extracted (~2012) Family History Mother Hypertension Blood clotting tendency Father Family estrangement Grandfather Cancer Grandmother Congestive heart failure Grandmother Family estrangement Grandfather Family estrangement Family/Other Blood clotting tendency Social History marital status: number of children: 1 household members: family lives independently: Yes caregiver/support person: No housing: house pets and animals: Yes (1 cat, 1 dog. Aware of precautions, dog is safe w/babies. ) education level: college occupational status: employed current occupational exposures/hazards: No special stephanie needs: No travel history: over 6 months ago seatbelt use: always water heater temp set < 120 deg: Yes working smoke detector in home: Yes fire extinguisher in home: Yes carbon monox detector in home: Yes firearms in home: No do you feel safe at home: Yes Smoking Status: Former smoker Tobacco: How many years used: 2 quit status: has quit before second hand exposure: No alcohol intake: never substance use type: marijuana during the past year weight has: remained stable well-balanced diet: daily or most days daily servings fruits/ve-4 caffeine: No (Quit Red Bull w/ .) Type(s) of exercise: walking and normal ROM and activity frequency: daily Objective Labs Labs: Laboratory Results - last 24 hr 02/14/22 14:45 Urine Color Yellow Urine Appearance Slightly cloudy Urine pH 7.5 Ur Specific [place] 1.020 Urine Protein 2+ H Urine Glucose (UA) Trace H Urine Ketones Trace H Urine Occult Blood Negative Urine Nitrate Negative Urine Bilirubin 1+ H Urine Urobilinogen 4.0 H Ur Leukocyte Esterase 1+ H Urine RBC None seen Urine WBC 5-10/hpf H Ur Squamous Epith Cells 1-5 /hpf Amorphous Sediment 2+ Urine Bacteria Many (>30) H Urine Mucus 1+ H Ur Culture Indicated? Specimen cultured Evaluation Evaluation Baseline heart rate: 140 Variability: Moderate (11-25) monitor accelerations: Present Monitor Decelerations: Absent Category of Tracing: Reactive Diagnosis, Plan/Disposition Plan/Disposition Plan: 26yo at 33w3d here for r/o labor with significant lower abdominal pain. No significant contractions on monitoring, and cervical length 3.1. Low concern for labor. Discussed stretching, heat to help with discomfort. Pain improved while in L&D. F/U for regularly scheduled OB appt. OB Disposition: home
[2022-02-14 16:01] LABS: Ictotest Urine Negative (Negative)
[2022-02-14] MEDS: cefTRIAXone 2,000 MG in SODIUM CHLORIDE 0.9% 100 ML 200 MG IV (16:11)
[2022-02-14] MEDS: MORPHINE 2 MG/ML INJ IV (16:16)
--- NOTE | 2022-02-14 16:23 | DI.US.S_ITS ---
PROCEDURE: US OB LIMITED INDICATIONS: cervical length, growth OUTSIDE/PRIOR DATING DATA: Last menstrual period (LMP): 06/24/2021. LMP-based estimated date of delivery (RINA): 03/31/2022. First dating scan (date and location): 08/31/2021. Estimated date of delivery (RINA) from first dating scan: 04/11/2022. TECHNIQUE: Real-time scanning was performed of the fetus, with image documentation and biometric measurements. COMPARISON: [facility], , OB LIMITED, 11/01/2020, 10:42. FINDINGS: General: A single living intrauterine gestation is present. Presentation: Vertex. Placenta: Placental position is anterior/fundal , without previa. Amniotic fluid index: 8 cm, normal range is 5-24 cm. Single deepest vertical pocket is 4.2 cm. heart rate: 122 beats per minute. Maternal cervical canal: 3.1 cm long. Normal lower limit is 2.5 cm. biometrics: Biparietal diameter: 7.9 cm, 31 week 4 day Head circumference: 29.6 cm, 32 week 5 day Abdominal circumference: 27.2 cm, 31 week 2 day Femur length: 5.9 cm, 30 week 5 day Clinically estimated gestational age: 32 week 0 day Composite gestational age from present scan: 31 week 4 day Estimated weight and percentile: 1738 g, 19th percentile Other: Not applicable. IMPRESSION: Single live intrauterine consistent with a 31 week 4 day gestation by current ultrasound Approved by: Rip Mcneil M.D. on 02/14/2022 at 16:30
== END 2022-02-14 17:50 | disposition home or self-care (01) ==
PROVIDERS: Admitting Provider Family Medicine; PCP Family Medicine; Referring Provider Family Medicine; Visit Provider Family Medicine
DX: O47.03 False labor before 37 completed weeks of gestation, third trimester (principal); Z3A.33 33 weeks gestation of pregnancy
CPT/HCPCS: 59025; 76815; 81001; 87086; 96360; G0378; G0379; J0696; J2270

== ENCOUNTER 2022-02-23 16:54 | Outpatient (CLI) | payer OTHER, MEDICAID, SELFPAY ==
--- NOTE | 2022-02-23 17:56 | PM.OBTRLD ---
Visit Information Visit Information Date of evaluation: 02/23/22 Primary OB Provider: Hellen Moore On-call OB Provider: Aminata Sher Reason for Evaluation: Yes rule out labor Vital Signs Vital Signs: Temperature 36.4? blood pressure 115/64 heart rate 80 PFSH Medical History 38 weeks gestation of Anxiety (~2018) Depression (~2014) False labor Menometrorrhagia (~2010) Posttraumatic stress disorder Spontaneous vaginal delivery Surgical History History of dilation and curettage (~08/2017) [place] teeth extracted (~2012) Family History Mother Hypertension Blood clotting tendency Father Family estrangement Grandfather Cancer Grandmother Congestive heart failure Grandmother Family estrangement Grandfather Family estrangement Family/Other Blood clotting tendency Social History marital status: number of children: 1 household members: family lives independently: Yes caregiver/support person: No housing: house pets and animals: Yes (1 cat, 1 dog. Aware of precautions, dog is safe w/babies. ) education level: college occupational status: employed current occupational exposures/hazards: No special stephanie needs: No travel history: over 6 months ago seatbelt use: always water heater temp set < 120 deg: Yes working smoke detector in home: Yes fire extinguisher in home: Yes carbon monox detector in home: Yes firearms in home: No do you feel safe at home: Yes Smoking Status: Former smoker Tobacco: How many years used: 2 quit status: has quit before second hand exposure: No alcohol intake: never substance use type: marijuana during the past year weight has: remained stable well-balanced diet: daily or most days daily servings fruits/ve-4 caffeine: No (Quit Red Bull w/ .) Type(s) of exercise: walking and normal ROM and activity frequency: daily Evaluation Evaluation Baseline heart rate: 150 Variability: Moderate (11-25) monitor accelerations: Present Monitor Decelerations: Absent Category of Tracing: Reactive Diagnosis, Plan/Disposition Final Diagnosis (1) 34 weeks gestation of : Status: Acute Plan/Disposition Plan: 26-year-old at 34 weeks and 6 days gestation here concern for labor. Over the last hour she has felt more cramping. For the past several weeks she has had intense pelvic pain and lower abdominal pain. Denies leaking or bleeding and reports good movement. There has been some discussion of possible pubic symphysis separation as well. There were no contractions noted on the toco and NST reactive. Tylenol was recommended along with a pelvic support belt. She will follow-up in clinic as scheduled a return sooner if needed. OB Disposition: home
== END 2022-02-23 17:45 | disposition home or self-care (01) ==
LOC: OB 02-26 08:04
PROVIDERS: PCP Family Medicine; Referring Provider Family Medicine; Visit Provider Family Medicine
DX: O47.03 False labor before 37 completed weeks of gestation, third trimester (principal); Z3A.34 34 weeks gestation of pregnancy
CPT/HCPCS: 59025; G0378; G0379

== ENCOUNTER → 2022-02-26 11:28 | Outpatient (CLI) | payer OTHER, MEDICAID, SELFPAY ==
[2022-02-27 10:46] LABS: Strep Grp B PCR NEG for Grp B Strep
== END ==
PROVIDERS: PCP Family Medicine; Visit Provider Family Medicine
DX: Z36.85 Encounter for antenatal screening for Streptococcus B (principal)
CPT/HCPCS: 87653

== ENCOUNTER 2022-03-04 11:29 | Outpatient (CLI) | payer OTHER, MEDICAID, SELFPAY ==
[2022-03-04 12:45] LABS: Appearance Urine UA SL CLOUDY; Bilirubin Urine UA NEGATIVE (NEGATIVE); Glucose Urine UA NEGATIVE (Negative); Ketones Urine UA TRACE (NEGATIVE); Leukocyte Esterase Urine UA 2+ (NEGATIVE); Nitrite Urine UA NEGATIVE (Negative); Occult Blood Urine UA NEGATIVE (Negative); Protein Urine UA 2+ (Negative); Urobilinogen Urine UA 0.2 E.U./dL (0.2)
--- NOTE | 2022-03-04 12:46 | PM.OBTRLD ---
Visit Information Visit Information Date of evaluation: 03/04/22 Primary OB Provider: Hellen Moore Reason for Evaluation: Yes rule out labor Comments/Additional reasons for admission: 26 yo AA at 36+0 weeks EGA presting w/ cramping since yesterday. She denies leakage of fluid per vagina, bleeding, or significant change in vaginal discharge. Her baby remains active. She is been core exercises and were a belly band which seems to have aggravated her. Her baby remains active. PNC has been unremarkable her GBS is negative. [facility] Medical History 38 weeks gestation of Anxiety (~2018) Depression (~2014) False labor Menometrorrhagia (~2010) Posttraumatic stress disorder Spontaneous vaginal delivery Surgical History History of dilation and curettage (~08/2017) [place] teeth extracted (~2012) Family History Mother Hypertension Blood clotting tendency Father Family estrangement Grandfather Cancer Grandmother Congestive heart failure Grandmother Family estrangement Grandfather Family estrangement Family/Other Blood clotting tendency Social History marital status: number of children: 1 household members: family lives independently: Yes caregiver/support person: No housing: house pets and animals: Yes (1 cat, 1 dog. Aware of precautions, dog is safe w/babies. ) education level: college occupational status: employed current occupational exposures/hazards: No special stephanie needs: No travel history: over 6 months ago seatbelt use: always water heater temp set < 120 deg: Yes working smoke detector in home: Yes fire extinguisher in home: Yes carbon monox detector in home: Yes firearms in home: No do you feel safe at home: Yes Smoking Status: Former smoker Tobacco: How many years used: 2 quit status: has quit before second hand exposure: No alcohol intake: never substance use type: marijuana during the past year weight has: remained stable well-balanced diet: daily or most days daily servings fruits/ve-4 caffeine: No (Quit Red Bull w/ .) Type(s) of exercise: walking and normal ROM and activity frequency: daily Evaluation Evaluation Baseline heart rate: 145 Variability: Moderate (11-25) monitor accelerations: Present Monitor Decelerations: Absent Uterine Contraction Intensity: Mild Category of Tracing: Reactive Status: Category l Cervical dilation (cm): 2 Cervical effacement (%): 70 station: -3 Comments: Ynchanged from exam 02/26/2022. Diagnosis, Plan/Disposition Final Diagnosis (1) : Status: Acute Problem details: 36+0 weeks EGA (2) uterine contractions: Status: Acute Plan/Disposition Plan: Labor precautions F/U for APRIL as scheduled 03/07/2022 A copy of thiss note will be forwarded to Teresa Penaloza. OB Disposition: home
[2022-03-04 12:51] LABS: Color Urine UA Dark Yellow
[2022-03-04 12:52] LABS: RBC Urine None Seen (0-5/HPF); Squamous Epithelial Cell Urine 5-10 /HPF (0-5/HPF); WBC Urine 10-30/HPF (0-5/HPF)
[2022-03-04 12:53] LABS: Amorphous Sediment Urine 1+; Bacteria Urine Many (>30); Culture Indicated Urine Specimen Cultured; Mucus Urine 1+ (Negative)
== END 2022-03-04 12:55 | disposition home or self-care (01) ==
LOC: LABOR 12:46 → OB 03-06 15:01
PROVIDERS: Obstetrics & Gynecology; PCP Family Medicine; Referring Provider Family Medicine; Visit Provider Family Medicine
DX: O47.03 False labor before 37 completed weeks of gestation, third trimester (principal); Z3A.36 36 weeks gestation of pregnancy
CPT/HCPCS: 59025; 81001; 87086; G0378; G0379

== ENCOUNTER 2022-03-14 20:09 | Observation (INO) | payer OTHER, MEDICAID, SELFPAY ==
[2022-03-14] MEDS: LACTATED RINGERS 1,000 ML 1000 ML IV ×2 (21:30→22:46)
[2022-03-14 22:21] LABS: Hematocrit 34.2 % (36-46); Hemoglobin 11.6 g/dL (12.0-16.0); Mean Corpuscular HGB Conc 33.9 % (30-36); Mean Corpuscular Hemoglobin 29.6 PG (26-34); Mean Corpuscular Volume 87.1 fL (80-100); Platelet Count 268 X10^3/uL (150-400); Red Blood Cell Count 3.93 X10^6/uL (4.0-5.2); Red Cell Distribution Width 13.7 % (11.6-14.8); White Blood Cell Count 8.5 X10^3/uL (4.5-11.0)
[2022-03-14 22:42] LABS: COVID19 -Nasal RAPID Negative (Negative)
[2022-03-15 00:42] VITALS: BP 125/77
--- NOTE | 2022-03-15 00:42 | P.HPOB_ITS ---
OB HPI Date/Time Date of admission: 03/15/22 Date Patient Seen: 03/15/22 Time Patient Seen: 00:42 History of Present Condition Chief complaint: wants to be checked out RINA Calculator Estimated Delivery Date Method Current WG Current Estimate 03/31/22 LMP (Certain) 37w 5d Estimated Gestational Age (weeks): 37w5d : 2 Para: 1 care: good care, initiated at week # and pounds weight gain Ultrasounds: normal 1st trimester US and normal mid trimester US Preadmission Labs Last OB Lab Results: Blood Type B Positive 03/14/22 22:00 Antibody Screen Negative 03/14/22 22:00 Hematocrit 34.2 % (36-46) L 03/14/22 22:00 Hemoglobin 11.6 g/dL (12.0-16.0) L 03/14/22 22:00 Hepatitis B Surface Antigen Negative s/c (NEGATIVE) 05/17/20 14 :53 Hepatitis C Antibody Negative s/c (NEGATIVE) 05/17/20 14:53 Rubella Antibody 39.9 IU/mL (>15) 05/17/20 14:53 Varicella-Zoster IgG Antibody 1045 index (Immune >165) 05/17/20 14:53 Glucose 1 Hour 114 mg/dL (76-139) 09/07/20 16:32 Group B Streptococcus (PCR) Neg for grp b strep 02/26/22 11:28 Prior (ies) Past Pregnancies Del. Date GA/Weeks Labor Lgth Wt Sex Route Outcome Anesthesia Place Delv Breastfeed Preg Comp Name 11/13/20 39 1 7 lb 3 oz Male vaginal live - full term IH Attempted Sen Delivery Date: 11/13/20 Last Updated by: Paty Vitale R.N. Precipitous delivery (~1 hour labor) [facility] Medical History 38 weeks gestation of Anxiety (~2018) Depression (~2014) False labor Menometrorrhagia (~2010) Posttraumatic stress disorder Spontaneous vaginal delivery Surgical History History of dilation and curettage (~08/2017) [place] teeth extracted (~2012) Family History Mother Hypertension Blood clotting tendency Father Family estrangement Grandfather Cancer Grandmother Congestive heart failure Grandmother Family estrangement Grandfather Family estrangement Family/Other Blood clotting tendency Social History marital status: number of children: 1 household members: family lives independently: Yes caregiver/support person: No housing: house pets and animals: Yes (1 cat, 1 dog. Aware of precautions, dog is safe w/babies. ) education level: college occupational status: employed current occupational exposures/hazards: No special stephanie needs: No travel history: over 6 months ago seatbelt use: always water heater temp set < 120 deg: Yes working smoke detector in home: Yes fire extinguisher in home: Yes carbon monox detector in home: Yes firearms in home: No do you feel safe at home: Yes Smoking Status: Former smoker Tobacco: How many years used: 2 quit status: has quit before second hand exposure: No alcohol intake: never substance use type: marijuana during the past year weight has: remained stable well-balanced diet: daily or most days daily servings fruits/ve-4 caffeine: No (Quit Red Bull w/ .) Type(s) of exercise: walking and normal ROM and activity frequency: daily Meds Home Medications and Allergies Home Medications Medication Instructions Recorded Confirmed Type prenat.vits,rodney,[id number] 1 tab PO DAILY 03/29/20 03/15/22 History Allergies Allergy/AdvReac Type Severity Reaction Status Date / Time nut - unspecified Allergy Intermediate Hives Verified 03/15/22 00:42 metoclopramide [From Reglan] AdvReac Severe Agitated Verified 03/15/22 00:42 hydrocodone AdvReac Mild Verified 03/15/22 00:42 Objective Labs Result Diagrams: 03/14/22 22:00 Labs: Laboratory Results - last 24 hr 03/14/22 03/14/22 03/14/22 22:00 22:00 22:00 WBC 8.5 RBC 3.93 L Hgb 11.6 L Hct 34.2 L MCV 87.1 MCH 29.6 MCHC 33.9 RDW 13.7 Plt Count 268 SARS-CoV-2 (PCR) Negative Blood Type B Positive Antibody Screen Negative
[2022-03-15] MEDS: LACTATED RINGERS 1,000 ML 100 ML IV (01:00)
[2022-03-15] MEDS: MORPHINE 4 MG/ML INJ IM (02:09)
--- NOTE | 2022-03-16 13:16 | P.TNLD_ITS ---
Visit Information Visit Information Date of evaluation: 03/14/22 Primary OB Provider: Hellen Moore Comments/Additional reasons for admission: Pt is a 26yo at 37w4d here for contraction pains. The pt reports contractions began to get more intense around 3pm. She lost her mucus plug yesterday, but otherwise denies any vaginal bleeding. Contractions are now every 5 minutes. She denies any LOF. [facility] Medical History 38 weeks gestation of Anxiety (~2018) Depression (~2014) False labor Menometrorrhagia (~2010) Posttraumatic stress disorder Spontaneous vaginal delivery Surgical History History of dilation and curettage (~08/2017) [place] teeth extracted (~2012) Family History Mother Hypertension Blood clotting tendency Father Family estrangement Grandfather Cancer Grandmother Congestive heart failure Grandmother Family estrangement Grandfather Family estrangement Family/Other Blood clotting tendency Social History marital status: number of children: 1 household members: family lives independently: Yes caregiver/support person: No housing: house pets and animals: Yes (1 cat, 1 dog. Aware of precautions, dog is safe w/babies. ) education level: college occupational status: employed current occupational exposures/hazards: No special stephanie needs: No travel history: over 6 months ago seatbelt use: always water heater temp set < 120 deg: Yes working smoke detector in home: Yes fire extinguisher in home: Yes carbon monox detector in home: Yes firearms in home: No do you feel safe at home: Yes Smoking Status: Former smoker Tobacco: How many years used: 2 quit status: has quit before second hand exposure: No alcohol intake: never substance use type: marijuana during the past year weight has: remained stable well-balanced diet: daily or most days daily servings fruits/ve-4 caffeine: No (Quit Red Bull w/ .) Type(s) of exercise: walking and normal ROM and activity frequency: daily Objective Labs Result Diagrams: 03/14/22 22:00 Evaluation Evaluation Baseline heart rate: 120 Variability: Moderate (11-25) monitor accelerations: Present Monitor Decelerations: Absent Contraction Frequency (minutes): 6 Category of Tracing: Reactive Cervical dilation (cm): 4.5 Cervical effacement (%): 80 station: -3 Diagnosis, Plan/Disposition Plan/Disposition Plan: 26yo at 37w4d here for r/o labor. Pt initially cayetano every 5-8 minutes, with cervical change from 4-4.5cm. Pt eventually agreeable to morphine to allow her to sleep, and contractions completely ceased. Pt now comfortable. Stable to go home. OB Disposition: home
== END 2022-03-15 06:34 | disposition home or self-care (01) ==
LOC: LABOR 20:15
PROVIDERS: Obstetrics & Gynecology; Admitting Provider Family Medicine; PCP Family Medicine; Referring Provider Family Medicine; Visit Provider Family Medicine
DX: O47.1 False labor at or after 37 completed weeks of gestation (principal); Z3A.37 37 weeks gestation of pregnancy
CPT/HCPCS: 36415; 59025; 59050; 85027; 86850; 86900; 86901; 87635; 96372; C9803; G0378; G0379; J2270

== ENCOUNTER 2022-03-16 19:03 | Inpatient (IN) | payer OTHER, MEDICAID, SELFPAY ==
[2022-03-16] MEDS: FENT 2MCG/ML BUPIV 0.125% EPI 200 MCG/100 ML PLAST..BAG 10 MCG EPIDURAL (19:25)
[2022-03-16] MEDS: OXYTOCIN PREMIX 30 UNIT/500 ML PLAST..BAG 250 UNIT IV (20:24)
--- NOTE | 2022-03-16 20:46 | PM.OBHP.IH.1 ---
OB HPI Date/Time Date of admission: 03/16/22 Date Patient Seen: 03/16/22 Time Patient Seen: 20:46 History of Present Condition Chief complaint: Labor RINA Calculator Estimated Delivery Date Method Current WG Current Estimate 03/31/22 LMP (Certain) 37w 6d Estimated Gestational Age (weeks): 37+6 : 2 Para: 1 care: good care, initiated at week # (8), number of visits (12) and pounds weight gain (0) Dating criteria OB: LMP confirmed by 1st trimester US Ultrasounds: normal 1st trimester US and normal mid trimester US Obstetrical complications: hyperemesis Medical complications OB: none Preadmission Labs Last OB Lab Results: Blood Type B Positive 03/14/22 22:00 Antibody Screen Negative 03/14/22 22:00 Hematocrit 34.2 % (36-46) L 03/14/22 22:00 Hemoglobin 11.6 g/dL (12.0-16.0) L 03/14/22 22:00 Hepatitis B Surface Antigen Negative s/c (NEGATIVE) 05/17/20 14:53 Hepatitis C Antibody Negative s/c (NEGATIVE) 05/17/20 14:53 Rubella Antibody 39.9 IU/mL (>15) 05/17/20 14:53 Varicella-Zoster IgG Antibody 1045 index (Immune >165) 05/17/20 14:53 Glucose 1 Hour 114 mg/dL (76-139) 09/07/20 16:32 Group B Streptococcus (PCR) Neg for grp b strep 02/26/22 11:28 -: Chlamydia screen: negative, Gonorrhea screen: negative and Urine: negative -: PAP smear: Normal Genetic Screens: Quad screen: Normal External Labs -: Urine: negative Prior (ies) Past Pregnancies Del. Date GA/Weeks Labor Lgth Wt Sex Route Outcome Anesthesia Place Delv Breastfeed Preg Comp Name 11/13/20 39 1 7 lb 3 oz Male vaginal live - full term IH Attempted Sen Delivery Date: 11/13/20 Last Updated by: Paty Vitale R.N. Precipitous delivery (~1 hour labor) Evaluation Evaluation Baseline heart rate: 135 Variability: Moderate (11-25) monitor accelerations: Present Monitor Decelerations: Absent Uterine Contraction Intensity: Strong/Firm Status: Category l Dilation (cm): 10 Effacement (%): 100 station: +3 [facility] Medical History 38 weeks gestation of Anxiety (~2018) Depression (~2014) False labor Menometrorrhagia (~2010) Posttraumatic stress disorder Spontaneous vaginal delivery Surgical History History of dilation and curettage (~08/2017) [place] teeth extracted (~2012) Family History Mother Hypertension Blood clotting tendency Father Family estrangement Grandfather Cancer Grandmother Congestive heart failure Grandmother Family estrangement Grandfather Family estrangement Family/Other Blood clotting tendency Social History marital status: number of children: 1 household members: family lives independently: Yes caregiver/support person: No housing: house pets and animals: Yes (1 cat, 1 dog. Aware of precautions, dog is safe w/babies. ) education level: college occupational status: employed current occupational exposures/hazards: No special stephanie needs: No travel history: over 6 months ago seatbelt use: always water heater temp set < 120 deg: Yes working smoke detector in home: Yes fire extinguisher in home: Yes carbon monox detector in home: Yes firearms in home: No do you feel safe at home: Yes Smoking Status: Former smoker Tobacco: How many years used: 2 quit status: has quit before second hand exposure: No alcohol intake: never substance use type: marijuana during the past year weight has: remained stable well-balanced diet: daily or most days daily servings fruits/ve-4 caffeine: No (Quit Red Bull w/ .) Type(s) of exercise: walking and normal ROM and activity frequency: daily Meds Home Medications and Allergies Home Medications Medication Instructions Recorded Confirmed Type prenat.vits,rodney,[id number] 1 tab PO DAILY 03/29/20 03/15/22 History Allergies Allergy/AdvReac Type Severity Reaction Status Date / Time nut - unspecified Allergy Intermediate Hives Verified 03/15/22 00:42 metoclopramide [From Reglan] AdvReac Severe Agitated Verified 03/15/22 00:42 hydrocodone AdvReac Mild Verified 03/15/22 00:42 OB Exam Narrative Exam Narrative: Generally: Patient in moderate distress due to entering second stage of labor Extremities: 1+ edema Assessment and Plan Assessment and Plan Assessment and Plan narrative: Assessment: 26-year-old 2 para 1 at 37-,6/7 weeks gestation entering second stage of labor Somewhat comfortable with epidural Plan: Expected management to spontaneous vaginal delivery Time Spent with Patient Total time spent with greater than 50% in coordination of care (as documented) at patient's floor/unit and/or counseling patient:: 15-24 minutes
--- NOTE | 2022-03-16 20:54 | P.PCNOB_ITS ---
Labor & Delivery Delivery date: 03/16/22 Intrapartal Events: Precipitous Labor < 3 hours Cervical ripening method: none Induction method: none Delivery augmentation: rupture of membranes Delivery monitor: external FHT and external uterine Route of delivery: Episiotomy description: None L&D Laceration Description: None Quantitative Blood Loss: 100 Anesthesia Type: Epidural Complications: None Narrative: Patient complete and pushed x1. At 8:22 p.m., a live male delivered spontaneously with 1 push over an intact perineum. A nuchal cord was noted but baby delivered so quickly it was not reduced. was placed on mom's abdomen. The cord was double clamped and cut. Cord bloods were obtained. Pitocin was given in the IV fluids. The placenta delivered intact with a three- vessel cord at 8:26 p.m.. The fundus was massaged to firm. No lacerations were noted. Apgars 9 at 1 minute and 9 at 5 minutes. Epidural analgesia. . Mom and stable to recovery. [place] Baby 1: Infant gender: Male Presentation: vertex Position: Left Occiput Anterior and Right Occiput Anterior Placenta delivery description: Spontaneous Cord Vessel Description: 3 Vessels, Nuchal Cord (x1), Loose and Clamped/Cut score (1 min): 9 score (5 min): 9 weight: 5 lb 0.7 oz Plan for aftercare: Routine care
[2022-03-16 21:19] VITALS: BP 144/81
[2022-03-16 21:25] VITALS: BP 127/82; PULSE 93; RESP 16; TEMP 36.9
[2022-03-16 23:40] LABS: COVID19 - ADMIT (NP swab/PCR) Negative (Negative)
[2022-03-17] MEDS: ACETAMINOPHEN 325 MG TABLET 650 MG PO ×3 (01:48→13:57)
[2022-03-17] MEDS: IBUPROFEN 600 MG TABLET PO (01:48)
[2022-03-17 06:13] LABS: Hematocrit 35.5 % (36-46); Hemoglobin 11.6 g/dL (12.0-16.0)
[2022-03-17] MEDS: OXYCODONE IR 5 MG TABLET PO (06:19)
[2022-03-17] MEDS: KETOROLAC 30 MG/ML VIAL IV ×2 (07:53→13:57)
--- NOTE | 2022-03-17 12:50 | P.DS_ITS ---
Discharge Providers Provider Date of admission: 03/16/22 20:39 Discharge Date: 03/17/22 Primary care physician: Hellen Moore MD Consults: 03/17/22 21:01 Consult to Transitional Care Liaison Routine Comment: Discharge provider: Betty Marcus MD Summary Hospital Course Date Patient Seen: 03/17/22 Time Patient Seen: 12:50 Diagnoses: 37-,6/7 weeks gestation Precipitous labor and delivery Epidural analgesia Hospital Course: Patient is a 26-year-old 2 para 2 who presented by ambulance in active labor at 7 cm dilated. She received an epidural for pain management. She progressed quickly to complete dilation and had a precipitous delivery without complication. Her course was unremarkable. She is discharged home on day # 1. Peripartum Data Infant Delivery Method: Natural Vaginal Laceration Description: None Episiotomy description: None Procedures: Epidural analgesia Spontaneous vaginal delivery complications: none 1: Gender: Male Disposition of : home Status at Discharge Cognitive/behavioral status at discharge: oriented Functional status at discharge: independent ambulation Overall status at discharge: patient is progressing back to baseline Time Spent with Patient Time attestation: Total time spent providing and/or coordinating discharge services: Time spent: Less than 30 minutes Objective Labs Result Diagrams: 03/17/22 05:51 Labs: Laboratory Results - last 24 hr 03/16/22 03/17/22 03/17/22 19:00 05:51 05:51 Hgb 11.6 L Hct 35.5 L SARS-CoV-2 (PCR) Negative Blood Type B Positive Antibody Screen Negative Exam Narrative Exam Narrative: Generally: Patient is sitting up in bed, no acute distress Fundus: Firm at U -2 Extremities: No edema, negative Homans Discharge Plan Discharge Plan Patient Disposition: Home Provider Discharge Comment: Call with fever, chills, or bleeding vaginally more than a pad in an hour Ibuprofen 600 mg every 6 hours as needed for cramping Tylenol 650 mg every 6 hours as needed Push oral fluid Discharge orders & Medications Prescriptions: New oxycodone 5 mg tablet 5 mg PO Q4H PRN (Reason: pain) Qty: 14 0RF Continued prenat.vits,rodney,[id number] Tablet 1 tab PO DAILY Follow up/Referrals: Hellen Moore MD [Primary Care Provider] - 6 Weeks Diet/Activity/Treatments Diet: Regular Activity: Nothing in the vagina for 6 weeks Skin/Wound/Dressing Care Report to your healthcare provider any signs of infection, such as:: chills, fever, increased pain and unusual drainage Visit Report/Discharge Packet Instructions: DI for Labor and Delivery, Vaginal , DI for Prescription Opioid Use Discharge Data Primary Care Provider: Hellen Moore
== END 2022-03-17 16:48 | disposition home or self-care (01) | DRG 560 ==
PROVIDERS: Admitting Provider Obstetrics & Gynecology; PCP Family Medicine; Referring Provider Obstetrics & Gynecology; Visit Provider Obstetrics & Gynecology
DX: O62.3 Precipitate labor (principal); Z3A.37 37 weeks gestation of pregnancy; Z37.0 Single live birth; Z20.822 Contact with and (suspected) exposure to COVID-19; O47.1 False labor at or after 37 completed weeks of gestation
CPT/HCPCS: 36415; 59025; 59050; 59409; 85014; 85018; 85027; 86850; 86900; 86901; 87635; 96372; C9803; G0378; G0379; J1885; J2270; J2590

== ENCOUNTER 2022-06-06 11:09 | Emergency (ER) | payer OTHER, MEDICAID, SELFPAY ==
[2022-06-06 11:14] VITALS: BP 149/94; PULSE 80; RESP 14; TEMP 36.2; O2SAT 100
--- NOTE | 2022-06-06 12:07 | ED_ITS ---
HPI - Back Pain/Injury General Chief Complaint: Back Pain/Injury Stated Complaint: back pain T-7 can't lay down shooting down RT leg Time Seen by Provider: 06/06/22 11:59 Source: patient History of Present Illness HPI Narrative: This is a 26-year-old female presents to the emergency department due to acute onset lower back pain onset week ago after standing up too quickly. She states that she felt her back ?locked up and reports now experiencing some pain rad iating down her right lower extremity initially as well as currently left lower extremity. Denies any significant focal weakness, saddle paresthesia, fevers, urinary bowel incontinence. She states that she is been trying light stretching to help with the pain but has not experienced relief. Denies any abdominal pain, vaginal bleeding or discharge, chest pain, shortness breath, or any other concerning signs or symptoms. Denies any significant trauma to the area o only the standing up too quickly. Patient recently had a baby 2 months ago but is not breast-feeding. Related Data Home Medications Medication Instructions Recorded Confirmed prenat.vits,rodney,[id number] 1 tab PO DAILY 03/29/20 04/30/22 Previous Rx's Medication Instructions Recorded citalopram 10 mg tablet 10 mg PO DAILY #60 tabs 04/30/22 cyclobenzaprine 10 mg tablet 10 mg PO TID PRN muscle spasm #20 06/06/22 tabs norethindrone (contraceptive) 0.35 0.35 mg PO DAILY #84 tabs 07/09/22 mg tablet (Ortho Micronor) Allergies Allergy/AdvReac Type Severity Reaction Status Date / Time peanut Allergy Intermediate Hives Verified 06/06/22 11:19 metoclopramide [From Reglan] AdvReac Severe Agitated Verified 04/30/22 10:40 hydrocodone AdvReac Mild Verified 04/30/22 10:40 Review of Systems Review of Systems Narrative: GENERAL: Denies chills, fatigue, malaise, fever, sweats. HEENT: Denies sinus pain, ear pain, sore throat, difficulty swallowing, dizziness. RESPIRATORY: Denies dyspnea, cough, wheezing, hemoptysis, sputum. CARDIOVASCULAR: Denies chest pain, palpitations, orthopnea, edema, GASTROINTESTINAL: Denies nausea, vomiting, abdominal pain, diarrhea, constipation, melena. : Denies dysuria, frequency, incontinence, hematuria, urinary retention. MUSCULOSKELETAL: Reports lower back pain SKIN: Denies rash, skin lesions, or other NEUROLOGIC: Denies weakness, headache, numbness, change in speech, confusion, seizures, incoordination. PSYCHIATRIC: No concerning psychosocial issues. 12 point review of systems is negative except for those stated above Patient History Medical History 38 weeks gestation of Anxiety (~2018) Depression (~2014) False labor Menometrorrhagia (~2010) Posttraumatic stress disorder Spontaneous vaginal delivery Surgical History History of dilation and curettage (~08/2017) [place] teeth extracted (~2012) Family History Mother Hypertension Blood clotting tendency Father Family estrangement Grandfather Cancer Grandmother Congestive heart failure Grandmother Family estrangement Grandfather Family estrangement Family/Other Blood clotting tendency Social History marital status: number of children: 1 household members: family lives independently: Yes caregiver/support person: No housing: house pets and animals: Yes (1 cat, 1 dog. Aware of precautions, dog is safe w/babies. ) education level: college occupational status: employed current occupational exposures/hazards: No special stephanie needs: No travel history: over 6 months ago seatbelt use: always water heater temp set < 120 deg: Yes working smoke detector in home: Yes fire extinguisher in home: Yes carbon monox detector in home: Yes firearms in home: No do you feel safe at home: Yes Smoking Status: Never smoker Tobacco: How many years used: 2 quit status: has quit before second hand exposure: No alcohol intake: never substance use type: marijuana during the past year weight has: remained stable well-balanced diet: daily or most days daily servings fruits/ve-4 caffeine: No (Quit Red Bull w/ .) Type(s) of exercise: walking and normal ROM and activity frequency: daily Smoking Status: Never smoker alcohol intake frequency: holidays/special occasions only Substance Use Type: does not use Exam Narrative Exam Narrative: GENERAL: Well-developed patient, in mild distress. HEAD: Atraumatic. Normocephalic. EYES: Pupils equal round and reactive. Extraocular motions intact. No scleral i cterus. No injection or drainage. ENT: Nose without bleeding, purulent drainage. Throat without erythema, tonsillar hypertrophy or exudate. Airway patent. NECK: Trachea midline. Non tender EXTREMITIES: No edema or joint tenderness. BACK: No midline tenderness to palpation, bilateral paralumbar spinal tenderness to palpation. NEURO: AOx3. SKIN: No rash or erythema of visible areas Initial Vital Signs Initial Vital Signs: Vital Signs Temperature 97.1 F L 06/06/22 11:14 Pulse Rate 80 06/06/22 11:14 Respiratory Rate 14 06/06/22 11:14 Blood Pressure 149/94 H 06/06/22 11:14 Pulse Oximetry 100 06/06/22 11:14 Oxygen Delivery Method Room Air 06/06/22 11:14 Course Orders Ordered: Discontinued Medications Ketorolac Tromethamine (Ketorolac 30 Mg/Ml Vial) 15 mg IM NOW ONE Stop: 06/06/22 12:17 Last Admin: 06/06/22 12:35 Dose: 15 mg Documented By: YESICA Vital Signs Vital signs: Vital Signs - 8 hr 06/06/22 11:14 Temperature 97.1 F L Pulse Rate 80 Respiratory Rate 14 Blood Pressure 149/94 H Pulse Oximetry 100 Oxygen Delivery Method Room Air MDM - Back Pain/Injury MDM Narrative Medical decision making narrative: MDM * differential diagnosis includes but not limited to acute lumbar strain, vertebral fracture, spinal abscess, cauda equina syndrome * Prior records reviewed: Patient has not been here for similar complaints in the past * My lab interpretation: None obtained * My imgaing interpretation: None obtained * Clinical Decision Rules/Scores evaluated: None * Independent discussions with: None ED Course: This is a 26-year-old female presenting to the emergency department due to a suspected acute onset lumbar strain. Patient did not describe any symptoms concerning for any kind of spinal cord compromise including urinary or bowel incontinence, saddle paresthesia, or focal unilateral weakness. No concern for vertebral fracture as patient denies describe any kind of trauma that would cause this. We will treat with IM Toradol and a prescription for muscle relaxants. Shared Decision Making: Discussed plan with patient who is comfortable with the plan Social Considerations: None Disposition: Discharged to home Discharge Plan Departure Patient Disposition: Home Clinical Impression: Strain of lumbar region Instructions: DI for Back Pain With Sciatica, DI for Back Strain or Sprain Activity Restrictions/Additional Instructions: Thank you for coming to the [facility] Emergency Department today. As we discussed I suspect you have a lumbar strain with some inflammation causing the pain radiating down your lower extremities. I suspect that the pain should improve with the Toradol given to you today as well as muscle relaxants. Please remember the keep moving with light exercise and stretching to help ?loosen up your muscles. I hope you feel better soon. Prescriptions: New cyclobenzaprine 10 mg tablet 10 mg PO TID PRN (Reason: muscle spasm) Qty: 20 0RF No Action citalopram 10 mg tablet 10 mg PO DAILY Qty: 60 2RF Rx Instructions: Take one tab daily, after 2 weeks can increase to 2 tabs daily. norethindrone (contraceptive) [Ortho Micronor] 0.35 mg tablet 0.35 mg PO DAILY Qty: 84 3RF prenat.vits,rodney,[id number] Tablet 1 tab PO DAILY Referrals: Hellen Moore MD [Primary Care Provider] - Stand Alone Forms: Patient Portal/API
[2022-06-06] MEDS: KETOROLAC 30 MG/ML VIAL 15 MG IM (12:35)
== END 2022-06-06 12:45 | disposition home or self-care (01) ==
PROVIDERS: Emergency Provider Physician Assistant Medical; PCP Family Medicine
DX: S39.012A Strain of muscle, fascia and tendon of lower back, initial encounter (principal)
CPT/HCPCS: 96372; 99283; J1885

== ENCOUNTER 2022-12-24 07:48 | Emergency (ER) | payer OTHER, MEDICAID, SELFPAY ==
[2022-12-24 08:10] VITALS: BP 141/67; PULSE 77; RESP 18; TEMP 36.9; O2SAT 99; BMI 29.9
[2022-12-24 08:35] LABS: Strep Grp A by PCR Rapid Negative (Negative)
--- NOTE | 2022-12-24 08:51 | ED_ITS ---
HPI - General Adult General Chief complaint: Upper Respiratory Symptoms Stated complaint: thinks she has strep T-2 Time Seen by Provider: 12/24/22 08:47 Source: patient Mode of arrival: Family Vehicle History of Present Illness HPI narrative: 27-year-old female who is here for evaluation of approximately 2 days of a sore throat. She also states it is now causing some right ear pain. No coughing. Does have some neck discomfort. No fevers. Has been doing some topical throat lozenges. No chest congestion. . No fevers. Related Data Home Medications Medication Instructions Recorded Confirmed prenat.vits,rodney,[id number] 1 tab PO DAILY 03/29/20 04/30/22 Previous Rx's Medication Instructions Recorded citalopram 10 mg tablet 10 mg PO DAILY #60 tabs 04/30/22 cyclobenzaprine 10 mg tablet 10 mg PO TID PRN muscle spasm #20 06/06/22 tabs norethindrone (contraceptive) 0.35 0.35 mg PO DAILY #84 tabs 07/09/22 mg tablet (Ortho Micronor) Allergies Allergy/AdvReac Type Severity Reaction Status Date / Time peanut Allergy Intermediate Hives Verified 12/24/22 08:15 metoclopramide [From Reglan] AdvReac Severe Agitated Verified 12/24/22 08:15 hydrocodone AdvReac Mild Verified 12/24/22 08:15 Review of Systems ENT Ears, Nose, Mouth, and Throat: Reports system reviewed and no additional complaints, except as documented Cardiovascular Cardiovascular: Reports system reviewed and no additional complaints, except as documented Musculoskeletal Musculoskeletal: Reports system reviewed and no additional complaints, except as documented Integumentary/Breasts Skin/Breast: Reports system reviewed and no additional complaints, except as documented Neurologic Neurologic: Reports system reviewed and no additional complaints, except as documented Hematologic/Lymphatic On Anticoagulants: No Patient History Medical History 38 weeks gestation of Anxiety (~2018) Depression (~2014) False labor Menometrorrhagia (~2010) Posttraumatic stress disorder Spontaneous vaginal delivery Surgical History History of dilation and curettage (~08/2017) [place] teeth extracted (~2012) Family History Mother Hypertension Blood clotting tendency Father Family estrangement Grandfather Cancer Grandmother Congestive heart failure Grandmother Family estrangement Grandfather Family estrangement Family/Other Blood clotting tendency Social History marital status: number of children: 1 household members: family lives independently: Yes caregiver/support person: No housing: house pets and animals: Yes (1 cat, 1 dog. Aware of precautions, dog is safe w/babies. ) education level: college occupational status: employed current occupational exposures/hazards: No special stephanie needs: No travel history: over 6 months ago seatbelt use: always water heater temp set < 120 deg: Yes working smoke detector in home: Yes fire extinguisher in home: Yes carbon monox detector in home: Yes firearms in home: No do you feel safe at home: Yes Smoking Status: Never smoker Tobacco: How many years used: 2 quit status: has quit before second hand exposure: No alcohol intake: never substance use type: marijuana during the past year weight has: remained stable well-balanced diet: daily or most days daily servings fruits/ve-4 caffeine: No (Quit Red Bull w/ .) Type(s) of exercise: walking and normal ROM and activity frequency: daily Smoking Status: Never smoker alcohol intake frequency: holidays/special occasions only Substance Use Type: does not use Exam Initial Vital Signs Initial Vital Signs: Vital Signs Temperature 98.4 F 12/24/22 08:10 Pulse Rate 77 12/24/22 08:10 Respiratory Rate 18 12/24/22 08:10 Blood Pressure 141/67 H 12/24/22 08:10 Pulse Oximetry 99 12/24/22 08:10 Oxygen Delivery Method Room Air 12/24/22 08:10 HENMT Head: normal to inspection and normocephalic Mouth: oral mucosae normal Teeth and gingiva: dentition normal Throat: posterior oropharynx normal Neck Neck: normal visual inspection Lymphatic: No lymphadenopathy Skin General: no rashes or lesions noted Course Orders Ordered: ED Orders 12/24/22 08:15 Strep Grp A by PCR Rapid Stat Throat Culture Stat Vital Signs Vital signs: Vital Signs - 8 hr 12/24/22 08:10 Temperature 98.4 F Pulse Rate 77 Respiratory Rate 18 Blood Pressure 141/67 H Pulse Oximetry 99 Oxygen Delivery Method Room Air Medical Decision Making Lab Data Lab results reviewed: Yes I reviewed the patient's lab results. Labs: Lab Results 12/24/22 Range/Units 08:15 Group A Strep (PCR) Negative (Negative) MDM Narrative Medical decision making narrative: No respiratory distress. Rapid strep is negative. Throat culture is pending. No indication for antibiotics. We did discuss continued use of throat lozenges. Patient was given return precautions. She expressed understanding and agreement. Discharge Plan Departure Patient Disposition: Home Clinical Impression: Pharyngitis Instructions: Sore Throat Activity Restrictions/Additional Instructions: Recommend that you continue with the topical sprays and throat lozenges like we discussed. You can also consider taking an antihistamine such as Zyrtec or Cla ritin. There is a throat culture pending and we will contact you if this is positive and we need to start on antibiotics. Prescriptions: No Action citalopram 10 mg tablet 10 mg PO DAILY Qty: 60 2RF Rx Instructions: Take one tab daily, after 2 weeks can increase to 2 tabs daily. norethindrone (contraceptive) [Ortho Micronor] 0.35 mg tablet 0.35 mg PO DAILY Qty: 84 3RF prenat.vits,rodney,[id number] Tablet 1 tab PO DAILY cyclobenzaprine 10 mg tablet 10 mg PO TID PRN (Reason: muscle spasm) Qty: 20 0RF Referrals: Hellen Moore MD [Primary Care Provider] - Stand Alone Forms: Patient Portal/API
[2022-12-24] MEDS: dexAMETHasone 4 MG TABLET 12 MG PO (09:26)
[2022-12-24] MEDS: KETOROLAC 30 MG/ML VIAL IM (09:27)
--- NOTE | 2022-12-24 09:57 | PC.NURSE ---
reports that her back pain got worse. medicated patient. pt did not want to wait for discharge vital signs
== END 2022-12-24 09:45 | disposition home or self-care (01) ==
PROVIDERS: Emergency Provider Emergency Medicine; PCP Family Medicine
DX: J02.9 Acute pharyngitis, unspecified (principal)
CPT/HCPCS: 87070; 87651; 96372; 99283; J1885

== ENCOUNTER 2023-01-16 10:16 | Emergency (ER) | payer OTHER, MEDICAID, SELFPAY ==
[2023-01-16 10:20] VITALS: BP 139/89; PULSE 86; RESP 18; TEMP 36.8; O2SAT 100; BMI 29.9
--- NOTE | 2023-01-16 11:09 | ED.NAVMDI ---
HPI - Nausea/Vomiting/Diarrhea <Amalia Britt PA-C - Last Filed: 01/16/23 11:14> General Chief complaint: Nausea/Vomiting/Diarrhea Stated complaint: not feeling well joshua gage boobs hurting Time Seen by Provider: 01/16/23 11:01 Source: patient Mode of arrival: Ambulatory History of Present Illness HPI Narrative: Patient is a 27-year-old female who presents with breast soreness, nausea and generally feeling tired. She reports this is exactly how she felt last time she was even though the urine test was negative. Reports currently being on control, which was also true of the last 2 times she became . She endorses nausea without vomiting, bilateral breast soreness, and fatigue. She reports no fever, no dysuria, no vaginal bleeding or back pain. Her last menses was on December 12. She normally has very regular periods so this is abnormal for her. She reports taking her control as ordered. Related Data Home Medications Medication Instructions Recorded Confirmed prenat.vits,rodney,[id number] 1 tab PO DAILY 03/29/20 04/30/22 Previous Rx's Medication Instructions Recorded citalopram 10 mg tablet 10 mg PO DAILY #60 tabs 04/30/22 cyclobenzaprine 10 mg tablet 10 mg PO TID PRN muscle spasm #20 06/06/22 tabs norethindrone (contraceptive) 0.35 0.35 mg PO DAILY #84 tabs 07/09/22 mg tablet (Ortho Micronor) cyclobenzaprine 10 mg tablet 10 mg PO TID PRN muscle spasm #20 12/24/22 tabs Allergies Allergy/AdvReac Type Severity Reaction Status Date / Time peanut Allergy Intermediate Hives Verified 12/24/22 08:15 metoclopramide [From Reglan] AdvReac Severe Agitated Verified 12/24/22 08:15 hydrocodone AdvReac Mild Verified 12/24/22 08:15 Review of Systems <Amalia Britt PA-C - Last Filed: 01/16/23 11:14> Review of Systems ROS Unobtainable: All systems reviewed & are unremarkable except as noted in HPI and below Patient History <Amalia Britt PA-C - Last Filed: 01/16/23 11:14> Medical History Posttraumatic stress disorder Spontaneous vaginal delivery 38 weeks gestation of False labor Depression (~2014) Anxiety (~2018) Menometrorrhagia (~2010) Surgical History History of dilation and curettage (~08/2017) [place] teeth extracted (~2012) Family History Mother Hypertension Blood clotting tendency Father Family estrangement Grandfather Cancer Grandmother Congestive heart failure Grandmother Family estrangement Grandfather Family estrangement Family/Other Blood clotting tendency Social History marital status: number of children: 1 household members: family lives independently: Yes caregiver/support person: No housing: house pets and animals: Yes (1 cat, 1 dog. Aware of precautions, dog is safe w/babies. ) education level: college occupational status: employed current occupational exposures/hazards: No special stephanie needs: No travel history: over 6 months ago seatbelt use: always water heater temp set < 120 deg: Yes working smoke detector in home: Yes fire extinguisher in home: Yes carbon monox detector in home: Yes firearms in home: No do you feel safe at home: Yes Smoking Status: Never smoker Tobacco: How many years used: 2 quit status: has quit before second hand exposure: No alcohol intake: never substance use type: marijuana during the past year weight has: remained stable well-balanced diet: daily or most days daily servings fruits/ve-4 caffeine: No (Quit Red Bull w/ .) Type(s) of exercise: walking and normal ROM and activity frequency: daily Smoking Status: Never smoker alcohol intake frequency: holidays/special occasions only Substance Use Type: does not use Exam <Amalia Britt PA-C - Last Filed: 01/16/23 11:14> Narrative Exam Narrative: GENERAL: 27 year old patient appears stated age. Well-developed patient, in no distress. NEURO: AOx3. HEAD: Atraumatic. Normocephalic. EYES: Pupils equal round and reactive. Extraocular motions intact. No scleral icterus. No injection or drainage. ENT: Nose without bleeding or purulent drainage. Airway patent. RESPIRATORY: No distress, no increased work of breathing. EXTREMITIES: No edema or joint tenderness. SKIN: No rash or erythema of visible areas Initial Vital Signs Initial Vital Signs: Vital Signs Temperature 98.3 F 01/16/23 10:20 Pulse Rate 86 01/16/23 10:20 Respiratory Rate 18 01/16/23 10:20 Blood Pressure 139/89 01/16/23 10:20 Pulse Oximetry 100 01/16/23 10:20 Oxygen Delivery Method Room Air 01/16/23 10:20 <Jovan Goff MD - Last Filed: 01/16/23 17:59> Initial Vital Signs Initial Vital Signs: Vital Signs Temperature 98.3 F 01/16/23 10:20 Pulse Rate 86 01/16/23 10:20 Respiratory Rate 18 01/16/23 10:20 Blood Pressure 139/89 01/16/23 10:20 Pulse Oximetry 100 01/16/23 10:20 Oxygen Delivery Method Room Air 01/16/23 10:20 Course <Amalia Britt PA-C - Last Filed: 01/16/23 11:14> Orders Ordered: ED Orders 01/16/23 11:15 Beta HCG, Quant [HCG Quantitative /Beta subunit] Stat Vital Signs Vital signs: Vital Signs - 8 hr 01/16/23 10:20 Temperature 98.3 F Pulse Rate 86 Respiratory Rate 18 Blood Pressure 139/89 Pulse Oximetry 100 Oxygen Delivery Method Room Air <Jovan Goff MD - Last Filed: 01/16/23 17:59> Orders Ordered: ED Orders 01/16/23 11:15 Beta HCG, Quant [HCG Quantitative /Beta subunit] Stat Vital Signs Vital signs: Vital Signs - 8 hr 01/16/23 10:20 Temperature 98.3 F Pulse Rate 86 Respiratory Rate 18 Blood Pressure 139/89 Pulse Oximetry 100 Oxygen Delivery Method Room Air MDM - Nausea/Vomiting/Diarrhea <Amalia Britt PA-C - Last Filed: 01/16/23 11:14> Lab Data Labs: Lab Results 01/16/23 Range/Units 11:15 HCG, Quant < 2.4 mIU/mL Point of Care Testing Test Results Negative Urine Dip Bedside Urine Glucose Negative Bedside Urine Bilirubin - Negative Bedside Urine Ketone - Negative Urine Specific [place] 1.015 Bedside Urine Occult Blood - Negative Bedside Urine pH 7 Bedside Urine Protein - Negative Bedside Urine Urobilinogen - Negative Bedside Urine Nitrite - Negative Bedside Urine Leukocytes - Negative Esterase MDM Narrative Medical decision making narrative: Multiple etiologies for patient's symptoms considered including, but not limited to: The late or miss. , early , viral infection. The point of care UA and test are negative for infection and . The patient describes of the last 2 pregnancies she is had negative urine test for the 1st 2 months until she tested positive. She really wants to know via blood test whether or not this is a . Her vital signs are normal and she is well-appearing. We will check a serum hCG and refer her to establish OB care at 8:10 a.m. weeks if positive. Patient's symptoms improved over duration of stay with above-stated therapies. Findings and discharge diagnosis discussed with patient/family followed by verbalization of understanding Return precautions discussed with patient/family whom verbalize understanding of diagnosis and plan <Jovan Goff MD - Last Filed: 01/16/23 17:59> Lab Data Labs: Lab Results 01/16/23 Range/Units 11:15 HCG, Quant < 2.4 mIU/mL Point of Care Testing Test Results Negative Urine Dip Bedside Urine Glucose Negative Bedside Urine Bilirubin - Negative Bedside Urine Ketone - Negative Urine Specific [place] 1.015 Bedside Urine Occult Blood - Negative Bedside Urine pH 7 Bedside Urine Protein - Negative Bedside Urine Urobilinogen - Negative Bedside Urine Nitrite - Negative Bedside Urine Leukocytes - Negative Esterase Discharge Plan Departure Patient Disposition: Home Clinical Impression: Missed period Instructions: In-Home Tests: Your Questions Answered Activity Restrictions/Additional Instructions: *You have been diagnosed with a missed period. Your blood test is pending. I will notify you of the results. If the test is positive, I suggest making an appointment with an OB provider around 8-10 weeks of to establish care. In the meantime you should start taking a vitamin. If you have questions about control or changing your control, you can contact your primary care or an OBGYN provider to discuss. *What to do: *Please continue to take your regular medications as directed. [ ] New medication prescriptions sent to your pharmacy: [ ] [ ] New medication written as a paper prescription [x] No new medications given *Please follow up with your primary care provider in 2-3 days, call for an appointment. Let them know you were seen in the Emergency Department and that we ask that you be seen in follow up. We will electronically transmit a record of today's note if your PCP is in our system *If you do not have a primary care provider please contact the [facility] Resource line at [phone]. They will ask some questions about your medical history and help get you set up with a doctor in the community. *Return to Emergency Department if you should have any new, worsening or concerning symptoms, such as [fever greater than 101 F, shaking chills, worsening pain, persistent vomiting or other concerning symptoms]. Prescriptions: No Action citalopram 10 mg tablet 10 mg PO DAILY Qty: 60 2RF Rx Instructions: Take one tab daily, after 2 weeks can increase to 2 tabs daily. norethindrone (contraceptive) [Ortho Micronor] 0.35 mg tablet 0.35 mg PO DAILY Qty: 84 3RF prenat.vits,rodney,[id number] Tablet 1 tab PO DAILY cyclobenzaprine 10 mg tablet 10 mg PO TID PRN (Reason: muscle spasm) Qty: 20 0RF cyclobenzaprine 10 mg tablet 10 mg PO TID PRN (Reason: muscle spasm) Qty: 20 0RF Referrals: Hellen Moore MD [Primary Care Provider] - Stand Alone Forms: Patient Portal/API ED Sign-out <Jovan Goff MD - Last Filed: 01/16/23 17:59> [facility]: I was immediately available in the department for consultation. ?This documentation has been reviewed and I agree with assessment and plan. Supervised by Jovan Goff MD
[2023-01-16 11:50] LABS: HCG Quantitative /Beta subunit < 2.4 mIU/mL
== END 2023-01-16 11:20 | disposition home or self-care (01) ==
PROVIDERS: Emergency Provider Physician Assistant; PCP Family Medicine
DX: N91.2 Amenorrhea, unspecified (principal)
CPT/HCPCS: 36415; 81003; 81025; 84702; 99282; 99283

== ENCOUNTER → 2023-03-06 10:49 | Outpatient (CLI) | payer OTHER, MEDICAID, SELFPAY | PROVIDERS: PCP Family Medicine; Visit Provider Family Medicine | DX: N89.8 Other specified noninflammatory disorders of vagina (principal) | CPT/HCPCS: 87210 ==

== ENCOUNTER → 2023-03-06 11:09 | Outpatient (CLI) | payer OTHER, MEDICAID, SELFPAY ==
[2023-03-06 12:19] LABS: Prolactin 25.7 ng/mL (3.0-18.6)
[2023-03-06 12:20] LABS: Follicle Stimulating Hormone 4.02 mIU/mL
[2023-03-06 12:34] LABS: TSH w/ Reflex to FT4 1.34 uIU/mL (0.47-4.68)
[2023-03-06 12:36] LABS: Estradiol, Total 214.4 pg/mL
[2023-03-06 14:26] LABS: Urine N gonorrhoeae NOT DETECTED
[2023-03-06 14:27] LABS: Urine Chlamydia NOT DETECTED
[2023-03-07 09:15] LABS: Pregnancy Test Serum,Qual Negative (Negative)
== END ==
PROVIDERS: PCP Family Medicine; Referring Provider Family Medicine; Visit Provider Family Medicine
DX: N91.2 Amenorrhea, unspecified (principal); N92.0 Excessive and frequent menstruation with regular cycle
CPT/HCPCS: 36415; 82670; 83001; 84146; 84443; 84703; 87210; 87491; 87591